=== PATIENT | female | born 2000 | race Caucasian/White ===

== ENCOUNTER → 2021-05-10 11:56 | Outpatient (CLI) | payer SELFPAY ==
--- NOTE | 2021-05-10 12:03 | US_ITS ---
STUDY: FIRST TRIMESTER OBSTETRICAL ULTRASOUND REASON FOR EXAM: Female, 20 years old viability LMP: 03/05/2021 TECHNIQUE: Transabdominal and Transvaginal TECHNICAL QUALITY: Adequate. PRIOR ULTRASOUND: None. FINDINGS: There is visualization of a single gestational sac in a normal intrauterine position. The mean sac diameter (MSD) measures 3.47 cm, indicating an estimated gestational age (EGA) of 8 weeks, 4 days. The gestational sac shape is within normal limits. There is a visualized yolk sac. The yolk sac measures 4 mm. The placenta is non-visualized. There is visualization of a live embryo. The crown-rump length (CRL) measures 2.17 cm, indicating an estimated gestational age (EGA) of 8 weeks, 4 days. There is demonstrated cardiac activity with a heart rate of 161 bpm. The estimated gestation age (EGA) by LMP is 9 weeks, 3 days. The estimated date of delivery (MARIAM) by LMP is 12/10/2021. The estimated gestation age (EGA) by US is 8 weeks, 4 days. The estimated date of delivery (MARIAM) by US is 12/16/2021. The uterus measures 9.7 cm x 6.9 cm x 6.3. There is no demonstrated uterine fibroid. The cervix is closed. The right ovary measures 4.2 cm x 2.5 cm x 1.5 cm. There is no right ovarian cyst. There is no visualized right adnexal mass or complex lesion. The left ovary measures 2.9 cm x 2.3 cm x 2.2 cm. There is a 1.2 cm x 1.1 cm x 1 cm left adnexal cyst. There is no visualized left adnexal mass or complex lesion. There is no fluid in the cul de sac. US/Transvaginal w/Preg US IMPRESSION: Single live intrauterine gestation with a mean gestational age of 8 weeks and 4 days. Small left adnexal cyst. Electronically Signed: David Jaime MD at 15:19 EDT , Service support ,
== END ==
PROVIDERS: PCP Physician Assistant; Referring Provider Family Medicine; Visit Provider Obstetrics & Gynecology
DX: Z34.90 Encounter for supervision of normal pregnancy, unspecified, unspecified trimester (principal)
CPT/HCPCS: 76817

== ENCOUNTER → 2021-05-17 11:44 | Outpatient (CLI) | payer SELFPAY ==
[2021-05-17 12:10] LABS: Absolute Lymphocyte Count 1.78 X10^3/uL (0.83-4.51); Absolute Neutrophil Count 5.8 X10^3/uL (2.0-7.7); Basophil# 0.05 X10^3/uL; Basophil% 0.6 % (0-1); Eosinophil# 0.31 X10^3/uL; Eosinophils% 3.7 % (0-5); Hematocrit 38.6 % (37-47); Hemoglobin 13.2 g/dL (12.0-15.0); Lymphocyte # 1.78 X10^3/ul (0.83-4.51); Mean Corp Hgb Conc 34.2 g/dL (32-36); Mean Corpuscular Hgb 30.1 pg (27.0-32.0); Mean Corpuscular Volume 87.9 fL (81-99); Mean Platelet Vol. 9.4 fl (6.2-12.0); Monocyte# 0.48 X10^3/uL; Monocyte% 5.7 % (0-10); NRBC Flagged by Analyzer 0 % (0-5); Neutrophil # 5.83 X10^3/uL (2.7-7.7); Neutrophil % 68.5 % (47-70); Platelet Count 250 K/mm3 (150-450); RBC Distribution Width CV 12.1 % (11.6-14.6); RBC Distribution Width SD 38.9 fl (35.1-43.9); Red Blood Count 4.39 M/mm3 (4.2-5.4); White Blood Count 8.5 K/mm3 (4.4-11.0)
[2021-05-17 12:54] LABS: Amphetamine Urine VISTA NEGATIVE (<1000 ng/mL); Barbiturate Urine VISTA NEGATIVE (< 200 ng/mL); Benzodiazepine Urine VISTA NEGATIVE (< 200 ng/mL); Cocaine Urine VISTA NEGATIVE (< 300 ng/mL); Ecstacy Urine VISTA NEGATIVE (< 500 ng/mL); Methadone Urine VISTA NEGATIVE (< 300 ng/mL); PCP Urine VISTA NEGATIVE (< 25 ng/mL); THC Urine VISTA NEGATIVE (< 50 ng/mL); Vista UDS pH Range 6
[2021-05-17 13:16] LABS: HIV - WCH Non-Reactive (Nonreactive); Hepatitis B Surface Antigen Non-Reactive (Nonreactive); Hepatitis C Antibody Non-Reactive (Nonreactive); Rubella IgG Reactive (Nonreactive); Syphilis Antibodies Non-reactive
[2021-05-19 03:07] LABS: Chlamydia By Nucleic Acid AMP Negative (Negative)
[2021-05-19 13:15] LABS: Gonococcus By Nucleic Acid AMP Negative (Negative)
== END ==
PROVIDERS: PCP Physician Assistant; Referring Provider Obstetrics & Gynecology; Visit Provider Obstetrics & Gynecology
DX: Z34.90 Encounter for supervision of normal pregnancy, unspecified, unspecified trimester (principal)
CPT/HCPCS: 36415; 80307; 85025; 86703; 86762; 86780; 86803; 86850; 86900; 86901; 87086; 87088; 87340; 87491; 87591

== ENCOUNTER → 2021-07-23 07:15 | Outpatient (CLI) | payer SELFPAY ==
--- NOTE | 2021-07-23 07:23 | US_ITS ---
STUDY: SECOND AND THIRD TRIMESTER OBSTETRICAL ULTRASOUND REASON FOR EXAM: Female, 20 years old, evaluate anatomy LMP: 03/05/2021 TECHNIQUE: Transabdominal and Transvaginal TECHNICAL QUALITY: Adequate. PRIOR ULTRASOUND: None. FINDINGS: There is a single intrauterine fetus. The fetus is in a cephalic presentation. There is demonstrated cardiac activity with a heart rate of 152 bpm. There is a normal amniotic fluid volume. The largest amniotic fluid pocket measures 5.7 cm. The amniotic fluid index is not measured. The placenta is posterior in location and is not low lying. There are Grade 1 placental changes. The cervix measures 3.9 cm in length. The adnexal regions are not visualized. BIOMETRY: BPD: 4.4 cm: 19 weeks, 1 days HC: 16.4 cm: 19 weeks, 1 days AC: 14.9 cm: 20 weeks, 1 days FL: 3 cm: 19 weeks, 1 days CI: 77.89% FL/BPD: 68.1% FL/HC: 18.2% FL/AC: 20.1% HC/AC: 1.1 age by current US: 19 weeks, 2 days. MARIAM by current US: 12/15/2021. Estimated weight: 308 grams, +/- 46 grams. age by prior US: 19 weeks, 1 days. MARIAM by prior US: 12/16/2021. Age by LMP: 19 weeks, 1 days. MARIAM by LMP: 12/16/2021. ANATOMY: Gender: Male Cranium: Normal lateral ventricles. Normal choroid plexus. Normal cerebellum. Normal cisterna magna. Normal face, nose and lips. Chest: Normal 4-chamber heart. Abdomen/Pelvis: Normal diaphragm. Normal stomach. Normal abdominal wall. Eccentric cord insertion approximately 3 cm from the placental margin. Normal 3 vessel cord. Normal kidneys. Normal bladder. Spine: Normal cervical spine. Normal thoracic spine. Normal lumbar spine. Normal sacrum. Extremities: Normal bilateral upper extremities. Normal bilateral lower extremities. US/Transvaginal w/Preg US IMPRESSION: 1. Single live intrauterine fetus in cephalic presentation with an estimated gestational age of 19 weeks and 2 days. MARIAM is 12/15/2021. 2. Eccentric cord insertion but not marginal. Follow-up exam might be performed. Electronically Signed: Srinivas Gomez, at 9:01 EDT Tel , Service support ,
--- NOTE | 2021-07-23 07:23 | US_ITS ---
STUDY: SECOND AND THIRD TRIMESTER OBSTETRICAL ULTRASOUND REASON FOR EXAM: Female, 20 years old, evaluate anatomy LMP: 03/05/2021 TECHNIQUE: Transabdominal and Transvaginal TECHNICAL QUALITY: Adequate. PRIOR ULTRASOUND: None. FINDINGS: There is a single intrauterine fetus. The fetus is in a cephalic presentation. There is demonstrated cardiac activity with a heart rate of 152 bpm. There is a normal amniotic fluid volume. The largest amniotic fluid pocket measures 5.7 cm. The amniotic fluid index is not measured. The placenta is posterior in location and is not low lying. There are Grade 1 placental changes. The cervix measures 3.9 cm in length. The adnexal regions are not visualized. BIOMETRY: BPD: 4.4 cm: 19 weeks, 1 days HC: 16.4 cm: 19 weeks, 1 days AC: 14.9 cm: 20 weeks, 1 days FL: 3 cm: 19 weeks, 1 days CI: 77.89% FL/BPD: 68.1% FL/HC: 18.2% FL/AC: 20.1% HC/AC: 1.1 age by current US: 19 weeks, 2 days. MARIAM by current US: 12/15/2021. Estimated weight: 308 grams, +/- 46 grams. age by prior US: 19 weeks, 1 days. MARIAM by prior US: 12/16/2021. Age by LMP: 19 weeks, 1 days. MARIAM by LMP: 12/16/2021. ANATOMY: Gender: Male Cranium: Normal lateral ventricles. Normal choroid plexus. Normal cerebellum. Normal cisterna magna. Normal face, nose and lips. Chest: Normal 4-chamber heart. Abdomen/Pelvis: Normal diaphragm. Normal stomach. Normal abdominal wall. Eccentric cord insertion approximately 3 cm from the placental margin. Normal 3 vessel cord. Normal kidneys. Normal bladder. Spine: Normal cervical spine. Normal thoracic spine. Normal lumbar spine. Normal sacrum. Extremities: Normal bilateral upper extremities. Normal bilateral lower extremities. US/OB Anatomy Scan IMPRESSION: 1. Single live intrauterine fetus in cephalic presentation with an estimated gestational age of 19 weeks and 2 days. MARIAM is 12/15/2021. 2. Eccentric cord insertion but not marginal. Follow-up exam might be performed. Electronically Signed: Srinivas Gomez MD at 9:01 EDT Tel , Service support ,
== END ==
PROVIDERS: PCP Physician Assistant; Referring Provider Obstetrics & Gynecology; Visit Provider Obstetrics & Gynecology
DX: Z34.82 Encounter for supervision of other normal pregnancy, second trimester (principal)
CPT/HCPCS: 76805; 76817

== ENCOUNTER → 2021-08-04 13:47 | Outpatient (CLI) | payer SELFPAY ==
[2021-08-04 14:14] LABS: Absolute Lymphocyte Count 1.85 X10^3/uL (0.83-4.51); Absolute Neutrophil Count 7.4 X10^3/uL (2.0-7.7); Basophil# 0.05 X10^3/uL; Basophil% 0.5 % (0-1); Eosinophil# 0.36 X10^3/uL; Eosinophils% 3.4 % (0-5); Hematocrit 34.8 % (37-47); Hemoglobin 11.7 g/dL (12.0-15.0); Lymphocyte # 1.85 X10^3/ul (0.83-4.51); Lymphocyte % 17.6 % (19-41); Mean Corp Hgb Conc 33.6 g/dL (32-36); Mean Corpuscular Hgb 30.5 pg (27.0-32.0); Mean Corpuscular Volume 90.6 fL (81-99); Mean Platelet Vol. 9.4 fl (6.2-12.0); Monocyte% 6.7 % (0-10); NRBC Flagged by Analyzer 0 % (0-5); Neutrophil # 7.43 X10^3/uL (2.7-7.7); Neutrophil % 70.8 % (47-70); Platelet Count 268 K/mm3 (150-450); RBC Distribution Width CV 13.2 % (11.6-14.6); Red Blood Count 3.84 M/mm3 (4.2-5.4); White Blood Count 10.5 K/mm3 (4.4-11.0)
[2021-08-04 14:28] LABS: ALB/GLOB Ratio 0.9 RATIO (0.9-2.4); AST(SGOT) 17 U/L (15-37); Alanine Aminotransfer ALT/SGPT 24 U/L (13-56); Albumin, Serum 3.3 g/dL (3.2-5.0); Alkaline Phosphatase 76 U/L (45-117); Anion Gap 4 (5-15); BUN 4 mg/dL (7-18); Calcium,Total 9.4 mg/dL (8.5-10.1); Chloride 107 mmol/L (98-107); Creatinine, Serum 0.57 mg/dL (0.55-1.02); EST Glomerular Filtration Rate 141 mL/min (>60); Est Glom Filt Rate - Afr Amer 170 mL/min (>60); Globulin 3.8 g/dL (2.2-4.2); Glucose 83 mg/dL (74-106); Potassium 4.1 mmol/L (3.5-5.1); Protein, Total 7.1 g/dL (6.4-8.2); Sodium Level 138 mmol/L (136-145)
== END ==
PROVIDERS: PCP Physician Assistant; Referring Provider Obstetrics & Gynecology; Visit Provider Obstetrics & Gynecology
DX: O26.899 Other specified pregnancy related conditions, unspecified trimester (principal); R10.11 Right upper quadrant pain; Z3A.00 Weeks of gestation of pregnancy not specified
CPT/HCPCS: 36415; 80053; 85025

== ENCOUNTER → 2021-08-09 10:25 | Outpatient (CLI) | payer SELFPAY ==
--- NOTE | 2021-08-09 10:27 | US_ITS ---
STUDY: ABDOMINAL ULTRASOUND - RIGHT UPPER QUADRANT REASON FOR VISIT: Female, 20 years old RUQ abdominal pain TECHNIQUE: Ultrasound evaluation of the right upper quadrant was performed with real-time and static seymour-scale imaging. TECHNICAL QUALITY: Adequate. COMPARISON: None. FINDINGS: Liver: The liver measures 17.5 cm. There is normal echogenicity of the liver. The bile ducts are within normal limits. There is hepatic color flow. The direction of portal flow is hepatopetal. There is no demonstrated mass lesion. Gallbladder: Normal distended gallbladder. The gallbladder wall measures 2.3 mm. There is a negative sonographic House''s sign. There is no pericholecystic fluid. There are no gallstones. Common Bile Duct (C.B.D.): The common bile duct measures 3.6 mm. Pancreas: Normal size of the head, body and tail of the pancreas. There is normal echogenicity of the pancreas. There is no demonstrated pancreatic mass or cyst. Right Kidney: Normal size of the right kidney. The right kidney measures 11.7 x 5.2 x 4.4 cm. Cortex right kidney within normal limits 1.4 cm There is no demonstrated renal mass or cyst. There is no right hydronephrosis. US/Gallbladder IMPRESSION: Normal right upper quadrant ultrasound examination. Electronically Signed: Oziel Baron MD at 14:19 EST Tel , Service support ,
== END ==
PROVIDERS: PCP Physician Assistant; Referring Provider Obstetrics & Gynecology; Visit Provider Obstetrics & Gynecology
DX: O26.899 Other specified pregnancy related conditions, unspecified trimester (principal); R10.11 Right upper quadrant pain
CPT/HCPCS: 76705

== ENCOUNTER → 2021-09-07 07:32 | Outpatient (CLI) | payer SELFPAY ==
[2021-09-07 07:52] LABS: Absolute Lymphocyte Count 1.63 X10^3/uL (0.83-4.51); Absolute Neutrophil Count 6.7 X10^3/uL (2.0-7.7); Basophil# 0.06 X10^3/uL; Basophil% 0.6 % (0-1); Eosinophil# 0.29 X10^3/uL; Eosinophils% 3.1 % (0-5); Hematocrit 34.3 % (37-47); Hemoglobin 11.5 g/dL (12.0-15.0); Lymphocyte # 1.63 X10^3/ul (0.83-4.51); Lymphocyte % 17.2 % (19-41); Mean Corp Hgb Conc 33.5 g/dL (32-36); Mean Corpuscular Hgb 30.8 pg (27.0-32.0); Mean Platelet Vol. 9.5 fl (6.2-12.0); Monocyte# 0.53 X10^3/uL; Monocyte% 5.6 % (0-10); NRBC Flagged by Analyzer 0 % (0-5); Neutrophil % 70.7 % (47-70); Platelet Count 265 K/mm3 (150-450); RBC Distribution Width CV 13.4 % (11.6-14.6); RBC Distribution Width SD 44.9 fl (35.1-43.9); Red Blood Count 3.73 M/mm3 (4.2-5.4); White Blood Count 9.5 K/mm3 (4.4-11.0)
[2021-09-07 07:59] LABS: Glucose Challenge Gest 1H 50g 142 mg/dL (70-140)
== END ==
PROVIDERS: PCP Physician Assistant; Referring Provider Obstetrics & Gynecology; Visit Provider Obstetrics & Gynecology
DX: Z34.81 Encounter for supervision of other normal pregnancy, first trimester (principal)
CPT/HCPCS: 36415; 82950; 85025

== ENCOUNTER 2021-09-22 10:06 | Outpatient (CLI) | payer SELFPAY ==
[2021-09-22 10:58] LABS: Glucose GTT-Gestation. Fasting 80 mg/dL (<105)
[2021-09-22 13:13] LABS: Glucose GTT-Gestational 2 Hr 117 mg/dL (<165)
[2021-09-22 13:15] LABS: Glucose GTT-Gestational 1 Hr 99 mg/dL (<190)
[2021-09-22 14:16] LABS: Glucose GTT-Gestational 3 Hr 106 L (<145)
== END 2021-09-22 23:59 | disposition short-term general hospital (02) ==
LOC: LAB 10:09
PROVIDERS: PCP Physician Assistant; Referring Provider Obstetrics & Gynecology; Visit Provider Obstetrics & Gynecology
DX: O99.810 Abnormal glucose complicating pregnancy (principal); Z3A.00 Weeks of gestation of pregnancy not specified
CPT/HCPCS: 36415; 82951; 82952

== ENCOUNTER 2021-09-30 14:42 | Outpatient (CLI) | payer SELFPAY ==
[2021-09-30 15:06] LABS: ROM Internal Control Test YES-OK TO RESULT pt. (Internal QC); ROM Patient Test Negative (Negative)
== END 2021-09-30 23:59 | disposition short-term general hospital (02) ==
PROVIDERS: PCP Physician Assistant; Visit Provider Obstetrics & Gynecology
DX: O26.899 Other specified pregnancy related conditions, unspecified trimester (principal); N89.8 Other specified noninflammatory disorders of vagina; Z3A.00 Weeks of gestation of pregnancy not specified
CPT/HCPCS: 84112

== ENCOUNTER 2021-11-17 08:05 | Outpatient (CLI) | payer SELFPAY ==
[2021-11-17 10:05] LABS: Amphetamine Urine VISTA NEGATIVE (<1000 ng/mL); Barbiturate Urine VISTA NEGATIVE (< 200 ng/mL); Benzodiazepine Urine VISTA NEGATIVE (< 200 ng/mL); Cocaine Urine VISTA NEGATIVE (< 300 ng/mL); Ecstacy Urine VISTA NEGATIVE (< 500 ng/mL); Methadone Urine VISTA NEGATIVE (< 300 ng/mL); PCP Urine VISTA NEGATIVE (< 25 ng/mL); THC Urine VISTA NEGATIVE (< 50 ng/mL); Vista UDS pH Range 7
== END 2021-11-17 23:59 | disposition home or self-care (01) ==
LOC: LABSPEC 11-18 08:02
PROVIDERS: PCP Physician Assistant; Referring Provider Obstetrics & Gynecology; Visit Provider Obstetrics & Gynecology
DX: Z34.83 Encounter for supervision of other normal pregnancy, third trimester (principal); Z3A.34 34 weeks gestation of pregnancy
CPT/HCPCS: 80307

== ENCOUNTER 2021-11-26 13:24 | Outpatient (CLI) | payer SELFPAY | END 2021-11-26 23:59 | disposition home or self-care (01) | LOC: LABSPEC 12-14 13:24 | PROVIDERS: PCP Physician Assistant; Visit Provider Obstetrics & Gynecology | DX: Z34.93 Encounter for supervision of normal pregnancy, unspecified, third trimester (principal); Z3A.37 37 weeks gestation of pregnancy | CPT/HCPCS: 87077; 87081 ==

== ENCOUNTER 2021-12-16 08:35 | Outpatient (CLI) | payer SELFPAY ==
[2021-12-16 08:52] VITALS: BMI 34.9
[2021-12-16 09:15] VITALS: TEMP 36.1
[2021-12-16 10:58] VITALS: BP 116/72; PULSE 82
--- NOTE | 2021-12-16 17:02 | OB.TRI.HP_ITS ---
HPI - General HPI Narrative MAURICIO FIELDS, is a 21 y/o @ 40 weeks gestation who presents to L&D with contractions. The nurse reports that her cervix is 1 cm dilated. The plan was given to the nurse to observe for 1-2 hours to rule out labor. PFSH PFSH Medical History Seizures Home Medications multivitamin no.47-iron fum 27 mg-folate no.1 1 mg-dha 300 mg capsule 1 cap PO DAILY 05/05/21 [History Last Taken 12/16/21] famotidine 20 mg tablet 20 mg PO BID 30 Days #60 tab 08/09/21 [Rx Last Taken 12/15/21 20:00] ibuprofen 600 mg PO Q6H PRN 7 Days #28 tab 12/17/21 [Rx Last Taken Unknown] Allergy/AdvReac Type Severity Reaction Status Date / Time No Known Allergies Allergy Verified 12/29/21 15:03 Surgical History Delivery by section H/O anterior cruciate ligament surgery H/O dilation and curettage History of gynecologic surgery History of surgery Status post delivery Social History adopted: Yes household members: spouse number of children: 0 current occupational status: employed 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 Date Name GA/Weeks Outcome Route Bth Weight Infant Gen Labor Lgth Anesthesia Del Locatn Provider FOB 01/29/21 missed AB 12/17/21 Patrick 40 live - full term Male [facility] Ashley Henson Delivery Date: 01/29/21 D&C Veronica Neri Delivery Date: 12/17/21 maternal exhaustion, could not push for 2 hours. Primary section Brian,Zena ROS Constitutional Constitutional: Reports systems reviewed and no addt'l complaints, except as documented Gastrointestinal Gastrointestinal: Denies bloating, constipation, cramping, diarrhea, nausea or vomiting Genitourinary Genitourinary: Reports other Details: Denies vaginal odor, vaginal bleeding, or vaginal discharge ; Denies difficulty urinating or flank pain Physical Exam HEENT normocephalic Resp normal respiratory effort and normal air movement no CVA tenderness Extremity normal to inspection General Extremity: edema bilateral (trace ) NST FHR Rate Baby A Baseline: 140 Variability:: Moderate Accelerations:: 15 x 15 Decelerations:: None NST Reactive:: Yes FHR Category:: Category I Assessment & Plan (1) False labor after 37 completed weeks of gestation: PLAN: after 2 hours there is no cervical dilation. The patient plans to stay close to town (with grandmother in town) and return when contractions are stronger and closer together. Charges/Coding Multi Select Codes Visit Charges Office Visit/Consults: 50981 OV L3 Est Urinary/Genital Urinary/Genital CPT Codes: 63710-83 non-stress test Interp
== END 2021-12-16 14:27 | disposition home or self-care (01) ==
LOC: WPOUT 08:51 → WP 08:51
PROVIDERS: PCP Physician Assistant; Visit Provider Obstetrics & Gynecology
DX: O47.9 False labor, unspecified (principal); Z87.891 Personal history of nicotine dependence; Z3A.40 40 weeks gestation of pregnancy
CPT/HCPCS: 59025; 59050; 99218; G0378

== ENCOUNTER 2021-12-17 07:55 | Inpatient (IN) | payer SELFPAY ==
[2021-12-17] VITALS (49 sets, daily range): BP systolic 104–141; BP diastolic 39–85; PULSE 64–123; RESP 16–18; TEMP 36.4–37.9; O2SAT 92–99; BMI 77.3
[2021-12-17] MEDS: hydrOXYzine PAM 25 MG Capsule 50 MG PO (04:15)
[2021-12-17] MEDS: fentaNYL 100 MCG/2 ML Ampul 50 MCG IV (06:49)
[2021-12-17 08:10] LABS: Absolute Lymphocyte Count 1.45 X10^3/uL (0.83-4.51); Absolute Neutrophil Count 9.4 X10^3/uL (2.0-7.7); Basophil# 0.05 X10^3/uL; Basophil% 0.4 % (0-1); Eosinophil# 0.16 X10^3/uL; Eosinophils% 1.3 % (0-5); Hematocrit 36.3 % (37-47); Hemoglobin 12.3 g/dL (12.0-15.0); Lymphocyte # 1.45 X10^3/ul (0.83-4.51); Lymphocyte % 12.1 % (19-41); Mean Corp Hgb Conc 33.9 g/dL (32-36); Mean Corpuscular Hgb 30.8 pg (27.0-32.0); Mean Corpuscular Volume 90.8 fL (81-99); Mean Platelet Vol. 10.4 fl (6.2-12.0); Monocyte# 0.78 X10^3/uL; Monocyte% 6.5 % (0-10); NRBC Flagged by Analyzer 0 % (0-5); Neutrophil # 9.39 X10^3/uL (2.7-7.7); Neutrophil % 78.4 % (47-70); Platelet Count 243 K/mm3 (150-450); RBC Distribution Width CV 13.6 % (11.6-14.6); RBC Distribution Width SD 44.9 fl (35.1-43.9)
[2021-12-17] MEDS: Lactated Ringers 1,000 ML 200 ML IV ×3 (08:10→17:59)
[2021-12-17] MEDS: Lactated Ringers 500 ML 999 ML IV ×3 (08:15→20:54)
--- NOTE | 2021-12-17 08:18 | OB.TRI.HP_ITS ---
HPI - General General Date of Admission: 12/17/21 HPI Narrative MAURICIO FIELDS, is a 20 y/o F who presents Maternal Data Information MARIMA Calculator Estimated Delivery Date Method Current WG Current Estimate 12/16/21 Ultrasound #1 40w 1d Other Estimates 12/10/21 LMP (Certain) 41w 0d PFSH PFSH Home Medications multivitamin no.47-iron fum 27 mg-folate no.1 1 mg-dha 300 mg capsule 1 cap PO DAILY 05/05/21 [History Last Taken 12/16/21] famotidine 20 mg tablet 20 mg PO BID 30 Days #60 tab 08/09/21 [Rx Last Taken 12/15/21 20:00] Allergy/AdvReac Type Severity Reaction Status Date / Time No Known Allergies Allergy Verified 12/15/21 09:19 Surgical History H/O anterior cruciate ligament surgery H/O dilation and curettage Social History adopted: Yes household members: spouse number of children: 0 current occupational status: employed 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 Date Name GA/Weeks Outcome Route Bth Weight Gen Labor Lgth Anesthesia Del Locatn Provider FOB 01/29/21 missed AB Delivery Date: 01/29/21 D&C Veronica Neri Visit Details Expected Delivery Route/Plan Labor Preferences- CB/BF classes: encouraged labor support person: [] labor intervention preferences: [] pain management options preferred: [] cut cord/dad catch: [] : [] PP control planned: [] discussed possible routes of delivery and associated risks: [] special requests: [] Plans Covid status: counseled regarding risk of covid in vs vaccination and declined vaccination Flu vaccine: declined Tdap vaccine: declined Rhogam: na LARC form signed: declined movement and labor precautions reviewed. Problem list reviewed and updated with the most current plan of care details and appropriate orders placed. Relevant counseling for the gestational age provided. Continue routine care and follow up unless otherwise noted in visit notes/problem list details OB Flowsheet Initial Weight: 183 lb Date -?-?-?-?-?-?-?-?-?--?-?-?- EGA Weight BP Urine Prot -?-?-?-?-?-?-?-?-?-?-?-?- Glucose FHR FuHt Pres Dilation -?-?-?-?-?-?-?-?-?-?-?-?- Effaced St Visit Note 06/14/21 -?-?-?-?-?-?-?-?-?-?-?-?- 13w 4d 184 lb (+16 oz) 120/70 Negative -?-?-?-?-?-?-?-?-?-?-?-?- Negative 145 -?-?-?-?-?-?-?-?-?-?-?-?- SM- no vb crampi ng 07/16/21 -?-?-?-?-?-?-?-?-?-?-?-?- 18w 1d 186 lb (+3 lb) 120/64 Negative -?-?-?-?-?-?-?-?-?-?-?-?- Negative 145 -?-?-?-?-?-?-?-?-?-?-?-?- Sm- `no vb cramp ing 08/04/21 -?-?-?-?-?-?-?-?-?-?-?-?- 20w 6d 185 lb 8 oz (+2 lb 8 oz) 110/72 Negative -?-?-?-?-?-?-?-?-?-?-?-?- Negative 160 -?-?-?-?-?-?-?-?-?-?-?-?- JV- pt being see n urgently for headache, vomiting and RUQ pain with mid back pain. She states that vomiting started after eating spaghetti dinner. She read on line about pre-e and got nervous. no visual changes. 08/09/21 -?-?-?-?-?-?-?-?-?-?-?-?- 21w 4d 187 lb 4 oz (+4 lb 4 oz) 106/68 Negative -?-?-?-?-?-?-?-?-?-?-?-?- Negative 130 -?-?-?-?-?-?-?-?-?-?-?-?- JV- pt now havin g more epigastric pain. ultrasound is today. will try pepcid bid. pt has long history of reflux and esophageal bleed prior to 09/07/21 -?-?-?-?-?-?-?-?-?-?-?-?- 25w 5d 191 lb 6 oz (+8 lb 6 oz) 116/70 Trace -?--?-?-?-?-?-?-?-?-?-?-?- Negative 141 -?-?-?-?-?-?-?-?-?-?-?-?- JV- failed 1 hr. 3 hr ordered. no complaints other than some bladder pressure. UA neg 09/22/21 -?-?-?-?-?-?-?-?-?-?-?-?- 27w 6d 190 lb (+7 lb) 110/82 Negative -?-?-?-?-?-?-?-?-?-?-?-?- Negative 140 28 -?-?-?-?-?-?-?-?--?-?-?-?- SM- no vb lof go od fm nro egular ctx 09/30/21 -?-?-?-?-?-?-?-?-?-?-?-?- 29w 0d 160/80 114/72 -?-?-?-?-?-?-?-?-?-?-?-?- 144 28 -?-?-?-?-?-?-?-?-?-?-?-?- JV- pt is being seen urgently for cramping and leaking fluid. On exam there is a moderate amount of yeast present. the cx is closed. will send amnisure and rx for yeast to pharmacy. 10/07/21 -?-?-?-?-?-?-?-?-?-?-?-?- 30w 0d 198 lb (+15 lb) 122/66 Negative -?-?-?-?-?-?-?-?-?-?-?-?- Negative 140 30 -?-?-?-?-?-?-?-?-?-?-?-?- SM- no vb lof go od fm no reuglar ctx. discussed restarting alex, encouraged counseling 10/26/21 -?-?-?-?-?--?-?-?-?-?-?-?- 32w 5d 197 lb 2 oz (+14 lb 2 oz) 120/74 Negative -?-?-?-?-?-?-?-?-?-?-?-?- Negative 140 33 -?-?-?-?-?-?-?-?-?-?-?-?- SM- no vb lof go od fm no regular ctx 11/05/21 -?-?-?-?-?-?-?-?-?-?-?-?- 34w 1d 200 lb 4 oz (+17 lb 4 oz) 120/70 Negative -?-?-?-?-?-?-?-?-?-?-?-?- Negative 150 35 -?-?-?-?-?-?-?-?-?-?-?-?- SM- no vb lof no regular ctx 11/17/21 -?-?-?-?-?-?-?-?-?-?-?-?- 35w 6d 200 lb 8 oz (+17 lb 8 oz) 112/72 Negative -?-?-?-?-?-?-?-?-?-?-?-?- Negative 160 35 Cephalic -?-?-?-?-?-?-?-?-?-?-?-?- JV- no lof, vagi nal bleeding, or dec fm. gbs next visit 11/26/21 -?-?-?-?-?-?-?-?-?-?-?-?- 37w 1d 204 lb (+21 lb) 110/70 Negative -?-?-?-?--?-?-?-?-?-?-?-?- Negative 150 37 Cephalic 0 -?-?-?-?-?-?-?-?-?-?-?-?- SM- no vb lof go od fm no reuglar ctx 12/03/21 -?-?-?-?-?-?-?-?-?-?-?-?- 38w 1d 204 lb 4 oz (+21 lb 4 oz) 118/74 Negative -?-?-?-?-?-?-?-?-?-?-?-?- Negative 140 39 Cephalic 0 -?-?-?-?-?-?-?-?-?-?-?-?- -3 JV- no r egular cxns yet but is feeling one currently. no lof, vaginal bleeding or dec fm. labor precautions discussed 12/10/21 -?-?-?-?-?-?-?-?-?-?-?-?- 39w 1d 202 lb (+19 lb) 114/66 -?-?-?-?-?-?-?-?-?-?-?-?- 140 39 Cephalic 0 -?-?-?-?-?-?-?-?-?-?-?-?- SM- no vb lof go od fm no regular ctx 12/15/21 -?-?-?-?-?-?-?-?-?-?-?-?- 39w 6d 207 lb (+24 lb) 110/82 Negative -?-?-?-?-?-?-?-?-?-?-?-?- Negative 129 39 Cephalic 1 -?-?-?-?-?-?-?-?-?-?-?-?- 70 -2 JV- no lof , vaginal bleeding, or dec fm. Plan for 41 week IOL dukes/pit monday night or am 12/17/21 -?-?-?-?-?-?-?--?-?-?-?-?- 40w 1d 450 lb 2.943 oz (+267 lb 2.943 oz) 118/71 -?-?-?-?-?-?-?-?-?-?-?-?- -?-?-?-?-?-?-?-?-?-?-?-?- ROS Gastrointestinal Gastrointestinal: Denies bloating, constipation, cramping, diarrhea, nausea or vomiting Genitourinary Genitourinary: Reports other Details: Denies vaginal odor, vaginal bleeding, or vaginal discharge ; Denies difficulty urinating or flank pain Physical Exam HEENT normocephalic Resp normal respiratory effort and normal air movement no CVA tenderness Extremity normal to inspection General Extremity: edema bilateral (trace ) NST FHR Rate Baby A Baseline: 140 Variability:: Moderate Accelerations:: 15 x 15 Decelerations:: None NST Reactive:: Yes FHR Category:: Category I Charges/Coding Multi Select Codes Visit Charges Office Visit/Consults: 18671 OV L3 Est Urinary/Genital Urinary/Genital CPT Codes: 57954-00 non-stress test Interp
--- NOTE | 2021-12-17 08:18 | OB.TRI.NOTE ---
HPI - General General Date of Admission: 12/17/21 HPI Narrative MAURICIO FIELDS, is a 20 y/o F who presents Maternal Data Information MARIAM Calculator Estimated Delivery Date Method Current WG Current Estimate 12/16/21 Ultrasound #1 40w 1d Other Estimates 12/10/21 LMP (Certain) 41w 0d PFSH PFSH Home Medications multivitamin no.47-iron fum 27 mg-folate no.1 1 mg-dha 300 mg capsule 1 cap PO DAILY 05/05/21 [History Last Taken 12/16/21] famotidine 20 mg tablet 20 mg PO BID 30 Days #60 tab 08/09/21 [Rx Last Taken 12/15/21 20:00] Allergy/AdvReac Type Severity Reaction Status Date / Time No Known Allergies Allergy Verified 12/15/21 09:19 Surgical History H/O anterior cruciate ligament surgery H/O dilation and curettage Social History adopted: Yes household members: spouse number of children: 0 current occupational status: employed 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 Date Name GA/Weeks Outcome Route Bth Weight Infant Gen Labor Lgth Anesthesia Del Locatn Provider FOB 01/29/21 missed AB Delivery Date: 01/29/21 D&C Veronica Neri Visit Details Expected Delivery Route/Plan Labor Preferences- CB/BF classes: encouraged labor support person: [] labor intervention preferences: [] pain management options preferred: [] cut cord/dad catch: [] : [] PP control planned: [] discussed possible routes of delivery and associated risks: [] special requests: [] Plans Covid status: counseled regarding risk of covid in vs vaccination and declined vaccination Flu vaccine: declined Tdap vaccine: declined Rhogam: na LARC form signed: declined movement and labor precautions reviewed. Problem list reviewed and updated with the most current plan of care details and appropriate orders placed. Relevant counseling for the gestational age provided. Continue routine care and follow up unless otherwise noted in visit notes/problem list details OB Flowsheet Initial Weight: 183 lb Date <del>?</del> EGA Weight BP Urine Prot <del>?</del> Glucose FHR FuHt Pres Dilation <del>?</del> Effaced St Visit Note 06/14/21 <del>?</del> 13w 4d 184 lb (+16 oz) 120/70 Negative <del>?</del> Negative 145 <del>?</del> SM- no vb cramping 07/16/21 <del>?</del> 18w 1d 186 lb (+3 lb) 120/64 Negative <del>?</del> Negative 145 <del>?</del> Sm- `no vb cramping 08/04/21 <del>?</del> 20w 6d 185 lb 8 oz (+2 lb 8 oz) 110/72 Negative <del>?</del> Negative 160 <del>?</del> JV- pt being seen urgently for headache, vomiting and RUQ pain with mid back pain. She states that vomiting started after eating spaghetti dinner. She read on line about pre-e and got nervous. no visual changes. 08/09/21 <del>?</del> 21w 4d 187 lb 4 oz (+4 lb 4 oz) 106/68 Negative <del>?</del> Negative 130 <del>?</del> JV- pt now having more epigastric pain. ultrasound is today. will try pepcid bid. pt has long history of reflux and esophageal bleed prior to 09/07/21 <del>?</del> 25w 5d 191 lb 6 oz (+8 lb 6 oz) 116/70 Trace <del>?</del> Negative 141 <del>?</del> JV- failed 1 hr. 3 hr ordered. no complaints other than some bladder pressure. UA neg 09/22/21 <del>?</del> 27w 6d 190 lb (+7 lb) 110/82 Negative <del>?</del> Negative 140 28 <del>?</del> SM- no vb lof good fm nro egular ctx 09/30/21 <del>?</del> 29w 0d 160/80 114/72 <del>?</del> 144 28 <del>?</del> JV- pt is being seen urgently for cramping and leaking fluid. On exam there is a moderate amount of yeast present. the cx is closed. will send amnisure and rx for yeast to pharmacy. 10/07/21 <del>?</del> 30w 0d 198 lb (+15 lb) 122/66 Negative <del>?</del> Negative 140 30 <del>?</del> SM- no vb lof good fm no reuglar ctx. discussed restarting zoloft, encouraged counseling 10/26/21 <del>?</del> 32w 5d 197 lb 2 oz (+14 lb 2 oz) 120/74 Negative <del>?</del> Negative 140 33 <del>?</del> SM- no vb lof good fm no regular ctx 11/05/21 <del>?</del> 34w 1d 200 lb 4 oz (+17 lb 4 oz) 120/70 Negative <del>?</del> Negative 150 35 <del>?</del> SM- no vb lof no regular ctx 11/17/21 <del>?</del> 35w 6d 200 lb 8 oz (+17 lb 8 oz) 112/72 Negative <del>?</del> Negative 160 35 Cephalic <del>?</del> JV- no lof, vaginal bleeding, or dec fm. gbs next visit 11/26/21 <del>?</del> 37w 1d 204 lb (+21 lb) 110/70 Negative <del>?</del> Negative 150 37 Cephalic 0 <del>?</del> SM- no vb lof good fm no reuglar ctx 12/03/21 <del>?</del> 38w 1d 204 lb 4 oz (+21 lb 4 oz) 118/74 Negative <del>?</del> Negative 140 39 Cephalic 0 <del>?</del> -3 JV- no regular cxns yet but is feeling one currently. no lof, vaginal bleeding or dec fm. labor precautions discussed 12/10/21 <del>?</del> 39w 1d 202 lb (+19 lb) 114/66 <del>?</del> 140 39 Cephalic 0 <del>?</del> SM- no vb lof good fm no regular ctx 12/15/21 <del>?</del> 39w 6d 207 lb (+24 lb) 110/82 Negative <del>?</del> Negative 129 39 Cephalic 1 <del>?</del> 70 -2 JV- no lof, vaginal bleeding, or dec fm. Plan for 41 week IOL dukes/pit monday night or am 12/17/21 <del>?</del> 40w 1d 450 lb 2.943 oz (+267 lb 2.943 oz) 118/71 <del>?</del> <del>?</del> ROS Gastrointestinal Gastrointestinal: Denies bloating, constipation, cramping, diarrhea, nausea or vomiting Genitourinary Genitourinary: Reports other Details: Denies vaginal odor, vaginal bleeding, or vaginal discharge ; Denies difficulty urinating or flank pain Physical Exam HEENT normocephalic Resp normal respiratory effort and normal air movement no CVA tenderness Extremity normal to inspection General Extremity: edema bilateral (trace ) NST FHR Rate Baby A Baseline: 140 Variability:: Moderate Accelerations:: 15 x 15 Decelerations:: None NST Reactive:: Yes FHR Category:: Category I Charges/Coding Multi Select Codes Visit Charges Office Visit/Consults: 79518 OV L3 Est Urinary/Genital Urinary/Genital CPT Codes: 42871-87 non-stress test Interp
--- NOTE | 2021-12-17 08:31 | HP.PCM.OB_ITS ---
HPI - General General Date of Admission: 12/17/21 HPI Narrative MAURICIO FIELDS, is a 20 F who presents with painful contractions without lof, vaginal bleeding. She has been having contractions now for 24 hours and is now asking to have an epidural where previously she wanted to go natural. Maternal Data Information MARIAM Calculator Estimated Delivery Date Method Current WG Current Estimate 12/16/21 Ultrasound #1 40w 1d Other Estimates 12/10/21 LMP (Certain) 41w 0d PFSH PFSH Home Medications multivitamin no.47-iron fum 27 mg-folate no.1 1 mg-dha 300 mg capsule 1 cap PO DAILY 05/05/21 [History Last Taken 12/16/21] famotidine 20 mg tablet 20 mg PO BID 30 Days #60 tab 08/09/21 [Rx Last Taken 12/15/21 20:00] Allergy/AdvReac Type Severity Reaction Status Date / Time No Known Allergies Allergy Verified 12/15/21 09:19 Surgical History H/O anterior cruciate ligament surgery H/O dilation and curettage Social History adopted: Yes household members: spouse number of children: 0 current occupational status: employed 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 Date Name GA/Weeks Outcome Route Bth Weight Gen Labor Lgth Anesthesia Del Locatn Provider FOB 01/29/21 missed AB Delivery Date: 01/29/21 D&Veronica Booker Visit Details Expected Delivery Route/Plan Labor Preferences- CB/BF classes: encouraged labor support person: [] labor intervention preferences: [] pain management options preferred: [] cut cord/dad catch: [] : [] PP control planned: [] discussed possible routes of delivery and associated risks: [] special requests: [] Plans Covid status: counseled regarding risk of covid in vs vaccination and declined vaccination Flu vaccine: declined Tdap vaccine: declined Rhogam: na LARC form signed: declined movement and labor precautions reviewed. Problem list reviewed and updated with the most current plan of care details and appropriate orders placed. Relevant counseling for the gestational age provided. Continue routine care and follow up unless otherwise noted in visit notes/problem list details OB Flowsheet Initial Weight: 183 lb Date -?-?-?-?-?-?-?-?-?-?-?-?- EGA Weight BP Urine Prot -?-?-?-?-?-?-?-?-?-?-?-?- Glucose FHR FuHt Pres Dilation -?-?-?-?-?-?-?-?-?-?-?-?- Effaced St Visit Note 06/14/21 -?-?-?-?-?-?-?-?-?-?-?-?- 13w 4d 184 lb (+16 oz) 120/70 Negative -?-?-?-?-?-?--?-?-?-?-?-?- Negative 145 -?-?-?-?-?-?-?-?-?-?-?-?- SM- no vb crampi ng 07/16/21 -?-?-?-?-?-?-?-?-?-?-?-?- 18w 1d 186 lb (+3 lb) 120/64 Negative -?-?-?-?-?-?-?-?-?-?-?-?- Negative 145 -?-?-?-?-?-?-?-?-?-?-?-?- Sm- `no vb cramp ing 08/04/21 -?-?--?-?-?-?-?-?-?-?-?-?- 20w 6d 185 lb 8 oz (+2 lb 8 oz) 110/72 Negative -?-?-?-?-?-?-?-?-?-?-?-?- Negative 160 -?-?-?-?-?-?-?-?-?-?-?-?- JV- pt being see n urgently for headache, vomiting and RUQ pain with mid back pain. She states that vomiting started after eating spaghetti dinner. She read on line about pre-e and got nervous. no visual changes. 08/09/21 -?-?-?-?-?-?-?-?-?-?-?-?- 21w 4d 187 lb 4 oz (+4 lb 4 oz) 106/68 Negative -?-?-?-?-?-?-?-?-?-?-?-?- Negative 130 -?-?-?-?-?-?-?-?-?-?-?-?- JV- pt now havin g more epigastric pain. ultrasound is today. will try pepcid bid. pt has long history of reflux and esophageal bleed prior to 09/07/21 -?-?-?-?-?-?-?-?-?-?-?-?- 25w 5d 191 lb 6 oz (+8 lb 6 oz) 116/70 Trace -?-?-?-?-?-?-?-?-?-?-?-?- Negative 141 -?-?-?-?-?-?-?-?-?-?-?-?- JV- failed 1 hr. 3 hr ordered. no complaints other than some bladder pressure. UA neg 09/22/21 -?-?-?-?-?-?-?-?--?-?-?-?- 27w 6d 190 lb (+7 lb) 110/82 Negative -?-?-?-?-?-?-?-?-?-?-?-?- Negative 140 28 -?-?-?-?-?-?-?-?-?-?-?-?- SM- no vb lof go od fm nro egular ctx 09/30/21 -?-?-?-?-?-?-?-?-?-?-?-?- 29w 0d 160/80 114/72 -?-?-?-?-?-?-?-?-?-?-?-?- 144 28 -?-?-?-?-?-?-?-?-?-?-?-?- JV- pt is being seen urgently for cramping and leaking fluid. On exam there is a moderate amount of yeast present. the cx is closed. will send amnisure and rx for yeast to pharmacy. 10/07/21 -?-?-?-?-?-?-?-?-?-?-?-?- 30w 0d 198 lb (+15 lb) 122/66 Negative -?-?-?-?-?-?-?-?-?-?-?-?- Negative 140 30 -?-?-?-?-?-?-?-?-?-?-?-?- SM- no vb lof go od fm no reuglar ctx. discussed restarting zoloft, encouraged counseling 10/26/21 -?-?-?-?-?-?-?-?-?-?-?-?- 32w 5d 197 lb 2 oz (+14 lb 2 oz) 120/74 Negative -?-?-?-?-?-?-?-?-?-?-?-?- Negative 140 33 -?-?-?-?-?-?-?-?-?-?-?-?- SM- no vb lof go od fm no regular ctx 11/05/21 -?-?-?-?-?-?-?-?-?-?-?-?- 34w 1d 200 lb 4 oz (+17 lb 4 oz) 120/70 Negative -?-?-?-?-?-?-?-?-?-?-?-?- Negative 150 35 -?-?-?-?-?-?-?-?-?-?-?-?- SM- no vb lof no regular ctx 11/17/21 -?-?-?-?-?-?-?-?-?-?-?-?- 35w 6d 200 lb 8 oz (+17 lb 8 oz) 112/72 Negative -?-?-?-?-?-?-?-?-?-?-?-?- Negative 160 35 Cephalic -?-?-?-?-?-?-?-?-?-?-?-?- JV- no lof, vagi nal bleeding, or dec fm. gbs next visit 11/26/21 -?-?-?-?-?-?-?-?-?-?-?-?- 37w 1d 204 lb (+21 lb) 110/70 Negative -?-?-?-?-?-?-?-?-?-?-?-?- Negative 150 37 Cephalic 0 -?-?-?-?-?-?-?-?-?-?-?-?- SM- no vb lof go od fm no reuglar ctx 12/03/21 -?-?-?-?-?-?-?-?-?-?-?-?- 38w 1d 204 lb 4 oz (+21 lb 4 oz) 118/74 Negative -?-?-?-?-?-?-?-?-?-?-?-?- Negative 140 39 Cephalic 0 -?-?-?-?-?-?-?-?-?-?-?-?- -3 JV- no r egular cxns yet but is feeling one currently. no lof, vaginal bleeding or dec fm. labor precautions discussed 12/10/21 -?-?-?-?-?-?-?-?-?-?-?-?- 39w 1d 202 lb (+19 lb) 114/66 -?-?-?-?-?-?-?-?-?-?-?-?- 140 39 Cephalic 0 -?-?-?-?-?-?-?-?-?-?-?-?- SM- no vb lof go od fm no regular ctx 12/15/21 -?-?-?-?-?-?-?-?-?-?-?-?- 39w 6d 207 lb (+24 lb) 110/82 Negative -?-?-?-?-?-?-?-?-?-?-?-?- Negative 129 39 Cephalic 1 -?-?-?-?-?-?-?-?-?-?-?-?- 70 -2 JV- no lof , vaginal bleeding, or dec fm. Plan for 41 week IOL dukes/pit monday night or am 12/17/21 -?-?-?-?-?-?-?-?-?-?-?-?- 40w 1d 450 lb 2.943 oz (+267 lb 2.943 oz) 118/71 -?-?-?-?-?-?-?-?-?-?-?-?- -?-?-?-?-?-?-?-?-?-?-?-?- ROS Constitutional Constitutional: Denies change in weight, fatigue, fever(s), headache(s), poor appetite or weakness Eyes Eyes: Denies blurry vision, change in vision, seeing flashes or spots in vision ENT HEENT: Denies dizziness, headache(s), loss taste/smell or sore throat Cardiovascular Cardiovascular: Denies chest pain, dizziness, dyspnea, irregular heart rhythm, leg edema, palpitations, rapid heart rate or vomiting Respiratory/Chest Respiratory/Chest: Denies chest tightness, cough, dyspnea or breast pain Gastrointestinal Gastrointestinal: Denies abdominal pain, anorexia, constipation, cramping, diarrhea, hemorrhoids, vomiting or weight changes Genitourinary Genitourinary: Denies dysuria, flank pain, genital lesions, genital pain, urinary frequency or urinary urgency Musculoskeletal Musculoskeletal: Denies back pain, difficulty walking, joint pain, limited range of motion, muscle cramps or numbness Integumentary Integumentary: Denies lesions or unusual bruising Neurologic Neurologic: Denies abnormal movements, abnormal speech, dizziness, numbness, seizure-like activity or syncope Psychiatric Psychiatric: Denies anxiety, behavioral changes, change in appetite, change in libido, cognitive impairment, confusion, depression, difficulty concentrating, hallucinations or suicidal thoughts Endocrine Endocrinology: Denies excessive sweating, polydipsia or polyuria Hematologic/Lymphatic Hematologic/Lymphatic: Denies easy bleeding, easy bruising or lymphadenopathy Allergic/Immunologic Allergic/Immunologic: Denies itchy eyes, lip swelling, seasonal rhinorrhea, rhinitis, throat swelling, tongue swelling, eczemia, wheezing or asthma Vital Signs Vital Signs Vital Signs: 12/17/21 02:18 12/17/21 02:19 12/17/21 04:03 Temperature 97.9 F Temperature Source Temporal Pulse Rate 81 78 86 Blood Pressure 118/71 BP Systolic 118 BP Diastolic 71 Pulse Ox 95 96 Weight Weight: 450 lb 2.943 oz Body Mass Index (BMI) 77.3 Physical Exam Const alert, oriented x3, no apparent distress and healthy appearing General Appearance: cooperative; Negative for anxious HEENT normocephalic Face and Sinus: normal facial exam Eyes EOMs intact bilaterally and no scleral icterus General Eye: normal appearance of both eyes Neck full ROM and supple Lymph Lymphatic: no lymphadenopathy noted Chest Chest: abnormal inspection of the chest Resp normal respiratory effort Effort and Inspection: able to speak in complete sentences Cardio regular rate GI soft to palpation and non-tender Inspection: gravid Palpation: soft; Negative for tender external exam normal Amniotic Fluid: other cx: /- Back/Spine no CVA tenderness Extremity normal to inspection, full ROM and no clubbing, cyanosis or edema General Extremity: Negative for calf tenderness or edema Skin Lesions: no lesions Rashes: no rashes Psych mental status grossly normal Labs Labs Labs: Blood Type O POSITIVE Antibody Screen NEGATIVE Hct 36.3 % (37-47) L Hgb 12.3 g/dL (12.0-15.0) Obstetrics US Syphilis Total Ab Non-reactive Rubella IgG Antibody Reactive (Nonreactive) Hep Bs Antigen Non-Reactive (Nonreactive) Chlamydia DNA (RAS) Negative (Negative) Neisseria gonorrhoeae DNA (RAS) Negative (Negative) HIV 1&2 Antibody Non-Reactive (Nonreactive) Glucose 1 Hr 50 gm 142 mg/dL (70-140) H Assessment & Plan (1) Anxiety during : COMMENT: zoloft. counseling encouraged (2) Abnormal glucose affecting : COMMENT: normal 3 hr gtt (3) History of pseudoseizure: COMMENT: with miscarriage. nl EEG. recommended neuro consult. (4) Supervision of normal : QUALIFIERS: Normal : other normal Trimester: first trimester Qualified Code(s): Z34.81 - Encounter for supervision of other normal , first trimester COMMENT: PRR MARIAM: 12/16/21 dominick Nguyen Spouse: Harinder GBS NEGATIVE (5) : QUALIFIERS: Weeks of gestation: 39 weeks Qualified Code(s): Z3A.39 - 39 weeks gestation of COMMENT: Declines NIPT, carrier, and AFP; NL anatomy-eccentric cord insertion but not marginal, no fu indicated PLAN: Patient presents IOL, plan management for with pitocin/AROM. Pain management: plans epidural. GBS negative. Management of any complications: none I have reviewed the [facility] and made any clinically relevant updates.
--- NOTE | 2021-12-17 08:35 | OB.TRI.NOTE ---
HPI - General General Date of Admission: 12/17/21 HPI Narrative MAURICIO FIELDS, is a 20 y/o F who presents to labor and delivery at 40 weeks 0 days with contractions and difficultly talking through them. She denies lof, vaginal bleeding, or dec fm. Maternal Data Information MARIAM Calculator Estimated Delivery Date Method Current WG Current Estimate 12/16/21 Ultrasound #1 40w 1d Other Estimates 12/10/21 LMP (Certain) 41w 0d PFSH PFSH Home Medications multivitamin no.47-iron fum 27 mg-folate no.1 1 mg-dha 300 mg capsule 1 cap PO DAILY 05/05/21 [History Last Taken 12/16/21] famotidine 20 mg tablet 20 mg PO BID 30 Days #60 tab 08/09/21 [Rx Last Taken 12/15/21 20:00] Allergy/AdvReac Type Severity Reaction Status Date / Time No Known Allergies Allergy Verified 12/15/21 09:19 Surgical History H/O anterior cruciate ligament surgery H/O dilation and curettage Social History adopted: Yes household members: spouse number of children: 0 current occupational status: employed 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 Date Name GA/Weeks Outcome Route Bth Weight Infant Gen Labor Lgth Anesthesia Del Locatn Provider FOB 01/29/21 missed AB Delivery Date: 01/29/21 D&C Veronica Neri Visit Details Expected Delivery Route/Plan Labor Preferences- CB/BF classes: encouraged labor support person: [] labor intervention preferences: [] pain management options preferred: [] cut cord/dad catch: [] : [] PP control planned: [] discussed possible routes of delivery and associated risks: [] special requests: [] Plans Covid status: counseled regarding risk of covid in vs vaccination and declined vaccination Flu vaccine: declined Tdap vaccine: declined Rhogam: na LARC form signed: declined movement and labor precautions reviewed. Problem list reviewed and updated with the most current plan of care details and appropriate orders placed. Relevant counseling for the gestational age provided. Continue routine care and follow up unless otherwise noted in visit notes/problem list details OB Flowsheet Initial Weight: 183 lb Date <del>?</del> EGA Weight BP Urine Prot <del>?</del> Glucose FHR FuHt Pres Dilation <del>?</del> Effaced St Visit Note 06/14/21 <del>?</del> 13w 4d 184 lb (+16 oz) 120/70 Negative <del>?</del> Negative 145 <del>?</del> SM- no vb cramping 07/16/21 <del>?</del> 18w 1d 186 lb (+3 lb) 120/64 Negative <del>?</del> Negative 145 <del>?</del> Sm- `no vb cramping 08/04/21 <del>?</del> 20w 6d 185 lb 8 oz (+2 lb 8 oz) 110/72 Negative <del>?</del> Negative 160 <del>?</del> JV- pt being seen urgently for headache, vomiting and RUQ pain with mid back pain. She states that vomiting started after eating spaghetti dinner. She read on line about pre-e and got nervous. no visual changes. 08/09/21 <del>?</del> 21w 4d 187 lb 4 oz (+4 lb 4 oz) 106/68 Negative <del>?</del> Negative 130 <del>?</del> JV- pt now having more epigastric pain. ultrasound is today. will try pepcid bid. pt has long history of reflux and esophageal bleed prior to 09/07/21 <del>?</del> 25w 5d 191 lb 6 oz (+8 lb 6 oz) 116/70 Trace <del>?</del> Negative 141 <del>?</del> JV- failed 1 hr. 3 hr ordered. no complaints other than some bladder pressure. UA neg 09/22/21 <del>?</del> 27w 6d 190 lb (+7 lb) 110/82 Negative <del>?</del> Negative 140 28 <del>?</del> SM- no vb lof good fm nro egular ctx 09/30/21 <del>?</del> 29w 0d 160/80 114/72 <del>?</del> 144 28 <del>?</del> JV- pt is being seen urgently for cramping and leaking fluid. On exam there is a moderate amount of yeast present. the cx is closed. will send amnisure and rx for yeast to pharmacy. 10/07/21 <del>?</del> 30w 0d 198 lb (+15 lb) 122/66 Negative <del>?</del> Negative 140 30 <del>?</del> SM- no vb lof good fm no reuglar ctx. discussed restarting zoloft, encouraged counseling 10/26/21 <del>?</del> 32w 5d 197 lb 2 oz (+14 lb 2 oz) 120/74 Negative <del>?</del> Negative 140 33 <del>?</del> SM- no vb lof good fm no regular ctx 11/05/21 <del>?</del> 34w 1d 200 lb 4 oz (+17 lb 4 oz) 120/70 Negative <del>?</del> Negative 150 35 <del>?</del> SM- no vb lof no regular ctx 11/17/21 <del>?</del> 35w 6d 200 lb 8 oz (+17 lb 8 oz) 112/72 Negative <del>?</del> Negative 160 35 Cephalic <del>?</del> JV- no lof, vaginal bleeding, or dec fm. gbs next visit 11/26/21 <del>?</del> 37w 1d 204 lb (+21 lb) 110/70 Negative <del>?</del> Negative 150 37 Cephalic 0 <del>?</del> SM- no vb lof good fm no reuglar ctx 12/03/21 <del>?</del> 38w 1d 204 lb 4 oz (+21 lb 4 oz) 118/74 Negative <del>?</del> Negative 140 39 Cephalic 0 <del>?</del> -3 JV- no regular cxns yet but is feeling one currently. no lof, vaginal bleeding or dec fm. labor precautions discussed 12/10/21 <del>?</del> 39w 1d 202 lb (+19 lb) 114/66 <del>?</del> 140 39 Cephalic 0 <del>?</del> SM- no vb lof good fm no regular ctx 12/15/21 <del>?</del> 39w 6d 207 lb (+24 lb) 110/82 Negative <del>?</del> Negative 129 39 Cephalic 1 <del>?</del> 70 -2 JV- no lof, vaginal bleeding, or dec fm. Plan for 41 week IOL dukes/pit monday night or am 12/17/21 <del>?</del> 40w 1d 450 lb 2.943 oz (+267 lb 2.943 oz) 118/71 <del>?</del> <del>?</del> ROS Constitutional Constitutional: Reports systems reviewed and no addt'l complaints, except as documented Gastrointestinal Gastrointestinal: Denies bloating, constipation, cramping, diarrhea, nausea or vomiting Genitourinary Genitourinary: Reports other Details: Denies vaginal odor, vaginal bleeding, or vaginal discharge ; Denies difficulty urinating or flank pain Physical Exam HEENT normocephalic Resp normal respiratory effort and normal air movement no CVA tenderness Amniotic Fluid: other cx 1/60/-2 Extremity normal to inspection General Extremity: edema bilateral (trace ) NST FHR Rate Baby A Baseline: 140 Variability:: Moderate Accelerations:: 15 x 15 Decelerations:: None NST Reactive:: Yes FHR Category:: Category I Assessment & Plan (1) False labor: PLAN: labor precautions were discussed with the patient. the plan is for her to stay with family that is 10 min from the hospital and return when contractions are stronger. Charges/Coding Multi Select Codes Visit Charges Office Visit/Consults: 89553 OV L3 Est Urinary/Genital Urinary/Genital CPT Codes: 25914-36 non-stress test Interp
--- NOTE | 2021-12-17 08:35 | OB.TRI.HP_ITS ---
HPI - General General Date of Admission: 12/17/21 HPI Narrative MAURICIO FIELDS, is a 20 y/o F who presents to labor and delivery at 40 weeks 0 days with contractions and difficultly talking through them. She denies lof, vaginal bleeding, or dec fm. Maternal Data Information MARIAM Calculator Estimated Delivery Date Method Current WG Current Estimate 12/16/21 Ultrasound #1 40w 1d Other Estimates 12/10/21 LMP (Certain) 41w 0d PFSH PFSH Home Medications multivitamin no.47-iron fum 27 mg-folate no.1 1 mg-dha 300 mg capsule 1 cap PO DAILY 05/05/21 [History Last Taken 12/16/21] famotidine 20 mg tablet 20 mg PO BID 30 Days #60 tab 08/09/21 [Rx Last Taken 12/15/21 20:00] Allergy/AdvReac Type Severity Reaction Status Date / Time No Known Allergies Allergy Verified 12/15/21 09:19 Surgical History H/O anterior cruciate ligament surgery H/O dilation and curettage Social History adopted: Yes household members: spouse number of children: 0 current occupational status: employed 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 Date Name GA/Weeks Outcome Route Bth Weight Infant Gen Labor Lgth Anesthesia Del Locatn Provider FOB 01/29/21 missed AB Delivery Date: 01/29/21 D&C Veronica Neri Visit Details Expected Delivery Route/Plan Labor Preferences- CB/BF classes: encouraged labor support person: [] labor intervention preferences: [] pain management options preferred: [] cut cord/dad catch: [] : [] PP control planned: [] discussed possible routes of delivery and associated risks: [] special requests: [] Plans Covid status: counseled regarding risk of covid in vs vaccination and declined vaccination Flu vaccine: declined Tdap vaccine: declined Rhogam: na LARC form signed: declined movement and labor precautions reviewed. Problem list reviewed and updated with the most current plan of care details and appropriate orders placed. Relevant counseling for the gestational age provided. Continue routine care and follow up unless otherwise noted in visit notes/problem list details OB Flowsheet Initial Weight: 183 lb Date -?-?-?-?-?-?-?-?-?-?-?-?- EGA Weight BP Urine Prot -?-?-?-?-?-?-?-?-?-?-?-?- Glucose FHR FuHt Pres Dilation -?-?-?-?-?-?-?-?-?-?-?-?- Effaced St Visit Note 06/14/21 -?-?-?-?-?-?-?-?-?-?-?-?- 13w 4d 184 lb (+16 oz) 120/70 Negative -?-?-?-?-?-?-?-?-?-?-?-?- Negative 145 -?-?-?-?-?-?-?-?-?-?-?-?- SM- no vb crampi ng 07/16/21 -?-?-?-?-?-?-?-?-?-?-?-?- 18w 1d 186 lb (+3 lb) 120/64 Negative -?-?-?-?-?-?-?-?-?-?-?-?- Negative 145 -?-?-?-?-?-?-?-?-?-?-?-?- Sm- `no vb cramp ing 08/04/21 -?-?-?-?-?-?-?-?-?-?-?-?- 20w 6d 185 lb 8 oz (+2 lb 8 oz) 110/72 Negative -?-?-?-?-?-?-?-?-?-?-?-?- Negative 160 -?-?-?-?-?-?-?-?-?-?-?-?- JV- pt being see n urgently for headache, vomiting and RUQ pain with mid back pain. She states that vomiting started after eating spaghetti dinner. She read on line about pre-e and got nervous. no visual changes. 08/09/21 -?-?-?-?-?-?-?-?-?-?-?-?- 21w 4d 187 lb 4 oz (+4 lb 4 oz) 106/68 Negative -?-?-?-?-?-?-?-?-?-?-?-?- Negative 130 -?-?-?-?-?-?-?-?-?-?-?-?- JV- pt now havin g more epigastric pain. ultrasound is today. will try pepcid bid. pt has long history of reflux and esophageal bleed prior to 09/07/21 -?-?-?-?-?-?-?-?-?-?-?-?- 25w 5d 191 lb 6 oz (+8 lb 6 oz) 116/70 Trace -?-?-?-?-?-?-?-?-?-?-?-?- Negative 141 -?-?-?-?-?-?-?-?-?-?-?-?- JV- failed 1 hr. 3 hr ordered. no complaints other than some bladder pressure. UA neg 09/22/21 -?-?-?-?-?-?-?-?-?-?-?-?- 27w 6d 190 lb (+7 lb) 110/82 Negative -?-?-?-?-?-?-?-?-?-?-?-?- Negative 140 28 -?-?-?-?-?-?-?-?-?-?-?-?- SM- no vb lof go od fm nro egular ctx 09/30/21 -?-?-?-?-?-?-?-?-?-?-?-?- 29w 0d 160/80 114/72 -?-?-?-?-?-?-?-?-?-?-?-?- 144 28 -?-?-?-?-?-?-?-?-?-?-?-?- JV- pt is being seen urgently for cramping and leaking fluid. On exam there is a moderate amount of yeast present. the cx is closed. will send amnisure and rx for yeast to pharmacy. 10/07/21 -?-?-?-?-?-?-?-?-?-?-?-?- 30w 0d 198 lb (+15 lb) 122/66 Negative -?-?-?-?-?-?-?-?-?-?-?-?- Negative 140 30 -?-?-?-?-?-?-?-?-?-?-?--?- SM- no vb lof go od fm no reuglar ctx. discussed restarting zoloft, encouraged counseling 10/26/21 -?-?-?-?-?-?-?-?-?-?-?-?- 32w 5d 197 lb 2 oz (+14 lb 2 oz) 120/74 Negative -?-?-?-?-?-?-?-?-?-?-?-?- Negative 140 33 -?-?-?-?-?-?-?-?-?-?-?-?- SM- no vb lof go od fm no regular ctx 11/05/21 -?-?-?-?-?-?-?-?-?-?-?-?- 34w 1d 200 lb 4 oz (+17 lb 4 oz) 120/70 Negative -?-?-?-?-?-?-?-?-?-?-?-?- Negative 150 35 -?-?-?-?-?-?-?-?-?-?-?-?- SM- no vb lof no regular ctx 11/17/21 -?-?-?-?-?-?-?-?-?-?-?-?- 35w 6d 200 lb 8 oz (+17 lb 8 oz) 112/72 Negative -?-?-?-?-?-?-?-?-?-?-?-?- Negative 160 35 Cephalic -?-?-?-?-?-?-?-?-?-?-?-?- JV- no lof, vagi nal bleeding, or dec fm. gbs next visit 11/26/21 -?-?-?-?-?-?-?-?-?-?-?-?- 37w 1d 204 lb (+21 lb) 110/70 Negative -?-?-?-?-?-?-?-?-?-?-?-?- Negative 150 37 Cephalic 0 -?-?-?-?-?-?-?-?-?-?-?-?- SM- no vb lof go od fm no reuglar ctx 12/03/21 -?-?-?-?-?-?-?-?-?-?-?-?- 38w 1d 204 lb 4 oz (+21 lb 4 oz) 118/74 Negative -?-?-?-?-?-?-?-?-?-?-?-?- Negative 140 39 Cephalic 0 -?-?-?-?-?-?-?-?-?-?-?-?- -3 JV- no r egular cxns yet but is feeling one currently. no lof, vaginal bleeding or dec fm. labor precautions discussed 12/10/21 -?-?-?-?-?-?-?-?-?-?-?-?- 39w 1d 202 lb (+19 lb) 114/66 -?-?-?-?-?-?-?-?-?-?-?-?- 140 39 Cephalic 0 -?-?-?-?-?-?-?-?-?-?-?-?- SM- no vb lof go od fm no regular ctx 12/15/21 -?-?-?-?-?-?-?-?-?-?-?-?- 39w 6d 207 lb (+24 lb) 110/82 Negative -?-?-?-?-?-?-?-?-?-?-?-?- Negative 129 39 Cephalic 1 -?-?-?-?-?-?-?-?-?-?-?-?- 70 -2 JV- no lof , vaginal bleeding, or dec fm. Plan for 41 week IOL dukes/pit monday night or am 12/17/21 -?-?-?-?-?-?-?-?-?-?-?-?- 40w 1d 450 lb 2.943 oz (+267 lb 2.943 oz) 118/71 -?-?-?-?-?-?-?-?-?-?-?-?- -?-?-?-?-?-?-?-?-?-?-?-?- ROS Constitutional Constitutional: Reports systems reviewed and no addt'l complaints, except as documented Gastrointestinal Gastrointestinal: Denies bloating, constipation, cramping, diarrhea, nausea or vomiting Genitourinary Genitourinary: Reports other Details: Denies vaginal odor, vaginal bleeding, or vaginal discharge ; Denies difficulty urinating or flank pain Physical Exam HEENT normocephalic Resp normal respiratory effort and normal air movement no CVA tenderness Amniotic Fluid: other cx 1/60/-2 Extremity normal to inspection General Extremity: edema bilateral (trace ) NST FHR Rate Baby A Baseline: 140 Variability:: Moderate Accelerations:: 15 x 15 Decelerations:: None NST Reactive:: Yes FHR Category:: Category I Assessment & Plan (1) False labor: PLAN: labor precautions were discussed with the patient. the plan is for her to stay with family that is 10 min from the hospital and return when contractions are stronger. Charges/Coding Multi Select Codes Visit Charges Office Visit/Consults: 31972 OV L3 Est Urinary/Genital Urinary/Genital CPT Codes: 37615-11 non-stress test Interp
[2021-12-17] MEDS: Oxytocin 30 units/NS 500 ml 30 UNITS/500 ML IV.SOLN IV (09:19)
[2021-12-17] MEDS: fentaNYL-bupivacaine (epidural) 100 ML BAG EPIDURAL ×3 (09:41→18:24)
[2021-12-17] MEDS: Ondansetron 4 MG/2 ML Vial IV (17:17)
[2021-12-17] MEDS: 0.9% Saline Lock 10 ML Syringe IV (17:17)
[2021-12-17] MEDS: Acetaminophen 500 MG Tablet PO (21:10)
--- NOTE | 2021-12-17 21:18 | PCM.PN.BLA ---
Progress Note pt has been pushing for 2 hours with minimal effort due to her complaint of severe upper back pain. current tracing: FHT: 180 Moderate variability with variable decelerations intermittently with contractions [place]: q 2 min Contractions cx: +1 station complete A/P: chorioamnionitis, remote from delivery due to poor maternal pushing effort. station not low enough for a vacuum extraction and likely would fail as patient is unable to push adequately pt has given permission to proceed with delivery The risks, benefits, alternatives discussed with the patient.
[2021-12-17] MEDS: Sodium Citrate/Citric Acid 30 ML UDC PO (21:25)
[2021-12-17] MEDS: Clindamycin 900 MG/50 ML BAG 75 MG IV (21:38)
--- NOTE | 2021-12-17 21:54 | PLAC_PTH ---
PATIENT: MAURICIO FIELDS LOC: WP U#:[id number] AGE/SX: ROOM: WP004 RE12/17/[address]: Dr. Elizabeth Dorsey DO : 2000 BED: 1 DIS: 12/19/2021 SPEC #: [id number] RECD: 12/18/21 00:18 STATUS: DAE CITLALLI #: [id number] ADELA: 12/17/21 21:[address]: Elizabeth Dorsey DEPT: SURGICAL PATHOLOGY RECD BY: Lona Thompson ENTERED: 12/20/21 12:22 SP TYPE: PLACENTA OTHR DR: Zachery Felton PA-C Tissues: Placenta, NOS Procedures: Surgery Specimen Level V HEADER OPERATION: section PRE-OP DIAGNOSIS: Onset of labor TISSUE SUBMITTED: Placenta MICROSCOPIC DIAGNOSIS Placenta: Placental disc - third trimester placenta (497 gm). - Focal acute vasculitis of subamniotic blood vessels. - Focal fibrinous plaque, surface (3.5 cm in greatest dimension). Membranes ? acute chorioamnionitis. Umbilical cord - three blood vessels and acute funisitis. SJ:courtney 12/21/2021 MICROSCOPIC DESCRIPTION Slides are reviewed. GROSS DESCRIPTION SPECIMEN: PLACENTA / CLINICAL INFORMATION: A. Weight: 3.36 kg B. Gestational Age: 40 weeks C. Sex: Male PLACENTAL WEIGHT (POST FIXATION): 497 gm PLACENTAL DIMENSIONS: 16.5 x 16 x 3.5 cm PLACENTAL SHAPE: Usual ovoid PLACENTAL WEIGHT FOR GESTATIONAL AGE: Within 10-99th percentile MEMBRANES - Present A. Insertion: Marginal B. Site of rupture from edge: At from edge of placental disc C. Color of membrane: Baig-seymour D. Abnormalities: None UMBILICAL CORD - Present A. Color: Baig-seymuor B. Insertion: Eccentric C. Length: 22 cm D. Diameter: 1.2 cm E. Number of vessels: Three F. Abnormalities: None PLACENTAL DISC - Present A. Color of surface: Baig-seymour B. surface abnormalities: None C. Maternal cotyledons: Intact with minimal tears D. Attached retro placental clot: No clot E. Cut surface: Dark red and spongy F. Lesions: A white plaque-like lesion is present at the surface measuring 3.5 x 3.5 x 0.2 cm. G. Separate clot: Absent SECTIONS SUBMITTED: 1. Umbilical cord ( end notched) 2. Umbilical cord, placental end 3. Membrane roll 4. Placental disc, and maternal surfaces, lesion 5. Placental disc, and maternal surfaces 6. Placental disc, and maternal surfaces AM:courtney 12/20/2021 TC:2 CPT: 14964
--- NOTE | 2021-12-17 22:17 | OP.PCM_ITS ---
Assessment & Plan (1) : QUALIFIERS: Weeks of gestation: 39 weeks Qualified Code(s): Z3A.39 - 39 weeks gestation of COMMENT: Declines NIPT, carrier, and AFP; NL anatomy-eccentric cord insertion but not marginal, no fu indicated (2) Supervision of normal : QUALIFIERS: Normal : other normal Trimester: first trimester Qualified Code(s): Z34.81 - Encounter for supervision of other normal , first trimester COMMENT: PRR MARIAM: 12/16/21 dominick Nguyen Spouse: Harinder GBS NEGATIVE (3) History of pseudoseizure: COMMENT: with miscarriage. nl EEG. recommended neuro consult. (4) Abnormal glucose affecting : COMMENT: normal 3 hr gtt (5) Anxiety during : COMMENT: zoloft. counseling encouraged Maternal Data Information MARIAM Calculator Estimated Delivery Date Method Current WG Current Estimate 12/16/21 Ultrasound #1 40w 1d Other Estimates 12/10/21 LMP (Certain) 41w 0d Details Operative Information Date of Procedure: 12/17/21 Pre-Operative Diagnosis: 40 weeks 1 day, , failure to descend, chorioamnionitis, maternal exhaustion Post-Operative Diagnosis: 40 weeks 1 day, , failure to descend, c horioamnionitis, maternal exhaustion Classification: SPENCER Procedure Type: low transverse freelance programmer/app developer #1: Julieth Mosley Type of Anesthesia: Epidural Anesthesiologist: Yazmin Norris Antibiotic Given: Clindamycin 600mg IV x1 and Gentamicin 1.5mg/kg IV x1 and - (ampicillin 2 grams ) Estimated Blood Loss: 800cc Findings Description of Procedure: The patient was brought to the operating room where Epidural anesthesia was found to be adequate. The Gutierrez catheter was in place and a vaginal prep was perfomed. The patient was placed in the dorsal supine position with leftward tilt. Patient was prepped and draped in the normal sterile fashion. Pfannenstiel skin incision was made with the scalpel and carried through to the underlying layer of fascia with the scalpel. Fascia was nicked in the midline and the incision extended laterally. The rectus bellies were dissected off superiorly and inferiorly with out complication both sharply and bluntly. The peritoneum was entered digitally. The incision was stretched and a low transverse uterine incision was made with the scalpel. The 's head was delivered atraumatically followed by the anterior and posterior shoulders without complication the rest of the delivered. The cord was clamped and cut and the infant was handed off to awaiting nurse. The placenta was delivered spontaneously immediately following and was noted to be intact and have a three- vessel cord. The uterus was exteriorized cleared of all clots and debris, and the incision was closed in a double layer closure using #1 vicryl and #1 Monocryl. The ovaries and fallopian tubes were noted to be within normal limits. The uterus was returned to the maternal abdomen and gutters were cleared of all clots and debris. The peritoneum was closed with 3-0 Monocryl in a running fashion. Gloves were changed prior to fascial closure. Fascia was closed with 0 PDS in a running fashion. Subcutaneous tissue was copiously irrigated and the skin was closed with 3-0 Monocryl in a subcuticular fashion. Mepilex dressing was applied without complication. Patient was taken to recovery in stable condition. It was discussed with the patient that based on the clinical information obtained during this encounter, combined with her history, at this time I would recommend either repeat section or trial of labor for future deliveries if further pregnancies are desired. Presentation: Positive for Vertex Amniotic Fluid Description: Clear Placental Delivery Description: Manual Removal Placenta Disposition: Routine to Lab Specimen(s) Sent to Pathology: placenta Cord Vessel Description: 3 Vessels Cord Entanglement: Around neck x 1, loose Nuchal Cord Compression: Without compression Cord Gases: VBG Infant A Gender: Male (1 minute): 8 (5 minute): 9 Delayed Cord Clamping: Yes Complications Risks of Surgery Discussed w/Patient: Bleeding, Anesthesia Risks, Infection and Need for Future C-Sections Complications: none Multi Select Codes Urinary/Genital Urinary/Genital CPT Codes: 23677 Delivery [facility]
--- NOTE | 2021-12-17 22:25 | PCM.DC ---
Discharge Instructions Diet Discharge Diet: No restrictions Activity Discharge Activity: May Not Drive (for 2 weeks or while taking narcotic pain medications.), May Shower and May Take a Tub Bath (in 7 days.) May resume sexual activity in: 4-6 weeks Weight Bearing Status: Full weight bearing Lifting Restrictions: 20 pounds Dressing / Incision Call your doctor if your incision/area has: Continuous Slow Oozing, Sudden Increased Bleeding, Increased Pain/ Swelling, Increased Redness and Foul Smelling Discharge Call your doctor if you observe: Fever of 101 or Higher and Using more than 1 pad per hour Suture Line Care: Avoid Pulling/Pushing and Avoid Pinching/Bending Cleanse incision/area with: Soap & Water and Keep Dressing Clean & Dry Follow Up Care Please Follow Up With: Elizabeth Dorsey DO When: Call [phone] to make an appointment for an incision check in 1-2 weeks. Test Results: Test results from this visit will be discussed in further detail at your follow-up appointment, if applicable. Discharge Plan Admission Admit Date/Time: 12/17/21 07:55 Primary Reason for Your Visit: section Attending Provider: Elizabeth Dorsey Primary Care Provider: Zachery Felton Discharge Orders/Prescriptions Prescriptions: New oxycodone-acetaminophen [Percocet] 5-325 mg tablet 1 tab PO Q4H PRN (Reason: pain) 7 Days Qty: 30 RF: 0 ibuprofen 600 mg tablet 600 mg PO Q6H PRN (Reason: moderate pain (scale score 5-6)) 7 Days Qty: 28 RF: 0 Continued PNV-DHA 27 mg iron-1 mg -300 mg capsule 1 cap PO DAILY RF: 0 famotidine [Pepcid] 20 mg tablet 20 mg PO BID 30 Days Qty: 60 RF: 8 Referrals / Follow Up: Zachery Felton PA-C [Primary Care Provider] - Disposition Disposition (needs filled in before D/C Order can be placed): Home, Self Care
[2021-12-17] MEDS: Oxytocin 30 units/NS 500 ml 30 UNITS/500 ML IV.SOLN 167 UNITS IV (22:36)
[2021-12-17] MEDS: Methylergonovine 0.2 MG/ML Ampul IM (23:11)
[2021-12-18] VITALS (16 sets, daily range): BP systolic 94–128; BP diastolic 49–63; PULSE 83–105; RESP 14–18; TEMP 35.9–37; O2SAT 96–99
[2021-12-18 01:10] LABS: Pathology Specimen OB SEE PATHOLOGY REPORT
[2021-12-18] MEDS: Lactated Ringers 1,000 ML 100 ML IV (01:59)
[2021-12-18] MEDS: Acetaminophen 500 MG Tablet 1000 MG PO ×3 (05:23→17:10)
[2021-12-18 06:32] LABS: Hematocrit 27.6 % (37-47); Hemoglobin 9.5 g/dL (12.0-15.0); Mean Corp Hgb Conc 34.4 g/dL (32-36); Mean Corpuscular Hgb 30.9 pg (27.0-32.0); Mean Corpuscular Volume 89.9 fL (81-99); Mean Platelet Vol. 9.5 fl (6.2-12.0); Platelet Count 183 K/mm3 (150-450); RBC Distribution Width CV 13.8 % (11.6-14.6); Red Blood Count 3.07 M/mm3 (4.2-5.4); White Blood Count 13.6 K/mm3 (4.4-11.0)
--- NOTE | 2021-12-18 10:13 | PN.OBGYN_ITS ---
Subjective Subjective Patient doing well without complaints. Tolerating PO. Ambulating and voiding without difficulty. feeding well. Denies chest pain, shortness of breath, calf pain/swelling, fevers, chills, lightheadedness. Objective Data Objective Data Vital Signs: Vital Signs Temp Pulse Resp BP Pulse Ox 97 F L 89 16 97/56 L 97 12/18/21 08:00 12/18/21 09:00 12/18/21 09:00 12/18/21 08:00 12/18/21 08:00 Oxygen Delivery Method Room Air Weight: 204 lb Body Mass Index (BMI) 77.3 Intake & Output: Intake and Output for Last 24 Hours 12/16/21 12/17/21 12/18/21 23:59 23:59 23:59 Intake Total 4336.51 / 4336.51 2541.67 / 2541.67 Output Total 1200 / 1200 900 / 900 Balance 3136.51 / 3136.51 1641.67 / 1641.67 Lab / Micro Data Result Diagrams: 12/18/21 06:16 Labs: Laboratory Results - last 24 hr 12/17/21 06:40: Blood Type O POSITIVE, Antibody Screen NEGATIVE 12/18/21 06:16: WBC 13.6 H, RBC 3.07 L, Hgb 9.5 L, Hct 27.6 L, MCV 89.9, MCH 3 0.9, MCHC 34.4, RDW Std Deviation 45.0 H, RDW Coeff of Kd 13.8, Plt Count 183, MPV 9.5 Micro: Microbiology 12/17/21 08:15 Nasal Secretion SARS-CoV-2 Antigen (Rapid) - Final ROS Constitutional Constitutional: Reports systems reviewed and no addt'l complaints, except as documented Cardiovascular Cardiovascular: Reports systems reviewed and no addt'l complaints, except as documented Respiratory/Chest Respiratory/Chest: Reports systems reviewed and no addt'l complaints, except as documented Gastrointestinal Gastrointestinal: Reports systems reviewed and no addt'l complaints, except as documented Physical Exam Const alert, oriented x3 and no apparent distress HEENT Head and Scalp: atraumatic Resp normal respiratory effort GI soft to palpation and non-tender Inspection: incision intact, healing well and drainage (none) Bimanual Exam - Vag & Uterus: uterus non-tender Uterus Palpation: uterus fundus firm (below Umbilicus) Assessment & Plan (1) Status post delivery: (2) Delivery by section: PLAN: s/p LTCS PPD # 1 1. routine post care 2. breast feeding- support given 3. rh positive 4. rubella immune
[2021-12-18] MEDS: Senna/Docusate Sodium 1 Tablet PO (10:29)
[2021-12-18] MEDS: Ketorolac 30 MG/ML Syringe IV ×3 (10:29→22:31)
[2021-12-18] MEDS: Enoxaparin 40 MG/0.4 ML Syringe SC (10:29)
--- NOTE | 2021-12-18 15:38 | CM.ED ---
PATSY Note SW met with patient and her in their room in . Patient's /FOB was in the room. NB was also in the room. Patient and FOB would repeatedly look at the nb during the interview and smile at the nb. SW spoke to LUCY Mckeon. She has no safety concerns regarding nb. Patient gave verbal consent to speak to her in the presence of the FOB. Mom: Alysa Roy P1 Due Date: 12/16/21 40 weeks PNC: [place] Control: No plans for control Baby: Patrick Hawkins : 12/17/21 Apgars: 8/9 Weight: 3465 kg Desktop Publishing Associate: [facility]. Patient reports it is going not to bad. Emotional support provided MOB's other children: None Housing: Patient, FOB/ and nb will reside at a home in [facility]. FOB said that they had unfortunate treatment at another hospital so that is why we came here. Patient and FOB report they like the OB and the [facility] staff. FOB said we drove 50 minutes'. Transportation: Mother reports she has access to transportation Supplies: Patient has carseat, bassinet, crib, diapers and all Supports: and Mom. Mother resides in [place] and she can call her. Patient said that her brother and sister in law live locally. Patients parents reside in [place] and left to help this morning. Patient and FOB said that they have alot of help. Education Level: Patient said that she completed the 9th grade. She reports she was raised Mennonite. Patient said that she could have stayed in school and graduate but she chose not to. Patient reports no learning issues. Employment: Patient reports that patient is not employed. 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 Agency Involvement: Patient reports no JFS, WIC, HMG, Counseling, Legal and CSB involvement. PATSY educated patient on financial resources including [place] Medicaid application. PATSY offered WIC referral but patient did not express interest in this screenplay writer making a referral. FOB: Harinder Time Together: 2 1/2 years Involved at : Yes Employment: [employer] in [place]. FOB said that he works in the [employer] yard so he is close to home. FOB plans to take time off work but undetermined amount of time Maternal Mental Health History: SW asked patient about history of anxiety and patient said not necessarily. FOB said that he thinks it was related to unresolved issues. Patient then said that she had a little bit of anxiety. Patient reports she was on sertraline in the past and it was helpful. Patient said that she has been off medication for 1 year. Patient was educated on Post Depression, Shaken Baby and Safe Sleeping Patient denied any AOD History. Patient denied smoking. SW provided handout on resources for depression and information on Financial resources including [place] Medicaid Application. Plan: Home at discharge Sydnie COONEY
[2021-12-18] MEDS: 0.9% Saline Lock 10 ML Syringe IV (22:31)
[2021-12-19] MEDS: Acetaminophen 500 MG Tablet 1000 MG PO ×2 (00:18→06:08)
[2021-12-19 02:05] VITALS: BP 116/64; PULSE 87; RESP 16; TEMP 36.1
[2021-12-19] MEDS: Ketorolac 30 MG/ML Syringe IV (04:36)
[2021-12-19] MEDS: 0.9% Saline Lock 10 ML Syringe IV (04:37)
--- NOTE | 2021-12-19 07:21 | PCM.PN.OB ---
Subjective Subjective Patient doing well without complaints. Tolerating PO. Ambulating and voiding without difficulty. feeding well. Denies chest pain, shortness of breath, calf pain/swelling, fevers, chills, lightheadedness. Objective Data Objective Data Vital Signs: Vital Signs Temp Pulse Resp BP Pulse Ox 96.9 F L 87 16 116/64 97 12/19/21 02:05 12/19/21 02:05 12/19/21 02:05 12/19/21 02:05 12/18/21 08:00 Oxygen Delivery Method Room Air Weight: 204 lb Body Mass Index (BMI) 77.3 Intake & Output: Intake and Output for Last 24 Hours 12/17/21 12/18/21 12/19/21 23:59 23:59 23:59 Intake Total 4336.51 / 4336.51 2801.67 / 2801.67 Output Total 1200 / 1200 1875 / 1875 Balance 3136.51 / 3136.51 926.67 / 926.67 Lab / Micro Data Result Diagrams: 12/18/21 06:16 Micro: Microbiology 12/17/21 08:15 Nasal Secretion SARS-CoV-2 Antigen (Rapid) - Final ROS Constitutional Constitutional: Reports systems reviewed and no addt'l complaints, except as documented Cardiovascular Cardiovascular: Reports systems reviewed and no addt'l complaints, except as documented Respiratory/Chest Respiratory/Chest: Reports systems reviewed and no addt'l complaints, except as documented Gastrointestinal Gastrointestinal: Reports systems reviewed and no addt'l complaints, except as documented Physical Exam Const alert, oriented x3 and no apparent distress HEENT Head and Scalp: atraumatic Resp normal respiratory effort GI soft to palpation and non-tender Inspection: incision intact, healing well and drainage (none) Bimanual Exam - Vag & Uterus: uterus non-tender Uterus Palpation: uterus fundus firm (below Umbilicus) Assessment & Plan (1) Status post delivery: (2) Delivery by section: PLAN: s/p LTCS PPD # 2 1. routine post care 2. breast feeding- support given 3. rh positive 4. rubella immune
--- NOTE | 2021-12-19 07:22 | PCM.DC.SUM ---
Providers Date of Admission: 12/17/21 Primary Care Physician: Dr. Zachery Felton, PADannyC Reason For Visit: C SECTION Diagnosis Discharge Diagnosis (1) Status post delivery: Status: Acute Code(s): Z98.891 - History of uterine scar from previous surgery (2) Delivery by section: Status: Acute Medications at Discharge Home Medications multivitamin no.47-iron fum 27 mg-folate no.1 1 mg-dha 300 mg capsule 1 cap PO DAILY 05/05/21 famotidine 20 mg tablet 20 mg PO BID 30 Days #60 tab 08/09/21 ibuprofen 600 mg PO Q6H PRN 7 Days #28 tab 12/17/21 oxycodone-acetaminophen [Percocet] 1 tab PO Q4H PRN 7 Days #30 tab 12/17/21 Hospital Course Operations section Summary of Care Provided Hospital Course: patient presented in early labor and then was augmented, proceeded to complete and developed chorioamnionitis, pushed several hours and had an arrest of descent therefore proceeded with primary section. Postoperatively patient had return of bowel and bladder function and was ambulating well, tolerating adequate p.o., and was stable for discharge to home on postop day #2. Discharge medications motrin and Percocet. Follow-up in office in 2 weeks for incision check in 6 weeks for visit. Routine post section diet and activity instructions. Weight / BMI Weight Weight: 204 lb Body Mass Index (BMI) 77.3 ABG / Lab / Microbiology Data Result Diagrams: 12/18/21 06:16 Microbiology: Microbiology 12/17/21 08:15 Nasal Secretion SARS-CoV-2 Antigen (Rapid) - Final D/C Instructions Discharge Diet: No restrictions Discharge Activity: May Not Drive (for 2 weeks or while taking narcotic pain medications.), May Shower and May Take a Tub Bath (in 7 days) May shower in (days): 0 May resume sexual activity in: 4-6 weeks Weight Bearing Status: Full weight bearing Call your doctor if your incision/area has: Continuous Slow Oozing, Sudden Increased Bleeding, Increased Pain/ Swelling, Increased Redness and Foul Smelling Discharge Call your doctor if you observe: Fever of 101 or Higher and Using more than 1 pad per hour Suture Line Care: Avoid Pulling/Pushing and Avoid Pinching/Bending Cleanse incision/area with: Soap & Water and Keep Dressing Clean & Dry Please Follow Up With: Elizabeth Dorsey DO When: Call [phone] to make an appointment for an incision check in 1-2 weeks. Meaningful Use Info Meaningful Use Diagnoses (Choose all that apply): None applicable Discharge Plan Admission Admit Date/Time: 12/17/21 07:55 Primary Reason for Your Visit: section Attending Provider: Elizabeth Dorsey Primary Care Provider: Zachery Felton Discharge Orders/Prescriptions Prescriptions: New oxycodone-acetaminophen [Percocet] 5-325 mg tablet 1 tab PO Q4H PRN (Reason: pain) 7 Days Qty: 30 RF: 0 ibuprofen 600 mg tablet 600 mg PO Q6H PRN (Reason: moderate pain (scale score 5-6)) 7 Days Qty: 28 RF: 0 Continued PNV-DHA 27 mg iron-1 mg -300 mg capsule 1 cap PO DAILY RF: 0 famotidine [Pepcid] 20 mg tablet 20 mg PO BID 30 Days Qty: 60 RF: 8 Referrals / Follow Up: Zachery Felton PA-C [Primary Care Provider] - Disposition Disposition (needs filled in before D/C Order can be placed): Home, Self Care
[2021-12-19 08:24] VITALS: BP 123/73; PULSE 98; RESP 17; TEMP 36.6
[2021-12-19] MEDS: Naproxen 500 MG Tablet PO (10:23)
[2021-12-19] MEDS: Enoxaparin 40 MG/0.4 ML Syringe SC (10:24)
[2021-12-19] MEDS: Senna/Docusate Sodium 1 Tablet PO (10:24)
== END 2021-12-19 10:52 | disposition home or self-care (01) | DRG 786 ==
LOC: WPOUT 08:04 → WP 08:04
PROVIDERS: Admitting Provider Obstetrics & Gynecology; PCP Physician Assistant; Referring Provider Obstetrics & Gynecology; Visit Provider Obstetrics & Gynecology
DX: O69.81X0 Labor and delivery complicated by cord around neck, without compression, not applicable or unspecified (principal); O41.1230 Chorioamnionitis, third trimester, not applicable or unspecified; F41.9 Anxiety disorder, unspecified; O99.344 Other mental disorders complicating childbirth; Z37.0 Single live birth; Z79.899 Other long term (current) drug therapy; Z87.891 Personal history of nicotine dependence; O76 Abnormality in fetal heart rate and rhythm complicating labor and delivery; O75.81 Maternal exhaustion complicating labor and delivery; Z3A.40 40 weeks gestation of pregnancy; Z20.822 Contact with and (suspected) exposure to COVID-19
CPT/HCPCS: 59025; 59050; 85025; 85027; 86850; 86900; 86901; 87426; 88307; 99218; J7120; A4216; G0378; J2405

== ENCOUNTER → 2024-06-10 | Outpatient (CLI) | payer MEDICAID, SELFPAY ==
[2024-06-14 15:49] LABS: HPV Reflexed? NOT INDICATED
== END | disposition home or self-care (01) ==
LOC: LABSPEC 16:15
PROVIDERS: PCP Physician Assistant; Referring Provider Nurse Practitioner Women's Health; Visit Provider Nurse Practitioner Women's Health
DX: Z12.4 Encounter for screening for malignant neoplasm of cervix (principal)
CPT/HCPCS: 88175; G0145

== ENCOUNTER 2025-08-21 12:26 | Emergency (ER) | payer BC, SELFPAY ==
[2025-08-21 12:28] VITALS: BP 128/67; PULSE 76; RESP 16; TEMP 37; O2SAT 99; BMI 34.2
[2025-08-21 13:14] LABS: Hematocrit 38.7 % (37-47); Hemoglobin 13.7 g/dL (12.0-15.0); Immature Granulocytes Count 0.020 X10^3/uL (0.0-0.0); Mean Corp Hgb Conc 35.4 g/dL (32-36); Mean Corpuscular Volume 88.0 fL (81-99); Mean Platelet Vol. 9.8 fl (6.2-12.0); NRBC Flagged by Analyzer 0 % (0-5); Platelet Count 267 K/mm3 (150-450); RBC Distribution Width CV 12.0 % (11.6-14.6); RBC Distribution Width SD 39.1 fl (35.1-43.9); Red Blood Count 4.40 M/mm3 (4.2-5.4); White Blood Count 8.4 K/mm3 (4.4-11.0)
[2025-08-21 13:15] LABS: Color, Urine Yellow (Yellow); Glucose, Dipstick Normal (Normal); Ketone-Dipstick Negative (Negative); Leukocyte Esterase-Dipstick Negative /ul (Negative); Nitrite-Dipstick Negative (Negative); Occult Blood-Urine 150 /ul (Negative); Protein-Dipstick 15 mg/dl (Negative); Specific Gravity, Urine 1.020 (1.002-1.030); Urine Bilirubin Dipstick Negative (Negative)
[2025-08-21 13:24] LABS: Mucous, Urine 2+ /hpf (<or=2+); Red Blood Cells-Urine 0-5 SEEN /hpf (0-5); Squamous Epithelial Cells - UA 0-5 SEEN /hpf (5-10)
[2025-08-21 14:02] LABS: AST(SGOT) 21 U/L (<=31); Alanine Aminotransfer ALT/SGPT 15 U/L (<=34); Albumin, Serum 4.8 g/dL (3.5-5.0); Alkaline Phosphatase 70 U/L (35-104); Anion Gap 13 (5-15); BUN 10 mg/dL (4-19); BUN/Creat Ratio 11.9 RATIO (10-20); Calcium,Total 9.2 mg/dL (7.6-11.0); Carbon Dioxide 22.3 mmol/L (21.0-32.0); Chloride 106 mmol/L (98-108); Estimated Creatinine Clearance 114.58 ml/min (50-250); Globulin 2.4 g/dL (2.2-4.2); Glucose 87 mg/dL (70-99); Potassium 3.6 mmol/L (3.3-5.1)
[2025-08-21 14:11] LABS: hCG Titer Quant., Serum < 1 mIU/mL (<9 non-preg)
[2025-08-21 14:27] VITALS: BP 111/63; PULSE 55; RESP 16
[2025-08-21 14:39] VITALS: BP 111/63; PULSE 55; RESP 16; TEMP 37; O2SAT 99
--- NOTE | 2025-08-21 16:05 | ED.VIS.FEGU ---
HPI HPI - Female History of Present Illness Chief Complaint: Vag Bld, Preg Narrative Narrative: Patient is a 24-year-old female presenting to the emergency department for vaginal bleeding. Patient is , 1 miscarriage. She reports that she started to have vaginal bleeding last night with large clots. States she has used 4 super plus tampon since this morning around 8 AM. She is endorsing lower abdominal cramping and low back cramping as well. She reports her last period was mid June. States that she took a test on August 17 and it was positive. 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 She endorses some mild nausea but no vomiting. No fevers or chills. No dysuria or hematuria. Not on OAC. PFSH [facility] Medical History Seizures Home Medications ?Medication ?Instructions ?Recorded ?Last Taken ?Type tranexamic acid 650 mg tablet 1,300 mg (2 x 650 mg) PO TID with 06/10/24 Unknown Rx onset of menses for 5 days #60 tabs Allergy/AdvReac Type Severity Reaction Status Date / Time No Known Allergies Allergy Verified 08/21/25 12:28 Family History no significant family his Surgical History Status post delivery Delivery by section History of surgery History of gynecologic surgery H/O dilation and curettage H/O anterior cruciate ligament surgery Social History adopted: Yes household members: spouse number of children: 1 current occupational status: employed 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 No acute distress. Well-appearing, nontoxic. HEENT: Head is normocephalic and atraumatic, sinuses nontender, pupils equal round and reactive. Nares are patent. Oropharynx and throat exams normal. Neck: Supple without lymphadenopathy nontender Cardiovascular: Regular rate and rhythm, no murmurs. No rubs or gallops. Normal S1 and S2 Respiratory: Clear to auscultation bilaterally. No wheezes, rales, rhonchi Abdominal: Soft and nontender. Normal bowel sounds. No guarding or rebound. Nonsurgical abdomen. No CVA tenderness to palpation. : Done with sales floor team leader, RN at bedside. Cervix is closed. There is scant amount of blood in the vaginal vault. There are no lacerations. No foreign bodies. Normal external genitalia. Extremities: No tenderness. No bruising. Normal range of motion. Normal sensation. Skin: No rash or redness. The rest of the physical exam is unremarkable Const Vital Signs: 08/21/25 12:28 08/21/25 14:27 08/21/25 14:39 Temperature 98.6 F 98.6 F Temperature Source Oral Pulse Rate 76 55 L 55 L Respiratory Rate 16 16 16 Blood Pressure 128/67 H 111/63 111/63 Blood Pressure Mean 87 79 79 Pulse Ox 99 99 Oxygen Delivery Method Room Air MDM MDM MDM Narrative Medical decision making narrative: Patient is a 24-year-old female presenting to the emergency department for vaginal bleeding. Patient was seen and examined. Vitals are stable. Patient resting in bed comfortably no acute distress. Concern at this time would be for a threatened miscarriage given the closed cervix. Will obtain lab work including type and screen and serum hCG quantitative. Will also obtain a transvaginal ultrasound. CBC with no leukocytosis and normal hemoglobin. CMP with no significant abnormalities. Urinalysis with 1+ bacteria however no other signs of urinary tract infection. HCG quant negative. Ultrasound was then cancelled when this resulted. She was updated on the negative workup. Has no abdominal pain on reevaluation, sleeping comfortably on me entering the room. I explained that I do not think this is a miscarriage given her level would be somewhat elevated given her bleeding just started last night. May have been a false positive test. Recommended follow-up with her VENEER TAPING MACHINE OPERATOR as soon as possible. Recommended menstrual cycle care including Motrin at home for any cramping. Patient discharged from the Emergency Department. I do not feel that the patient's evaluation reveals any acute reason for admission at this time. I instructed them to either follow-up with their primary care physician or promptly return to the Emergency Department for reevaluation should symptoms worsen or new symptoms develop. I explained what symptoms would indicate the need to return to the emergency department. Shared decision making was used. The patient voiced understanding of the treatment plan and is agreeable with it. Clinical impression: Vaginal bleeding History & Record Review Discussion w/independent historian: Patient Lab Data Attestation: I reviewed the patient's lab results. Labs: Laboratory Results - last 24 hr 08/21/25 08/21/25 12:20 12:25 WBC 8.4 RBC 4.40 Hgb 13.7 Hct 38.7 MCV 88.0 MCH 31.1 MCHC 35.4 RDW Std Deviation 39.1 RDW Coeff of Kd 12.0 Plt Count 267 MPV 9.8 Immature Gran % (Auto) 0.200 Neut % (Auto) 58.5 Lymph % (Auto) 30.8 [place] % (Auto) 6.3 Eos % (Auto) 3.5 Baso % (Auto) 0.7 Absolute Neuts (auto) 4.9 Absolute Lymphs (auto) 2.58 Nucleated RBC % 0 Sodium 141 Potassium 3.6 Chloride 106 Carbon Dioxide 22.3 Anion Gap 13 BUN 10 Creatinine 0.81 Estim Creat Clear Calc 114.58 Est GFR (MDRD) Non-Af 102 BUN/Creatinine Ratio 11.9 Glucose 87 Calcium 9.2 Total Bilirubin 0.33 AST 21 ALT 15 Alkaline Phosphatase 70 Total Protein 7.2 Albumin 4.8 Globulin 2.4 Albumin/Globulin Ratio 2.0 HCG, Quant < 1 Urine Color Yellow Urine Clarity Sl. Cloudy Urine pH 5.0 Ur Specific [place] 1.020 Urine Protein 15 H Urine Glucose (UA) Normal Urine Ketones Negative Urine Occult Blood 150 H Urine Nitrite Negative Urine Bilirubin Negative Urine Urobilinogen Normal Ur Leukocyte Esterase Negative Urine RBC 0-5 SEEN Urine WBC 0-5 SEEN Ur Squamous Epith Cells 0-5 SEEN Urine Bacteria 1+ Urine Mucus 2+ Blood Type O POSITIVE Antibody Screen NEGATIVE Discharge Plan Triage Chief Complaint: Vag Bld, Preg ED Provider: Sadaf Schmitz Dx/Rx/DC Orders Clinical Impression: Vaginal bleeding Prescriptions: No Action tranexamic acid 650 mg tablet 1,300 mg PO TID Qty: 60 2RF Primary Care Provider: Brennan Almaguer Referrals: Brennan Almaguer MD [Primary Care Provider, Family Practice] - As soon as possible Activity Restrictions/Additional Instructions: Your test is negative. Please take Motrin and Tylenol at home for pain control. You are likely still stable. Your evaluation in the Emergency Department did not reveal any acute reason for admission. However, I want to emphasize that you may be early in the course of a disease process or illness even if it is not present. For this reason you should follow-up within 24 hours for reevaluation with either your primary care physician or if necessary back here in the Emergency Department. You should return to the Emergency Department immediately if your symptoms worsen or new symptoms develop. Print Language: Peruvian Disposition Disposition: Home, Self Care Discharge Date/Time: 08/21/25 14:43
--- OUTSIDE RECORDS SUMMARY | 2025-08-21 17:15 | XMS RPT_ITS | CCD ---
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 Note ED PROVIDER NOTE [facility] EMERGENCY [facility]PART[facility] NAME: Mauricio Fields AGE: 24 y.o. 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 No pertinent family history. Social History [1] Previous Medications Medication Sig sertraline (ZOLOFT) 50 MG tablet Take 1 (one) tablet (50 mg total) by mouth daily . sertraline (ZOLOFT) 50 MG tablet Take 1 (one) tablet (50 mg total) by mouth daily . Allergies[2] Review of Systems Constitutional: Negative. Respiratory: Negative. Cardiovascular: Negative. Gastrointestinal: Negative. Genitourinary: Negative. Musculoskeletal: Negative. Skin: Negative. Neurological: Negative. Psychiatric/Behavioral: Positive for sleep disturbance and suicidal ideas. Negative for agitation, behavioral problems, confusion and hallucinations. The patient is not nervous/anxious. Patient Vitals for the past 24 hrs: BP Temp Temp src Pulse Resp SpO2 06/12/25 1830 134/81 98.5 degrees F (36.9 degrees C) Oral 84 15 98 % Physical Exam Constitutional: Appearance: Normal appearance. HENT: Mouth/Throat: Mouth: Mucous membranes are moist. Pharynx: Oropharynx is clear. Eyes: Conjunctiva/sclera: Conjunctivae normal. Pupils: Pupils are equal, round, and reactive to light. Cardiovascular: Rate and Rhythm: Normal rate and regular rhythm. Pulses: Normal pulses. Heart sounds: Normal heart sounds. Musculoskeletal: General: Normal range of motion. Pulmonary: Effort: Pulmonary effort is normal. Breath sounds: Normal breath sounds. Abdominal: General: Bowel sounds are normal. Palpations: Abdomen is soft. Tenderness: There is no abdominal tenderness. Skin: General: Skin is warm and dry. Capillary Refill: Capillary refill takes less than 2 seconds. Neurological: General: No focal deficit present. Mental Status: She is alert and oriented to person, place, and time. Psychiatric: Comments: Depressed appearing and tearful Laboratory & Radiographic Imaging (if done): Results for orders placed or performed during the hospital encounter of 06/12/25 Alcohol Level Result Value Ref Range Alcohol (Medical) <10.0 <10.0 mg/dL Lavender Top Result Value Ref Range Extra Tube Hold for add-ons. Mint Green Top Result Value Ref Range Extra Tube Hold for add-ons. Light Blue Top Result Value Ref Range Extra Tube Hold for add-ons. Medley Top Result Value Ref Range Extra Tube Hold for add-ons. No orders to display Procedures Medical Decision Making Upon examination, patient sitting up in bed, no distress noted. Alert and oriented answering questions appropriately. Patient presents to ED from her therapist office for suicidal ideations. Patient denies specific plan. She also denies homicidal ideations hallucinations and delusions. She does endorse some sleeping difficulties stating that she is a light sleeper as well as she has a hard time shutting her brain off. 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 She reports us dresser of being told recently that if she calls off again she would get written up. She is very tearful and states they like to say that they are about family but the only times that I have called off has been for my son. But she also does report childhood trauma as well as some trauma couple years ago that she has not yet fully dealt with. She lives with her and 3-year-old son. She reports her and that relationship is supportive. She has family but states they are in a different state and they are not supportive. Previously had seen a therapist but stopped doing so about a year ago because it was the holidays and things were busy. She had also previously been on Zoloft but stopped quite a while ago stating that she did not like how it made her feel. Eating and drinking per her norm. Vapes nicotine daily, denies EtOH and drug use. Differential diagnosis includes but limited to depression, situational stress, anxiety, bipolar. I reviewed her PMH, PSH and previous medical records. Patient was discussed with Dr. Guevara who placed no AMA EtOH negative. Patient was evaluated by Corinne Steven, nursing home social worker who at this time deems it safe for patient to be discharged. Patient and are in agreement with such. She will follow-up with CHANDRA love (more content not included)... Normal [facility] EEGon 03-29-2025 IMPRESSION Impression This vEEG shows three events of generalized whole body shaking with ictal eye closure consistent with psychogenic non-epileptic seizure (PNES). Otherwise, this record is normal. No epileptiform discharges or lateralizing signs are recorded. A full report will be scanned into the patient's chart at a later time. This report has been interpreted and electronically signed by NEUROLOGY Radha Edge MD - 03/29/2025 IMPRESSION: IMPRESSION Impression This vEEG shows three events of generalized whole body shaking with ictal eye closure consistent with psychogenic non-epileptic seizure (PNES). Otherwise, this record is normal. No epileptiform discharges or lateralizing signs are recorded. A full report will be scanned into the patient's chart at a later time. This report has been interpreted and electronically signed by [facility] Work Phone: EEGOrdered By: Radha alexis 03-29-2025 [facility] Work Phone: Acute Toxicology Panel, Merari grajeda 03-28-2025 Acetaminophen [Mass/Vol] ug/mL 10.0 - 30.0 ug/mL [facility] Ethanol [Mass/Vol] mg/dL NINF - 10 mg/dL [facility] Interpretation and review of laboratory results Normal [facility] Salicylates [Mass/Vol] mg/dL 4 - 20 mg/dL [facility] Basic metabolic 2000 panelon 03-28-2025 Anion gap [Moles/Vol] 12 mmol/L 10 - 2 0 mmol/L [facility] Calcium [Mass/Vol] 8.1 mg/dL Low 8.6 - 10. 3 mg/dL [facility] Chloride [Moles/Vol] 108 mmol/L High 98 - 10 7 mmol/L [facility] CO2 [Moles/Vol] 22 mmol/L 21 - 32 mmol/L [facility] Creatinine [Mass/Vol] 0.7 mg/dL 0.50 - 1.05 mg/dL [facility] eGFR - PINF [facility] Comment on above: Calculations of elver mated GFR are performed using the 2020 CKD-EPI Study Refit equation without the race variable for the IDMS-Traceable creatinine methods. https://jasn.asnjournals.org/content//ASN.2020 073484 Glucose [Mass/Vol] 76 mg/dL 74 - 99 mg/dL [facility] Interpretation and review of laboratory results Abnormal [facility] Potassium [Moles/Vol] 3.7 mmol/L 3.5 - 5.3 mmol/L [facility] Sodium [Moles/Vol] 138 mmol/L 136 - 145 mmol/L [facility] Urea nitrogen [Mass/Vol] 11 mg/dL 6 - 23 mg/dL [facility] Anion gap [Moles/Vol] 12 mmol/L Normal 10-20 [facility] Comment on above: Performed By: #### 2 4321-2 #### ADOLFO MEEK ([id number]) [facility] ([facility]) [address] [place] [address] Calcium [Mass/Vol] 8.1 mg/dL Low 8.6-10.3 [facility] Comment on above: Performed By: #### 2 4321-2 #### ADOLFO MEEK ([id number]) [facility] ([facility]) [address] [place] [address] Chloride [Moles/Vol] 108 mmol/L High 98-107 [facility] Comment on above: Performed By: #### 2 4321-2 #### ADOLFO MEEK ([id number]) [facility] ([facility]) [address] [place] [address] CO2 [Moles/Vol] 22 mmol/L Normal 21-32 [facility] Comment on above: Performed By: #### 2 4321-2 #### ADOLFO MEEK ([id number]) [facility] ([facility]) [address] [place] [address] Creatinine [Mass/Vol] 0.70 mg/dL Normal 0.50-1.05 [facility] Comment on above: Performed By: #### 2 4321-2 #### ADOLFO MEEK ([id number]) [facility] ([facility]) [address] [place] [address] GFR/1.73 sq M.predicted MDRD (S/P/Bld) [Vol rate/Area] mL/min/{1.73_m2} Normal >60 [facility] Comment on above: Result Comment: Calc ulations of estimated GFR are performed using the 2020 CKD-EPI Study Refit equation without the race variable for the IDMS-Traceable creatinine methods. https://jasn.asnjournals.org/content/early//ASN.2020 936627 Performed By: #### 2 4321-2 #### ADOLFO MEEK ([id number]) [facility] ([facility]) [address] [place] [address] Glucose [Mass/Vol] 76 mg/dL Normal 74-99 [facility] Comment on above: Performed By: #### 2 4321-2 #### ADOLFO MEEK ([id number]) [facility] ([facility]) [address] [place] [address] Potassium [Moles/Vol] 3.7 mmol/L Normal 3.5-5.3 [facility] Comment on above: Performed By: #### 2 4321-2 #### ADOLFO MEEK ([id number]) [facility] ([facility]) [address] [place] [address] Sodium [Moles/Vol] 138 mmol/L Normal 136-145 [facility] Comment on above: Performed By: #### 2 4321-2 #### ADOLFO MEEK ([id number]) [facility] ([facility]) [address] [place] [address] Urea nitrogen [Mass/Vol] 11 mg/dL Normal 6-23 [facility] Comment on above: Performed By: #### 2 4321-2 #### ADOLFO MEEK ([id number]) [facility] ([facility]) [address] [place] [address] CBC panel Auto (Bld)on 03-28 Erythrocyte distribution width (RBC) [Ratio] 12.5 % 11.5 - 14.5 % [facility] Hematocrit (Bld) [Volume fraction] 37.7 % 36.0 - 46.0 % [facility] Hemoglobin (Bld) [Mass/Vol] 12.4 g/dL 12.0 - 16.0 g/dL [facility] Interpretation and review of laboratory results Normal [facility] MCH (RBC) [Entitic mass] 30.3 pg 26.0 - 34.0 pg [facility] MCHC (RBC) [Mass/Vol] 32.9 g/dL 32.0 - 36.0 g/dL [facility] MCV (RBC) [Entitic vol] 92 fL 80 - 100 fL [facility] Nucleated RBC/100 WBC (Bld) [Ratio] 0 % [facility] Platelets (Bld) [#/Vol] 232 10*3/uL [facility] RBC (Bld) [#/Vol] 4.09 10*6/uL [facility] WBC (Bld) [#/Vol] 8 10*3/uL [facility] Erythrocyte distribution width (RBC) [Ratio] 12.5 % Normal 11.5-14.5 [facility] Comment on above: Performed By: #### 5 8410-2 #### ADOLFO MEEK ([id number]) [facility] ([facility]) [address] [place] [address] Hematocrit (Bld) [Volume fraction] 37.7 % Normal 36.0-46.0 [facility] Comment on above: Performed By: #### 5 8410-2 #### ADOLFO MEEK ([id number]) [facility] ([facility]) [id number] [place] [address] Hemoglobin (Bld) [Mass/Vol] 12.4 g/dL Normal 12.0-16.0 [facility] Comment on above: Performed By: #### 5 8410-2 #### ADOLFO MEEK ([id number]) [facility] ([facility]) [address] [place] [address] MCH (RBC) [Entitic mass] 30.3 pg Normal 26.0-34.0 [facility] Comment on above: Performed By: #### 5 8410-2 #### ADOLFO MEEK ([id number]) [facility] ([facility]) [address] [place] [address] MCHC (RBC) [Mass/Vol] 32.9 g/dL Normal 32.0-36.0 [facility] Comment on above: Performed By: #### 5 8410-2 #### ADOLFO MEEK ([id number]) [facility] ([facility]) [address] [place] [address] MCV (RBC) [Entitic vol] 92 fL Normal 80-100 [facility] Comment on above: Performed By: #### 5 8410-2 #### ADOLFO MEEK ([id number]) [facility] ([facility]) [address] [place] [address] Nucleated RBC/100 WBC (Bld) [Ratio] 0.0 /100 WBCs Normal 0.0-0.0 [facility] Comment on above: Performed By: #### 5 8410-2 #### ADOLFO MEEK ([id number]) [facility] ([facility]) [address] [place] [address] Platelets (Bld) [#/Vol] 232 x10*3/uL Normal 150-450 [facility] Comment on above: Performed By: #### 5 8410-2 #### ADOLFO MEEK ([id number]) [facility] ([facility]) [address] [place] [address] RBC (Bld) [#/Vol] 4.09 x10*6/uL Normal 4.00-5.20 [facility] Comment on above: Performed By: #### 5 8410-2 #### ADOLFO MEEK ([id number]) [facility] ([facility]) [address] [place] [address] WBC (Bld) [#/Vol] 8.0 x10*3/uL Normal 4.4-11.3 [facility] Comment on above: Performed By: #### 5 8410-2 #### ADOLFO MEEK ([id number]) [facility] ([facility]) [address] [place] [address] DRUG SCREEN,URINEon 03-28-20 25 Amphetamines Screen Ql (U) Negative Normal Presumptive Negative [facility] Comment on above: Order Comment: Drug screen results are presumptive and should not be used to assess compliance with prescribed medication. Contact the performing [facility] laboratory to add-on definitive confirmatory testing if clinically indicated. Toxicology screening results are reported qualitatively. The concentration must ???be greater than or equal to the cutoff to be reported as positive. The concentration at which the screening test can detect an individual drug or metabolite varies. The absence of expected drug(s) and/or drug metabolite(s) may indicate non-compliance, inappropriate timing of specimen collection relative to drug administration, poor drug absorption, diluted/adulterated urine, or limitations of testing. For medical purposes only; not valid for forensic use. Interpretive questions should be directed to the laboratory medical directors. Result Comment: CUTO FF LEVEL: 500 NG/ML Cross-reactivity has been reported with high concentrations of the following drugs: buproprion, chloroquine, chlorpromazine, ephedrine, mephentermine, fenfluramine, phentermine, phenylpropanolamine, pseudoephedrine, and propranolol. Performed By: #### D RUG3 #### ADOLFO MEEK ([id number]) [facility] ([facility]) [address] [place] [address] Barbiturates Screen Ql (U) Negative Normal Presumptive Negative [facility] Comment on above: Order Comment: Drug screen results are presumptive and should not be used to assess compliance with prescribed medication. Contact the performing [facility] laboratory to add-on definitive confirmatory testing if clinically indicated. Toxicology screening results are reported qualitatively. The concentration must ???be greater than or equal to the cutoff to be reported as positive. The concentration at which the screening test can detect an individual drug or metabolite varies. The absence of expected drug(s) and/or drug metabolite(s) may indicate non-compliance, inappropriate timing of specimen collection relative to drug administration, poor drug absorption, diluted/adulterated urine, or limitations of testing. For medical purposes only; not valid for forensic use. Interpretive questions should be directed to the laboratory medical directors. Result Comment: CUTO FF LEVEL: 200 NG/ML Performed By: #### D RUG3 #### ADOLFO MEEK ([id number]) [facility] ([facility]) [address] [place] [address] Benzodiazepines Ql (U) Positive Abnormal Presu mptive Negative [facility] Comment on above: Order Comment: Drug screen results are presumptive and should not be used to assess compliance with prescribed medication. Contact the performing [facility] laboratory to add-on definitive confirmatory testing if clinically indicated. Toxicology screening results are reported qualitatively. The concentration must ???be greater than or equal to the cutoff to be reported as positive. The concentration at which the screening test can detect an individual drug or metabolite varies. The absence of expected drug(s) and/or drug metabolite(s) may indicate non-compliance, inappropriate timing of specimen collection relative to drug administration, poor drug absorption, diluted/adulterated urine, or limitations of testing. For medical purposes only; not valid for forensic use. Interpretive questions should be directed to the laboratory medical directors. Result Comment: CUTO FF LEVEL: 200 NG/ML Performed By: #### D RUG3 #### ADOLFO MEEK ([id number]) [facility] ([facility]) [address] [place] [address] Benzoylecgonine Screen Ql (U) Negative Normal Presumptive Negative [facility] Comment on above: Order Comment: Drug screen results are presumptive and should not be used to assess compliance with prescribed medication. Contact the performing [facility] laboratory to add-on definitive confirmatory testing if clinically indicated. Toxicology screening results are reported qualitatively. The concentration must ???be greater than or equal to the cutoff to be reported as positive. The concentration at which the screening test can detect an individual drug or metabolite varies. The absence of expected drug(s) and/or drug metabolite(s) may indicate non-compliance, inappropriate timing of specimen collection relative to drug administration, poor drug absorption, diluted/adulterated urine, or limitations of testing. For medical purposes only; not valid for forensic use. Interpretive questions should be directed to the laboratory medical directors. Result Comment: CUTO FF LEVEL: 150 NG/ML Performed By: #### D RUG3 #### ADOLFO MEEK ([id number]) [facility] ([facility]) [address] [place] [address] Cannabinoids Screen Ql (U) Negative Normal Presumptive Negative [facility] Comment on above: Order Comment: Drug screen results are presumptive and should not be used to assess compliance with prescribed medication. Contact the performing [facility] laboratory to add-on definitive confirmatory testing if clinically indicated. Toxicology screening results are reported qualitatively. The concentration must ???be greater than or equal to the cutoff to be reported as positive. The concentration at which the screening test can detect an individual drug or metabolite varies. The absence of expected drug(s) and/or drug metabolite(s) may indicate non-compliance, inappropriate timing of specimen collection relative to drug administration, poor drug absorption, diluted/adulterated urine, or limitations of testing. For medical purposes only; not valid for forensic use. Interpretive questions should be directed to the laboratory medical directors. Result Comment: CUTO FF LEVEL: 50 NG/ML Performed By: #### D RUG3 #### ADOLFO MEEK ([id number]) [facility] ([facility]) [address] [place] [address] fentaNYL+Norfentanyl Screen Ql (U) Negative Normal Presumptive Negative [facility] Comment on above: Order Comment: Drug screen results are presumptive and should not be used to assess compliance with prescribed medication. Contact the performing [facility] laboratory to add-on definitive confirmatory testing if clinically indicated. Toxicology screening results are reported qualitatively. The concentration must ???be greater than or equal to the cutoff to be reported as positive. The concentration at which the screening test can detect an individual drug or metabolite varies. The absence of expected drug(s) and/or drug metabolite(s) may indicate non-compliance, inappropriate timing of specimen collection relative to drug administration, poor drug absorption, diluted/adulterated urine, or limitations of testing. For medical purposes only; not valid for forensic use. Interpretive questions should be directed to the laboratory medical directors. Result Comment: CUTO FF LEVEL: 5 NG/ML Performed By: #### D RUG3 #### ADOLFO MEEK ([id number]) [facility] ([facility]) [address] [place] [address] Methadone Screen Ql (U) Negative Normal Pres umptive Negative [facility] Comment on above: Order Comment: Drug screen results are presumptive and should not be used to assess compliance with prescribed medication. Contact the performing [facility] laboratory to add-on definitive confirmatory testing if clinically indicated. Toxicology screening results are reported qualitatively. The concentration must ???be greater than or equal to the cutoff to be reported as positive. The concentration at which the screening test can detect an individual drug or metabolite varies. The absence of expected drug(s) and/or drug metabolite(s) may indicate non-compliance, inappropriate timing of specimen collection relative to drug administration, poor drug absorption, diluted/adulterated urine, or limitations of testing. For medical purposes only; not valid for forensic use. Interpretive questions should be directed to the laboratory medical directors. Result Comment: CUTO FF LEVEL: 150 NG/ML The metabolite V-wxyhk-rgoyklphakdcfg (LAAM) is not detected by this method in concentrations that would be found in the urine of patients on LAAM therapy. Performed By: #### D RUG3 #### ADOLFO MEEK ([id number]) [facility] ([facility]) [address] [place] [address] Opiates Screen Ql (U) Negative Normal Presum ptive Negative [facility] Comment on above: Order Comment: Drug screen results are presumptive and should not be used to assess compliance with prescribed medication. Contact the performing [facility] laboratory to add-on definitive confirmatory testing if clinically indicated. Toxicology screening results are reported qualitatively. The concentration must ???be greater than or equal to the cutoff to be reported as positive. The concentration at which the screening test can detect an individual drug or metabolite varies. The absence of expected drug(s) and/or drug metabolite(s) may indicate non-compliance, inappropriate timing of specimen collection relative to drug administration, poor drug absorption, diluted/adulterated urine, or limitations of testing. For medical purposes only; not valid for forensic use. Interpretive questions should be directed to the laboratory medical directors. Result Comment: CUTO FF LEVEL: 300 NG/ML The opiate screen does not detect fentanyl, meperidine, or tramadol. Oxycodone is not consistently detected (refer to Oxycodone Screen, Urine result). Performed By: #### Ailyn RUG3 #### ADOLFO MEEK ([id number]) [facility] ([facility]) [address] [place] [address] oxyCODONE+oxyMORphone Screen Ql (U) Negative Normal Presumptive Negative [facility] Comment on above: Order Comment: Drug screen results are presumptive and should not be used to assess compliance with prescribed medication. Contact the performing [facility] laboratory to add-on definitive confirmatory testing if clinically indicated. Toxicology screening results are reported qualitatively. The concentration must ???be greater than or equal to the cutoff to be reported as positive. The concentration at which the screening test can detect an individual drug or metabolite varies. The absence of expected drug(s) and/or drug metabolite(s) may indicate non-compliance, inappropriate timing of specimen collection relative to drug administration, poor drug absorption, diluted/adulterated urine, or limitations of testing. For medical purposes only; not valid for forensic use. Interpretive questions should be directed to the laboratory medical directors. Result Comment: CUTO FF LEVEL: 100 NG/ML This test will accurately detect both oxycodone and oxymorphone. Performed By: #### Ailyn RUG3 #### ADOLFO MEEK ([id number]) [facility] ([facility]) [address] [place] [address] Phencyclidine Ql (U) Negative Normal Presump tive Negative [facility] Comment on above: Order Comment: Drug screen results are presumptive and should not be used to assess compliance with prescribed medication. Contact the performing [facility] laboratory to add-on definitive confirmatory testing if clinically indicated. Toxicology screening results are reported qualitatively. The concentration must ???be greater than or equal to the cutoff to be reported as positive. The concentration at which the screening test can detect an individual drug or metabolite varies. The absence of expected drug(s) and/or drug metabolite(s) may indicate non-compliance, inappropriate timing of specimen collection relative to drug administration, poor drug absorption, diluted/adulterated urine, or limitations of testing. For medical purposes only; not valid for forensic use. Interpretive questions should be directed to the laboratory medical directors. Result Comment: CUTO FF LEVEL: 25 NG/ML Cross-reactivity has been reported with dextromethorphan. Performed By: #### Ailyn RUG3 #### ADOLFO MEEK ([id number]) [facility] ([facility]) [address] [place] [address] Drug Screen, Urineon 025 Amphetamines Screen Ql (U) Negative Presumptive Negative [facility] Comment on above: CUTOFF LEVEL: 500 NG /ML Cross-reactivity has been reported with high concentrations of the following drugs: buproprion, chloroquine, chlorpromazine, ephedrine, mephentermine, fenfluramine, phentermine, phenylpropanolamine, pseudoephedrine, and propranolol. Barbiturates Screen Ql (U) Negative Presumptive Negative [facility] Comment on above: CUTOFF LEVEL: 200 NG /ML Benzodiazepines Ql (U) Positive Abnormal Presu mptive Negative [facility] Comment on above: CUTOFF LEVEL: 200 NG /ML Benzoylecgonine Screen Ql (U) Negative Presumptive Negative [facility] Comment on above: CUTOFF LEVEL: 150 NG /ML Cannabinoids Screen Ql (U) Negative Presumptive Negative [facility] Comment on above: CUTOFF LEVEL: 50 NG/ ML fentaNYL+Norfentanyl Screen Ql (U) Negative Presumptive Negative [facility] Comment on above: CUTOFF LEVEL: 5 NG/M L Interpretation and review of laboratory results Abnormal [facility] Methadone Screen Ql (U) Negative Pres umptive Negative [facility] Comment on above: CUTOFF LEVEL: 150 NG /ML The metabolite M-txklo-hiivhqfakjzhjs (LAAM) is not detected by this method in concentrations that would be found in the urine of patients on LAAM therapy. Opiates Screen Ql (U) Negative Presum ptive Negative [facility] Comment on above: CUTOFF LEVEL: 300 NG /ML The opiate screen does not detect fentanyl, meperidine, or tramadol. Oxycodone is not consistently detected (refer to Oxycodone Screen, Urine result). oxyCODONE+oxyMORphone Screen Ql (U) Negative Presumptive Negative [facility] Comment on above: CUTOFF LEVEL: 100 NG /ML This test will accurately detect both oxycodone and oxymorphone. Phencyclidine Ql (U) Negative Presump tive Negative [facility] Comment on above: CUTOFF LEVEL: 25 NG/ ML Cross-reactivity has been reported with dextromethorphan. Drug screen results are presumptive and should not be used to assess compliance with prescribed medication. Contact the performing [facility] laboratory to add-on definitive confirmatory testing if clinically indicated. Toxicology screening results are reported qualitatively. The concentration must be greater than or equal to the cutoff to be reported as positive. The concentration at which the screening test can detect an individual drug or metabolite varies. The absence of expected drug(s) and/or drug metabolite(s) may indicate non-compliance, inappropriate timing of specimen collection relative to drug administration, poor drug absorption, diluted/adulterated urine, or limitations of testing. For medical purposes only; not valid for forensic use. Interpretive questions should be directed to the laboratory medical directors. [facility] Extra Urine Rader TubeOrdered By: Brayan Iqbal on 03-28-2025 Extra Tube [facility] Work Phone: [facility] Work Phone: MR Brain WO contraston 03-28 1. Unremarkable MRI of the brain, without discrete structural or parenchymal abnormality identified to explain patient's symptoms. 2. Some mucus/secretions are present in the inferior maxillary sinuses bilaterally. Correlate with symptoms of sinusitis. MACRO: None Signed by: Hima So 03/28/2025 1:07 AM Dictation workstation: [id number] MMODAL Interpreted By: Hima So, STUDY: MR BRAIN WO IV CONTRAST; 03/27/2025 11:17 pm INDICATION: Signs/Symptoms:Seizure- like acivity. COMPARISON: Same day noncontrast CT head ACCESSION NUMBER(S): [id number] ORDERING CLINICIAN: KEE SHAH TECHNIQUE: Multiplanar and multisequence MRI of the brain was performed without intravenous contrast. FINDINGS: No diffusion restriction abnormality is present to suggest a recent infarct. No abnormal cortical diffusion restriction is present to suggest prolonged epileptiform/seizure activity. There is no evidence of recent intracranial hemorrhage. No mass effect or midline shift is identified. No hemosiderin staining is present. No abnormal ventricular dilatation is identified. Basal cisterns are patent. No extra-axial fluid collections are noted. No discrete parenchymal signal abnormality is identified in the brain. No cortical heterotopia or other structure abnormalities are identified to explain patient's symptomatology. No abnormal fluid signal is present in the mastoid air cells. Some mucus/secretions are present in the inferior maxillary sinuses bilaterally. MMODAL Marquis So v, MD - 03/28/2025 Interpreted By: Hima So, STUDY: MR BRAIN WO IV CONTRAST; 03/27/2025 11:17 pm INDICATION: Signs/Symptoms:Seizure- like acivity. COMPARISON: Same day noncontrast CT head ACCESSION NUMBER(S): [id number] ORDERING CLINICIAN: KEE SHAH TECHNIQUE: Multiplanar and multisequence MRI of the brain was performed without intravenous contrast. FINDINGS: No diffusion restriction abnormality is present to suggest a recent infarct. No abnormal cortical diffusion restriction is present to suggest prolonged epileptiform/seizure activity. There is no evidence of recent intracranial hemorrhage. No mass effect or midline shift is identified. No hemosiderin staining is present. No abnormal ventricular dilatation is identified. Basal cisterns are patent. No extra-axial fluid collections are noted. No discrete parenchymal signal abnormality is identified in the brain. No cortical heterotopia or other structure abnormalities are identified to explain patient's symptomatology. No abnormal fluid signal is present in the mastoid air cells. Some mucus/secretions are present in the inferior maxillary sinuses bilaterally. IMPRESSION: 1. Unremarkable MRI of the brain, without discrete structural or parenchymal abnormality identified to explain patient's symptoms. 2. Some mucus/secretions are present in the inferior maxillary sinuses bilaterally. Correlate with symptoms of sinusitis. MACRO: None Signed by: Hima So 03/28/2025 1:07 AM Dictation workstation: [id number] [facility] Work Phone: MR Brain WO contrastOrdered By: Hima So on 03-28-2025 [facility] Work Phone: Urinalysis complete W Reflex Culture panel (U)on 03-28-2025 Appearance (U) Clear Clear [facility] Bilirubin (U) [Mass/Vol] Negative NEGATIVE mg/dL [facility] Color (U) Light-Yellow Light-Yellow , Yellow, Dark-Yellow [facility] Glucose Auto test strip (U) [Mass/Vol] Normal Normal mg/dL [facility] Interpretation and review of laboratory results Normal [facility] Ketones (U) [Mass/Vol] Negative NEGAT NGA mg/dL [facility] Leukocyte esterase Auto test strip Ql (U) Negative NEGATIVE [facility] Nitrite Auto test strip Ql (U) Negative NEGATIVE [facility] pH (U) 6 [pH] 5.0, 5.5, 6.0, 6.5, 7.0, 7.5, 8.0 [facility] Protein (U) [Mass/Vol] Negative NEGAT NGA, 10 (TRACE), 20 (TRACE) mg/dL [facility] RBC (U) [#/Vol] Negative NEGATIVE mg/dL [facility] Specific gravity (U) [Rel density] 1.019 1.005 - 1.035 [facility] Urobilinogen (U) [Mass/Vol] Normal Normal mg/dL [facility] Appearance (U) Clear Normal Clear [facility] Comment on above: Performed By: #### 5 8077-9 #### ADOLFO MEEK ([id number]) [facility] ([facility]) [address] [place] [address] Bilirubin (U) [Mass/Vol] Negative Normal NEGATIVE [facility] Comment on above: Performed By: #### 5 8077-9 #### ADOLFO MEEK ([id number]) [facility] ([facility]) [address] [place] [address] Color (U) Light-Yellow Normal Light-Yellow , Yellow, Dark-Yellow [facility] Comment on above: Performed By: #### 5 8077-9 #### ADOLFO MEEK ([id number]) [facility] ([facility]) [address] [place] [address] Glucose Auto test strip (U) [Mass/Vol] Normal Normal Normal [facility] Comment on above: Performed By: #### 5 8077-9 #### ADOLFO MEEK ([id number]) [facility] ([facility]) [id number] [place] [address] Ketones (U) [Mass/Vol] Negative Normal [facility]GATIVE [facility] on above: Performed By: #### 5 8077-9 #### ADOLFO MEEK ([id number]) [facility] ([facility]) [address] [place] [address] Leukocyte esterase Auto test strip Ql (U) Negative Normal NEGATIVE [facility] Comment on above: Performed By: #### 5 8077-9 #### ADOLFO MEEK ([id number]) [facility] ([facility]) [address] [place] [address] Nitrite Auto test strip Ql (U) Negative Normal NEGATIVE [facility] Comment on above: Performed By: #### 5 8077-9 #### ADOLFO MEEK ([id number]) [facility] ([facility]) [address] [place] [address] pH (U) 6.0 [pH] Normal 5.0, 5.5, 6.0, 6.5, 7.0, 7.5, 8.0 [facility] Comment on above: Performed By: #### 5 8077-9 #### ADOLFO MEEK ([id number]) [facility] ([facility]) [address] [place] [address] Protein (U) [Mass/Vol] Negative Normal NEGAT NGA, 10 (TRACE), 20 (TRACE) [facility] Comment on above: Performed By: #### 5 8077-9 #### ADOLFO MEEK ([id number]) [facility] ([facility]) [id number] [place] [address] RBC (U) [#/Vol] Negative Normal NEGATIVE [facility] Comment on above: Performed By: #### 5 8077-9 #### ADOLFO MEEK ([id number]) [facility] ([facility]) [address] [place] [address] Specific gravity (U) [Rel density] 1.019 Normal 1.005-1.035 [facility] Comment on above: Performed By: #### 5 8077-9 #### ADOLFO MEEK ([id number]) [facility] ([facility]) [address] [place] [address] Urobilinogen (U) [Mass/Vol] Normal Normal Normal [facility] Comment on above: Performed By: #### 5 8077-9 #### ADOLFO MEEK ([id number]) [facility] ([facility]) [address] [place] [address] ACUTE TOXICOLOGY PANEL, BLOO Don 03-27-2025 Acetaminophen [Mass/Vol] ug/mL Normal 10.0-30.0 [facility] Comment on above: Performed By: #### Ailyn RUBL #### ADOLFO MEEK ([id number]) [facility] ([facility]) [address] [place] [address] Ethanol [Mass/Vol] mg/dL Normal <=10 [facility] Comment on above: Performed By: #### D RUBL #### ADOLFO MEEK ([id number]) [facility] ([facility]) [address] [place] [address] Salicylates [Mass/Vol] mg/dL Normal 4-20 [facility] Comment on above: Performed By: #### D RUBL #### ADOLFO MEEK ([id number]) [facility] ([facility]) [address] [place] [address] CBC W Auto Differential pane l (Bld)on 03-27-2025 Basophils (Bld) [#/Vol] 0.06 10*3/uL [facility] Basophils/100 WBC (Bld) 0.8 % 0.0 - 2.0 % [facility] Eosinophils (Bld) [#/Vol] 0.31 10*3/uL [facility] Eosinophils/100 WBC (Bld) 4.2 % 0.0 - 6.0 % [facility] Erythrocyte distribution width (RBC) [Ratio] 12.5 % 11.5 - 14.5 % [facility] Hematocrit (Bld) [Volume fraction] 38.6 % 36.0 - 46.0 % [facility] Hemoglobin (Bld) [Mass/Vol] 13.4 g/dL 12.0 - 16.0 g/dL [facility] Immature granulocytes (Bld) [#/Vol] 0.02 10*3/uL [facility] Immature granulocytes/100 WBC (Bld) 0.3 % 0.0 - 0.9 % [facility] Comment on above: Immature Granulocyte Count (IG) includes promyelocytes, myelocytes and metamyelocytes but does not include bands. Percent differential counts (%) should be interpreted in the context of the absolute cell counts (cells/UL). Lymphocytes (Bld) [#/Vol] 1.98 10*3/uL [facility] Lymphocytes/100 WBC (Bld) 26.5 % 13.0 - 44.0 % [facility] MCH (RBC) [Entitic mass] 30.4 pg 26.0 - 34.0 pg [facility] MCHC (RBC) [Mass/Vol] 34.7 g/dL 32.0 - 36.0 g/dL [facility] MCV (RBC) [Entitic vol] 88 fL 80 - 100 fL [facility] Monocytes (Bld) [#/Vol] 0.54 10*3/uL [facility] Monocytes/100 WBC (Bld) 7.2 % 2.0 - 10.0 % [facility] Neutrophils (Bld) [#/Vol] 4.55 10*3/uL [facility] Comment on above: Percent differential counts (%) should be interpreted in the context of the absolute cell counts (cells/uL). Neutrophils/100 WBC (Bld) 61 % 40.0 - 80.0 % [facility] Nucleated RBC/100 WBC (Bld) [Ratio] 0 % [facility] Platelets (Bld) [#/Vol] 271 10*3/uL [facility] RBC (Bld) [#/Vol] 4.41 10*6/uL [facility] WBC (Bld) [#/Vol] 7.5 10*3/uL [facility] Basophils (Bld) [#/Vol] 0.06 x10*3/uL Normal 0.00-0.10 [facility] Comment on above: Performed By: #### 5 902-2 #### ALMA REYEZ ([id number]) [facility] ([facility]) [address] [place] [address] Basophils/100 WBC (Bld) 0.8 % Normal 0.0-2.0 [facility] Comment on above: Performed By: #### 5 902-2 #### ALMA REYEZ ([id number]) [facility] ([facility]) [address] [place] [address] Eosinophils (Bld) [#/Vol] 0.31 x10*3/uL Normal 0.00-0.70 [facility] Comment on above: Performed By: #### 5 902-2 #### ALMA REYEZ ([id number]) [facility] ([facility]) [address] [place] [address]79 Eosinophils/100 WBC (Bld) 4.2 % Normal 0.0-6.0 [facility] Comment on above: Performed By: #### 5 902-2 #### ALMA REYEZ ([id number]) [facility] ([facility]) [address] [place] [address] 12055 Erythrocyte distribution width (RBC) [Ratio] 12.5 % Normal 11.5-14.5 [facility] Comment on above: Performed By: #### 5 902-2 #### ALMA REYEZ ([id number]) [facility] ([facility]) [address] [place] [address] Hematocrit (Bld) [Volume fraction] 38.6 % Normal 36.0-46.0 [facility] Comment on above: Performed By: #### 5 902-2 #### ALMA REYEZ ([id number]) [facility] ([facility]) [address] [place] [address] Hemoglobin (Bld) [Mass/Vol] 13.4 g/dL Normal 12.0-16.0 [facility] Comment on above: Performed By: #### 5 902-2 #### ALMA REYEZ ([id number]) [facility] ([facility]) [address] [place] [address] Immature granulocytes (Bld) [#/Vol] 0.02 x10*3/uL Normal 0.00-0.70 [facility] Comment on above: Performed By: #### 5 902-2 #### ALMA REYEZ ([id number]) [facility] ([facility]) [address] [place] [address] Immature granulocytes/100 WBC (Bld) 0.3 % Normal 0.0-0.9 [facility] Comment on above: Result Comment: Sindi ture Granulocyte Count (IG) includes promyelocytes, myelocytes and metamyelocytes but does not include bands. Percent differential counts (%) should be interpreted in the context of the absolute cell counts (cells/UL). Performed By: #### 5 902-2 #### ALMA REYEZ ([id number]) [facility] ([facility]) [address] [place] [address] Lymphocytes (Bld) [#/Vol] 1.98 x10*3/uL Normal 1.20-4.80 [facility] Comment on above: Performed By: #### 5 902-2 #### ALMA REYEZ ([id number]) [facility] ([facility]) [address] [place] [address]131 Lymphocytes/100 WBC (Bld) 26.5 % Normal 13.0-44.0 [facility] Comment on above: Performed By: #### 5 902-2 #### ALMA REYEZ ([id number]) [facility] ([facility]) [address] [place] [address]1351 MCH (RBC) [Entitic mass] 30.4 pg Normal 26.0-34.0 [facility] Comment on above: Performed By: #### 5 902-2 #### ALMA REYEZ ([id number]) [facility] ([facility]) [address] [place] [address] 46923 MCHC (RBC) [Mass/Vol] 34.7 g/dL Normal 32.0-36.0 [facility] Comment on above: Performed By: #### 5 902-2 #### ALMA REYEZ ([id number]) [facility] ([facility]) [address] [place] [address] 49538 MCV (RBC) [Entitic vol] 88 fL Normal 80-100 [facility] Comment on above: Performed By: #### 5 902-2 #### ALMA REYEZ ([id number]) [facility] ([facility]) [address] [place] [address] 73346 Monocytes (Bld) [#/Vol] 0.54 x10*3/uL Normal 0.10-1.00 [facility] Comment on above: Performed By: #### 5 902-2 #### ALMA REYEZ ([id number]) [facility] ([facility]) [address] [place] [address]19 Monocytes/100 WBC (Bld) 7.2 % Normal 2.0-10.0 [facility] Comment on above: Performed By: #### 5 902-2 #### ALMA REYEZ ([id number]) [facility] ([facility]) [address] [place] [address] 20457 Neutrophils (Bld) [#/Vol] 4.55 x10*3/uL Normal 1.20-7.70 [facility] Comment on above: Result Comment: Perc ent differential counts (%) should be interpreted in the context of the absolute cell counts (cells/uL). Performed By: #### 5 902-2 #### ALMA REYEZ ([id number]) [facility] ([facility]) [address] [place] [address] 24020 Neutrophils/100 WBC (Bld) 61.0 % Normal 40.0-80.0 [facility] Comment on above: Performed By: #### 5 902-2 #### ALMA REYEZ ([id number]) [facility] ([facility]) [address] [place] [address]240 Nucleated RBC/100 WBC (Bld) [Ratio] 0.0 /100 WBCs Normal 0.0-0.0 [facility] Comment on above: Performed By: #### 5 902-2 #### ALMA REYEZ ([id number]) [facility] ([facility]) [address] [place] [address] 03141 Platelets (Bld) [#/Vol] 271 x10*3/uL Normal 150-450 [facility] Comment on above: Performed By: #### 5 902-2 #### ALMA REYEZ ([id number]) [facility] ([facility]) [address] [place] [address] 26878 RBC (Bld) [#/Vol] 4.41 x10*6/uL Normal 4.00-5.20 [facility] Comment on above: Performed By: #### 5 902-2 #### ALMA REYEZ ([id number]) [facility] ([facility]) [address] [place] [address] WBC (Bld) [#/Vol] 7.5 x10*3/uL Normal 4.4-11.3 [facility] Comment on above: Performed By: #### 5 902-2 #### MARQUEZ DEREJE ([id number]) [facility] ([facility]) [address] [place] [address] CT CERVICAL SPINE WO IV CONT RASTon 03-27-2025 CT CERVICAL SPINE WO IV CONTRAST Interpreted By: Melissa Gao, STUDY: CT CERVICAL SPINE WO IV CONTRAST; ; 03/27/2025 2:45 pm INDICATION: Signs/Symptoms:head injury. COMPARISON: None. ACCESSION NUMBER(S): [id number] ORDERING CLINICIAN: BILL CANNON TECHNIQUE: Contiguous axial CT sections are performed from the skullbase to the upper thoracic spine and supplemented with coronal and sagittal reformatted images. FINDINGS: There is slight dextro convexity of the cervical spine and straightening of the cervical lordosis. The facet joints align normally. The cervical vertebral body heights are maintained. The C1 ring is in tact. There is no evidence of cervical vertebral fracture. There is no bone destruction or aggressive periosteal reaction. No lytic or blastic lesions are identified. The surrounding visualized osseous structures are also intact. The cervical disc space heights are preserved. Distracting there is no CT evidence of central canal or neural foraminal stenosis in the cervical spine. The surrounding soft tissues are unremarkable. There is no prevertebral soft tissue swelling or retropharyngeal air. IMPRESSION: Straightening of the cervical lordosis could reflect soft tissue injury or muscle spasm. No sign of fracture or subluxation. No significant central canal or neural foraminal stenosis. MACRO: None Signed by: Melissa Gao 03/27/2025 3:05 PM Dictation workstation: [id number] [facility] CT Cervical spine WO contras ton 03-27-2025 Straightening of the cervical lordosis could reflect soft tissue injury or muscle spasm. No sign of fracture or subluxation. No significant central canal or neural foraminal stenosis. MACRO: None Signed by: Melissa Gao 03/27/2025 3:05 PM Dictation workstation: [id number] [facility] Interpreted By: Melissa Gao, STUDY: CT CERVICAL SPINE WO IV CONTRAST; ; 03/27/2025 2:45 pm INDICATION: Signs/Symptoms:head injury. COMPARISON: None. ACCESSION NUMBER(S): [id number] ORDERING CLINICIAN: BILL CANNON TECHNIQUE: Contiguous axial CT sections are performed from the skullbase to the upper thoracic spine and supplemented with coronal and sagittal reformatted images. FINDINGS: There is slight dextro convexity of the cervical spine and straightening of the cervical lordosis. The facet joints align normally. The cervical vertebral body heights are maintained. The C1 ring is in tact. There is no evidence of cervical vertebral fracture. There is no bone destruction or aggressive periosteal reaction. No lytic or blastic lesions are identified. The surrounding visualized osseous structures are also intact. The cervical disc space heights are preserved. Distracting there is no CT evidence of central canal or neural foraminal stenosis in the cervical spine. The surrounding soft tissues are unremarkable. There is no prevertebral soft tissue swelling or retropharyngeal air. [facility] Eneida Gao MD - 03/27/2025 Interpreted By: Melissa Gao, STUDY: CT CERVICAL SPINE WO IV CONTRAST; ; 03/27/2025 2:45 pm INDICATION: Signs/Symptoms:head injury. COMPARISON: None. ACCESSION NUMBER(S): [id number] ORDERING CLINICIAN: BILL CANNON TECHNIQUE: Contiguous axial CT sections are performed from the skullbase to the upper thoracic spine and supplemented with coronal and sagittal reformatted images. FINDINGS: There is slight dextro convexity of the cervical spine and straightening of the cervical lordosis. The facet joints align normally. The cervical vertebral body heights are maintained. The C1 ring is in tact. There is no evidence of cervical vertebral fracture. There is no bone destruction or aggressive periosteal reaction. No lytic or blastic lesions are identified. The surrounding visualized osseous structures are also intact. The cervical disc space heights are preserved. Distracting there is no CT evidence of central canal or neural foraminal stenosis in the cervical spine. The surrounding soft tissues are unremarkable. There is no prevertebral soft tissue swelling or retropharyngeal air. IMPRESSION: Straightening of the cervical lordosis could reflect soft tissue injury or muscle spasm. No sign of fracture or subluxation. No significant central canal or neural foraminal stenosis. MACRO: None Signed by: Melissa Gao 03/27/2025 3:05 PM Dictation workstation: [id number] [facility] Work Phone: CT Cervical spine WO contras tOrdered By: Laurita Gao on 03-27-2025 [facility] Work Phone: CT HEAD WO IV CONTRASTon CT HEAD WO IV CONTRAST Interpreted By: Monica Pappas, STUDY: CT HEAD WO IV CONTRAST; 03/27/2025 2:45 pm INDICATION: Signs/Symptoms:head injury. COMPARISON: 03/26/2025 ACCESSION NUMBER(S): [id number] ORDERING CLINICIAN: BILL CANNON TECHNIQUE: A helical acquisition data was obtained. One or more of the following dose reduction techniques were used: Automated exposure control Adjustment of the mA and/or kV according to patient size, and/or use of iterative reconstruction technique. FINDINGS: Intracranial findings: There is no evidence for intracranial hemorrhage or mass effect. 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 Paranasal sinuses and temporal bone findings: There is marked mucosal thickening of the maxillary sinuses, ethmoid air cells, and sphenoid sinus. The remainder of the visualized portions of the paranasal sinuses, mastoid air cells, and middle ear cavities are clear. Orbital findings: The visualized portions of the orbits are unremarkable. IMPRESSION: No acute intracranial pathologic findings are identified. 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 There is no interval change when compared to the previous examination. Maxillary sinus, ethmoid, and sphenoid sinusitis. MACRO: none Signed by: Monica Pappas 03/27/2025 3:01 PM Dictation workstation: [id number] [facility] CT Head WO contraston 2024 No acute intracrania l pathologic findings are identified. 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 There is no interval change when compared to the previous examination. Maxillary sinus, ethmoid, and sphenoid sinusitis. MACRO: none Signed by: Monica Pappas 03/27/2025 3:01 PM Dictation workstation: [id number] Interpreted By: Monica Pappas, STUDY: CT HEAD WO IV CONTRAST; 03/27/2025 2:45 pm INDICATION: Signs/Symptoms:head injury. COMPARISON: 03/26/2025 ACCESSION NUMBER(S): [id number] ORDERING CLINICIAN: BILL CANNON TECHNIQUE: A helical acquisition data was obtained. One or more of the following dose reduction techniques were used: Automated exposure control Adjustment of the mA and/or kV according to patient size, and/or use of iterative reconstruction technique. FINDINGS: Intracranial findings: There is no evidence for intracranial hemorrhage or mass effect. 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 Paranasal sinuses and temporal bone findings: There is marked mucosal thickening of the maxillary sinuses, ethmoid air cells, and sphenoid sinus. The remainder of the visualized portions of the paranasal sinuses, mastoid air cells, and middle ear cavities are clear. Orbital findings: The visualized portions of the orbits are unremarkable. MMODAL Monica Pappas MD - 03/27/2025 Interpreted By: Monica Pappas, STUDY: CT HEAD WO IV CONTRAST; 03/27/2025 2:45 pm INDICATION: Signs/Symptoms:head injury. COMPARISON: 03/26/2025 ACCESSION NUMBER(S): [id number] ORDERING CLINICIAN: BILL CANNON TECHNIQUE: A helical acquisition data was obtained. One or more of the following dose reduction techniques were used: Automated exposure control Adjustment of the mA and/or kV according to patient size, and/or use of iterative reconstruction technique. FINDINGS: Intracranial findings: There is no evidence for intracranial hemorrhage or mass effect. 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 Paranasal sinuses and temporal bone findings: There is marked mucosal thickening of the maxillary sinuses, ethmoid air cells, and sphenoid sinus. The remainder of the visualized portions of the paranasal sinuses, mastoid air cells, and middle ear cavities are clear. Orbital findings: The visualized portions of the orbits are unremarkable. IMPRESSION: No acute intracranial pathologic findings are identified. 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 There is no interval change when compared to the previous examination. Maxillary sinus, ethmoid, and sphenoid sinusitis. MACRO: none Signed by: Monica Pappas 03/27/2025 3:01 PM Dictation workstation: [id number] [facility] Work Phone: CT Head WO contrastOrdered B y: Monica Gregoryiger on 03-27-2025 [facility] Work Phone: Comprehensive metabolic 2000 panelon 03-27-2025 Albumin BCP dye [Mass/Vol] 4.5 g/dL 3.4 - 5.0 g/dL [facility] ALP [Catalytic activity/Vol] 53 U/L 33 - 110 U/L [facility] ALT With P-5'-P [Catalytic activity/Vol] 23 U/L 7 - 45 U/L [facility] Comment on above: Patients treated wit h Sulfasalazine may generate falsely decreased results for ALT. Anion gap [Moles/Vol] 12 mmol/L 10 - 2 0 mmol/L [facility] AST With P-5'-P [Catalytic activity/Vol] 20 U/L 9 - 39 U/L [facility] Bilirubin [Mass/Vol] 0.5 mg/dL 0.0 - 1 .2 mg/dL [facility] Calcium [Mass/Vol] 9.4 mg/dL 8.6 - 10. 3 mg/dL [facility] Chloride [Moles/Vol] 108 mmol/L High 98 - 10 7 mmol/L [facility] CO2 [Moles/Vol] 22 mmol/L 21 - 32 mmol/L [facility] Creatinine [Mass/Vol] 0.8 mg/dL 0.50 - 1.05 mg/dL [facility] eGFR - PINF [facility] Comment on above: Calculations of elver mated GFR are performed using the 2020 CKD-EPI Study Refit equation without the race variable for the IDMS-Traceable creatinine methods. https://jasn.asnjournals.org/content/early//ASN.2020 005823 Glucose [Mass/Vol] 86 mg/dL 74 - 99 mg/dL [facility] Interpretation and review of laboratory results Abnormal [facility] Potassium [Moles/Vol] 3.7 mmol/L 3.5 - 5.3 mmol/L [facility] Protein [Mass/Vol] 6.7 g/dL 6.4 - 8.2 g/dL [facility] Sodium [Moles/Vol] 138 mmol/L 136 - 145 mmol/L [facility] Urea nitrogen [Mass/Vol] 12 mg/dL 6 - 23 mg/dL [facility] Albumin BCP dye [Mass/Vol] 4.5 g/dL Normal 3.4-5.0 [facility] Comment on above: Performed By: #### 5 902-2 #### ALMA REYEZ ([id number]) [facility] ([facility]) [address] [place] [address] 51205 ALP [Catalytic activity/Vol] 53 U/L Normal 33-110 [facility] Comment on above: Performed By: #### 5 902-2 #### ALMA REYEZ ([id number]) [facility] ([facility]) [address] [place] [address] 26110 ALT With P-5'-P [Catalytic activity/Vol] 23 U/L Normal 7-45 [facility] Comment on above: Result Comment: Venecia ents treated with Sulfasalazine may generate falsely decreased results for ALT. Performed By: #### 5 902-2 #### ALMA REYEZ ([id number]) [facility] ([facility]) [address] [place] [address] 91519 Anion gap [Moles/Vol] 12 mmol/L Normal 10-20 [facility] Comment on above: Performed By: #### 5 902-2 #### ALMA REYEZ ([id number]) [facility] ([facility]) [address] [place] [address] 81147 AST With P-5'-P [Catalytic activity/Vol] 20 U/L Normal 9-39 [facility] Comment on above: Performed By: #### 5 902-2 #### ALMA REYEZ ([id number]) [facility] ([facility]) [address] [place] [address] 70361 Bilirubin [Mass/Vol] 0.5 mg/dL Normal 0.0-1.2 [facility] Comment on above: Performed By: #### 5 902-2 #### ALMA REYEZ ([id number]) [facility] ([facility]) [facility] [place] [address] Calcium [Mass/Vol] 9.4 mg/dL Normal 8.6-10.3 [facility] Comment on above: Performed By: #### 5 902-2 #### ALMA REYEZ ([id number]) [facility] ([facility]) [address] [place] [address] Chloride [Moles/Vol] 108 mmol/L High 98-107 [facility] Comment on above: Performed By: #### 5 902-2 #### ALMA REYEZ ([id number]) [facility] ([facility]) [address] [place] [address] 27193 CO2 [Moles/Vol] 22 mmol/L Normal 21-32 [facility] Comment on above: Performed By: #### 5 902-2 #### ALMA REYEZ ([id number]) [facility] ([facility]) [facility] [place] [address] Creatinine [Mass/Vol] 0.80 mg/dL Normal 0.50-1.05 [facility] Comment on above: Performed By: #### 5 902-2 #### ALMA REYEZ ([id number]) [facility] ([facility]) [address] [place] [address] 71946 GFR/1.73 sq M.predicted MDRD (S/P/Bld) [Vol rate/Area] mL/min/{1.73_m2} Normal >60 [facility] Comment on above: Result Comment: Calc ulations of estimated GFR are performed using the 2020 CKD-EPI Study Refit equation without the race variable for the IDMS-Traceable creatinine methods. https://jasn.asnjournals.org/content//ASN.2020 221707 Performed By: #### 5 902-2 #### ALMA REYEZ ([id number]) [facility] ([facility]) [address] [place] [address] Glucose [Mass/Vol] 86 mg/dL Normal 74-99 [facility] Comment on above: Performed By: #### 5 902-2 #### ALMA REYEZ ([id number]) [facility] ([facility]) [address] [place] [address] Potassium [Moles/Vol] 3.7 mmol/L Normal 3.5-5.3 [facility] Comment on above: Performed By: #### 5 902-2 #### ALMA REYEZ ([id number]) [facility] ([facility]) [address] [place] [address] 35670 Protein [Mass/Vol] 6.7 g/dL Normal 6.4-8.2 [facility] Comment on above: Performed By: #### 5 902-2 #### ALMA REYEZ ([id number]) [facility] ([facility]) [address] [place] [address] Sodium [Moles/Vol] 138 mmol/L Normal 136-145 [facility] Comment on above: Performed By: #### 5 902-2 #### ALMA REYEZ ([id number]) [facility] ([facility]) [facility] [place] [address] Urea nitrogen [Mass/Vol] 12 mg/dL Normal 6-23 [facility] Comment on above: Performed By: #### 5 902-2 #### ALMA REYEZ ([id number]) [facility] ([facility]) [address] [place] [address] 08184 Lactateon 03-27-2025 Lactate [Moles/Vol] 1.5 mmol/L 0.4 - 2. 0 mmol/L [facility] Lactate [Moles/Vol] 1.5 mmol/L Normal 0.4-2.0 [facility] Comment on above: Order Comment: The A PTT is no longer used for monitoring Unfractionated Heparin Therapy. For monitoring Heparin Therapy, use the Heparin Assay. Performed By: #### 1 4979-9 #### ALMA REYEZ ([id number]) [facility] ([facility]) [address] [place] [address] Lactate [Moles/Vol] 2.2 mmol/L High 0.4 - 2. 0 mmol/L [facility] Lactate [Moles/Vol] 2.2 mmol/L High 0.4-2.0 [facility] Comment on above: Order Comment: Venip uncture immediately after or during the administration of Metamizole may lead to falsely low results. Testing should be performed immediately prior to Metamizole dosing. Performed By: #### 5 902-2 #### MARQUEZ DEREJE ([id number]) [facility] ([facility]) [address] [place] [address] Lactate [Moles/Vol]on 2024 Interpretation and review of laboratory results Normal [facility] Venipuncture immediately after or during the administration of Metamizole may lead to falsely low results. Testing should be performed immediately prior to Metamizole dosing. [facility] Interpretation and review of laboratory results Abnormal [facility] Venipuncture immediately after or during the administration of Metamizole may lead to falsely low results. Testing should be performed immediately prior to Metamizole dosing. [facility] MR BRAIN WO IV CONTRASTon MR BRAIN WO IV CONTRAST Interpreted By: Hima So, STUDY: MR BRAIN WO IV CONTRAST; 03/27/2025 11:17 pm INDICATION: Signs/Symptoms:Seizure- like acivity. COMPARISON: Same day noncontrast CT head ACCESSION NUMBER(S): [id number] ORDERING CLINICIAN: KEE SHAH TECHNIQUE: Multiplanar and multisequence MRI of the brain was performed without intravenous contrast. FINDINGS: No diffusion restriction abnormality is present to suggest a recent infarct. No abnormal cortical diffusion restriction is present to suggest prolonged epileptiform/seizure activity. There is no evidence of recent intracranial hemorrhage. No mass effect or midline shift is identified. No hemosiderin staining is present. No abnormal ventricular dilatation is identified. Basal cisterns are patent. No extra-axial fluid collections are noted. No discrete parenchymal signal abnormality is identified in the brain. No cortical heterotopia or other structure abnormalities are identified to explain patient's symptomatology. No abnormal fluid signal is present in the mastoid air cells. Some mucus/secretions are present in the inferior maxillary sinuses bilaterally. IMPRESSION: 1. Unremarkable MRI of the brain, without discrete structural or parenchymal abnormality identified to explain patient's symptoms. 2. Some mucus/secretions are present in the inferior maxillary sinuses bilaterally. Correlate with symptoms of sinusitis. MACRO: None Signed by: Hima So 03/28/2025 1:07 AM Dictation workstation: [id number] Normal [facility] MR Brain WO contraston 03-27 Radiology Study observation (narrative) [facility] Work Phone: Magnesiumon 03-27-2025 Magnesium [Mass/Vol] 1.84 mg/dL 1.60 - 2.40 mg/dL [facility] Magnesium [Mass/Vol] 1.84 mg/dL Normal 1.60-2.40 [facility] Comment on above: Performed By: #### 5 902-2 #### MARQUEZ DEREJE ([id number]) [facility] ([facility]) [address] [place] [address] Magnesium [Mass/Vol]on 03-27 Interpretation and review of laboratory results Normal [facility] No Panel Informationon 03-27 Radiology Study observation (narrative) [facility] Work Phone: [facility] Basic metabolic 2000 panelon 03-26-2025 Anion gap [Moles/Vol] 11 mmol/L 10 - 2 0 mmol/L [facility] Calcium [Mass/Vol] 9.3 mg/dL 8.6 - 10. 3 mg/dL [facility] Chloride [Moles/Vol] 106 mmol/L 98 - 10 7 mmol/L [facility] CO2 [Moles/Vol] 24 mmol/L 21 - 32 mmol/L [facility] Creatinine [Mass/Vol] 0.77 mg/dL 0.50 - 1.05 mg/dL [facility] eGFR - PINF [facility] Comment on above: Calculations of elver mated GFR are performed using the 2020 CKD-EPI Study Refit equation without the race variable for the IDMS-Traceable creatinine methods. https://jasn.asnjournals.org/content/early/ASN.2020 218531 Glucose [Mass/Vol] 84 mg/dL 74 - 99 mg/dL [facility] Interpretation and review of laboratory results Normal [facility] Potassium [Moles/Vol] 4.1 mmol/L 3.5 - 5.3 mmol/L [facility] Comment on above: MILD HEMOLYSIS DETEC ELEAZAR. The result may be falsely elevated due to hemolysis or other interferents. Clinical correlation is recommended. Repeat testing may be considered. Sodium [Moles/Vol] 137 mmol/L 136 - 145 mmol/L [facility] Urea nitrogen [Mass/Vol] 13 mg/dL 6 - 23 mg/dL [facility] Anion gap [Moles/Vol] 11 mmol/L Normal 10-20 [facility] Comment on above: Performed By: #### 5 902-2 #### ALMA REYEZ ([id number]) [facility] ([facility]) [address] [place] [address] 13584 Calcium [Mass/Vol] 9.3 mg/dL Normal 8.6-10.3 [facility] Comment on above: Performed By: #### 5 902-2 #### ALMA REYEZ ([id number]) [facility] ([facility]) [address] [place] [address] 93512 Chloride [Moles/Vol] 106 mmol/L Normal 98-107 [facility] Comment on above: Performed By: #### 5 902-2 #### ALMA REYEZ ([id number]) [facility] ([facility]) [address] [place] [address] 97074 CO2 [Moles/Vol] 24 mmol/L Normal 21-32 [facility] Comment on above: Performed By: #### 5 902-2 #### ALMA REYEZ ([id number]) [facility] ([facility]) [address] [place] [address] 05015 Creatinine [Mass/Vol] 0.77 mg/dL Normal 0.50-1.05 [facility] Comment on above: Performed By: #### 5 902-2 #### ALMA REYEZ ([id number]) [facility] ([facility]) [address] [place] [address] 97741 GFR/1.73 sq M.predicted MDRD (S/P/Bld) [Vol rate/Area] mL/min/{1.73_m2} Normal >60 [facility] Comment on above: Result Comment: Calc ulations of estimated GFR are performed using the 2020 CKD-EPI Study Refit equation without the race variable for the IDMS-Traceable creatinine methods. https://jasn.asnjournals.org/content/early//ASN.2020 552074 Performed By: #### 5 902-2 #### ALMA REYEZ ([id number]) [facility] ([facility]) [address] [place] [address] 11134 Glucose [Mass/Vol] 84 mg/dL Normal 74-99 [facility] Comment on above: Performed By: #### 5 902-2 #### ALMA REYEZ ([id number]) [facility] ([facility]) [address] [place] [address] 49583 Potassium [Moles/Vol] 4.1 mmol/L Normal 3.5-5.3 [facility] Comment on above: Result Comment: MILD HEMOLYSIS DETECTED. The result may be falsely elevated due to hemolysis or other interferents. Clinical correlation is recommended. Repeat testing may be considered. Performed By: #### 5 902-2 #### ALMA REYEZ ([id number]) [facility] ([facility]) [address] [place] [address] 98015 Sodium [Moles/Vol] 137 mmol/L Normal 136-145 [facility] Comment on above: Performed By: #### 5 902-2 #### ALMA REYEZ ([id number]) [facility] ([facility]) [address] [place] [id number] Urea nitrogen [Mass/Vol] 13 mg/dL Normal 6-23 [facility] Comment on above: Performed By: #### 5 902-2 #### MARQUEZ DEREJE ([id number]) [facility] ([facility]) [address] [place] [id number] CBC W Auto Differential pane l (Bld)on 03-26-2025 Basophils (Bld) [#/Vol] 0.06 10*3/uL [facility] Basophils/100 WBC (Bld) 0.7 % 0.0 - 2.0 % [facility] Eosinophils (Bld) [#/Vol] 0.49 10*3/uL [facility] Eosinophils/100 WBC (Bld) 5.6 % 0.0 - 6.0 % [facility] Erythrocyte distribution width (RBC) [Ratio] 12.4 % 11.5 - 14.5 % [facility] Hematocrit (Bld) [Volume fraction] 40.9 % 36.0 - 46.0 % [facility] Hemoglobin (Bld) [Mass/Vol] 14.1 g/dL 12.0 - 16.0 g/dL [facility] Immature granulocytes (Bld) [#/Vol] 0.03 10*3/uL [facility] Immature granulocytes/100 WBC (Bld) 0.3 % 0.0 - 0.9 % [facility] Comment on above: Immature Granulocyte Count (IG) includes promyelocytes, myelocytes and metamyelocytes but does not include bands. Percent differential counts (%) should be interpreted in the context of the absolute cell counts (cells/UL). Lymphocytes (Bld) [#/Vol] 2.55 10*3/uL [facility] Lymphocytes/100 WBC (Bld) 29.1 % 13.0 - 44.0 % [facility] MCH (RBC) [Entitic mass] 30.3 pg 26.0 - 34.0 pg [facility] MCHC (RBC) [Mass/Vol] 34.5 g/dL 32.0 - 36.0 g/dL [facility] MCV (RBC) [Entitic vol] 88 fL 80 - 100 fL [facility] Monocytes (Bld) [#/Vol] 0.74 10*3/uL [facility] Monocytes/100 WBC (Bld) 8.4 % 2.0 - 10.0 % [facility] Neutrophils (Bld) [#/Vol] 4.89 10*3/uL [facility] Comment on above: Percent differential counts (%) should be interpreted in the context of the absolute cell counts (cells/uL). Neutrophils/100 WBC (Bld) 55.9 % 40.0 - 80.0 % [facility] Nucleated RBC/100 WBC (Bld) [Ratio] 0 % [facility] Platelets (Bld) [#/Vol] 276 10*3/uL [facility] RBC (Bld) [#/Vol] 4.66 10*6/uL [facility] WBC (Bld) [#/Vol] 8.8 10*3/uL [facility] Basophils (Bld) [#/Vol] 0.06 x10*3/uL Normal 0.00-0.10 [facility] Comment on above: Performed By: #### 5 902-2 #### ALMA REYEZ ([id number]) [facility] ([facility]) [address] [place] [address] 90320 Basophils/100 WBC (Bld) 0.7 % Normal 0.0-2.0 [facility] Comment on above: Performed By: #### 5 902-2 #### ALMA REYEZ ([id number]) [facility] ([facility]) [facility] [place] [address] Eosinophils (Bld) [#/Vol] 0.49 x10*3/uL Normal 0.00-0.70 [facility] Comment on above: Performed By: #### 5 902-2 #### ALMA REYEZ ([id number]) [facility] ([facility]) [address] [place] [address] 02361 Eosinophils/100 WBC (Bld) 5.6 % Normal 0.0-6.0 [facility] Comment on above: Performed By: #### 5 902-2 #### ALMA REYEZ ([id number]) [facility] ([facility]) [address] [place] [address] 52283 Erythrocyte distribution width (RBC) [Ratio] 12.4 % Normal 11.5-14.5 [facility] Comment on above: Performed By: #### 5 902-2 #### ALMA REYEZ ([id number]) [facility] ([facility]) [address] [place] [address] Hematocrit (Bld) [Volume fraction] 40.9 % Normal 36.0-46.0 [facility] Comment on above: Performed By: #### 5 902-2 #### ALMA REYEZ ([id number]) [facility] ([facility]) [address] [place] [address] Hemoglobin (Bld) [Mass/Vol] 14.1 g/dL Normal 12.0-16.0 [facility] Comment on above: Performed By: #### 5 902-2 #### ALMA REYEZ ([id number]) [facility] ([facility]) [address] [place] [address] Immature granulocytes (Bld) [#/Vol] 0.03 x10*3/uL Normal 0.00-0.70 [facility] Comment on above: Performed By: #### 5 902-2 #### ALMA REYEZ ([id number]) [facility] ([facility]) [address] [place], [place] [id number] Immature granulocytes/100 WBC (Bld) 0.3 % Normal 0.0-0.9 [facility] Comment on above: Result Comment: Sindi ture Granulocyte Count (IG) includes promyelocytes, myelocytes and metamyelocytes but does not include bands. Percent differential counts (%) should be interpreted in the context of the absolute cell counts (cells/UL). Performed By: #### 5 902-2 #### ALMA REYEZ ([id number]) [facility] ([facility]) [address] [place] [address] 16162 Lymphocytes (Bld) [#/Vol] 2.55 x10*3/uL Normal 1.20-4.80 [facility] Comment on above: Performed By: #### 5 902-2 #### ALMA REYEZ ([id number]) [facility] ([facility]) [address] [place] [address] 99754 Lymphocytes/100 WBC (Bld) 29.1 % Normal 13.0-44.0 [facility] Comment on above: Performed By: #### 5 902-2 #### ALMA REYEZ ([id number]) [facility] ([facility]) [address] [place] [address] 62754 MCH (RBC) [Entitic mass] 30.3 pg Normal 26.0-34.0 [facility] Comment on above: Performed By: #### 5 902-2 #### ALMA REYEZ ([id number]) [facility] ([facility]) [address] [place] [address] 23763 MCHC (RBC) [Mass/Vol] 34.5 g/dL Normal 32.0-36.0 [facility] Comment on above: Performed By: #### 5 902-2 #### ALMA REYEZ ([id number]) [facility] ([facility]) [address] [place] [address] 89272 MCV (RBC) [Entitic vol] 88 fL Normal 80-100 [facility] Comment on above: Performed By: #### 5 902-2 #### ALMA REYEZ ([id number]) [facility] ([facility]) [address] [place] [address] 18839 Monocytes (Bld) [#/Vol] 0.74 x10*3/uL Normal 0.10-1.00 [facility] Comment on above: Performed By: #### 5 902-2 #### ALMA REYEZ ([id number]) [facility] ([facility]) [address] [place] [address] 35377 Monocytes/100 WBC (Bld) 8.4 % Normal 2.0-10.0 [facility] Comment on above: Performed By: #### 5 902-2 #### ALMA REYEZ ([id number]) [facility] ([facility]) [address] [place] [address] 06209 Neutrophils (Bld) [#/Vol] 4.89 x10*3/uL Normal 1.20-7.70 [facility] Comment on above: Result Comment: Perc ent differential counts (%) should be interpreted in the context of the absolute cell counts (cells/uL). Performed By: #### 5 902-2 #### ALMA REYEZ ([id number]) [facility] ([facility]) [address] [place] [address] 97858 Neutrophils/100 WBC (Bld) 55.9 % Normal 40.0-80.0 [facility] Comment on above: Performed By: #### 5 902-2 #### ALMA REYEZ ([id number]) [facility] ([facility]) [address] [place] [address] 44839 Nucleated RBC/100 WBC (Bld) [Ratio] 0.0 /100 WBCs Normal 0.0-0.0 [facility] Comment on above: Performed By: #### 5 902-2 #### ALMA REYEZ ([id number]) [facility] ([facility]) [address] [place] [address] 80288 Platelets (Bld) [#/Vol] 276 x10*3/uL Normal 150-450 [facility] Comment on above: Performed By: #### 5 902-2 #### ALMA REYEZ ([id number]) [facility] ([facility]) [address] [place] [address] 09652 RBC (Bld) [#/Vol] 4.66 x10*6/uL Normal 4.00-5.20 [facility] Comment on above: Performed By: #### 5 902-2 #### ALMA REYEZ ([id number]) [facility] ([facility]) [address] [place] [address] 68925 WBC (Bld) [#/Vol] 8.8 x10*3/uL Normal 4.4-11.3 [facility] Comment on above: Performed By: #### 5 902-2 #### MARQUEZ WEHRLI ([id number]) [facility] ([facility]) [address] [place] [address] CT HEAD WO IV CONTRASTon CT HEAD WO IV CONTRAST Interpreted By: Carlos Beckett, STUDY: CT HEAD WO IV CONTRAST; 03/26/2025 11:41 am INDICATION: Signs/Symptoms:head injury. COMPARISON: None. ACCESSION NUMBER(S): [id number] ORDERING CLINICIAN: BILL CANNON TECHNIQUE: Contiguous axial CT images were obtained through the head at 2 mm slice thickness without contrast administration. FINDINGS: INTRACRANIAL: The ventricles, sulci and basal cisterns are within normal limits for size and configuration. The medley-white differentiation is intact. There is no mass effect or midline shift. There is no extraaxial fluid collection. There is no intracranial hemorrhage. The calvarium is unremarkable. EXTRACRANIAL: Rcuh-ud-pknsrvcc mucosal thickening is seen in the ethmoid air cells and maxillary sinuses bilaterally. IMPRESSION: No evidence of acute cortical infarct or intracranial hemorrhage. MACRO: None Signed by: Carlos Beckett 03/26/2025 12:07 PM Dictation workstation: [id number] [facility] CT Head WO contraston 2024 No evidence of acute cortical infarct or intracranial hemorrhage. MACRO: None Signed by: Carlos Beckett 03/26/2025 12:07 PM Dictation workstation: [id number] [facility] Interpreted By: Carlos Beckett, STUDY: CT HEAD WO IV CONTRAST; 03/26/2025 11:41 am INDICATION: Signs/Symptoms:head injury. COMPARISON: None. ACCESSION NUMBER(S): [id number] ORDERING CLINICIAN: BILL CANNON TECHNIQUE: Contiguous axial CT images were obtained through the head at 2 mm slice thickness without contrast administration. FINDINGS: INTRACRANIAL: The ventricles, sulci and basal cisterns are within normal limits for size and configuration. The medley-white differentiation is intact. There is no mass effect or midline shift. There is no extraaxial fluid collection. There is no intracranial hemorrhage. The calvarium is unremarkable. EXTRACRANIAL: Xllz-dh-cnbrbywn mucosal thickening is seen in the ethmoid air cells and maxillary sinuses bilaterally. [facility] Carlos Beckett MD - 03/26/2025 Interpreted By: Carlos Beckett, STUDY: CT HEAD WO IV CONTRAST; 03/26/2025 11:41 am INDICATION: Signs/Symptoms:head injury. COMPARISON: None. ACCESSION NUMBER(S): [id number] ORDERING CLINICIAN: BILL CANNON TECHNIQUE: Contiguous axial CT images were obtained through the head at 2 mm slice thickness without contrast administration. FINDINGS: INTRACRANIAL: The ventricles, sulci and basal cisterns are within normal limits for size and configuration. The medley-white differentiation is intact. There is no mass effect or midline shift. There is no extraaxial fluid collection. There is no intracranial hemorrhage. The calvarium is unremarkable. EXTRACRANIAL: Nyis-kj-cmmzuiwq mucosal thickening is seen in the ethmoid air cells and maxillary sinuses bilaterally. IMPRESSION: No evidence of acute cortical infarct or intracranial hemorrhage. MACRO: None Signed by: Carlos Beckett 03/26/2025 12:07 PM Dictation workstation: [id number] [facility] Work Phone: Radiology Study observation (narrative) [facility] Work Phone: CT Head WO contrastOrdered B y: Carlos Beckett on 03-26-2025 [facility] Work Phone: ECG 12-LEADon 03-26-2025 ECG 12-LEAD Ventricular Rate 68 Atrial Rate 68 P-R Interval 102 QRS Duration 90 Q-T Interval 368 QTC Calculation(Bazett) 391 P [place] 16 R [place] 88 T [place] 17 QRS Count 11 Q Onset 218 P Onset 167 P Offset 199 T Offset 402 QTC [place] 383 Diagnosis Sinus rhythm with sinus arrhythmia with short OK Low voltage QRS Nonspecific T wave abnormality Abnormal ECG When compared with ECG of 04-APR-2020 00:31, Previous ECG has undetermined rhythm, needs review See ED provider note for full interpretation and clinical correlation Confirmed by Kailee Sands ([id number]) on 03/29/2025 11:49:23 AM Normal [facility] HCG ( test) IA.rapi d Ql (U)Ordered By: Paris Watson on 03-26-2025 HCG ( test) Ql (U) Negative NEGATIVE [facility] Interpretation and review of laboratory results Normal [facility] HCG ( test) Juan Carlos d Ql (U)on 03-26-2025 HCG ( test) Ql (U) Negative Normal NEGATIVE [facility] Comment on above: Performed By: #### 5 902-2 #### ALMA REYEZ ([id number]) [facility] ([facility]) [address] [place] [address] Basic metabolic 2000 panelon 12-20-2024 Anion gap [Moles/Vol] 15 mmol/L 10 - 2 0 mmol/L [facility] Calcium [Mass/Vol] 9.8 mg/dL 8.6 - 10. 3 mg/dL [facility] Chloride [Moles/Vol] 103 mmol/L 98 - 10 7 mmol/L [facility] CO2 [Moles/Vol] 24 mmol/L 21 - 32 mmol/L [facility] Creatinine [Mass/Vol] 0.76 mg/dL 0.50 - 1.05 mg/dL [facility] eGFR - PINF [facility] Comment on above: Calculations of elver mated GFR are performed using the 2020 CKD-EPI Study Refit equation without the race variable for the IDMS-Traceable creatinine methods. https://jasn.asnjournals.org/content/early//ASN.2020 292668 Glucose [Mass/Vol] 104 mg/dL High 74 - 99 mg/dL [facility] Interpretation and review of laboratory results Abnormal [facility] Potassium [Moles/Vol] 3.7 mmol/L 3.5 - 5.3 mmol/L [facility] Sodium [Moles/Vol] 138 mmol/L 136 - 145 mmol/L [facility] Urea nitrogen [Mass/Vol] 11 mg/dL 6 - 23 mg/dL [facility] Anion gap [Moles/Vol] 15 mmol/L Normal 10-20 [facility] Comment on above: Performed By: #### 2 4321-2 #### ALMA REYEZ ([id number]) [facility] ([facility]) [address] [place] [address] Calcium [Mass/Vol] 9.8 mg/dL Normal 8.6-10.3 [facility] Comment on above: Performed By: #### 2 4321-2 #### ALMA REYEZ ([id number]) [facility] ([facility]) [address] [place] [address] Chloride [Moles/Vol] 103 mmol/L Normal 98-107 [facility] Comment on above: Performed By: #### 2 4321-2 #### ALMA REYEZ ([id number]) [facility] ([facility]) [address] [place] [address] 54513 CO2 [Moles/Vol] 24 mmol/L Normal 21-32 [facility] Comment on above: Performed By: #### 2 4321-2 #### ALMA REYEZ ([id number]) [facility] ([facility]) [address] [place] [address] 42284 Creatinine [Mass/Vol] 0.76 mg/dL Normal 0.50-1.05 [facility] Comment on above: Performed By: #### 2 4321-2 #### ALMA REYEZ ([id number]) [facility] ([facility]) [address] [place] [address] 20869 GFR/1.73 sq M.predicted MDRD (S/P/Bld) [Vol rate/Area] mL/min/{1.73_m2} Normal >60 [facility] Comment on above: Result Comment: Calc ulations of estimated GFR are performed using the 2020 CKD-EPI Study Refit equation without the race variable for the IDMS-Traceable creatinine methods. https://jasn.asnjournals.org/content/early//ASN.2020 933376 Performed By: #### 2 4321-2 #### ALMA REYEZ ([id number]) [facility] ([facility]) [facility] [place] [address] Glucose [Mass/Vol] 104 mg/dL High 74-99 [facility] Comment on above: Performed By: #### 2 4321-2 #### ALMA REYEZ ([id number]) [facility] ([facility]) [address] [place] [address] 45452 Potassium [Moles/Vol] 3.7 mmol/L Normal 3.5-5.3 [facility] Comment on above: Performed By: #### 2 4321-2 #### ALMA REYEZ ([id number]) [facility] ([facility]) [address] [place], [place] [address] Sodium [Moles/Vol] 138 mmol/L Normal 136-145 [facility] Comment on above: Performed By: #### 2 4321-2 #### ALMA REYEZ ([id number]) [facility] ([facility]) [address] [place], [place] [address] Urea nitrogen [Mass/Vol] 11 mg/dL Normal 6-23 [facility] Comment on above: Performed By: #### 2 4321-2 #### ALMA REYEZ ([id number]) [facility] ([facility]) [address] [place], [place] [address] CBC W Auto Differential pane l (Bld)on 12-20-2024 Basophils (Bld) [#/Vol] 0.08 10*3/uL [facility] Basophils/100 WBC (Bld) 0.8 % 0.0 - 2.0 % [facility] Eosinophils (Bld) [#/Vol] 0.32 10*3/uL [facility] Eosinophils/100 WBC (Bld) 3 % 0.0 - 6.0 % [facility] Erythrocyte distribution width (RBC) [Ratio] 12.2 % 11.5 - 14.5 % [facility] Hematocrit (Bld) [Volume fraction] 40.6 % 36.0 - 46.0 % [facility] Hemoglobin (Bld) [Mass/Vol] 13.9 g/dL 12.0 - 16.0 g/dL [facility] Immature granulocytes (Bld) [#/Vol] 0.05 10*3/uL [facility] Immature granulocytes/100 WBC (Bld) 0.5 % 0.0 - 0.9 % [facility] Comment on above: Immature Granulocyte Count (IG) includes promyelocytes, myelocytes and metamyelocytes but does not include bands. Percent differential counts (%) should be interpreted in the context of the absolute cell counts (cells/UL). Lymphocytes (Bld) [#/Vol] 2.81 10*3/uL [facility] Lymphocytes/100 WBC (Bld) 26.7 % 13.0 - 44.0 % [facility] MCH (RBC) [Entitic mass] 29.8 pg 26.0 - 34.0 pg [facility] MCHC (RBC) [Mass/Vol] 34.2 g/dL 32.0 - 36.0 g/dL [facility] MCV (RBC) [Entitic vol] 87 fL 80 - 100 fL [facility] Monocytes (Bld) [#/Vol] 0.59 10*3/uL [facility] Monocytes/100 WBC (Bld) 5.6 % 2.0 - 10.0 % [facility] Neutrophils (Bld) [#/Vol] 6.69 10*3/uL [facility] Comment on above: Percent differential counts (%) should be interpreted in the context of the absolute cell counts (cells/uL). Neutrophils/100 WBC (Bld) 63.4 % 40.0 - 80.0 % [facility] Nucleated RBC/100 WBC (Bld) [Ratio] 0 % [facility] Platelets (Bld) [#/Vol] 308 10*3/uL [facility] RBC (Bld) [#/Vol] 4.66 10*6/uL [facility] WBC (Bld) [#/Vol] 10.5 10*3/uL [facility] Basophils (Bld) [#/Vol] 0.08 x10*3/uL Normal 0.00-0.10 [facility] Comment on above: Performed By: #### 5 7021-8 #### MARQUEZ DEREJE ([id number]) [facility] ([facility]) [address] [place] [address] Basophils/100 WBC (Bld) 0.8 % Normal 0.0-2.0 [facility] Comment on above: Performed By: #### 5 7021-8 #### ALMA REYEZ ([id number]) [facility] ([facility]) [address] [place] [address] 19810 Eosinophils (Bld) [#/Vol] 0.32 x10*3/uL Normal 0.00-0.70 [facility] Comment on above: Performed By: #### 5 7021-8 #### ALMA REYEZ ([id number]) [facility] ([facility]) [address] [place] [address] 85658 Eosinophils/100 WBC (Bld) 3.0 % Normal 0.0-6.0 [facility] Comment on above: Performed By: #### 5 7021-8 #### ALMA REYEZ ([id number]) [facility] ([facility]) [address] [place] [address] 30610 Erythrocyte distribution width (RBC) [Ratio] 12.2 % Normal 11.5-14.5 [facility] Comment on above: Performed By: #### 7021-8 #### ALMA REYEZ ([id number]) [facility] ([facility]) [address] [place] [address] 20068 Hematocrit (Bld) [Volume fraction] 40.6 % Normal 36.0-46.0 [facility] Comment on above: Performed By: #### 5 7021-8 #### ALMA REYEZ ([id number]) [facility] ([facility]) [address] [place] [address] 10848 Hemoglobin (Bld) [Mass/Vol] 13.9 g/dL Normal 12.0-16.0 [facility] Comment on above: Performed By: #### 5 7021-8 #### ALMA REYEZ ([id number]) [facility] ([facility]) [address] [place] [address] 68773 Immature granulocytes (Bld) [#/Vol] 0.05 x10*3/uL Normal 0.00-0.70 [facility] Comment on above: Performed By: #### 5 7021-8 #### ALMA REYEZ ([id number]) [facility] ([facility]) [address] [place] [address] 32413 Immature granulocytes/100 WBC (Bld) 0.5 % Normal 0.0-0.9 [facility] Comment on above: Result Comment: Sindi ture Granulocyte Count (IG) includes promyelocytes, myelocytes and metamyelocytes but does not include bands. Percent differential counts (%) should be interpreted in the context of the absolute cell counts (cells/UL). Performed By: #### 5 7021-8 #### ALMA REYEZ ([id number]) [facility] ([facility]) [address] [place] [address] 10876 Lymphocytes (Bld) [#/Vol] 2.81 x10*3/uL Normal 1.20-4.80 [facility] Comment on above: Performed By: #### 5 7021-8 #### ALMA REYEZ ([id number]) [facility] ([facility]) [address] [place] [address] 50649 Lymphocytes/100 WBC (Bld) 26.7 % Normal 13.0-44.0 [facility] Comment on above: Performed By: #### 5 7021-8 #### ALMA REYEZ ([id number]) [facility] ([facility]) [address] [place] [address] 46452 MCH (RBC) [Entitic mass] 29.8 pg Normal 26.0-34.0 [facility] Comment on above: Performed By: #### 5 7021-8 #### ALMA REYEZ ([id number]) [facility] ([facility]) [address] [place] [address] 47966 MCHC (RBC) [Mass/Vol] 34.2 g/dL Normal 32.0-36.0 [facility] Comment on above: Performed By: #### 5 7021-8 #### ALMA REYEZ ([id number]) [facility] ([facility]) [address] [place] [address] 10359 MCV (RBC) [Entitic vol] 87 fL Normal 80-100 [facility] Comment on above: Performed By: #### 5 7021-8 #### ALMA REYEZ ([id number]) [facility] ([facility]) [address] [place] [address] 16654 Monocytes (Bld) [#/Vol] 0.59 x10*3/uL Normal 0.10-1.00 [facility] Comment on above: Performed By: #### 5 7021-8 #### ALMA REYEZ ([id number]) [facility] ([facility]) [address] [place] [address] 53715 Monocytes/100 WBC (Bld) 5.6 % Normal 2.0-10.0 [facility] Comment on above: Performed By: #### 5 7021-8 #### ALMA REYEZ ([id number]) [facility] ([facility]) [address] [place] [address] 25227 Neutrophils (Bld) [#/Vol] 6.69 x10*3/uL Normal 1.20-7.70 [facility] Comment on above: Result Comment: Perc ent differential counts (%) should be interpreted in the context of the absolute cell counts (cells/uL). Performed By: #### 5 7021-8 #### ALMA REYEZ ([id number]) [facility] ([facility]) [address] [place] [address] 35273 Neutrophils/100 WBC (Bld) 63.4 % Normal 40.0-80.0 [facility] Comment on above: Performed By: #### 5 7021-8 #### ALMA REYEZ ([id number]) [facility] ([facility]) [address] [place] [address] 70115 Nucleated RBC/100 WBC (Bld) [Ratio] 0.0 /100 WBCs Normal 0.0-0.0 [facility] Comment on above: Performed By: #### 5 7021-8 #### ALMA REYEZ ([id number]) [facility] ([facility]) [address] [place] [address] 15317 Platelets (Bld) [#/Vol] 308 x10*3/uL Normal 150-450 [facility] Comment on above: Performed By: #### 5 7021-8 #### ALMA REYEZ ([id number]) [facility] ([facility]) [address] [place] [address] 09067 RBC (Bld) [#/Vol] 4.66 x10*6/uL Normal 4.00-5.20 [facility] Comment on above: Performed By: #### 5 7021-8 #### ALMA REYEZ ([id number]) [facility] ([facility]) [address] [place] [address] 35892 WBC (Bld) [#/Vol] 10.5 x10*3/uL Normal 4.4-11.3 [facility] Comment on above: Performed By: #### 5 7021-8 #### ALMA REYEZ ([id number]) [facility] ([facility]) [address] [place] [address] CT ABDOMEN PELVIS W IV CONTR Brisa 12-20-2024 CT ABDOMEN PELVIS W IV CONTRAST Interpreted By: Jace Ferreira, STUDY: CT ABDOMEN PELVIS W IV CONTRAST; 12/20/2024 2:17 pm INDICATION: Signs/Symptoms:RLQ PAIN, R/O APPENDICITIS/OVARIAN CYST/ RENAL CALCULI COMPARISON: None. ACCESSION NUMBER(S): [id number] ORDERING CLINICIAN: GRACIA CORDOVA TECHNIQUE: Following intravenous administration of nonionic contrast, spiral axial images were obtained from the dome of the diaphragm through the symphysis pubis. Oral contrast was not administered. Soft tissue and lung windows were evaluated. Sagittal and Coronal reformatted images were also assessed. All CT examinations are performed with one or more of the following dose reduction techniques: Automated Exposure Control, adjustment of mA and/or kV according to patient size, or use of iterative reconstruction techniques. FINDINGS: Lung bases: The lung bases are clear. Liver: Normal in size without focal lesions. Gallbladder: Grossly unremarkable. Spleen: Normal in size without focal lesions. Pancreas: Unremarkable. Adrenal glands: No focal lesions. Kidneys and bladder: Both kidneys excrete contrast symmetrically, without hydronephrosis or solid enhancing masses. Within the limitations of contrasted exam there are no renal or ureteral calculi. The bladder is only partially distended and therefore suboptimally evaluated. Gastrointestinal tract and peritoneal cavity: A few small colonic diverticular seen, without acute diverticulitis. There is no bowel obstruction. The appendix is normal. There is no free air or abnormal fluid collections in the abdomen and pelvis. The aorta is normal in caliber. The SMA, SMV and portal vein are patent. Pelvic reproductive organs: Unremarkable. Osseous structures: Unremarkable. IMPRESSION: A few colonic diverticula without acute diverticulitis; otherwise unremarkable CT of the abdomen and pelvis. Signed by: Jace Ferreira 12/20/2024 2:48 PM Dictation workstation: [id number] [facility] CT Abdomen and Pelvis W cont rast Gage 12-20-2024 A few colonic diverticula without acute diverticulitis; otherwise unremarkable CT of the abdomen and pelvis. Signed by: Jace Ferreira 12/20/2024 2:48 PM Dictation workstation: [id number] [facility] Interpreted By: Jace Ferreira, STUDY: CT ABDOMEN PELVIS W IV CONTRAST; 12/20/2024 2:17 pm INDICATION: Signs/Symptoms:RLQ PAIN, R/O APPENDICITIS/OVARIAN CYST/ RENAL CALCULI COMPARISON: None. ACCESSION NUMBER(S): [id number] ORDERING CLINICIAN: GRACIA CORDOVA TECHNIQUE: Following intravenous administration of nonionic contrast, spiral axial images were obtained from the dome of the diaphragm through the symphysis pubis. Oral contrast was not administered. Soft tissue and lung windows were evaluated. Sagittal and Coronal reformatted images were also assessed. All CT examinations are performed with one or more of the following dose reduction techniques: Automated Exposure Control, adjustment of mA and/or kV according to patient size, or use of iterative reconstruction techniques. FINDINGS: Lung bases: The lung bases are clear. Liver: Normal in size without focal lesions. Gallbladder: Grossly unremarkable. Spleen: Normal in size without focal lesions. Pancreas: Unremarkable. Adrenal glands: No focal lesions. Kidneys and bladder: Both kidneys excrete contrast symmetrically, without hydronephrosis or solid enhancing masses. Within the limitations of contrasted exam there are no renal or ureteral calculi. The bladder is only partially distended and therefore suboptimally evaluated. Gastrointestinal tract and peritoneal cavity: A few small colonic diverticular seen, without acute diverticulitis. There is no bowel obstruction. The appendix is normal. There is no free air or abnormal fluid collections in the abdomen and pelvis. The aorta is normal in caliber. The SMA, SMV and portal vein are patent. Pelvic reproductive organs: Unremarkable. Osseous structures: Unremarkable. [facility] Jace Ferreira MD - 12/20/2024 Interpreted By: Jace Ferreira, STUDY: CT ABDOMEN PELVIS W IV CONTRAST; 12/20/2024 2:17 pm INDICATION: Signs/Symptoms:RLQ PAIN, R/O APPENDICITIS/OVARIAN CYST/ RENAL CALCULI COMPARISON: None. ACCESSION NUMBER(S): [id number] ORDERING CLINICIAN: GRACIA CORDOVA TECHNIQUE: Following intravenous administration of nonionic contrast, spiral axial images were obtained from the dome of the diaphragm through the symphysis pubis. Oral contrast was not administered. Soft tissue and lung windows were evaluated. Sagittal and Coronal reformatted images were also assessed. All CT examinations are performed with one or more of the following dose reduction techniques: Automated Exposure Control, adjustment of mA and/or kV according to patient size, or use of iterative reconstruction techniques. FINDINGS: Lung bases: The lung bases are clear. Liver: Normal in size without focal lesions. Gallbladder: Grossly unremarkable. Spleen: Normal in size without focal lesions. Pancreas: Unremarkable. Adrenal glands: No focal lesions. Kidneys and bladder: Both kidneys excrete contrast symmetrically, without hydronephrosis or solid enhancing masses. Within the limitations of contrasted exam there are no renal or ureteral calculi. The bladder is only partially distended and therefore suboptimally evaluated. Gastrointestinal tract and peritoneal cavity: A few small colonic diverticular seen, without acute diverticulitis. There is no bowel obstruction. The appendix is normal. There is no free air or abnormal fluid collections in the abdomen and pelvis. The aorta is normal in caliber. The SMA, SMV and portal vein are patent. Pelvic reproductive organs: Unremarkable. Osseous structures: Unremarkable. IMPRESSION: A few colonic diverticula without acute diverticulitis; otherwise unremarkable CT of the abdomen and pelvis. Signed by: Jace Ferreira 12/20/2024 2:48 PM Dictation workstation: [id number] [facility] Work Phone: Radiology Study observation (narrative) [facility] Work Phone: CT Abdomen and Pelvis W cont rast IVOrdered By: Jace Ferreira on 12-20-2024 [facility] Work Phone: Choriogonadotropin.beta subu niton 12-20-2024 HCG.beta subunit Qn m[IU]/mL Normal <5 [facility] Comment on above: Order Comment: Total HCG measurement is performed using the Nancy Radhika Access Immunoassay which detects intact HCG and free beta HCG subunit. This test is not indicated for use as a tumor marker. HCG testing is performed using a different test methodology at [facility] than other [facility]. Direct result comparison should only be made within the same method. Performed By: #### 2 1198-7 #### ALMA REYEZ ([id number]) [facility] ([facility]) [address] [place] [address] Coagulation surface inducedo n 12-20-2024 aPTT Coag (PPP) [Time] 32 s Normal 26-36 Un [facility] Comment on above: Order Comment: The A PTT is no longer used for monitoring Unfractionated Heparin Therapy. For monitoring Heparin Therapy, use the Heparin Assay. Performed By: #### 1 4979-9 #### ALMA REYEZ ([id number]) [facility] ([facility]) [address] [place] [address] Coagulation tissue factor in ducedon 12-20-2024 PT Coag (PPP) [Time] 10.4 s Normal 9.8-12.4 [facility] Comment on above: Performed By: #### 5 902-2 #### ALMA REYEZ ([id number]) [facility] ([facility]) [address] [place] [address] HCG ( test) IA.rapi d Ql (U)Ordered By: Paris Watson on 12-20-2024 HCG ( test) Ql (U) Negative NEGATIVE [facility] Interpretation and review of laboratory results Normal [facility] HCG ( test) IA.rapi d Ql (U)on 12-20-2024 HCG ( test) Ql (U) Negative Normal NEGATIVE [facility] Comment on above: Performed By: #### 8 0384-1 #### ALMA REYEZ ([id number]) [facility] ([facility]) [address] [place] [address] HCG.beta subunit Qnon 2024 Interpretation and review of laboratory results Normal [facility] Total HCG measuremen t is performed using the Nancy Radhika Access Immunoassay which detects intact HCG and free beta HCG subunit. This test is not indicated for use as a tumor marker. HCG testing is performed using a different test methodology at [facility] than other [facility]. Direct result comparison should only be made within the same method. [facility] Hepatic function 2000 panelo n 12-20-2024 Albumin BCP dye [Mass/Vol] 4.9 g/dL 3.4 - 5.0 g/dL [facility] ALP [Catalytic activity/Vol] 86 U/L 33 - 110 U/L [facility] ALT With P-5'-P [Catalytic activity/Vol] 27 U/L 7 - 45 U/L [facility] Comment on above: Patients treated wit h Sulfasalazine may generate falsely decreased results for ALT. AST With P-5'-P [Catalytic activity/Vol] 25 U/L 9 - 39 U/L [facility] Bilirubin [Mass/Vol] 0.3 mg/dL 0.0 - 1 .2 mg/dL [facility] Bilirubin.direct [Mass/Vol] 0.1 mg/dL 0.0 - 0.3 mg/dL [facility] Protein [Mass/Vol] 7.2 g/dL 6.4 - 8.2 g/dL [facility] Albumin BCP dye [Mass/Vol] 4.9 g/dL Normal 3.4-5.0 [facility] Comment on above: Performed By: #### 2 4325-3 #### ALMA REYEZ ([id number]) [facility] ([facility]) [address] [place] [address] ALP [Catalytic activity/Vol] 86 U/L Normal 33-110 [facility] Comment on above: Performed By: #### 2 4325-3 #### ALMA REYEZ ([id number]) [facility] ([facility]) [address] [place] [address] ALT With P-5'-P [Catalytic activity/Vol] 27 U/L Normal 7-45 [facility] Comment on above: Result Comment: Venecia ents treated with Sulfasalazine may generate falsely decreased results for ALT. Performed By: #### 2 4325-3 #### ALMA REYEZ ([id number]) [facility] ([facility]) [address] [place] [address] AST With P-5'-P [Catalytic activity/Vol] 25 U/L Normal 9-39 [facility] Comment on above: Performed By: #### 2 4324-3 #### ALMA REYEZ ([id number]) [facility] ([facility]) [address] [place] [address] Bilirubin [Mass/Vol] 0.3 mg/dL Normal 0.0-1.2 [facility] Comment on above: Performed By: #### 2 4324-3 #### ALMA REYEZ ([id number]) [facility] ([facility]) [address] [place] [address] Bilirubin.direct [Mass/Vol] 0.1 mg/dL Normal 0.0-0.3 [facility] Comment on above: Performed By: #### 2 4325-3 #### ALMA REYEZ ([id number]) [facility] ([facility]) [address] [place] [address] Protein [Mass/Vol] 7.2 g/dL Normal 6.4-8.2 [facility] Comment on above: Performed By: #### 2 5-3 #### ALMA REYEZ ([id number]) [facility] ([facility]) [address] [place], [place] [id number] Human Chorionic Gonadotropin , Serum Quantitativeon 12-20-2024 HCG.beta subunit Qn NINF [facility] Lipaseon 12-20-2024 Lipase [Catalytic activity/Vol] 22 U/L 9 - 82 U/L [facility] Lipase [Catalytic activity/V ol]on 12-20-2024 Venipuncture immediately after or during the administration of Metamizole may lead to falsely low results. Testing should be performed immediately prior to Metamizole dosing. [facility] No Panel Informationon 12-20 Extra Tube Hold for add-ons. [facility] Comment on above: Auto resulted. [facility] Interpretation and review of laboratory results Normal [facility] Interpretation and review of laboratory results Normal [facility] PT Coag (PPP) [Time]on 12-20 INR Coag (PPP) [Relative time] 0.9 {INR} 0.9 - 1.1 [facility] INR Coag (PPP) [Relative time] 0.9 Normal 0.9-1.1 [facility] Comment on above: Performed By: #### 5 902-2 #### ALMA REYEZ ([id number]) [facility] ([facility]) [address] [place] [address] Protime-INRon 12-20-2024 PT Coag (PPP) [Time] 10.4 s [facility] Triacylglycerol lipaseon Lipase [Catalytic activity/Vol] 22 U/L Normal 9-82 [facility] Comment on above: Order Comment: Venip uncture immediately after or during the administration of Metamizole may lead to falsely low results. Testing should be performed immediately prior to Metamizole dosing. Performed By: #### 3 040-3 #### ALMA REYEZ ([id number]) [facility] ([facility]) [address] [place] [address] US PELVIS TRANSABDOMINAL WIT H TRANSVAGINALon 12-20-2024 US PELVIS TRANSABDOMINAL WITH TRANSVAGINAL Interpreted By: Ira Hughes, STUDY: US PELVIS TRANSABDOMINAL WITH TRANSVAGINAL; 12/20/2024 4:08 pm INDICATION: Signs/Symptoms:R PELVIC PAIN R/O OVARIAN CYST (RUPTURED CYST?). COMPARISON: None. ACCESSION NUMBER(S): [id number] ORDERING CLINICIAN: GRACIA CORDOVA TECHNIQUE: Multiple multiplanar static rader scale, color and spectral waveform sonographic images of the pelvis were obtained. Transabdominal and endovaginal ultrasound was performed. FINDINGS: UTERUS: The uterus measures 5.3 cm x 3.4 cm x 8.6 cm. No definite fibroids. ENDOMETRIUM: The endometrium measures a thickness of 1.1 cm, which is normal. RIGHT ADNEXA: The right ovary measures 2.7 cm x 2.0 cm x 3.3 cm and demonstrates normal flow. No gross right adnexal masses are seen, no hydrosalpinx. LEFT ADNEXA: The left ovary measures 3.4 cm x 2.7 cm x 3.7 cm and demonstrates normal flow. No gross left adnexal masses are seen, no hydrosalpinx. CUL DE SAC: Trace free fluid. IMPRESSION: 1. Essentially unremarkable exam. MACRO: None Signed by: Ira Hughes 12/20/2024 4:24 PM Dictation workstation: [id number] [facility] US Pelvis transvaginalon 1. Essentially unremarkable exam. MACRO: None Signed by: Ira Hughes 12/20/2024 4:24 PM Dictation workstation: [id number] Interpreted By: Ira Person, STUDY: US PELVIS TRANSABDOMINAL WITH TRANSVAGINAL; 12/20/2024 4:08 pm INDICATION: Signs/Symptoms:R PELVIC PAIN R/O OVARIAN CYST (RUPTURED CYST?). COMPARISON: None. ACCESSION NUMBER(S): [id number] ORDERING CLINICIAN: GRACIA CORDOVA TECHNIQUE: Multiple multiplanar static rader scale, color and spectral waveform sonographic images of the pelvis were obtained. Transabdominal and endovaginal ultrasound was performed. FINDINGS: UTERUS: The uterus measures 5.3 cm x 3.4 cm x 8.6 cm. No definite fibroids. ENDOMETRIUM: The endometrium measures a thickness of 1.1 cm, which is normal. RIGHT ADNEXA: The right ovary measures 2.7 cm x 2.0 cm x 3.3 cm and demonstrates normal flow. No gross right adnexal masses are seen, no hydrosalpinx. LEFT ADNEXA: The left ovary measures 3.4 cm x 2.7 cm x 3.7 cm and demonstrates normal flow. No gross left adnexal masses are seen, no hydrosalpinx. CUL DE SAC: Trace free fluid. [facility] Ira Hughes MD - 12/20/2024 Interpreted By: Ira Hughes, STUDY: US PELVIS TRANSABDOMINAL WITH TRANSVAGINAL; 12/20/2024 4:08 pm INDICATION: Signs/Symptoms:R PELVIC PAIN R/O OVARIAN CYST (RUPTURED CYST?). COMPARISON: None. ACCESSION NUMBER(S): [id number] ORDERING CLINICIAN: GRACIA CORDOVA TECHNIQUE: Multiple multiplanar static rader scale, color and spectral waveform sonographic images of the pelvis were obtained. Transabdominal and endovaginal ultrasound was performed. FINDINGS: UTERUS: The uterus measures 5.3 cm x 3.4 cm x 8.6 cm. No definite fibroids. ENDOMETRIUM: The endometrium measures a thickness of 1.1 cm, which is normal. RIGHT ADNEXA: The right ovary measures 2.7 cm x 2.0 cm x 3.3 cm and demonstrates normal flow. No gross right adnexal masses are seen, no hydrosalpinx. LEFT ADNEXA: The left ovary measures 3.4 cm x 2.7 cm x 3.7 cm and demonstrates normal flow. No gross left adnexal masses are seen, no hydrosalpinx. CUL DE SAC: Trace free fluid. IMPRESSION: 1. Essentially unremarkable exam. MACRO: None Signed by: Ira Hughes 12/20/2024 4:24 PM Dictation workstation: [id number] [facility] Work Phone: Radiology Study observation (narrative) [facility] Work Phone: US Pelvis transvaginalOrdere d By: Ira Hughes on 12-20-2024 [facility] Work Phone: Urinalysis complete W Reflex Culture panel (U)on 12-20-2024 Appearance (U) Clear Clear [facility] Bilirubin (U) [Mass/Vol] Negative NEGATIVE mg/dL [facility] Color (U) Colorless Abnormal Light-Yellow , Yellow, Dark-Yellow [facility] Glucose Auto test strip (U) [Mass/Vol] Normal Normal mg/dL [facility] Interpretation and review of laboratory results Abnormal [facility] Ketones (U) [Mass/Vol] Negative NEGAT NGA mg/dL [facility] Leukocyte esterase Auto test strip Ql (U) Negative NEGATIVE [facility] Nitrite Auto test strip Ql (U) Negative NEGATIVE [facility] pH (U) 6.5 [pH] 5.0, 5.5, 6.0, 6.5, 7.0, 7.5, 8.0 [facility] Protein (U) [Mass/Vol] Negative NEGAT NGA, 10 (TRACE), 20 (TRACE) mg/dL [facility] RBC (U) [#/Vol] Negative NEGATIVE mg/dL [facility] Specific gravity (U) [Rel density] 1.005 1.005 - 1.035 [facility] Urobilinogen (U) [Mass/Vol] Normal Normal mg/dL [facility] Appearance (U) Clear Normal Clear [facility] Comment on above: Performed By: #### 5 8077-9 #### ALMA REYEZ ([id number]) [facility] ([facility]) [address] [place] [address] Bilirubin (U) [Mass/Vol] Negative Normal NEGATIVE [facility] Comment on above: Performed By: #### 5 8077-9 #### ALMA REYEZ ([id number]) [facility] ([facility]) [address] [place] [address] Color (U) Colorless Normal Light-Yellow , Yellow, Dark-Yellow [facility] Comment on above: Performed By: #### 5 8077-9 #### ALMA REYEZ ([id number]) [facility] ([facility]) [address] [place] [address]207 Glucose Auto test strip (U) [Mass/Vol] Normal Normal Normal [facility] Comment on above: Performed By: #### 5 8077-9 #### ALMA REYEZ ([id number]) [facility] ([facility]) [address] [place] [address] Ketones (U) [Mass/Vol] Negative [facility] Comment on above: Performed By: #### 5 8077-9 #### ALMA REYEZ ([id number]) [facility] ([facility]) [address] [place] [address]6511 Leukocyte esterase Auto test strip Ql (U) Negative Normal NEGATIVE [facility] Comment on above: Performed By: #### 5 8077-9 #### ALMA REYEZ ([id number]) [facility] ([facility]) [address] [place] [address]35[address] Nitrite Auto test strip Ql (U) Negative Normal NEGATIVE [facility] Comment on above: Performed By: #### 5 8077-9 #### ALMA REYEZ ([id number]) [facility] ([facility]) [address] [place] [address] pH (U) 6.5 [pH] Normal 5.0, 5.5, 6.0, 6.5, 7.0, 7.5, 8.0 [facility] Comment on above: Performed By: #### 5 8077-9 #### ALMA REYEZ ([id number]) [facility] ([facility]) [address] [place] [address]97 Protein (U) [Mass/Vol] Negative Normal NEGAT NGA, 10 (TRACE), 20 (TRACE) [facility] Comment on above: Performed By: #### 5 8077-9 #### ALMA REYEZ ([id number]) [facility] ([facility]) [address] [place] [address]10 RBC (U) [#/Vol] Negative Normal NEGATIVE [facility] Comment on above: Performed By: #### 5 8077-9 #### ALMA REYEZ ([id number]) [facility] ([facility]) [address] [place] [address]682 Specific gravity (U) [Rel density] 1.005 Normal 1.005-1.035 [facility] Comment on above: Performed By: #### 5 8077-9 #### ALMA REYEZ ([id number]) [facility] ([facility]) [address] [place] [address]3542 Urobilinogen (U) [Mass/Vol] Normal Normal Normal [facility] Comment on above: Performed By: #### 5 8077-9 #### MARQUEZ DEREJE ([id number]) [facility] ([facility]) [address] [place] [address] aPTTon 12-20-2024 aPTT Coag (PPP) [Time] 32 s Un [facility] aPTT Coag (PPP) [Time]on The APTT is no longe r used for monitoring Unfractionated Heparin Therapy. For monitoring Heparin Therapy, use the Heparin Assay. [facility] PAP I-G w/rfx hrHPV-Aptimaon 06-14-2024 ADEQ Comment Normal . [facility] Comment on above: Order Comment: Speci men Comment: [id number] Specimen Comment: Source.............Cervix Specimen Comment: No. of containers..01 ThinPrep Vial Result Comment: Sati sfactory for evaluation. No endocervical component is identified. Performed By: #### L 7400.0353 #### [facility] [address] [place], [place], [id number] COMM . Normal . [facility] Comment on above: Order Comment: Speci men Comment: [id number] Specimen Comment: Source.............Cervix Specimen Comment: No. of containers..01 ThinPrep Vial Performed By: #### L 7400.0353 #### [facility] [address] [place], [place], [address] COMMENT Comment Normal . [facility] Comment on above: Order Comment: Speci men Comment: [id number] Specimen Comment: Source.............Cervix Specimen Comment: No. of containers..01 ThinPrep Vial Result Comment: This liquid based ThinPrep(R) pap test was screened with the use of an image guided system. Performed By: #### L 7400.0353 #### [facility] [address] [place], [place], [id number] DIAG Comment Normal . [facility] Comment on above: Order Comment: Speci men Comment: [id number] Specimen Comment: Source.............Cervix Specimen Comment: No. of containers..01 ThinPrep Vial Result Comment: NEGA TIVE FOR INTRAEPITHELIAL LESION OR MALIGNANCY. Performed By: #### L 7400.0353 #### [facility] [address] [place], [place], [address] HPV RFLX Comment Normal . [facility] Comment on above: Order Comment: Speci men Comment: [id number] Specimen Comment: Source.............Cervix Specimen Comment: No. of containers..01 ThinPrep Vial Result Comment: The HPV DNA reflex criteria were not met with this specimen result therefore, no HPV testing was performed. Performed at: [address] [id number] Rattling Machine Tender: Zulma Ferguson MD, Phone: [phone] Performed By: #### L 7400.0353 #### [facility] [address] [place], [place], [address] PAPSMR Comment Normal . [facility] Comment on above: Order Comment: Speci men Comment: [id number] Specimen Comment: Source.............Cervix Specimen Comment: No. of containers..01 ThinPrep Vial Result Comment: The Pap smear is a screening test designed to aid in the detection of premalignant and malignant conditions of the uterine cervix. It is not a diagnostic procedure and should not be used as the sole means of detecting cervical cancer. Both false-positive and false-negative reports do occur. Performed By: #### L 7400.0353 #### [facility] [address] [place], [place], [address] PERFORM Comment Normal . [facility] Comment on above: Order Comment: Speci men Comment: [id number] Specimen Comment: Source.............Cervix Specimen Comment: No. of containers..01 ThinPrep Vial Result Comment: Yaquelin Macias, Logistics Engineering Manager (ASCP) Performed By: #### L 7400.0353 #### [facility] [address] [place], [address] Collection Card Clerk Office Visit Reporton 06-10-2024 Collection Card Clerk Office Visit Report [facility] [address], [address] [place] [address] OFFICE VISIT Date of Service: 06/10/24 MR#: [id number] Acct: [id number] Name: MAURICIO FIELDS Rep #: [id number] : 2000 Provider: OSMAR dominguez Age/Sex: 23/F [place] [facility] [place]: Signed Intake Vital Signs 01/26/22 13:43 06/10/24 13:59 06/10/24 14:09 Height 5 ft 4 in 5 ft 4 in 5 ft 4 in Weight: 193 lb 6 oz BMI 33.2 BP 110/72 Intake Visit Reasons: painful periods Chief Complaint: Painful periods Banana Handler Required: No Is patient in pain?: No Allergies No Known Allergies Allergy (Verified 06/10/24 13:57) Medications ???Medication ???Instructions ???Recorded ???Confirmed ???Type tranexamic acid 650 mg tablet 1,300 mg (2 x 650 mg) PO TID with 06/10/24 06/10/24 Rx onset of menses for 5 days #60 tabs Is last menstrual period known: Yes Last Menstrual Period: 05/26/24 Post menopausal: No Patient : No : No PFSH Medical History Seizures Surgical History Status post delivery Delivery by section History of surgery History of gynecologic surgery H/O dilation and curettage H/O anterior cruciate ligament surgery Social History adopted: Yes household members: spouse number of children: 1 current occupational status: 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 Changes protection every 2-3 hours. States her menses have always been painful. She has nausea and vomiting due to pain, she has pain with intercourse and also notes pain with bowel movements. Sexually active, . Denies STD concerns. No contraception, ok. She and have 2 yr old son. Last pap 2020 Female Reproductive History Last Menstrual Period: 05/26/24 History 2 Elective abortions Hx Para 1 Spontaneous abortions Hx # Term Pregnancies Ectopic pregnancies Hx # Pregnancies Multiple births # of living children 1 Past Pregnancies Del. Date Name GA/Weeks Outcome Route Bth Weight Infant Gen Labor Lgth Anesthesia Del Locatn Provider FOB 01/29/21 missed AB 12/17/21 Patrick 40 live - full term 7lbs 10oz Male [facility] Ashley Pizano Delivery Date: 01/29/21 Last Updated by: Veronica Soto Delivery Date: 12/17/21 Last Updated by: Zena Torres maternal exhaustion, could not push for 2 hours. Primary section ROS Const Constitutional: Reports system reviewed and no additional complaints, except as documented Eyes Eyes: Reports system reviewed and no additional complaints, except as documented GI GI: Denies abdominal pain or change in bowel habits : Reports as per HPI Exam Const General: cooperative and no acute distress Orientation: oriented x3 General: bladder normal to palpation External Female Exam: normal external appearance and normal appearance of the urethra Urethra: normal appearance of the urethra Speculum Exam - Vagina: normal appearance of the vagina, normal vaginal discharge, no lesions and nontender Speculum Exam - Cervix: normal appearance of the cervix Bimanual Exam- Vagina Uterus: uterine size normal, bladder normal to palpation, uterine shape normal, uterine mobility normal and other (general tenderness over uterus and bladder. ) Bimanual Exam- Adnexa, other: no masses and non-tender Coding Level of Care Code Off vis,est,level 3 Diagnoses Dysmenorrhea N94.6 Pelvic pain R10.2 Dyspareunia Assessment and Plan Assessment and Plan (1) Dysmenorrhea: Status: Acute Comment: US, lysteda; if no improvement consider exp lap. (2) Pelvic pain: Status: Acute Comment: US. (3) Dyspareunia: Status: Acute Orders: Orders Pelvic w/ Transvaginal Today N94.6 - Dysmenorrhea, unspecified Medications: New tranexamic acid 1,300 mg (2 x 650 mg) PO TID 60 tabs 2RF with onset of menses for 5 days Plan Patient prefers to avoid contraception Pelvic ultrasound Rx lysteda If symptoms persist, consider exploratory lap as I do have suspicion of endometriosis Thin prep pap was collect (more content not included)... Normal [facility] CT Head or Brain w/o Contras ton 06-09-2024 CT Head or Brain w/o Contrast Exam Date/Time: 06/08/2024 15:51 EDT Reason for Exam: Headache Report IMPRESSION: No acute intracranial process or significant interval change from prior. Diffuse paranasal sinus disease as discussed, similar to prior. EXAMINATION: CT Head or Brain w/o Contrast HISTORY: Headache. History of seizures. Possible syncopal event. TECHNIQUE: Serial axial images without IV contrast were obtained from the vertex to the foramen magnum, with sagittal and coronal reconstructions. All CT scans at this facility use dose modulation, iterative reconstruction, and/or weight based dosing when appropriate to reduce radiation dose to as low as reasonably achievable. COMPARISON: 04/02/2023. RESULT: Acute change: No evidence of an acute infarct or other acute parenchymal process. Hemorrhage: No evidence of acute intracranial hemorrhage. Mass Lesion / Mass Effect: There is no evidence of suspicious intracranial mass or extraaxial fluid collection. No significant mass effect. Subcentimeter cystic lesion lateral to the right quadrigeminal plate (series 2 image 9), unchanged, and likely benign incidental process such as choroid fissure cyst. Chronic change: None significant via CT. Parenchyma: There is no significant volume loss. Ventricles: The ventricles are within normal limits of size and configuration for age. Paranasal sinuses and skull base: Diffuse thickening within the imaged ethmoid air cells. Thickening in the partially imaged maxillary sinuses and thickening within the sphenoid sinuses, especially the left sphenoid sinus. Minimal thickening frontal sinuses. Overall appearance is similar to prior, likely chronic. Mastoid air cells clear. The skull base is unremarkable. Soft tissues unremarkable. Report Ordering Provider: Gracia Meza FINAL REPORT Dictated: 06/09/2024 8:45 am Alex Luke MD Signed (Electronic Signature): 06/09/2024 8:45 am Signed by: Alex Luke MD Transcribed by: KEYUR Technologist: AMISHA Normal [facility] CBC w/ Auto Diffon 4 Basophils/100 WBC (Bld) 0.7 % Normal 0.0-2.0 [facility] Comment on above: Performed By: #### 2 [id number] #### [facility] [address] [place] [address] Basophils/Leukocytes Auto (Bld) [Pure # fraction] 0.1 E9/L Normal 0.0-0.2 [facility] Comment on above: Performed By: #### 2 [id number] #### [facility] [address] [place] [address] Eosinophils (Bld) [#/Vol] 0.3 E9/L Normal 0.0-0.5 [facility] Comment on above: Performed By: #### 2 [id number] #### [facility] [address] [place] [address] Eosinophils/100 WBC (Bld) 4.5 % Normal 0.0-8.0 [facility] Comment on above: Performed By: #### 2 [id number] #### [facility] [address] [place] [address] Erythrocyte distribution width (RBC) [Ratio] 13.1 % Normal 10.9-14.2 [facility] Comment on above: Performed By: #### 2 [id number] #### [facility] [address] [place] [address] Hematocrit (Bld) [Volume fraction] 36.6 % Normal 34.0-46.0 [facility] Comment on above: Performed By: #### 2 [id number] #### [facility] [address] [place] [address] Hemoglobin (Bld) [Mass/Vol] 13.0 g/dL Normal 12.0-16.0 [facility] Comment on above: Performed By: #### 2 [id number] #### [facility] [address] [place] [address] Lymphocytes (Bld) [#/Vol] 2.2 E9/L Normal 1.0-4.0 [facility] Comment on above: Performed By: #### 2 [id number] #### [facility] [address] [place] [address] Lymphocytes/100 WBC (Bld) 29.8 % Normal 14.0-50.0 [facility] Comment on above: Performed By: #### 2 [id number] #### [facility] [address] [place] [address] MCH (RBC) [Entitic mass] 31.2 pg Normal 27.0-34.0 [facility] Comment on above: Performed By: #### 2 [id number] #### [facility] [address] [place] [address] MCHC (RBC) [Mass/Vol] 35.7 g/dL Normal 31.4-36.0 [facility] Comment on above: Performed By: #### 2 [id number] #### [facility] [address] [place] [address] MCV (RBC) [Entitic vol] 87.6 fL Normal 80.0-100.0 [facility] Comment on above: Performed By: #### 2 [id number] #### [facility] [address] [place] [address] Monocytes (Bld) [#/Vol] 0.6 E9/L Normal 0.2-1.0 [facility] Comment on above: Performed By: #### 2 [id number] #### [facility] [address] [place] [address] Neutrophils (Bld) [#/Vol] 4.2 E9/L Normal 2.0-7.5 [facility] Comment on above: Performed By: #### 2 [id number] #### [facility] [address] [place] [address] Neutrophils/100 WBC (Bld) 57.1 % Normal 36.0-75.0 [facility] Comment on above: Performed By: #### 2 [id number] #### [facility] [address] [place] [address] Platelet 277.0 E9/L Normal 150.0-500.0 [facility] Comment on above: Performed By: #### 2 [id number] #### [facility] [address] [place] [address] Platelet mean volume (Bld) [Entitic vol] 7.6 fL Normal 6.4-10.8 [facility] Comment on above: Performed By: #### 2 [id number] #### [facility] [address] [place] [address] RBC (Bld) [#/Vol] 4.2 E12/L Low 4.3-5.9 [facility] Comment on above: Performed By: #### 2 [id number] #### [facility] [address] [place] [address] WBC corrected for nucl RBC Auto (Bld) [#/Vol] 7.3 E9/L Normal 4.0-11.0 [facility] Comment on above: Performed By: #### 2 [id number] #### [facility] [address] [place] [address] CHEMISTRYOrdered By: SYSTEM SYSTEM on 06-08-2024 Albumin [Mass/Vol] 4.4 g/dL Normal 3.3 - 5.0 gm/dL [facility] Albumin/Globulin [Mass ratio] 2.0 {ratio} Normal 1.1 - 2.2 [facility] ALP [Catalytic activity/Vol] 75 [iU]/d Normal 21 - 98 Int._Unit/L [facility] ALT No additional P-5'-P [Catalytic activity/Vol] 18 [iU]/d Normal 6 - 46 Int._Unit/L [facility] Anion gap [Moles/Vol] 11 mmol/L Normal 6 - 16 mEq/L R emisol Chem AST [Catalytic activity/Vol] 15 [iU]/d Normal 5 - 43 Int._Unit/L [facility] Bilirubin [Mass/Vol] 0.3 mg/dL Normal 0.0 - 1 .1 mg/dL [facility] Calcium [Mass/Vol] 9.2 mg/dL Normal 8.9 - 11. 1 mg/dL [facility] Chloride [Moles/Vol] 106 mmol/L Normal 101 - 1 11 mmol/L [facility] CO2 [Moles/Vol] 27 mmol/L Normal 21 - 31 mmol/L [facility] Creatinine [Mass/Vol] 0.8 mg/dL Normal 0.5 - 1.3 mg/dL [facility] eGFR 105 mL/min/1.73 m2 Normal >=59mL/mi n/1 .73 m2 [facility] Globulin (S) [Mass/Vol] 2.2 g/dL Normal 1.4 - 4.0 gm/dL [facility] Glucose [Mass/Vol] 103 mg/dL Normal 55 - 199 mg/dL [facility] Potassium [Moles/Vol] 3.7 mmol/L Normal 3.5 - 5.3 mmol/L [facility] Protein [Mass/Vol] 6.6 g/dL Normal 6.0 - 7.8 gm/dL [facility] Sodium [Moles/Vol] 140 mmol/L Normal 135 - 145 mmol/L [facility] Troponin HS pg/mL Low 10.10 - 27.10 pg/mL [facility] Comment on above: Interpretive Data: T he 95% CI (Confidence Interval) PPV (Positive Predictive Value) for myocardial infarction in females is 38 pg/mL, in males 51 pg/mL. The results should be used in conjunction with clinical conditions of myocardial infarction. (Access High Sensitivity Troponin I Instructions For Use, Nancy Radhika, April 2018) Urea nitrogen [Mass/Vol] 10 mg/dL Normal 5 - 21 mg/dL [facility] Urea nitrogen/Creatinine [Mass ratio] 12 mg/mg Normal 10 - 20 [facility] CMPon 06-08-2024 Albumin [Mass/Vol] 4.4 g/dL Normal 3.3-5.0 [facility] Comment on above: Performed By: #### 2 [id number] #### [facility] [address] [place] [address] Albumin/Globulin (S) [Mass conc ratio] 2.0 Normal 1.1-2.2 [facility] Comment on above: Performed By: #### 2 [id number] #### [facility] [address] [place] [address] ALP [Catalytic activity/Vol] 75 Int._Unit/L Normal 21-98 [facility] Comment on above: Performed By: #### 2 [id number] #### [facility] [address] [place] [address] ALT No additional P-5'-P [Catalytic activity/Vol] 18 Int._Unit/L Normal 6-46 [facility] Comment on above: Performed By: #### 2 [id number] #### [facility] [address] [place] [address] Anion gap [Moles/Vol] 11 mmol/L Normal 6-16 [facility] Comment on above: Performed By: #### 2 [id number] #### [facility] [address] [place] [address] AST [Catalytic activity/Vol] 15 Int._Unit/L Normal 5-43 [facility] Comment on above: Performed By: #### 2 [id number] #### [facility] [address] [place] [address] Bilirubin [Mass/Vol] 0.3 mg/dL Normal 0.0-1.1 [facility] Comment on above: Performed By: #### 2 [id number] #### [facility] [address] [place] [address] Calcium [Mass/Vol] 9.2 mg/dL Normal 8.9-11.1 [facility] Comment on above: Performed By: #### 2 [id number] #### [facility] [address] [place] [address] Chloride [Moles/Vol] 106 mmol/L Normal 101-111 [facility] Comment on above: Performed By: #### 2 [id number] #### [facility] [address] [place] [address] CO2 [Moles/Vol] 27 mmol/L Normal 21-31 [facility] Comment on above: Performed By: #### 2 [id number] #### [facility] [address] [place] [address] Creatinine [Mass/Vol] 0.8 mg/dL Normal 0.5-1.3 [facility] Comment on above: Performed By: #### 2 [id number] #### [facility] [address] [place] [address] Globulin (S) [Mass/Vol] 2.2 g/dL Normal 1.4-4.0 [facility] Comment on above: Performed By: #### 2 [id number] #### [facility] [address] [place] [address] Glucose [Mass/Vol] 103 mg/dL Normal 55-199 [facility] Comment on above: Performed By: #### 2 [id number] #### [facility] [address] [place] [address] Potassium [Moles/Vol] 3.7 mmol/L Normal 3.5-5.3 [facility] Comment on above: Performed By: #### 2 [id number] #### [facility] [address] [place] [address] Protein [Mass/Vol] 6.6 g/dL Normal 6.0-7.8 [facility] Comment on above: Performed By: #### 2 [id number] #### [facility] [address] [place] [address] Sodium [Moles/Vol] 140 mmol/L Normal 135-145 [facility] Comment on above: Performed By: #### 2 [id number] #### [facility] [address] [place] [address] Urea nitrogen [Mass/Vol] 10 mg/dL Normal 5-21 [facility] Comment on above: Performed By: #### 2 [id number] #### [facility] [address] [place] [address] Urea nitrogen/Creatinine [Mass ratio] 12 No Units Normal 10-20 [facility] Comment on above: Performed By: #### 2 [id number] #### [facility] [address] [place] [address] ED Clinical Summaryon 2023 ED Clinical Summary ED Clinical Summary [address] [address] ED Clinical Summary Person Information Name: MAURICIO FIELDS [place] Age: 23 Years : 2000 Sex: Female Language: Bahraini PCP: ALICIA SILVEIRA Marital Status: Visit Id: Visit Reason: Heat exposure; Syncope/Near syncope; SEIZURE Speciality: Acuity: 3 Enc Type: Emergency Med Service: Emergency Arrival: 06/08/2024 15:09:15 Discharge: 06/08/2024 18:02:59 LOS: 000 02:53 Checkin: 06/08/2024 15:09:15 Checkout: 06/08/2024 18:02:59 Dispo Type: Left Against Medical Advice EVENTS: Event Name Event Status Request Date/Time Start Date/Time Complete Date/Time Arrive Complete 06/08/2024 15:09:15 06/08/2024 15:09:15 06/08/2024 15:09:15 Document Home Meds Request 06/08/2024 15:09:15 Triage Complete 06/08/2024 15:09:15 06/08/2024 15:13:16 06/08/2024 15:13:16 Bed Assign Complete 06/08/2024 15:09:15 06/08/2024 15:09:15 06/08/2024 15:09:15 Dr Exam Complete 06/08/2024 15:09:15 06/08/2024 15:11:31 06/08/2024 15:11:31 RN Exam Complete 06/08/2024 15:09:15 06/08/2024 18:02:06 06/08/2024 18:02:06 Registration Complete 06/08/2024 15:11:31 06/08/2024 16:03:29 06/08/2024 16:03:29 EKG Complete 06/08/2024 15:12:40 06/08/2024 15:19:56 Pending Labs Complete 06/08/2024 15:25:30 06/08/2024 16:09:02 Lab Complete 06/08/2024 15:25:30 06/08/2024 16:02:04 CT Complete 06/08/2024 15:25:30 06/08/2024 15:51:04 Meds Admin Request 06/08/2024 15:25:30 Pending Labs Complete 06/08/2024 15:36:34 06/08/2024 15:36:34 06/08/2024 16:02:04 Lab Complete 06/08/2024 15:36:34 06/08/2024 15:36:34 06/08/2024 16:02:04 Pending Labs Complete 06/08/2024 15:37:04 06/08/2024 15:37:04 06/08/2024 15:37:04 Reg Complete Request 06/08/2024 16:03:29 Reg Bed Request Complete 06/08/2024 16:03:29 06/08/2024 16:03:29 06/08/2024 16:03:29 Discharge Complete 06/08/2024 17:52:56 06/08/2024 18:03:30 06/08/2024 18:03:30 Transfer Complete 06/08/2024 18:03:30 06/08/2024 18:03:30 06/08/2024 18:03:30 ADDRESS: [facility] [phone] PHYS DOC NOTES: MEDICAL INFORMATION: Prescriptions Given: PATIENT EDUCATION INFORMATION: Instructions: Follow up: With: Address: When: [facility]IA MICHA[facility], [address] [place] [address] [place] [address] [phone] Business (1) In 3 days DIAGNOSIS: Syncope Normal [facility] ED Note-Physicianon 06-08-20 ED Note-Physician ED Note-Physician Basic Information Time Seen: Gracia Meza DO 06/08/2024 15:11 Chief Complaint possible syncope after feeling overheated. was lowered to ground during an episode for 10-15 seconds. happened before. no fall History of Present Illness 23 female presents emergency department by EMS with syncope versus seizure. 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 Patient was lowered to the ground for about 10 to 15 seconds. Patient states that she had something like this last week she was seen here on Monday and had a very similar presentation with negative initial workup. 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 She went to see the neurologist but did not see the neurologist because she had a seizure in his office and was sent to the emergency department. Patient does state that she has associated headache with this. She denies any chest pain shortness of breath cough fevers nausea or vomiting. No other aggravating or relieving factors no other associated symptoms no other prior treatments or complaints. Family: Reviewed and noncontributory Social: lives at home Review of systems negative unless otherwise specified in the HPI. Physical Exam Vitals & Measurements T: 37.1 ?C(Oral) HR: 91(Peripheral) RR: 18 BP: 113/62 SpO2: 96% HT: 162.56 cm WT: 90.3 kg BMI: 34.17 General: The patient appears well and in no apparent distress. Patient is resting comfortably on cart. Skin: Warm, dry, no pallor noted. Head: Normocephalic, atraumatic Neck: No JVD Eye: PERRLA, EOMI ENT: Moist mucus membranes Cardiovascular: Regular rate normal peripheral perfusion Respiratory: No respiratory distress no accessory muscle use no obvious audible wheezing Chest Wall: no deformity Musculoskeletal: normal ROM, no deformity, no swelling GI: Soft no obvious distention. No rebound or rigidity. No guarding. No tenderness. Neurological: A&O moves all extremities equal strength and symmetry Psychiatric: Cooperative and appropriate Medical Decision Making Workup in the ER has been reviewed and noted. Initial cardiac workup here is negative patient is treated with Toradol for her headache. CT scan was performed and the patient did wait several hours for the results but she did not wish to wait any longer and given that we are using stat read program which is hours behind especially on a weekend she does not wish to stay there for she will leave AGAINST MEDICAL ADVICE as I do not have the results of her CT scan back at this time. Ultimately patient will follow-up with neurology in the outpatient setting and return to ER symptoms change worsen or recur. Assessment/Plan Syncope (R55: Syncope and collapse) Orders: ketorolac, 15 mg = 1 mL, Injection, IV Push, Once, Stop date 06/08/24 15:25:00 EDT, STAT, Start date 06/08/24 15:25:00 EDT, 06/08/24 15:25:00 EDT Sodium Chloride 0.9% intravenous solution 1,000 mL, 1,000 mL, IV, 1,000 mL/hr, STAT, Start date 06/08/24 15:25:00 EDT, 1 hour(s), Total volume (mL): 1,000, 90.3 kg, 2.02, m2 CBC w/ Auto Diff Comprehensive Metabolic Panel CT Head or Brain w/o Contrast eGFR Extra Blue Tube Extra SST Tube Troponin 0 Hr. Medications Administered Given Sodium Chloride 0.9% IV Inga 1000 mL 1,000 mL, 1000 mL, IV ketorolac 15 mg/mL Inj, 15 mg, IV Push Disposition Plan Discharge Prescription List Prescriptions No active prescription medications Follow-up With When Contact Information ALICIA MICHAELS In 3 days [facility] [address] [address]- [phone] Business (1) Additional Instructions: Problem List/Past Medical History Ongoing Smoker Historical No qualifying data Procedure/Surgical History Dilatation and curettage. Medications Inpatient Sodium Chloride 0.9% IV Inga 1000 mL 1,000 mL, 1000 mL, IV Home No active home medications Allergies No Known Allergies Social History Alcohol Current, 1-2 times per month, 02/23/2021 Current, 1-2 times per month, 02/11/2021 Substance Abuse Current, Marijuana, 1-2 times per month, 02/23/2021 Current, Marijuana, 1-2 times per month, 02/11/2021 Tobacco - Low Risk, 02/22/2021 Current vaping or e-cigarette use Smokeless Tobacco Use:. Vaping, 06/02/2024 4 or less cigarettes(less than 1/4 pack)/day in last 30 days Tobacco Use:. Cigarettes, 02/23/2021 4 or less cigarettes(less than 1/4 pack)/day in last 30 days Tobacco Use:. Cigarettes, 02/22/2021 Lab Results WBC: 7.3 E9/L (06/08/24 15:33:00) RBC: 4.2 E12/L Low (06/08/24 15:33:00) HGB: 13 gm/dL (06/08/24 15:33:00) Hct: 36.6 % (06/08/24 15:33:00) MCV: 87.6 fL (06/08/24 15:33:00) MCH: 31.2 pg (06/08/24 15:33:00) MCHC: 35.7 gm/dL (06/08/24 15:33:00) RDW: 13.1 % (06/08/24 15:33:00) Platelet: 277 E9/L (06/08/24 15:33:00) MPV: 7.6 f (more content not included)... Normal [facility] Comment on above: Result Comment: Elec tronically Signed By: Gracia Meza DO\.br\Date and Time Signed: 06/08/24 17:56 EDT ED Patient Education Noteon 06-08-2024 ED Patient Education Note ED Patient Education Note Normal [facility] ED Patient Summaryon 024 ED Patient Summary ED Patient Summary [place] [id number] Patient Discharge Instructions Person Information Name: MAURICIO FIELDS Age: 23 Years Arrival Date: 06/08/2024 15:09:15 Discharge Diagnosis: Syncope Primary Care Physician: ALICIA SILVEIRA Provider Information Primary Provider: Gracia Meza DO Advanced Rink Rat:None The exam and treatment you received in the Emergency Department were for an urgent problem and are not intended as complete care. It is important that you follow up with a doctor, nurse practitioner, or physician?s orthotic assistant for ongoing care. If your symptoms become worse or you do not improve as expected and you are unable to reach your usual health care provider, you should return to the Emergency Department. We are available 24 hours a day. MAURICIO FIELDS has been given the following list of patient education materials, prescriptions and follow-up instructions: Follow-up Instructions: With: Address: When: ALICIA MICHAELS [facility], [address] [place], [place] [id number] [phone] Business (1) In 3 days In the event that this physician does not participate in your insurance network, please consult with your insurance company to find a nearby participating provider. Patient Education Materials: A MESSAGE TO ALL PATIENTS REGARDING OPIOIDS PRESCRIPTION OPIOIDS: WHAT YOU NEED TO KNOW Prescription opioids can be used to help relieve [id number] pain and are often prescribed following a surgery or injury, or for certain health conditions. These medications can be an important part of the treatment but also come with serious risks. It is important to work with your healthcare provider to make sure you are getting the safest, most effective care. WHAT ARE THE RISKS AND SIDE EFFECTS OF OPIOID USE? Prescription opioids carry serious risks of addiction and overdose, especially with prolonged use. An opioid overdose, often marked by slowed breathing, can cause sudden . The use of prescription opioids can have a number of side effects as well, even when taken as directed: ? Tolerance?meaning you might need to take more of the medication for the same pain relief ? Physical dependence?meaning you have symptoms of withdrawal when a medication is stopped ? Increased sensitivity to pain ? Constipation ? Nausea, vomiting, and dry mouth ? Sleepiness and dizziness ? Confusion ? Depression ? Low levels of testosterone that can result in lower sex drive, energy, and strength ? Itching and sweating RISKS ARE GREATER WITH: ? History of drug misuse, substance use disorder, or overdose ? Mental health conditions (such as depression or anxiety) ? Sleep apnea ? Older age (65 years and older) ? Avoid alcohol while taking prescription opioids. Also, unless specifically advised by your health care provider, medications to avoid include: ? Benzodiazepines (such as Xanax or Valium) ? Muscle relaxants (such as Soma or Flexeril) ? Hypnotics (such as Ambien or Lunesta) ? Other prescription opioids KNOW YOUR OPTIONS Talk to your health care provider about ways to manage your pain that don?t involve prescription opioids. Some of these options may actually work better and have fewer risks and side effects. Options may include: ? Pain relievers such as acetaminophen, ibuprofen, and naproxen ? Some medication that are also used for depression or seizures ? Physical therapy and exercise ? Cognitive behavioral therapy, a psychological, goal-directed approach, in which patients learn how to modify physical, behavioral, and emotional triggers of pain and stress. IF YOU ARE PRESCRIBED OPIOIDS FOR PAIN: ? Never take opioids in greater amounts or more often than prescribed. ? Follow up with your primary health care provider. o Work together to create a plan on how to manage your pain. o Talk about ways to help manage your pain that don?t involve prescription opioids. o Talk about any and all concerns and side effects. ? Help prevent misuse and abuse o Never sell or share prescription opioids. o Never use another person?s prescription opioids. ? Store prescription opioids in a secure place and out of reach of others (this may include visitors, children, friends, and family). ? Safely dispose of unused prescription opioids: Find your community drug take-back program or your pharmacy mail-back program, or flush them down the toilet, following guidance from the Food and Drug Administration (www.fda.gov/Drugs/Reso urcesForYou). ? Visit www.cdc.gov/drugoverdos e to learn about the risks of opioids abuse and overdose. ? If you believe you may be struggling with addiction, tell your health transitional care nurse and ask for guidance or call [facility] National Helpline at 3-572-479-ZZKW. v Source: US Department of Health and Human Services/Fernando (more content not included)... Normal [facility] Extra Blueon 06-08-2024 Tube Collected Plasma Yes Invalid Interpretation Code [facility] Comment on above: Performed By: #### 1 [id number] #### [facility] [address] [place] [address] HEMATOLOGYOrdered By: SYSTEM SYSTEM on 06-08-2024 Basophils/100 WBC (Bld) 0.7 % Normal 0.0 - 2.0 % Remisol Heme Basophils/Leukocytes Auto (Bld) [Pure # fraction] 0.1 E9/L Normal 0.0 - 0.2 E9/L Remisol Heme Eosinophils (Bld) [#/Vol] 0.3 E9/L Normal 0.0 - 0.5 E9/L Remisol Heme Eosinophils/100 WBC (Bld) 4.5 % Normal 0.0 - 8.0 % Remisol Heme Erythrocyte distribution width (RBC) [Ratio] 13.1 % Normal 10.9 - 14.2 % Remisol Heme Hematocrit (Bld) [Volume fraction] 36.6 % Normal 34.0 - 46.0 % Remisol Heme Hemoglobin (Bld) [Mass/Vol] 13.0 g/dL Normal 12.0 - 16.0 gm/dL Remisol Heme Lymphocytes (Bld) [#/Vol] 2.2 E9/L Normal 1.0 - 4.0 E9/L Remisol Heme Lymphocytes/100 WBC (Bld) 29.8 % Normal 14.0 - 50.0 % Remisol Heme MCH (RBC) [Entitic mass] 31.2 pg Normal 27.0 - 34.0 pg Remisol Heme MCHC (RBC) [Mass/Vol] 35.7 g/dL Normal 31.4 - 36.0 gm/dL Remisol Heme MCV (RBC) [Entitic vol] 87.6 fL Normal 80.0 - 100.0 fL Remisol Heme Monocytes (Bld) [#/Vol] 0.6 E9/L Normal 0.2 - 1.0 E9/L Remisol Heme Monocytes/100 WBC (Bld) 7.9 % Normal 4.0 - 14.0 % Remisol Heme Neutrophils (Bld) [#/Vol] 4.2 E9/L Normal 2.0 - 7.5 E9/L Remisol Heme Neutrophils/100 WBC (Bld) 57.1 % Normal 36.0 - 75.0 % Remisol Heme Platelet 277.0 E9/L Normal 150.0 - 500.0 E9/L Remisol Heme Platelet mean volume (Bld) [Entitic vol] 7.6 fL Normal 6.4 - 10.8 fL Remisol Heme RBC (Bld) [#/Vol] 4.2 E12/L Low 4.3 - 5.9 E12/L Remisol Heme WBC corrected for nucl RBC Auto (Bld) [#/Vol] 7.3 E9/L Normal 4.0 - 11.0 E9/L Remisol Heme Pre-Arrival Noteon Pre-Arrival Note Pre-Arrival Note Pre-Arrival Summary Name: wendi Current Date: 06/08/2024 15:09:47 EDT Gender: Date of : Age: 23 Pre-Arrival Type: EMS ETA: 06/08/2024 15:28:00 EDT Primary Care Physician: Presenting Problem: seizure Pre-Arrival User: Rach Laird RN Referring Source: Location: Completion Date/Time: 06/08/2024 00:00:00 [facility] Emergency Department Pre-Hospital Report Form Vital Signs: Pre-Hospital Report: Treatment in Route: Response to Treatment: Misc. Issues: Normal [facility] Troponin 0 Hr.on 06-08-2024 Troponin HS <2.30 Low 10.10-27.10 [facility] Comment on above: Result Comment: The 95% CI (Confidence Interval) PPV (Positive Predictive Value) for myocardial infarction in females is 38 pg/mL, in males 51 pg/mL. The results should be used in conjunction with clinical conditions of myocardial infarction. (Access High Sensitivity Troponin I Instructions For Use, Nancy [place], April 2018) Performed By: #### 1 [id number] #### [facility] [address] [place] [address] eGFRon 06-08-2024 eGFR 105 mL/min/1.73 m2 Normal >=59 [facility] Comment on above: Performed By: #### 1 [id number] #### [facility] [address] [place] [address] XR Chest Single Viewon 06-03 XR Chest Single View Exam Date/Time: 06/02/2024 17:45 EDT Reason for Exam: Chest pain Report IMPRESSION: NO EVIDENCE OF ACTIVE CHEST DISEASE. CLINICAL HISTORY: Chest pain. Syncopal episode. COMMENT: AP portable. The heart is normal in size. The mediastinum is unremarkable. The lungs appear clear. No infiltration nor pleural effusion is evident. Ordering Provider: Harinder Chan FINAL REPORT Dictated: 06/03/2024 8:20 am Victor Manuel Dias M.D. Signed (Electronic Signature): 06/03/2024 8:20 am Signed by: Victor Manuel Dias M.D. Transcribed by: KEYUR Technologist: DIMPLE Technical Comments Radiation Dose: Ka,r in mGy = na DAP = na Normal [facility] B hCG Qualon 06-02-2024 Beta HCG ( test) Ql Negative Normal [facility] Comment on above: Performed By: #### 2 [id number] #### [facility] [address] [place] [address] BMPon 06-02-2024 Anion gap [Moles/Vol] 9 mmol/L Normal 6-16 [facility] Comment on above: Performed By: #### 2 [id number] #### [facility] [address] [facility] [address] Calcium [Mass/Vol] 9.2 mg/dL Normal 8.9-11.1 [facility] Comment on above: Performed By: #### 2 [id number] #### [facility] [address] [place] [address] Chloride [Moles/Vol] 106 mmol/L Normal 101-111 [facility] Comment on above: Performed By: #### 2 [id number] #### [facility] [address] [place] [address] CO2 [Moles/Vol] 26 mmol/L Normal 21-31 [facility] Comment on above: Performed By: #### 2 [id number] #### [facility] [address] [facility] [address] Creatinine [Mass/Vol] 0.8 mg/dL Normal 0.5-1.3 [facility] Comment on above: Performed By: #### 2 [id number] #### [facility] [address] [place] [address] Glucose [Mass/Vol] 83 mg/dL Normal 55-199 [facility] Comment on above: Performed By: #### 2 [id number] #### [facility] [address] [place] [address] Potassium [Moles/Vol] 3.7 mmol/L Normal 3.5-5.3 [facility] Comment on above: Performed By: #### 2 [id number] #### [facility] [address] [place] [address] Sodium [Moles/Vol] 137 mmol/L Normal 135-145 [facility] Comment on above: Performed By: #### 2 [id number] #### [facility] [address] [place] [address] Urea nitrogen [Mass/Vol] 14 mg/dL Normal 5-21 [facility] Comment on above: Performed By: #### 2 [id number] #### [facility] [address] [place] [address] Urea nitrogen/Creatinine [Mass ratio] 18 No Units Normal 10-20 [facility] Comment on above: Performed By: #### 2 [id number] #### [facility] [address] [place] [address] CBC w/ Auto Diffon 4 Basophils/100 WBC (Bld) 0.8 % Normal 0.0-2.0 [facility] Comment on above: Performed By: #### 2 [id number] #### [facility] [address] [place] [address] Basophils/Leukocytes Auto (Bld) [Pure # fraction] 0.1 E9/L Normal 0.0-0.2 [facility] Comment on above: Performed By: #### 2 [id number] #### [facility] [address] [place] [address] Eosinophils (Bld) [#/Vol] 0.3 E9/L Normal 0.0-0.5 [facility] Comment on above: Performed By: #### 2 [id number] #### [facility] [address] [place] [address] Eosinophils/100 WBC (Bld) 3.8 % Normal 0.0-8.0 [facility] Comment on above: Performed By: #### 2 [id number] #### [facility] [address] [place] [address] Erythrocyte distribution width (RBC) [Ratio] 12.8 % Normal 10.9-14.2 [facility] Comment on above: Performed By: #### 2 [id number] #### [facility] [address] [place] [address] Hematocrit (Bld) [Volume fraction] 37.7 % Normal 34.0-46.0 [facility] Comment on above: Performed By: #### 2 [id number] #### [facility] [address] [place] [address] Hemoglobin (Bld) [Mass/Vol] 13.2 g/dL Normal 12.0-16.0 [facility] Comment on above: Performed By: #### 2 [id number] #### [facility] [address] [place] [address] Lymphocytes (Bld) [#/Vol] 2.7 E9/L Normal 1.0-4.0 [facility] Comment on above: Performed By: #### 2 [id number] #### [facility] [address] [place] [address] Lymphocytes/100 WBC (Bld) 30.6 % Normal 14.0-50.0 [facility] Comment on above: Performed By: #### 2 [id number] #### [facility] [address] [place] [address] MCH (RBC) [Entitic mass] 31.0 pg Normal 27.0-34.0 [facility] Comment on above: Performed By: #### 2 [id number] #### [facility] [address] [place] [address] MCHC (RBC) [Mass/Vol] 34.9 g/dL Normal 31.4-36.0 [facility] Comment on above: Performed By: #### 2 [id number] #### [facility] [address] [place] [address] MCV (RBC) [Entitic vol] 88.9 fL Normal 80.0-100.0 [facility] Comment on above: Performed By: #### 2 [id number] #### [facility] [address] [place] [address] Monocytes (Bld) [#/Vol] 0.5 E9/L Normal 0.2-1.0 [facility] Comment on above: Performed By: #### 2 [id number] #### [facility] [address] [place] [address] Neutrophils (Bld) [#/Vol] 5.2 E9/L Normal 2.0-7.5 [facility] Comment on above: Performed By: #### 2 [id number] #### [facility] [address] [place] [address] Neutrophils/100 WBC (Bld) 58.8 % Normal 36.0-75.0 [facility] Comment on above: Performed By: #### 2 [id number] #### [facility] [address] [place] [address] Platelet mean volume (Bld) [Entitic vol] 8.1 fL Normal 6.4-10.8 [facility] Comment on above: Performed By: #### 2 [id number] #### [facility] [address] [place] [address] Platelets (Bld) [#/Vol] 263.0 E9/L Normal 150.0-500.0 [facility] Comment on above: Performed By: #### 2 [id number] #### [facility] [address] [place] [address] RBC (Bld) [#/Vol] 4.2 E12/L Low 4.3-5.9 [facility] Comment on above: Performed By: #### 2 [id number] #### [facility] [address] [place] [address] WBC corrected for nucl RBC Auto (Bld) [#/Vol] 8.8 E9/L Normal 4.0-11.0 [facility] Comment on above: Performed By: #### 2 [id number] #### [facility] [address] [place] [address] CHEMISTRYOrdered By: SYSTEM SYSTEM on 06-02-2024 Troponin HS pg/mL Low 10.10 - 27.10 pg/mL [facility] Chem Comment on above: Interpretive Data: T he 95% CI (Confidence Interval) PPV (Positive Predictive Value) for myocardial infarction in females is 38 pg/mL, in males 51 pg/mL. The results should be used in conjunction with clinical conditions of myocardial infarction. (Access High Sensitivity Troponin I Instructions For Use, [employer], April 2018) Anion gap [Moles/Vol] 9 mmol/L Normal 6 - 16 mEq/L R emisol Chem Calcium [Mass/Vol] 9.2 mg/dL Normal 8.9 - 11. 1 mg/dL [facility] Chem Chloride [Moles/Vol] 106 mmol/L Normal 101 - 1 11 mmol/L [facility] Chem CO2 [Moles/Vol] 26 mmol/L Normal 21 - 31 mmol/L Remisol Chem Creatinine [Mass/Vol] 0.8 mg/dL Normal 0.5 - 1.3 mg/dL Rem[facility] Chem eGFR 105 mL/min/1.73 m2 Normal >=59mL/mi n/1 .73 m2 Rem[facility] Chem Glucose [Mass/Vol] 83 mg/dL Normal 55 - 199 mg/dL Remisol Chem Potassium [Moles/Vol] 3.7 mmol/L Normal 3.5 - 5.3 mmol/L Remisol Chem Sodium [Moles/Vol] 137 mmol/L Normal 135 - 145 mmol/L Remisol Chem Troponin HS pg/mL Low 10.10 - 27.10 pg/mL [facility] Comment on above: Interpretive Data: T he 95% CI (Confidence Interval) PPV (Positive Predictive Value) for myocardial infarction in females is 38 pg/mL, in males 51 pg/mL. The results should be used in conjunction with clinical conditions of myocardial infarction. (Access High Sensitivity Troponin I Instructions For Use, [employer], April 2018) Urea nitrogen [Mass/Vol] 14 mg/dL Normal 5 - 21 mg/dL [facility] Chem Urea nitrogen/Creatinine [Mass ratio] 18 mg/mg Normal 10 - 20 [facility] COAGULATIONOrdered By: Mariam Underwood on 06-02-2024 aPTT Coag (PPP) [Time] 35.8 s Normal 25.1 - 36.5 second(s) [facility] Comment on above: Interpretive Data: Lee Ann iqbal 15 days - 4 weeks 1 - 5 months 6 - 11 months 1 - 5 years 6 - 10 years 11 - 17 years PTT Mean: 35.4 (27.6-45.6) Mean: 33.5 (24.8-40.7) Mean: 32.4 (25.1-40.7) Mean: 31.6 (24.0-39.2) Mean: 31.6 (26.9-38.7) Mean: 31.0 (24.6-38.4) Pediatric Reference ranges were obtained from a study by ivanna Mcdaniels al. prepared from 1437 samples obtained at 7 different centers using the same coagulation reagent and instrumentation as [facility]. Currently there are no coagulation studies available worldwide for children to 14 days, and no normal ranges. Heparin therapeutic range (represented by Anti-Factor Xa activity of 0.2 - 0.4 U/mL) corresponds to PTT of 56.6 - 109.0 sec. INR Coag (PPP) [Relative time] 1.00 {INR} Invalid Interpretation Code [facility] Comment on above: Interpretive Data: I NR results are specifically intended to assess patients stabilized on long-term Anticoagulation therapy suggested INR s Less Intensive Anticoagulation 2.0 3.0 Conventional Range 3.0 4.5 PT Coag (PPP) [Time] 11.2 s Normal 9.4 - 1 2.5 second(s) [facility] Comment on above: Interpretive Data: 1 5 days - 4 weeks 1 - 5 months 6 -11 months 1 5 years 6 10 years 11 -17 years Mean: 11.2 (9.5 12.6) Mean: 11.0 (9.7 12.8) Mean: 11.0 (9.8 13.0) Mean: 11.3 (9.9 13.4) Mean: 11.7 (10.0 14.6) Mean: 11.8 (10.0 - 14.1) Pediatric Reference ranges were obtained from a study by Higinio Canales et al. prepared from 1437 samples obtained at 7 different centers using the same coagulation reagent and instrumentation as [facility]. Currently there are no coagulation studies available worldwide for children to 14 days, and no normal ranges. ED Clinical Summaryon 2023 ED Clinical Summary ED Clinical Summary [place] [id number] ED Clinical Summary Person Information Name: MAURICIO FIELDS [place] Age: 23 Years : 2000 Sex: Female Language: Bahraini PCP: ALICIA SILVEIRA Marital Status: Visit Id: Visit Reason: Headache; Nausea; Dizziness; Syncope/Near syncope; SYNCOPE Speciality: Acuity: 2 Enc Type: Emergency Med Service: Emergency Arrival: 06/02/2024 16:57:07 Discharge: 06/02/2024 20:03:59 LOS: 000 03:06 Checkin: 06/02/2024 16:57:07 Checkout: 06/02/2024 20:03:59 Dispo Type: Home (Routine DC) EVENTS: Event Name Event Status Request Date/Time Start Date/Time Complete Date/Time Arrive Complete 06/02/2024 16:57:07 06/02/2024 16:57:07 06/02/2024 16:57:07 Document Home Meds Request 06/02/2024 16:57:07 Triage Complete 06/02/2024 16:57:07 06/02/2024 17:00:37 06/02/2024 17:00:37 Bed Assign Complete 06/02/2024 16:57:07 06/02/2024 16:57:07 06/02/2024 16:57:07 Dr Exam Complete 06/02/2024 16:57:07 06/02/2024 16:58:23 06/02/2024 16:58:23 RN Exam Complete 06/02/2024 16:57:07 06/02/2024 17:06:52 06/02/2024 17:06:52 Registration Complete 06/02/2024 16:58:23 06/02/2024 17:31:46 06/02/2024 17:31:46 EKG Complete 06/02/2024 16:59:03 06/02/2024 17:12:04 Meds Admin Complete 06/02/2024 17:16:59 06/02/2024 18:01:08 Pending Labs Request 06/02/2024 17:16:59 Lab Complete 06/02/2024 17:16:59 06/02/2024 17:56:21 Patient Care Request 06/02/2024 17:16:59 RT Request 06/02/2024 17:16:59 X-Ray Complete 06/02/2024 17:16:59 06/02/2024 17:33:44 06/02/2024 17:45:51 Pending Labs Complete 06/02/2024 17:28:49 06/02/2024 17:28:49 06/02/2024 17:56:21 Lab Complete 06/02/2024 17:28:49 06/02/2024 17:28:49 06/02/2024 17:56:21 Reg Complete Request 06/02/2024 17:31:46 Reg Bed Request Complete 06/02/2024 17:31:46 06/02/2024 17:31:46 06/02/2024 17:31:46 Wet Read Request 06/02/2024 17:45:51 Dr Exam Complete 06/02/2024 18:56:03 06/02/2024 18:56:03 06/02/2024 18:56:03 Registration Request 06/02/2024 18:56:03 Discharge Complete 06/02/2024 19:53:49 06/02/2024 20:04:03 06/02/2024 20:04:03 Transfer Complete 06/02/2024 20:04:03 06/02/2024 20:04:03 06/02/2024 20:04:03 ADDRESS: [address] [place] [phone] PHYS DOC NOTES: MEDICAL INFORMATION: Prescriptions Given: PATIENT EDUCATION INFORMATION: Instructions: Syncope, Adult Follow up: With: Address: When: ALICIA MICHAELS [facility], [address] [place] [phone] Business (1) In 3 days DIAGNOSIS: Syncopal episodes Normal [facility] ED Note-Nursingon 06-02-2024 ED Note-Nursing ED Note-Nursing this rn ambulated pt around unit. pt's gait was steady and even. pt's hr ranged from 83-108 and pulse ox ranged from 97-100%. Normal [facility] ED Note-Nursing ED Note-Nursing this rn attempted to obtain orthostatic vital sign on patient. was andrez to obtain lying bp and hr. approx. 30 seconds after standing up pt had syncopal episode. pt did not fall, was able to be sat and laid back on the bed. pt not responsive to sternal rub. vitals reassessed, pt came to approx 2 minutes after syncopal event. Normal [facility] ED Note-Physicianon 06-02-20 ED Note-Physician ED Note-Physician Patient was signed out to me by the outgoing physician. At this time she is receiving a workup and IV fluids. Workup is overall reassuring. After the fluid the patient was ambulated in the department and reports that she feels significantly improved. At this time I feel she is stable for discharge close follow-up on outpatient basis. Discussed return precautions for patient was discharged stable condition. Normal [facility] Comment on above: Result Comment: Elec tronically Signed By: Colin Henderson DO\.br\Date and Time Signed: 06/02/24 19:54 EDT ED Note-Physician ED Note-Physician Basic Information Time Seen: Harinder Chan DO 06/02/2024 16:58 Chief Complaint Pt was at [employer] and had a syncopal episode History of Present Illness 23-year-old female to the emergency department with chief complaint of episode of loss of consciousness. 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 She reports that sometimes when this happens she will have a seizure. She reports that when she is exerting herself strongly or stressed this happens. 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 Review of Systems A 10 point review of systems is negative except as noted above. Medical and Surgical History: Reviewed and noted Social history: Lives at home Tobacco: Denies Physical Exam Vitals & Measurements T: 36.9 ?C(Oral) HR: 74(Peripheral) RR: 18 BP: 110/55 SpO2: 99% HT: 162.56 cm WT: 90.7 kg BMI: 34.32 VITALS: I have reviewed the triage vital signs. GENERAL: Well developed, well appearing adult in no acute distress. NEURO: Alert and oriented. Moves all extremities. Face is symmetric and expressive. EYES: PERRL. No scleral icterus or conjunctival injection. No discharge. HENT: Normocephalic, atraumatic. Hearing is grossly intact. Nares grossly patent and without discharge. Mucous membranes moist. NECK: No JVD. Patient moves neck without restriction. No midline cervical tenderness. CARDIO: Rhythm regular. Normal rate. No murmur, rub, or gallop. Pulses equal bilaterally in the upper and lower extremity. No lower extremity edema. PULM: Lungs clear to auscultation in all bridges. No wheezes, rales, or rhonchi. No conversational dyspnea. No splinting, stridor, or accessory muscle use. GI/: Abdomen is soft and non-tender. Normoactive bowel sounds. EXTREMITIES: Symmetric muscle bulk. No joint swelling. No clubbing, cyanosis, or deformity. SKIN: Warm and dry. Normal turgor. No rash or lesions appreciated. PSYCH: Mood, affect, and interaction is appropriate to the setting. 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 Vital stable, the patient is afebrile. Cardiac workup is initiated. No evidence of traumatic injury. She has no neck pain. No evidence of head injury. No indication for imaging of the head or neck. CBC and chemistry are unremarkable. hCG is negative. Troponin negative. EKG without evidence of ischemia or arrhythmia. Her chest x-ray is unremarkable. Care was signed out to Dr. Henderson with repeat troponin and ambulatory challenge pending. If all these are normal she may be discharged home. Assessment/Plan Syncopal episodes (R55: Syncope and collapse) Orders: Sodium Chloride 0.9% intravenous solution, 1,000 mL, Soln-IV, IV, Once, Stop date 06/02/24 17:16:00 EDT, STAT, Start date 06/02/24 17:16:00 EDT, Infuse over 61, minute(s) Basic Metabolic Panel Beta hCG Qual CBC w/ Auto Diff ED Cardiac Monitoring eGFR Oxygen Saturation Oxygen Therapy PT & PTT Saline Lock Insert Troponin 0 Hr. Troponin 1 Hr. UA with Cult Rflx XR Chest Single View Medications Administered Given NS 1000 ml Bolus, 1000 mL, IV Disposition Plan Patient Discharge Condition Stable Discharge Disposition Home Discharge Prescription List Prescriptions No active prescription medications Follow-up No qualifying data available Problem List/Past Medical History Ongoing Smoker Historical No qualifying data Procedure/Surgical History Dilatation and curettage. Medications Inpatient No active inpatient medications Home No active home medications Allergies No Known Allergies Social History Alcohol Current, 1-2 times per month, 02/23/2021 Current, 1-2 times per month, 02/11/2021 Substance Abuse Current, Marijuana, 1-2 times per month, 02/23/2021 Current, Marijuana, 1-2 times per month, 02/11/2021 Tobacco - Low Risk, 02/22/2021 Current vaping or e-cigarette use Smokeless Tobacco Use:. Vaping, 06/02/2024 4 or less cigarettes(less than 1/4 pack)/day in last 30 days Tobacco Use:. Cigarettes, 02/23/2021 4 or less cigarettes(less than 1/4 pack)/day in last 30 days Tobacco Use:. Cigarettes, 02/22/2021 Lab Results WBC: 8.8 E9/L (06/02/24 17:24:00) RBC: 4.2 E12/L Low (06/02/24:24:00) HGB: 13.2 gm/dL (06/02/24 17:24:00) Hct: 37.7 % (06/02/24 17:24:00) MCV: 88.9 fL (06/02/24 17:24:00) MCH: 31 pg (06/02/24 17:24:00) MCHC: 34.9 gm/dL (06/02/24 17:24:00) RDW: 12.8 % (06/02/24 17:24:00) Platelet: 263 E9/L (06/02/24 17:24:00) MPV: 8.1 fL (06/02/24 17:24:00) Neutro Auto: 58.8 % (06/02/24 17:24:00) Lymph Auto: 30.6 % (06/02/24 17:24:00) Mcdonough Auto: 6 % (06/02/24 17:24:00) Eos Auto: 3.8 % (06/02/24 17:24:00) Basophil Auto: 0.8 % (06/02/24 17:24:00) Neutro Absolute: 5.2 E9/L (06/02/24 17:24:00) Lymph Absolute: 2.7 E9/L (06/02/24 17:24:00) Mcdonough Absolute: 0.5 E9/L (06/02/24 17:24:00) (more content not included)... Normal [facility] Comment on above: Result Comment: Elec tronically Signed By: Harinder Chan DO\.br\Date and Time Signed: 06/02/24 18:43 EDT ED Patient Summaryon ED Patient Summary ED Patient Summary [place] [id number] Patient Discharge Instructions Person Information Name: MAURICIO FIELDS Age: 23 Years Arrival Date: 06/02/2024 16:57:07 Discharge Diagnosis: Syncopal episodes Primary Care Physician: ALICIA ISLVEIRA Provider Information Primary Provider: Harinder Chan DO Advanced Rink Rat:None The exam and treatment you received in the Emergency Department were for an urgent problem and are not intended as complete care. It is important that you follow up with a doctor, nurse practitioner, or physician?s orthotic assistant for ongoing care. If your symptoms become worse or you do not improve as expected and you are unable to reach your usual health care provider, you should return to the Emergency Department. We are available 24 hours a day. MAURICIO FIELDS has been given the following list of patient education materials, prescriptions and follow-up instructions: Follow-up Instructions: With: Address: When: ALICIA MICHAEL[facility], [address] [place] [address] [phone] Business (1) In 3 days In the event that this physician does not participate in your insurance network, please consult with your insurance company to find a nearby participating provider. Patient Education Materials: Syncope, Adult A MESSAGE TO ALL PATIENTS REGARDING OPIOIDS PRESCRIPTION OPIOIDS: WHAT YOU NEED TO KNOW Prescription opioids can be used to help relieve [id number]-[id number] pain and are often prescribed following a surgery or injury, or for certain health conditions. These medications can be an important part of the treatment but also come with serious risks. It is important to work with your healthcare provider to make sure you are getting the safest, most effective care. WHAT ARE THE RISKS AND SIDE EFFECTS OF OPIOID USE? Prescription opioids carry serious risks of addiction and overdose, especially with prolonged use. An opioid overdose, often marked by slowed breathing, can cause sudden . The use of prescription opioids can have a number of side effects as well, even when taken as directed: ? Tolerance?meaning you might need to take more of the medication for the same pain relief ? Physical dependence?meaning you have symptoms of withdrawal when a medication is stopped ? Increased sensitivity to pain ? Constipation ? Nausea, vomiting, and dry mouth ? Sleepiness and dizziness ? Confusion ? Depression ? Low levels of testosterone that can result in lower sex drive, energy, and strength ? Itching and sweating RISKS ARE GREATER WITH: ? History of drug misuse, substance use disorder, or overdose ? Mental health conditions (such as depression or anxiety) ? Sleep apnea ? Older age (65 years and older) ? Avoid alcohol while taking prescription opioids. Also, unless specifically advised by your health care provider, medications to avoid include: ? Benzodiazepines (such as Xanax or Valium) ? Muscle relaxants (such as Soma or Flexeril) ? Hypnotics (such as Ambien or Lunesta) ? Other prescription opioids KNOW YOUR OPTIONS Talk to your health care provider about ways to manage your pain that don?t involve prescription opioids. Some of these options may actually work better and have fewer risks and side effects. Options may include: ? Pain relievers such as acetaminophen, ibuprofen, and naproxen ? Some medication that are also used for depression or seizures ? Physical therapy and exercise ? Cognitive behavioral therapy, a psychological, goal-directed approach, in which patients learn how to modify physical, behavioral, and emotional triggers of pain and stress. IF YOU ARE PRESCRIBED OPIOIDS FOR PAIN: ? Never take opioids in greater amounts or more often than prescribed. ? Follow up with your primary health care provider. o Work together to create a plan on how to manage your pain. o Talk about ways to help manage your pain that don?t involve prescription opioids. o Talk about any and all concerns and side effects. ? Help prevent misuse and abuse o Never sell or share prescription opioids. o Never use another person?s prescription opioids. ? Store prescription opioids in a secure place and out of reach of others (this may include visitors, children, friends, and family). ? Safely dispose of unused prescription opioids: Find your community drug take-back program or your pharmacy mail-back program, or flush them down the toilet, following guidance from the Food and Drug Administration (www.fda.gov/Drugs/Reso urcesForYou). ? Visit www.cdc.gov/drugoverdos e to learn about the risks of opioids abuse and overdose. ? If you believe you may be struggling with addiction, tell your health transitional care nurse and ask for guidance or call [facility]?S National Helpline at 6-102-688-YFMD. c Source: [employer] Department of (more content not included)... Normal [facility] HEMATOLOGYOrdered By: SYSTEM SYSTEM on 06-02-2024 Basophils/100 WBC (Bld) 0.8 % Normal 0.0 - 2.0 % Remisol Heme Basophils/Leukocytes Auto (Bld) [Pure # fraction] 0.1 E9/L Normal 0.0 - 0.2 E9/L Rem[facility] Heme Eosinophils (Bld) [#/Vol] 0.3 E9/L Normal 0.0 - 0.5 E9/L Rem[facility] Heme Eosinophils/100 WBC (Bld) 3.8 % Normal 0.0 - 8.0 % Rem[facility] Heme Erythrocyte distribution width (RBC) [Ratio] 12.8 % Normal 10.9 - 14.2 % Rem[facility] Heme Hematocrit (Bld) [Volume fraction] 37.7 % Normal 34.0 - 46.0 % Rem[facility] Heme Hemoglobin (Bld) [Mass/Vol] 13.2 g/dL Normal 12.0 - 16.0 gm/dL [facility] Heme Lymphocytes (Bld) [#/Vol] 2.7 E9/L Normal 1.0 - 4.0 E9/L [facility] Heme Lymphocytes/100 WBC (Bld) 30.6 % Normal 14.0 - 50.0 % Rem[facility] Heme MCH (RBC) [Entitic mass] 31.0 pg Normal 27.0 - 34.0 pg Remisol Heme MCHC (RBC) [Mass/Vol] 34.9 g/dL Normal 31.4 - 36.0 gm/dL Rem[facility] Heme MCV (RBC) [Entitic vol] 88.9 fL Normal 80.0 - 100.0 fL Rem[facility] Heme Monocytes (Bld) [#/Vol] 0.5 E9/L Normal 0.2 - 1.0 E9/L Remisol Heme Monocytes/100 WBC (Bld) 6.0 % Normal 4.0 - 14.0 % Remisol Heme Neutrophils (Bld) [#/Vol] 5.2 E9/L Normal 2.0 - 7.5 E9/L Rem[facility] Heme Neutrophils/100 WBC (Bld) 58.8 % Normal 36.0 - 75.0 % [facility] Heme Platelet mean volume (Bld) [Entitic vol] 8.1 fL Normal 6.4 - 10.8 fL Rem[facility] Heme Platelets (Bld) [#/Vol] 263.0 E9/L Normal 150. 0 - 500.0 E9/L [facility] Heme RBC (Bld) [#/Vol] 4.2 E12/L Low 4.3 - 5.9 E12/L [facility] Heme WBC corrected for nucl RBC Auto (Bld) [#/Vol] 8.8 E9/L Normal 4.0 - 11.0 E9/L [facility] Heme PT & PTTon 06-02-2024 aPTT Coag (PPP) [Time] 35.8 second(s) Normal 25.1-36.5 [facility] Comment on above: Result Comment: Para meter 15 days - 4 weeks 1 - 5 months 6 - 11 months 1 - 5 years 6 - 10 years 11 - 17 years PTT Mean: 35.4 (27.6-45.6) Mean: 33.5 (24.8-40.7) Mean: 32.4 (25.1-40.7) Mean: 31.6 (24.0-39.2) Mean: 31.6 (26.9-38.7) Mean: 31.0 (24.6-38.4) Pediatric Reference ranges were obtained from a study by ivanna Mcdaniels al. prepared from 1437 samples obtained at 7 different centers using the same coagulation reagent and instrumentation as [facility]. Currently there are no coagulation studies available worldwide for children to 14 days, and no normal ranges. Heparin therapeutic range (represented by Anti-Factor Xa activity of 0.2 - 0.4 U/mL) corresponds to PTT of 56.6 - 109.0 sec. Performed By: #### 1 [id number] #### [facility] [address] [place] [address] INR Coag (PPP) [Relative time] 1.00 {INR} Invalid Interpretation Code [facility] Comment on above: Result Comment: INR results are specifically intended to assess patients stabilized on long-term Anticoagulation therapy suggested INR?s ?Less Intensive Anticoagulation? 2.0 ? 3.0 Conventional Range 3.0 ? 4.5 Performed By: #### 1 [id number] #### [facility] [address] [place] [address] PT Coag (PPP) [Time] 11.2 second(s) Normal 9.4-12.5 [facility] Comment on above: Result Comment: 15 d ays - 4 weeks 1 - 5 months 6 -11 months 1 ? 5 years 6 ? 10 years 11 -17 years Mean: 11.2 (9.5 ? 12.6) Mean: 11.0 (9.7 ? 12.8) Mean: 11.0 (9.8 ? 13.0) Mean: 11.3 (9.9 ? 13.4) Mean: 11.7 (10.0 ? 14.6) Mean: 11.8 (10.0 - 14.1) Pediatric Reference ranges were obtained from a study by Higinio Canales et al. prepared from 1437 samples obtained at 7 different centers using the same coagulation reagent and instrumentation as [facility]. Currently there are no coagulation studies available worldwide for children to 14 days, and no normal ranges. Performed By: #### 1 [id number] #### [facility] [address] [place] [address] Pre-Arrival Noteon Pre-Arrival Note Pre-Arrival Note Pre-Arrival Summary Name: , Current Date: 06/02/2024 16:57:31 EDT Gender: Female Date of : Age: 23 Pre-Arrival Type: EMS ETA: 06/02/2024 17:16:00 EDT Primary Care Physician: Presenting Problem: seizure Pre-Arrival User: Elizabeth Merino RN Referring Source: Location: PA Completion Date/Time: 06/02/2024 16:46:00 [facility] Emergency Department Pre-Hospital Report Form Vital Signs: Pre-Hospital Report: Treatment in Route: Response to Treatment: Misc. Issues: Normal [facility] SEROLOGYOrdered By: Elizabeth Underwood on 06-02-2024 Beta HCG ( test) Ql Negative (06/02/24 5:24 PM) Normal [facility] Man Sero Troponin 0 Hr.on 06-02-2024 Troponin HS <2.30 Low 10.10-27.10 [facility] Comment on above: Result Comment: The 95% CI (Confidence Interval) PPV (Positive Predictive Value) for myocardial infarction in females is 38 pg/mL, in males 51 pg/mL. The results should be used in conjunction with clinical conditions of myocardial infarction. (Access High Sensitivity Troponin I Instructions For Use, [employer], April 2018) Performed By: #### 1 [id number] #### [facility] [address] [place] [address] Troponin 1 Hr.on 06-02-2024 Troponin HS <2.30 Low 10.10-27.10 [facility] Comment on above: Order Comment: 1824 Result Comment: The 95% CI (Confidence Interval) PPV (Positive Predictive Value) for myocardial infarction in females is 38 pg/mL, in males 51 pg/mL. The results should be used in conjunction with clinical conditions of myocardial infarction. (Access High Sensitivity Troponin I Instructions For Use, [employer], April 2018) Performed By: #### 1 [id number] #### [facility] [address] [place] [address] eGFRon 06-02-2024 eGFR 105 mL/min/1.73 m2 Normal >=59 [facility] Comment on above: Order Comment: Order added by Discern Expert. Performed By: #### 1 [id number] #### [facility] [address] [place] [address] XR SPINE CERVICAL WITH OBL A ND FLEX/EXTon 06-10-2023 XR SPINE CERVICAL WITH OBL AND FLEX/EXT EXAMINATION: XR SPINE CERVICAL WITH OBL AND FLEX/EXT, [id number] HISTORY: Pain COMPARISON: None. FINDINGS: No acute fracture or suspicious osseous lesion. Spinal alignment is within normal limits. No evidence of dynamic instability on flexion or extension views. No significant intervertebral disc height loss or osseous degenerative changes. There are 2 small well-corticated foci of ossification along the posterolateral aspects of the C3 lamina which likely represent congenital variant/unfused ossicle. IMPRESSION: Negative exam. No osseous etiology for neck pain demonstrated. Normal [facility] XR SPINE LUMBOSACRAL 5 VIEWS on 06-10-2023 XR SPINE LUMBOSACRAL 5 VIEWS EXAMINATION: XR SPINE LUMBOSACRAL 5 VIEWS, [id number] HISTORY: Pain COMPARISON: None. FINDINGS: There are 5 nonrib-bearing lumbar-type vertebral bodies (hypoplastic ribs at T12). No acute fracture or suspicious osseous lesion. Spinal alignment is within normal limits. No evidence of dynamic instability on flexion or extension views. No significant intervertebral disc height loss or osseous degenerative changes. Soft tissues are within normal limits. IMPRESSION: Negative exam. No osseous etiology for low back pain demonstrated. Normal [facility] ORDERS (SCANNED)Ordered By: Ashley Baker on 06-09-2023 [facility] Radiology Study observation (narrative) [facility] CHEMISTRYOrdered By: SYSTEM SYSTEM on 04-02-2023 Albumin [Mass/Vol] 4.6 g/dL Normal 3.3 - 5.0 gm/dL FT Remisol Albumin/Globulin [Mass ratio] 1.5 {ratio} Normal 1.1 - 2.2 FT Remisol ALP [Catalytic activity/Vol] 68 [iU]/d Normal 21 - 98 Int._Unit/L FT Remisol ALT No additional P-5'-P [Catalytic activity/Vol] 30 [iU]/d Normal 6 - 46 Int._Unit/L [facility] Anion gap [Moles/Vol] 12 mmol/L Normal 6 - 16 mEq/L F [facility] Remisol AST [Catalytic activity/Vol] 27 [iU]/d Normal 5 - 43 Int._Unit/L [facility] Bilirubin [Mass/Vol] 0.5 mg/dL Normal 0.0 - 1 .1 mg/dL [facility] Calcium [Mass/Vol] 9.8 mg/dL Normal 8.9 - 11. 1 mg/dL [facility] Chloride [Moles/Vol] 107 mmol/L Normal 101 - 1 11 mmol/L [facility] CO2 [Moles/Vol] 25 mmol/L Normal 21 - 31 mmol/L [facility] Creatinine [Mass/Vol] 0.8 mg/dL Normal 0.5 - 1.3 mg/dL FT [facility] GFR/1.73 sq M.predicted among non-blacks MDRD (S/P/Bld) [Vol rate/Area] 105 mL/min/1.73 m2 Normal >=59mL/min/1 .73 m2 [facility] Chem S Globulin (S) [Mass/Vol] 3.1 g/dL Normal 1.4 - 4.0 gm/dL FT [facility] Glucose [Mass/Vol] 82 mg/dL Normal 55 - 199 mg/dL [facility] Potassium [Moles/Vol] 3.9 mmol/L Normal 3.5 - 5.3 mmol/L FT [facility] Protein [Mass/Vol] 7.7 g/dL Normal 6.0 - 7.8 gm/dL [facility] Sodium [Moles/Vol] 140 mmol/L Normal 135 - 145 mmol/L [facility] Urea nitrogen [Mass/Vol] 15 mg/dL Normal 5 - 21 mg/dL [facility] Urea nitrogen/Creatinine [Mass ratio] 19 mg/mg Normal 10 - 20 [facility] Ethanol [Mass/Vol] mg/dL Normal <=7mg/dL FT R emisol HEMATOLOGYOrdered By: SYSTEM SYSTEM on 04-02-2023 Basophils/100 WBC (Bld) 0.6 % Normal 0.0 - 2.0 % [facility] HemeAutoSS Basophils/Leukocytes Auto (Bld) [Pure # fraction] 0.1 E9/L Normal 0.0 - 0.2 E9/L [facility] HemeAutoSS Eosinophils/100 WBC (Bld) 3.9 % Normal 0.0 - 8.0 % [facility] HemeAutoSS Eosinophils/Leukocytes Auto (Bld) [Pure # fraction] 0.4 E9/L Normal 0.0 - 0.5 E9/L [facility] HemeAutoSS Lymphocytes/100 WBC (Bld) 23.8 % Normal 14.0 - 50.0 % [facility] HemeAutoSS Lymphocytes/Leukocytes Auto (Bld) [Pure # fraction] 2.3 E9/L Normal 1.0 - 4.0 E9/L [facility] HemeAutoSS Monocytes/100 WBC (Bld) 6.2 % Normal 4.0 - 14.0 % [facility] HemeAutoSS Monocytes/Leukocytes Auto (Bld) [Pure # fraction] 0.6 E9/L Normal 0.2 - 1.0 E9/L [facility] HemeAutoSS Neutrophils/100 WBC (Bld) 65.5 % Normal 36.0 - 75.0 % [facility] HemeAutoSS Neutrophils/Leukocytes Auto (Bld) [Pure # fraction] 6.5 E9/L Normal 2.0 - 7.5 E9/L [facility] HemeAutoSS HEMATOLOGYOrdered By: Tim Leon on 04-02-2023 Erythrocyte distribution width (RBC) [Ratio] 13.4 % Normal 10.9 - 14.2 % [facility] HemeAutoSS Hematocrit (Bld) [Volume fraction] 43.4 % Normal 34.0 - 46.0 % [facility] HemeAutoSS Hemoglobin (Bld) [Mass/Vol] 15.0 g/dL Normal 12.0 - 16.0 gm/dL [facility] HemeAutoSS MCH (RBC) [Entitic mass] 31.0 pg Normal 27.0 - 34.0 pg [facility] HemeAutoSS MCHC (RBC) [Mass/Vol] 34.6 g/dL Normal 31.4 - 36.0 gm/dL [facility] HemeAutoSS MCV (RBC) [Entitic vol] 89.7 fL Normal 80.0 - 100.0 fL [facility] HemeAutoSS Platelet mean volume (Bld) [Entitic vol] 8.7 fL Normal 6.4 - 10.8 fL [facility] HemeAutoSS Platelets (Bld) [#/Vol] 287.0 E9/L Normal 150. 0 - 500.0 E9/L [facility] HemeAutoSS RBC (Bld) [#/Vol] 4.8 E12/L Normal 4.3 - 5.9 E12/L [facility] HemeAutoSS WBC corrected for nucl RBC Auto (Bld) [#/Vol] 9.9 E9/L Normal 4.0 - 11.0 E9/L [facility] HemeAutoSS SEROLOGYOrdered By: Ingrid merrill on 04-02-2023 Beta hCG Ql Negative (04/02/23 6:50 PM) Normal [facility] Man Sero Basophil percentageon 2021 WBC (Bld) [#/Vol] 13.6 10*3/uL 4.4-11.0 [facility] Work Phone: Blood erythrocytes count (nu mber/volume)on 12-18-2021 RBC (Bld) [#/Vol] 3.07 10*6/uL 4.2-5.4 [facility] Work Phone: Blood hemoglobin measurement (mass/volume)on 12-18-2021 Hemoglobin (Bld) [Mass/Vol] 9.5 g/dL 12.0-15.0 [facility] Work Phone: [phone] Blood platelet mean volumeon 12-18-2021 Platelet mean volume (Bld) [Entitic vol] 9.5 fL 6.2-12.0 [facility] Work Phone: Determination of erythrocyte mean corpuscular volume (MCV)on 12-18-2021 MCV (RBC) [Entitic vol] 89.9 fL 81-99 [facility] Work Phone: [phone] Hematocrit Auto (Bld) [Volum e fraction]on 12-18-2021 Hematocrit (Bld) [Volume fraction] 27.6 % 37-47 [facility] Work Phone: [phone] Laboratory - Hematology and Cell countson 12-18-2021 Erythrocyte distribution width (RBC) [Entitic vol] 45.0 fL 35.1-43.9 [facility] Work Phone: Erythrocyte distribution width (RBC) [Ratio] 13.8 % 11.6-14.6 [facility] Work Phone: MCH (RBC) [Entitic mass] 30.9 pg 27.0-32.0 [facility] Work Phone: MCHC Auto (RBC) [Mass/Vol]on 12-18-2021 MCHC (RBC) [Mass/Vol] 34.4 g/dL 32-36 [facility]: Platelets bldon 12-18-2021 Platelets (Bld) [#/Vol] 183 10*3/uL 150-450 [facility] Work Phone: [phone] Absolute lymphocyte counton 12-17-2021 Lymphocytes Auto (Unsp spec) [#/Vol] 1.45 10*3/uL 0.83-4.51 [facility] Work Phone: Basophil percentageon 2021 Basophils/100 WBC (Bld) 0.4 % 0-1 [facility] Work Phone: Eosinophils/100 WBC (Bld) 1.3 % 0-5 [facility] Work Phone: [phone] Neutrophils (Bld) [#/Vol] 9.4 10*3/uL 2.0-7.7 [facility] Work Phone: Neutrophils/100 WBC (Bld) 78.4 % 47-70 [facility] Work Phone: Blood lymphocytes/100 leukoc yteson 12-17-2021 Lymphocytes/100 WBC (Bld) 12.1 % 19-41 [facility] Work Phone: Blood monocytes/100 leukocyt eson 12-17-2021 Monocytes/100 WBC (Bld) 6.5 % 0-10 [facility] Work Phone: Laboratory - Hematology and Cell countson 12-17-2021 Immature granulocytes/100 WBC (Bld) 1.300 % 0.0-0.9 [facility] Work Phone: Comment on above: IG% - Immature Granu locytes (promyelocytes, myelocytes and metamyelocytes) > 1% indicates that a LEFT SHIFT is Present. Nucleated RBC/100 WBC (Bld) [Ratio] 0 % 0-5 [facility] Work Phone: Laboratory - Chemistry and C hemistry - challengeon 12-15-2021 Glucose Ql (U) Negative [facility] Work Phone: Laboratory - Urinalysison Protein Ql (U) Negative [facility] Work Phone: Laboratory - Chemistry and C hemistry - challengeon 12-03-2021 Glucose Ql (U) Negative [facility] Work Phone: Laboratory - Urinalysison Protein Ql (U) Negative [facility] Work Phone: Laboratory - Chemistry and C hemistry - challengeon 11-26-2021 Glucose Ql (U) Negative [facility] Work Phone: Laboratory - Urinalysison Protein Ql (U) Negative [facility] Work Phone: No Panel Informationon 11-26 Group B Streptococcus Culture Streptococcus group F [facility] Work Phone: Laboratory - Chemistry and C hemistry - challengeon 11-17-2021 Glucose Ql (U) Negative [facility] Work Phone: Laboratory - Drug toxicology on 11-17-2021 Amphetamines Ql (U) Negative [facility] Work Phone: Benzodiazepines Ql (U) Negative [facility] Work Phone: Cannabinoids Screen Ql (U) Negative [facility] Work Phone: Cocaine Ql (U) Negative [facility] Work Phone: Opiates Ql (U) Negative [facility] Work Phone: Laboratory - Urinalysison Protein Ql (U) Negative [facility] Work Phone: No Panel Informationon 11-17 Urine Barbiturates Screen Negative [facility] Work Phone: Urine Drug Screen Comment [facility] Work Phone: Comment on above: CONFIRMATORY TESTING FOR ALL POSITIVE URINE DRUG SCREENRESULTS WILL ONLY BE SENT OUT UPON PHYSICIAN ORDER. VISTA Urine Drug Screen methods provide only preliminaryanalytical test results. A more specific alternate chemicalmethod must be used in order to obtain a confirmedanalytical result. Gas chromatography/mass spectrometery(GC/MS) is the preferred confirmatory method. Clinicalconsideration and professional judgement should be appliedto any drug of abuse test result, particularly whenpreliminary positive results are used. URINE TCA TESTING MUST BE ORDERED SEPARATELY. USE TESTMNEMONIC: [facility] Urine Methadone Screen Negative [facility] Work Phone: Urine Methamphetamine-MDMA Screen Negative [facility] Work Phone: Urine phencyclidine (PCP) de tectionon 11-17-2021 Phencyclidine Ql (U) Negative [facility] Work Phone: Laboratory - Chemistry and C hemistry - challengeon 11-05-2021 Glucose Ql (U) Negative [facility] Work Phone: Laboratory - Urinalysison Protein Ql (U) Negative [facility] Work Phone: Laboratory - Chemistry and C hemistry - challengeon 10-26-2021 Glucose Ql (U) Negative [facility] Work Phone: Laboratory - Urinalysison Protein Ql (U) Negative [facility] Work Phone: Laboratory - Chemistry and C hemistry - challengeon 10-07-2021 Glucose Ql (U) Negative [facility] Work Phone: Laboratory - Urinalysison Protein Ql (U) Negative [facility] Work Phone: No Panel Informationon 09-30 Vaginal Amniotic Fluid Detection Negative Negative [facility] Work Phone: Comment on above: Amniotic fluid not p resent indicates No Rupture of FetalMembranes at time of specimen collection. Laboratory - Chemistry and C hemistry - challengeon 09-22-2021 Glucose Ql (U) Negative [facility] Work Phone: Laboratory - Urinalysison Protein Ql (U) Negative [facility] Work Phone: Quantitative serum or plasma 3 hour gestational glucose tolerance panelon 09-22-2021 Glucose tolerance 3 hours gestational panel See comment [facility] Work Phone: Comment on above: FASTING 80 Col: 02/06 1020GLUCOSE TOLERANCE TEST FOR Reference Interval GESTATIONAL DIABETES Fasting <105 mg/dL 1 hour <190 mg/dl 2 hour <165 mg/dl 3 hour <145 mg/dl 1 HR GLU 99 Col: 09/22/21 1126 2 HR GLU 117 Col: 09/22/21 1225 3 HR GLU 106 Col: 09/22/21 1330 Absolute lymphocyte counton 09-07-2021 Lymphocytes Auto (Unsp spec) [#/Vol] 1.63 10*3/uL 0.83-4.51 [facility] Work Phone: Basophil percentageon 2020 Eosinophils/100 WBC (Bld) 3.1 % 0-5 [facility] Work Phone: Neutrophils (Bld) [#/Vol] 6.7 10*3/uL 2.0-7.7 [facility] Work Phone: WBC (Bld) [#/Vol] 9.5 10*3/uL 4.4-11.0 [facility] Work Phone: Blood erythrocytes count (nu mber/volume)on 09-07-2021 RBC (Bld) [#/Vol] 3.73 10*6/uL 4.2-5.4 [facility] Work Phone: Blood hemoglobin measurement (mass/volume)on 09-07-2021 Hemoglobin (Bld) [Mass/Vol] 11.5 g/dL 12.0-15.0 [facility] Work Phone: Blood lymphocytes/100 leukoc yteson 09-07-2021 Lymphocytes/100 WBC (Bld) 17.2 % 19-41 [facility] Work Phone: Blood monocytes/100 leukocyt eson 09-07-2021 Monocytes/100 WBC (Bld) 5.6 % 0-10 [facility] Work Phone: Blood platelet mean volumeon 09-07-2021 Platelet mean volume (Bld) [Entitic vol] 9.5 fL 6.2-12.0 [facility] Work Phone: Determination of erythrocyte mean corpuscular volume (MCV)on 09-07-2021 MCV (RBC) [Entitic vol] 92.0 fL 81-99 [facility] Work Phone: Gestational diabetes screen 1-hour screen with 50g oral glucose loadon 09-07-2021 Glucose 1 Hr post 50 g glucose PO [Mass/Vol] 142 mg/dL 70-140 [facility] Work Phone: Hematocrit Auto (Bld) [Volum e fraction]on 09-07-2021 Hematocrit (Bld) [Volume fraction] 34.3 % 37-47 [facility] Work Phone: Laboratory - Chemistry and C hemistry - challengeon 09-07-2021 Bilirubin Ql (U) Negative [facility] Work Phone: Glucose Ql (U) Negative [facility] Work Phone: Ketones Ql (U) Negative [facility] Work Phone: pH (U) 5.0 [pH] [facility] Work Phone: Specific gravity (U) [Rel density] 1.020 [facility] Work Phone: Urobilinogen (U) [Mass/Vol] 0.3977878 mg/dL [facility] Work Phone: Laboratory - Hematology and Cell countson 09-07-2021 Hemoglobin Ql (U) Negative [facility] Work Phone: Basophils/100 WBC (Unsp spec) 0.6 % 0-1 [facility] Work Phone: Erythrocyte distribution width (RBC) [Entitic vol] 44.9 fL 35.1-43.9 [facility] Work Phone: Erythrocyte distribution width (RBC) [Ratio] 13.4 % 11.6-14.6 [facility] Work Phone: Immature granulocytes/100 WBC (Bld) 2.800 % 0.0-0.9 [facility] Work Phone: [phone] Comment on above: IG% - Immature Granu locytes (promyelocytes, myelocytes and metamyelocytes) > 1% indicates that a LEFT SHIFT is Present. MCH (RBC) [Entitic mass] 30.8 pg 27.0-32.0 [facility] Work Phone: Neutrophils/100 WBC (Bld) 70.7 % 47-70 [facility] Work Phone: Nucleated RBC/100 WBC (Bld) [Ratio] 0 % 0-5 [facility] Work Phone: Laboratory - Specimen inform ationon 09-07-2021 Clarity (U) Clear [facility] Work Phone: Color (U) Yellow [facility] Work Phone: Laboratory - Urinalysison Nitrite Ql (U) Negative [facility] Work Phone: Protein Ql (U) Trace [facility] Work Phone: MCHC Auto (RBC) [Mass/Vol]on 09-07-2021 MCHC (RBC) [Mass/Vol] 33.5 g/dL 32-36 [facility] Work Phone: No Panel Informationon 09-07 Urine Leukocytes Positive [facility] Work Phone: Platelets bldon 09-07-2021 Platelets (Bld) [#/Vol] 265 10*3/uL 150-450 [facility] Work Phone: NOVEL CORONAVIRUS LAB 1 - NA SOPHARYNGEALOrdered By: Lili Madrigal on 01-29-2021 NARRATIVE -1 This test was perfor med using isothermal RAS and has been approved as Emergency Use Authorization (EUA) for the qualitative detection [id number] nucleic acid. [facility] SARS-CoV-2 (COVID-19) RNA RAS+probe Ql (Unsp spec) Not detected NOT DETECTED [facility] Comment on above: Negative results do not preclude SARS-CoV-2 infection and should not be used as the sole basis for treatment or other patient management decisions. Optimum specimen types and timing for peak viral levels during infections caused by SARS-CoV-2 has not been determined. The possibility of a false negative result should especially be considered if the patient's recent exposures or clinical presentation suggest that SARS-CoV-2 infection is probable, and diagnostic tests for other causes of illness (e.g., other respiratory illness) are negative. Collection of a new specimen and re-testing may be necessary if the patient is critically ill or clinically deteriorating. [facility] ABO/RhOrdered By: Bhavana rosales on 01-22-2021 ABO and Rh group Nom (Bld) Blood group O Rh(D) positive [facility] Comprehensive metabolic 2000 panelOrdered By: Bay Mullins on 01-22-2021 Albumin [Mass/Vol] 3.7 g/dL 3.2 - 5.2 g/dL [facility] ALP [Catalytic activity/Vol] 62 U/L 40 - 140 U/L [facility] ALT [Catalytic activity/Vol] 22 U/L 14 - 65 U/L [facility] Anion gap [Moles/Vol] 9 mmol/L Low 10 - 2 0 mmol/L [facility] AST [Catalytic activity/Vol] 12 U/L 0 - 45 U/L [facility] Bilirubin [Mass/Vol] 0.3 mg/dL 0.0 - 1 .3 mg/dL [facility] Calcium [Mass/Vol] 8.5 mg/dL 8.4 - 10. 2 mg/dL [facility] Chloride [Moles/Vol] 108 mmol/L 98 - 10 8 mmol/L [facility] Creatinine [Mass/Vol] 0.70 mg/dL 0.40 - 1.10 [facility] GFR/1.73 sq M.predicted CKD-EPI (S/P/Bld) [Vol rate/Area] 123 >=60 mL/min/1.73 m2 [facility] Glucose [Mass/Vol] 74 mg/dL 65 - 99 mg/dL [facility] HCO3 [Moles/Vol] 24 mmol/L 21 - 32 mmol/L [facility] Interpretation and review of laboratory results Abnormal [facility] Potassium [Moles/Vol] 3.4 mmol/L Low 3.5 - 5.1 mmol/L [facility] Protein [Mass/Vol] 6.6 g/dL 6.0 - 8.0 g/dL [facility] Sodium [Moles/Vol] 138 mmol/L 135 - 145 mmol/L [facility] Urea nitrogen [Mass/Vol] 5 mg/dL Low 8 - 25 mg/dL [facility] Urea nitrogen/Creatinine [Mass ratio] 7.1 mg/mg Low [facility] The eGFR should be u sed for monitoring renal function only and not for medication dosing. [facility] EEG (STANDARD)Ordered By: Yousuf Mullins on 01-22-2021 Malcolm Baig MD 01/22/2021 12:48 PM [facility] EEG Report Reason for EEG: Seizure Summary: This is a 16 channel digital EEG recording. There is a moderately well-developed, moderately well organized background activity with a posterior dominant rhythm of 8-9 Hz. There is a 8 seconds clinical shaking producing muscle artifacts and preserved background. Toward the end of the recording, the patient extended the R arm and has fidgety arm movements with preserved background activity. Photic stimulation showed no driving and did not trigger any clinical events. Patient became intermittently drowsy. No sleep patterns are noted. No clear epileptiform discharges or ictal activity were seen. Impression: This is a normal EEG in the awake and drowsy states. There is no clear electrodiagnostic evidence of a diffuse or focal neurophysiological disturbance. No clear epileptiform discharges or ictal activity was seen. There are 2 clinical events noted. The first event seen as generalized shaking lasting 8 seconds in duration and the second event with extension of the right arm and fidgety movements, both with preserved background and no ictal discharges suggesting that these are nonepileptic. [facility] HCG QnOrdered By: Bhavana rosales on 01-22-2021 Beta HCG ( test) Ql (U) Males and non females: <5 mIU/mL Females during : 3-4 weeks 9-130 mIU/mL 4-5 weeks 75-2600 mIU/mL 5-6 weeks 850-20,800 mIU/mL 6-7 weeks 4000-100,200 mIU/mL 7-12 weeks 11,500-289,000 mIU/mL 12-16 weeks 18,300-137,000 mIU/mL 16-29 weeks 1,400-53,000 mIU/mL 29-41 weeks 940-60,000 mIU/mL [facility] Interpretation and review of laboratory results Abnormal [facility] HbA1c (Bld) [Mass fraction]O rdered By: Bay Mullins on 01-22-2021 Average glucose Estimated from glycated hemoglobin (Bld) [Mass/Vol] 91 mg/dL 68 - 114 mg/dL [facility] Interpretation and review of laboratory results Normal [facility] Normal: 4.0% - 5.6% Increased risk for diabetes: 5.7% - 6.4% Diabetes: >= 6.5% Pediatrics: No established reference range Estimated average glucose: 68-114 mg/dL [facility] Hemoglobin [id number] By: Yousuf Mullins on 01-22-2021 HbA1c (Bld) [Mass fraction] 4.8 % 4.0 - 5.6 % [facility] TSH DL <= 0.005 mIU/L QnOrde red By: Bay Mullins on 01-22-2021 Interpretation and review of laboratory results Normal [facility] TSH Qn 1.93 m[IU]/L [facility] URINALYSISOrdered By: Desire Stacy on 01-22-2021 Bacteria Auto Ql (U) None Seen None Se en /hpf [facility] Clarity Refractometry automated (U) Clear Clear [facility] Color (U) Yellow Colorless, Yellow [facility] Glucose Auto test strip (U) [Mass/Vol] Negative Negative mg/dL [facility] Ketones (U) [Mass/Vol] Negative Negat nga mg/dL [facility] Leukocyte esterase Auto test strip Ql (U) Negative Negative [facility] pH (U) 6.5 [pH] [facility] Specific gravity (U) [Rel density] 1.014 [facility] OB TRANSVAGINALon 021 OB TRANSVAGINAL EXAMINATION: OB TRANSVAGINAL HISTORY: ORDERING SYSTEM PROVIDED HISTORY: 7 week per pt. Admitted for seizures, TECHNOLOGIST PROVIDED HISTORY: Illness/Other Reason for exam: seizures, questionable viability, pt states 7 wks Cancer History: u Surgery, RadiationHistory: u Encounter Type: Initial Additional signs and symptoms: n ORDERING SYSTEM PROVIDED DIAGNOSIS CODES: R25.1 Episode of shaking COMPARISON: None. FINDINGS: Endovaginal ultrasound of the pelvis was performed with grayscale and Doppler interrogation. The uterus is anteverted, measuring 8.24 cm in length x 4.78 cm AP x 5.38 cm transverse. There is a single intrauterine gestational sac with a mean sac diameter of 2.60 cm, corresponding to 8 weeks 0 days. The crown-rump length measured 1.58 cm, corresponding to 8 weeks 0 days. heart motion was not seen. Subcentimeter peripheral follicular cysts are seen within each ovary for which the right measures 4.04 x 2.56 x 1.77 cm. The right ovary has normal intrinsic arterial and venous waveforms for which the arterial resistive index is 0.38. The left ovary measures 3.00 x 2.73 x 2.65 cm and also has normal intrinsic arterial and venous waveforms for which the arterial resistive index is 0.60. A hypoechoic nodule within the left ovary would correspond with the corpus luteum, measuring 1.70 cm in greatest dimension. No significant free fluid within the pelvis. IMPRESSION: 1. Single intrauterine with an estimated gestational age by ultrasound of 8 weeks 0 days. 2. No heart motion observed, consistent with demise. Recommend correlation with serial quantitative beta hCG levels. 3. Uniform peripheral subcentimeter follicles within each ovary for which the appearance is suggestive of polycystic ovarian syndrome, even though the ovaries are not enlarged. Recommend clinical correlation. [facility] Workstation ID: [id number] Dictated by: MONICA SHIELDS on MonJanuary 22, 2021 6:40:25 PM EDT Transcribed by: DORI KHANNA on MonJanuary 22, 2021 6:57:52 PM EDT Finalized by: MONICA SHIELDS on MonJanuary 22, 2021 7:08:18 PM EDT [facility] Comment on above: Order Comment: Injur y/Trauma or Illness?:Illness/Other How long have you had these symptoms (acute/chronic)?:Acute Reason for exam?:seizures, questionable viability, pt states 7 wks History of cancer?:u Surgeries, chemotherapy, or radiation?:u Type of Exam?:Initial Additional signs and symptoms?:n US OB TRANSVAGINALOrdered By : Bhavana Mobley on 01-22-2021 1. Single intrauteri ne with an estimated gestational age by ultrasound of 8 weeks 0 days. 2. No heart motion observed, consistent with demise. Recommend correlation with serial quantitative beta hCG levels. 3. Uniform peripheral subcentimeter follicles within each ovary for which the appearance is suggestive of polycystic ovarian syndrome, even though the ovaries are not enlarged. Recommend clinical correlation. [employer] Workstation ID: [id number] [facility] EXAMINATION: US OB TRANSVAGINAL HISTORY: ORDERING SYSTEM PROVIDED HISTORY: 7 week per pt. Admitted for seizures, TECHNOLOGIST PROVIDED HISTORY: Illness/Other Reason for exam: seizures, questionable viability, pt states 7 wks Cancer History: u Surgery, RadiationHistory: u Encounter Type: Initial Additional signs and symptoms: n ORDERING SYSTEM PROVIDED DIAGNOSIS CODES: R25.1 Episode of shaking COMPARISON: None. FINDINGS: Endovaginal ultrasound of the pelvis was performed with grayscale and Doppler interrogation. The uterus is anteverted, measuring 8.24 cm in length x 4.78 cm AP x 5.38 cm transverse. There is a single intrauterine gestational sac with a mean sac diameter of 2.60 cm, corresponding to 8 weeks 0 days. The crown-rump length measured 1.58 cm, corresponding to 8 weeks 0 days. heart motion was not seen. Subcentimeter peripheral follicular cysts are seen within each ovary for which the right measures 4.04 x 2.56 x 1.77 cm. The right ovary has normal intrinsic arterial and venous waveforms for which the arterial resistive index is 0.38. The left ovary measures 3.00 x 2.73 x 2.65 cm and also has normal intrinsic arterial and venous waveforms for which the arterial resistive index is 0.60. A hypoechoic nodule within the left ovary would correspond with the corpus luteum, measuring 1.70 cm in greatest dimension. No significant free fluid within the pelvis. [facility] Interface, Rad In Fu ji Speechq - 01/22/2021 7:10 PM EDT EXAMINATION: US OB TRANSVAGINAL HISTORY: ORDERING SYSTEM PROVIDED HISTORY: 7 week per pt. Admitted for seizures, TECHNOLOGIST PROVIDED HISTORY: Illness/Other Reason for exam: seizures, questionable viability, pt states 7 wks Cancer History: u Surgery, RadiationHistory: u Encounter Type: Initial Additional signs and symptoms: n ORDERING SYSTEM PROVIDED DIAGNOSIS CODES: R25.1 Episode of shaking COMPARISON: None. FINDINGS: Endovaginal ultrasound of the pelvis was performed with grayscale and Doppler interrogation. The uterus is anteverted, measuring 8.24 cm in length x 4.78 cm AP x 5.38 cm transverse. There is a single intrauterine gestational sac with a mean sac diameter of 2.60 cm, corresponding to 8 weeks 0 days. The crown-rump length measured 1.58 cm, corresponding to 8 weeks 0 days. heart motion was not seen. Subcentimeter peripheral follicular cysts are seen within each ovary for which the right measures 4.04 x 2.56 x 1.77 cm. The right ovary has normal intrinsic arterial and venous waveforms for which the arterial resistive index is 0.38. The left ovary measures 3.00 x 2.73 x 2.65 cm and also has normal intrinsic arterial and venous waveforms for which the arterial resistive index is 0.60. A hypoechoic nodule within the left ovary would correspond with the corpus luteum, measuring 1.70 cm in greatest dimension. No significant free fluid within the pelvis. IMPRESSION: 1. Single intrauterine with an estimated gestational age by ultrasound of 8 weeks 0 days. 2. No heart motion observed, consistent with demise. Recommend correlation with serial quantitative beta hCG levels. 3. Uniform peripheral subcentimeter follicles within each ovary for which the appearance is suggestive of polycystic ovarian syndrome, even though the ovaries are not enlarged. Recommend clinical correlation. [employer] Workstation ID: [id number] [facility] UrinalysisOrdered By: Desire Stacy on 01-22-2021 Bilirubin Ql (U) Negative Negative [facility] th Epithelial cells.squamous Auto (Urine sed) [#/Area] <1 [facility] Hemoglobin Auto test strip Ql (U) Negative Negative [facility] Interpretation and review of laboratory results Normal [facility] Mucus Auto (Urine sed) [#/Area] Rare None Seen, Rare /lpf [facility] Nitrite Auto test strip Ql (U) Negative Negative [facility] Protein (U) [Mass/Vol] Negative Negat nga mg/dL [facility] RBC Auto (Urine sed) [#/Area] 2 [facility] Urobilinogen (U) [Mass/Vol] mg/dL <2.0 mg/dL [facility] WBC Auto (Urine sed) [#/Area] <1 [facility] Microscopic examinat ion is performed on all urinalysis samples and only positive findings are reported. The test for blood on the chemical analytic portion of urinalysis may also be positive due to hemoglobinuria and myoglobinuria and if red blood cells are present they are quantified by microscopic examination. [facility] hCG, Blood, QuantitativeOrde red By: Bhavana Mobley on 01-22-2021 [place] [address] m[IU]/mL High [facility] Basic metabolic 2000 panelOr dered By: Desire Stacy on 01-21-2021 Anion gap [Moles/Vol] 12 mmol/L 10 - 2 0 mmol/L [facility] Calcium [Mass/Vol] 8.0 mg/dL Low 8.4 - 10. 2 mg/dL [facility] Chloride [Moles/Vol] 111 mmol/L High 98 - 10 8 mmol/L [facility] Creatinine [Mass/Vol] 0.68 mg/dL 0.40 - 1.10 [facility] GFR/1.73 sq M.predicted CKD-EPI (S/P/Bld) [Vol rate/Area] 125 >=60 mL/min/1.73 m2 [facility] Glucose [Mass/Vol] 74 mg/dL 65 - 99 mg/dL [facility] HCO3 [Moles/Vol] 23 mmol/L 21 - 32 mmol/L [facility] Potassium [Moles/Vol] 3.7 mmol/L 3.5 - 5.1 mmol/L [facility] Sodium [Moles/Vol] 142 mmol/L 135 - 145 mmol/L [facility] Urea nitrogen [Mass/Vol] 6 mg/dL Low 8 - 25 mg/dL [facility] Urea nitrogen/Creatinine [Mass ratio] 8.8 mg/mg Low [facility] The eGFR should be u sed for monitoring renal function only and not for medication dosing. [facility] CBC AND DIFFERENTIALon 01-21 Basophils (Bld) [#/Vol] 0.00 10*3/uL Normal 0.00 - 0.1 0 [facility] Comment on above: Performed By: #### C BCDF #### [address] [address] Basophils/100 WBC (Bld) 0.5 % Normal 0.0 - 2.0 [facility] Comment on above: Performed By: #### C BCDF #### [address] [address] Eosinophils (Bld) [#/Vol] 0.50 10*3/uL Normal 0.00 - 0.70 [facility] Comment on above: Performed By: #### C BCDF #### [address] [address] Eosinophils/100 WBC (Bld) 6.2 % Normal 0.0 - 6.0 [facility] Comment on above: Performed By: #### C BCDF #### [address] [address] Erythrocyte distribution width (RBC) [Ratio] 12.9 % Normal 11.5 - 14.5 [facility] Comment on above: Performed By: #### C BCDF #### [address] [address] Hematocrit (Bld) [Volume fraction] 40.0 % Normal 36.0 - 46.0 [facility] Comment on above: Performed By: #### C BCDF #### [address] [address] Hemoglobin (Bld) [Mass/Vol] 13.4 g/dL Normal 12.0 - 16.0 [facility] Comment on above: Performed By: #### C BCDF #### [address] [address] Lymphocytes (Bld) [#/Vol] 1.70 10*3/uL Normal 1.20 - 4.80 [facility] Comment on above: Performed By: #### C BCDF #### [address] [address] Lymphocytes/100 WBC (Bld) 22.3 % Normal 13.0 - 44.0 [facility] Comment on above: Performed By: #### C BCDF #### [address] [address] MCHC (RBC) [Mass/Vol] 33.5 g/dL Normal 32.0 - 36.0 [facility] Comment on above: Performed By: #### C BCDF #### [address] [address] MCV (RBC) [Entitic vol] 92 fL Normal 80 - 100 [facility] Comment on above: Performed By: #### C BCDF #### [address] [address] Monocytes (Bld) [#/Vol] 0.60 10*3/uL Normal 0.10 - 1.0 0 [facility] Comment on above: Performed By: #### C BCDF #### [address] [address] Monocytes/100 WBC (Bld) 7.9 % Normal 2.0 - 10.0 [facility] Comment on above: Performed By: #### C BCDF #### [address] [address] Neutrophils (Bld) [#/Vol] 5.00 10*3/uL Normal 1.20 - 7.70 [facility] Comment on above: Result Comment: Perc ent differential counts (%) should be interpreted in the context of the absolute cell counts (cells/L). Performed By: #### C BCDF #### [address] [address] Neutrophils/100 WBC (Bld) 63.1 % Normal 40.0 - 80.0 [facility] Comment on above: Performed By: #### C BCDF #### [address] [address] Platelets (Bld) [#/Vol] 273 10*3/uL Normal 150 - 450 [facility] Comment on above: Performed By: #### C BCDF #### [address] [address] RBC 4.38 x10E12/L Normal 4.00 - 5.20 [facility] Comment on above: Performed By: #### C BCDF #### [facility] [address] [place] [address] WBC (Bld) [#/Vol] 7.9 10*3/uL Normal 4.4 - 11.3 [facility] Comment on above: Performed By: #### C BCDF #### [address] [place] [address] CBC WITH AUTO DIFFERENTIALOr dered By: Desire Stacy on 01-21-2021 Basophils (Bld) [#/Vol] 0.06 10*3/uL [facility] Basophils/100 WBC (Bld) 0.6 % [facility] Eosinophils (Bld) [#/Vol] 0.53 10*3/uL [facility] Eosinophils/100 WBC (Bld) 5.5 % [facility] Erythrocyte distribution width (RBC) [Entitic vol] 12.6 % 11.6 - 14.8 % [facility] Hematocrit (Bld) [Volume fraction] 37.1 % 36.0 - 46.0 % [facility] Hemoglobin (Bld) [Mass/Vol] 12.6 g/dL 12.0 - 16.0 g/dL [facility] Immature granulocytes (Bld) [#/Vol] 0.06 10*3/uL [facility] Immature granulocytes/100 WBC (Bld) 0.60 % [facility] Comment on above: The IG parameter is the percentage of metamyelocytes, myelocytes and promyelocytes. An immature granulocyte count (IG) of 1% or more suggests the possibility of infection, an IG count of 3% is very likely related to an infection. Interpretation and review of laboratory results Abnormal [facility] Lymphocytes (Bld) [#/Vol] 2.61 10*3/uL [facility] Lymphocytes/100 WBC (Bld) 27.0 % [facility] MCH (RBC) [Entitic mass] 31.0 pg 26.0 - 34.0 pg [facility] MCHC (RBC) [Mass/Vol] 34.0 g/dL 31.0 - 37.0 g/dL [facility] MCV (RBC) [Entitic vol] 91.2 fL 80.0 - 100.0 fL [facility] Monocytes (Bld) [#/Vol] 0.69 10*3/uL [facility] Monocytes/100 WBC (Bld) 7.1 % [facility] Neutrophils (Bld) [#/Vol] 5.71 10*3/uL [facility] Neutrophils/100 WBC (Bld) 59.2 % [facility] Nucleated RBC (Bld) [#/Vol] 0.00 10*3/uL [facility] Nucleated RBC/100 WBC (Bld) [Ratio] 0.0 % [facility] Platelet mean volume (Bld) [Entitic vol] 9.4 fL 9.4 - 12.4 fL [facility] Platelets (Bld) [#/Vol] 260 10*3/uL [facility] RBC (Bld) [#/Vol] 4.07 10*6/uL [facility] WBC (Bld) [#/Vol] 9.66 10*3/uL [facility] COMPREHENSIVE PANELon 2020 Albumin [Mass/Vol] 4.3 g/dL Normal 3.4 - 5.0 [facility] Comment on above: Performed By: #### T ROP2 #### [address] [address] ALP [Catalytic activity/Vol] 53 U/L Normal 33 - 110 [facility] Comment on above: Performed By: #### T ROP2 #### [address] [address] ALT [Catalytic activity/Vol] 13 U/L Normal 7 - 45 [facility] Comment on above: Result Comment: Venecia ents treated with Sulfasalazine may generate falsely decreased results for ALT. Performed By: #### T ROP2 #### [address] [address] Anion gap [Moles/Vol] 13 mmol/L Normal 10 - 20 [facility] Comment on above: Performed By: #### T ROP2 #### [address] [address] AST [Catalytic activity/Vol] 15 U/L Normal 9 - 39 [facility] Comment on above: Performed By: #### T ROP2 #### [address] [address] Bilirubin [Mass/Vol] 0.3 mg/dL Normal 0.0 - 1.2 [facility] Comment on above: Performed By: #### T ROP2 #### [address] [address] Calcium [Mass/Vol] 9.1 mg/dL Normal 8.6 - 10.3 [facility] Comment on above: Performed By: #### T ROP2 #### [address] [address] Chloride [Moles/Vol] 108 mmol/L High 98 - 107 [facility] Comment on above: Performed By: #### T ROP2 #### [address] [address] Creatinine [Mass/Vol] 0.61 mg/dL Normal 0.50 - 1.05 [facility] Comment on above: Performed By: #### T ROP2 #### [address] [address] GFR- AM. >60 Normal >60 [facility] Comment on above: Result Comment: CALC ULATIONS OF ESTIMATED GFR ARE PERFORMED USING THE MDRD STUDY EQUATION FOR THE IDMS-TRACEABLE CREATININE METHODS. CLIN CHEM 2007;53:766-72 Performed By: #### T ROP2 #### [address] [address] GFR-NON AM. >60 Normal >60 [facility] Comment on above: Performed By: #### T ROP2 #### [address] [address] Glucose [Mass/Vol] 93 mg/dL Normal 74 - 99 [facility] [facility] Comment on above: Performed By: #### T ROP2 #### [address] [address] HCO3 (Bld) [Moles/Vol] 21 mmol/L Normal 21 - 32 [facility] Comment on above: Performed By: #### T ROP2 #### [address] [address] Potassium [Moles/Vol] 3.6 mmol/L Normal 3.5 - 5.3 formerly [facility] Comment on above: Performed By: #### T ROP2 #### [address] [address] Protein [Mass/Vol] 6.8 g/dL Normal 6.4 - 8.2 [facility] Comment on above: Performed By: #### T ROP2 #### [place] [address] Sodium [Moles/Vol] 138 mmol/L Normal 136 - 145 [facility] Comment on above: Performed By: #### T ROP2 #### [place] [address] Urea nitrogen [Mass/Vol] 8 mg/dL Normal 6 - 23 [facility] Comment on above: Performed By: #### T ROP2 #### [place] [address] CORONAVIRUS 2019 BY PCRon SARS-CoV-2 (COVID-19) RNA RAS+probe Ql (Unsp spec) Not detected Normal Not Detected [facility] Comment on above: Result Comment: . This test has received FDA Emergency Use Authorization (EUA) and has been verified by [facility]. This test is only authorized for the duration of time that circumstances exist to justify the authorization of the emergency use of in vitro diagnostic tests for the detection of SARS-CoV-2 virus and/or diagnosis of COVID-19 infection under section 564(b)(1) of the Act, 21 U.S.C. 360bbb-3(b)(1), unless the authorization is terminated or revoked sooner. [facility] is certified under CLIA-88 as qualified to perform high complexity testing. Testing is performed in the [facility] laboratory located at [address] [place] [address]. SARS-CoV-2/Flu/RSV Multiplex Test: Fact sheet for providers: https://www.fda.gov/media/471114/download Fact sheet for patients: https://www.fda.gov/media/310039/download Performed By: #### C OV19 #### [place] [address] Lab Specimen Source Nasal, Nasopharyngeal Normal [facility] Comment on above: Performed By: #### C OV19 #### [facility] [address] [place] [address] CPK NO MBOrdered By: Desire Stacy on 01-21-2021 CK [Catalytic activity/Vol] 56 U/L 40 - 170 U/L [facility] CT HEAD WO CONTRASTon 2020 CT HEAD WO CONTRAST STUDY: CT Head without IV Contrast; 01/21/2021 12:09 PM INDICATION: Seizure like activity. Patient 7 weeks . COMPARISON: None Available. ACCESSION NUMBER(S): [id number] ORDERING CLINICIAN: THEODORE GUTIERREZ DO TECHNIQUE: Noncontrast axial CT scan of head was performed. Angled reformats in brain and bone windows were generated. The images were reviewed in bone, brain, blood and soft tissue windows. Automated mA/kV exposure control was utilized and patient examination was performed in strict accordance with principles of ALARA. FINDINGS: CSF Spaces: The ventricles, sulci and basal cisterns are within normal limits. There is no extraaxial fluid collection. Parenchyma: The medley-white differentiation is intact. There is no mass effect or midline shift. There is no intracranial hemorrhage. Calvarium: The calvarium is unremarkable. There is symmetric appearing mucoperiosteal thickening of both maxillary sinuses. Scattered opacification of both anterior ethmoid air cells. There is mucoperiosteal thickening of the sphenoid sinuses. Mastoids are clear. IMPRESSION: Normal noncontrast CT imaging of the brain. Chronic ethmoid, maxillary and sphenoid sinusitis. Signed by Immanuel Johnson MD Electronically signed by: IMMANUEL JOHNSON MD [facility] Covid 19 Resultson 1 SARS-CoV-2 (COVID-19) RNA RAS+probe Ql (Unsp spec) NEGATIVE COVID-19 Test Coronaviruses are common world-wide and are the cause of many common colds. SARS-COV2 is a new coronavirus that began circulating worldwide in 2019 so we are calling it COVID-19. It has been estimated that four out of five patients with COVID-19 will recover at home without the need for medical attention. Symptoms of COVID-19 may include cough, fever, shortness of breath, loss of taste or smell and other flu-like symptoms including chills, sore muscles, sore throat, and headache. Severe illness is more common in older people and people with other health problems such as high blood pressure, obesity, and immune system problems. If the test is positive, you have COVID-19. You will be contacted by the ordering physicians office and instructed to remain on home isolation, in accordance with CDC guidelines. You may also be contacted by the [facility] to see if any of your close contacts may have been exposed to the virus and need to quarantine. If the test is negative, you likely do not have COVID-19 at this time, but you still may have a different illness that can spread to other people (like Influenza, or the Flu) and could still be at risk for getting COVID-19. We recommend that you stay away from other people to limit the spread of illness until your symptoms are improving and you are fever-free for 24 hours without the use of fever lowering medications such as acetaminophen or ibuprofen. No test is 100% accurate so if you are still concerned you may have COVID-19, talk to your doctor about the need to continue to stay away from others. Medicines Unless your provider told you not to use the following: Acetaminophen (Tylenol and others) is generally safe. Anti-inflammatory medications, such as Ibuprofen (Advil or Motrin) or Naproxen (Aleve) can also be used. Akhe-jfz-ysnchrd cough and cold medicines can be used according to the instructions on the package. Some mmpl-mfb-[id number] medicines also contain acetaminophen. Make sure you are not taking more than your recommended dose. For those not hospitalized, there is no specific treatment available for this illness. Antibiotics do not treat Coronaviruses. Follow-Up Follow up with your doctor by scheduling a virtual visit or consider follow-up at one of our urgent care fever clinics. If you are having difficulty breathing, or are very weak and having difficulty standing, this is a medical emergency. Call 911 or have someone take you to the nearest emergency room immediately. If possible, wear a facemask. Additional guidance from the CDC for patients who tested POSITIVE for COVID-19 How to isolate: Isolate yourself in a specific room at home and limit your contact with others. Use a separate bathroom from other members of the household, when possible. Leave home only to get essential medical care. Do not go to work, school or public areas. Avoid using public transportation, ride-sharing, or taxis. Restrict contact with pets and other animals. If you must care for your pet or be around animals while you are sick, wash your hands before and after your interaction and wear a facemask. Make sure that shared spaces in the home have good airflow, such as by an air conditioner or an opened window, weather permitting. Personal Hygiene Procedures: Wear a face mask when in the same room as other people or pets. If a face mask interferes with your breathing, others should wear a mask when sharing space with you. Frequent hand-washing: wash your hands with soap and water for at least 20 seconds. If soap and water are not available, use alcohol-based hand sewer separation designer. Avoid touching your eyes, nose, and mouth with unwashed hands. Household Hygiene Procedures: Avoid sharing personal household items such as dishes, glassware, cups, eating utensils, towels or bedding with other people or pets in your home. After use, these items should be washed with soap and hot water. Disinfect all high-touch surfaces every day with antibacterial cleaning solutions such as Lysol wipes, bleach, cleansers, etc. High-touch surfaces include tabletops, doorknobs, bathroom fixtures, toilets, phones, keyboards, tablets and bedside tables. Immediately clean any surfaces that may have blood, poop or body fluids on them, using antibacterial cleaning solutions such as Lysol wipes, bleach, cleansers, etc. If clothing or bedding come into contact with blood, poop or body fluids, they should be washed immediately. Follow the directions on the laundry detergent and clothing labels but hot water is recommended when possible. Stopping home isolation precautions: If possible, consult your doctor before stopping home isolation precautions. According to the CDC, you can discontinue home isolation precautions when you have met both of these criteria: Your fever and respiratory symptoms have been gone for 24 mitchell (more content not included)... Normal [facility] Glucose (Bld) [Mass/Vol]Orde red By: Miranda Mcknight on 01-21-2021 Glucose [Mass/Vol] 87 mg/dL 65 - 99 mg/dL [facility] Interpretation and review of laboratory results Normal [facility] HCG (QUANTITATIVE)Ordered By : Desire Stacy on 01-21-2021 [place] [address] m[IU]/mL High [facility] HCG QnOrdered By: Desire ruiz on 01-21-2021 Beta HCG ( test) Ql (U) Males and non females: <5 mIU/mL Females during : 3-4 weeks 9-130 mIU/mL 4-5 weeks 75-2600 mIU/mL 5-6 weeks 850-20,800 mIU/mL 6-7 weeks 4000-100,200 mIU/mL 7-12 weeks 11,500-289,000 mIU/mL 12-16 weeks 18,300-137,000 mIU/mL 16-29 weeks 1,400-53,000 mIU/mL 29-41 weeks 940-60,000 mIU/mL [facility] LACTATEon 01-21-2021 Lactate [Moles/Vol] 1.2 mmol/L Normal 0.4 - 2.0 [facility] Comment on above: Result Comment: Ashleigh puncture immediately after or during the administration of Metamizole may lead to falsely low results. Testing should be performed immediately prior to Metamizole dosing. Performed By: #### L ACT #### [place] [id number] Lactate [Moles/Vol] 2.4 mmol/L High 0.4 - 2.0 [facility] Comment on above: Result Comment: Ashleigh puncture immediately after or during the administration of Metamizole may lead to falsely low results. Testing should be performed immediately prior to Metamizole dosing. Performed By: #### L ACT #### [address] [address] MAGNESIUMon 01-21-2021 Magnesium [Mass/Vol] 2.03 mg/dL Normal 1.60 - 2.40 formerly [facility] Comment on above: Performed By: #### M G #### [address] [address] Magnesium LevelOrdered By: Bowen Stacy on 01-21-2021 Magnesium [Mass/Vol] 2.1 mg/dL 1.6 - 2 .4 mg/dL [facility] No Panel InformationOrdered By: Desire Satcy on 01-21-2021 Extra Tube Hold for add-ons. [facility] Comment on above: Auto resulted. Interpretation and review of laboratory results Abnormal [facility] Interpretation and review of laboratory results Normal [facility] POC ARTERIAL BLOOD GAS PANEL -PULM - RALSOrdered By: Desire Stacy on 01-21-2021 Alveolar-arterial oxygen Partial pressure difference 23.1 mm Hg [facility] Base excess Calc (Bld) [Moles/Vol] -3.7000 mmol/L Low [facility] Breath rate setting Ventilator synchronized intermittent mandatory 0 [facility] h CO2 (Bld) [Partial pressure] 36.3 mm[Hg] [facility] HCO3 (Bld) [Moles/Vol] 21.0 mmol/L Low 22.0 - 26.0 mmol/L [facility] Hematocrit (BldA) [Volume fraction] 39.8 % 36.0 - 46.0 % [facility] Hemoglobin (Bld) [Mass/Vol] 13.0 g/dL 12.0 - 16.0 g/dL [facility] Inhaled oxygen concentration 21 % [facility] Inhaled oxygen flow rate 0 L/min [facility] Comment on above: Flush Interpretation and review of laboratory results Abnormal [facility] Oxygen (Bld) [Partial pressure] 78 mm[Hg] Low [facility] pH (Bld) 7.37 [pH] [facility] Specimen source Nom (Unsp spec) Not specified [facility] Tidal volume setting Ventilator 0 [facility] Provider Note - ED v2on Provider Note - ED v2 Provider Note - ED v2: Chart Review: ED NOTES ED NOTES: 20-year-old female who is approximately 7 weeks presents by ambulance after having seizure type activity at home. Patient received a total of 2 mg of Ativan per EMS. Patient had some atypical type of tremors and upper extremity movements when I visualized this alleged seizure. Patient right now is alert and oriented very anxious and upset this concerned about her baby. I did speak to the mother at length who indicated the patient had no seizure type activity in the past. Mother states the patient has not been sick lately. Patient now is receiving IV fluids. Bedside blood sugar was normal. I did speak to the insurance account specialist plant taxonomist and he is comfortable with the patient receiving Ativan as needed and we will load her with 1 g of Keppra. We will get the radiology about the CT of the head. He said that is fine and he has no concerns. I also spoke with the attending excepting the patient in [facility] and he states it would be my decision to do the CT of the head which will be done. They were intending to have an MRI done. I have spoken to the and the family at length. Patient did have several more mild seizure type activities. Patient is receiving IV fluids at present. Patient is resting comfortably and appears mildly postictal. I will give a updated report to the accepting attending at [facility]. I did speak to the attending physician indicating to him that the CT was read as negative. I also indicated that I initiated another 500 mg of Keppra. He was also told that the patient had several slight seizures while in CAT scan but has had none since. I reassessed this patient multiple times while here in the emergency department. Patient was reassessed prior to transfer and she is resting comfortably with no seizure type activity. I have given paramedics instructions to treat her in route if she has a significant seizure. Patient has been accepted and will be transferred. HISTORY OF PRESENTING ILLNESS MAURICIO is a 20 year old Female and was seen by me at 21-Jan-2021 10:08. The historian is the patientmother. Triage Information: Most recent Vital Sign Value Date Temp (F): 98 01-21-2021 10:21 Temp (C): 36.6 01-21-2021 10:21 Heart Rate (beats/min): 86 01-21-2021 10:21 Respirations (breaths/min): 17 01-21-2021 10:21 SpO2 (%): 96 01-21-2021 10:21 BP Systolic (mm Hg): 139 01-21-2021 10:21 BP Diastolic (mm Hg): 56 01-21-2021 10:21 PAST MEDICAL HISTORY ATTESTATION: I have reviewed and confirmed nurse's/medic's notes for patient's medications, allergies, and medical, surgical, family and social history ALLERGIES/INTOLERANCES: No Known Allergies HEALTH HISTORY: No documented data. OUTPATIENT MEDICATIONS: Home Medications Review Status for Reconciliation: Complete Med Status: Patient Currently Takes Medications Drug Name: SERTRALINE HCL 50 MG TABLET Instructions: take 1 tablet by mouth once daily Drug Name: Multivitamins Instructions: 1 tab(s) orally once a day SIGNIFICANT EVENTS: Past Surgical History Description:bilat knee surgery CARDIAC REHABILITATION SPECIALIST: Is : no Is : no REVIEW OF SYSTEMS All other systems reviewed and are negative RESULTS/VITAL SIGNS RESULTS: Recent Lab Results: I have reviewed these laboratory results: Lactate, Level Trending View [id number] 12:39:00 21-Jan-2021 10:33:00 Lactate, Level1.2 2.4 H Urinalysis 21-Jan-2021 12:04:00 ResultValue Color, Urine Straw Reference Range: STRAW,YELLOW Appearance, Urine CLEAR Specific [place], Urine 1.006 pH, Urine 7.0 Protein, Urine NEGATIVE Glucose, Urine NEGATIVE Blood, Urine NEGATIVE Ketones, Urine NEGATIVE Bilirubin, Urine NEGATIVE Urobilinogen, Urine <2.0 Nitrite, Urine Negative Leukocyte Esterase, Urine NEGATIVE Coronavirus 2019 by PCR 21-Jan-2021 11:14:00 ResultValue Fluid Source Nasal, Nasopharyngeal Coronavirus 2019,PCR NOT DETECTED Reference Range: Not Detected . This test has received FDA Emergency Use Authorization (EUA) and has been verified by [facility]. This test is only authorized for the duration of time that circum Complete Blood Count + Differential 21-Jan-2021 10:33:00 ResultValue White Blood Cell Count 7.9 Red Blood Cell Count 4.38 HGB 13.4 HCT 40.0 MCV 92 MCHC 33.5 PLT 273 RDW-CV 12.9 Neutrophil % 63.1 Lymphocyte % 22.3 Monocyte % 7.9 Eosinophil % 6.2 Basophil % 0.5 Neutrophil Count 5.00 Lymphocyte Count 1.70 Monocyte Count 0.60 Eosinophil Count 0.50 Basophil Count 0.00 Comprehensive Metabolic Panel 21-Jan-2021 10:33:00 ResultValue Glucose, Serum 93 NA 138 K 3.6 CL 108 H Bicarbonate, Serum 21 Anion Gap, Serum 13 BUN 8 CREAT 0.61 GFR-Non >60 GFR- >60 Calcium, Serum 9.1 ALB 4.3 ALKP 53 (more content not included)... Normal [facility] Risk Screen - Adult Emergenc yon 01-21-2021 Risk Screen - Adult Emergency Preferred Language: Preferred Language: Preferred Language for Discussing Health Care (patient/designee)Иван gooden Advanced Directives: Advance Directive/DNRno Advance Directive Information Givenpatient/family declined Family Violence Adult: Abuse Screen: Are you or have you been threatened or abused physically, emotionally, or sexually by anyoneno Learning Assessment (Patient): Learning Assessment (Patient): Patient is Able to be Assessed for Learningyes Factors Influencing Readiness to Learnacuteness of illness Factors that Impact Ability to Learnnone Devices/Methods Used to Communicatenone Learning Preferencesverbal instruction Cultural Considerationsnone Developmental Considerationsnone Mosque Considerationsnone Learning Assessment (Other Learner): Learning Assessment (Other Learner): Other learner availableno Pressure Injury/TB/Substance: Pressure Injury: Pressure Injury Present on Admissionno Do you have a coughno Substance Use Current or Former Historynever: Cigarette/Tobacco, e-Cigarette/Vaping, Alcohol, Street Drugs Admission Risk Screen: Significant IndicatorsComplete CAGE: CAGE: Is this an injured patient at a Trauma Center ([facility]): no Electronic Signatures: Carlie Boyd (RN) (Signed 21-Jan-2021 10:34) Authored: Preferred Language, Advanced Directives, Family Violence Adult, Learning Assessment (Patient), Learning Assessment (Other Learner), Pressure Injury/TB/Substance, Pressure Injury, CAGE Last Updated: 21-Jan-2021 10:34 by Carlie Boyd (RN) [facility] Triage - EDon 01-21-2021 Triage - ED Quick Triage: Are You yes Have You Given In The Last 6 Weeksno Are You Currently Breastfeedingno Chart Review: PRIMARY ASSESSMENT ABCD Normal Findings: airway open and patent, breathing normal and circulation normal Disability Disability/AVPU: MAURICIO is confused TREATMENT PRIOR TO ARRIVAL Treatment Prior to Arrival: Prior to arrival in the Emergency Department MAURICIO FIELDS had treatment conducted by EMS which included the following; medications, oxygen and saline lock. EMS REPORTED VITAL SIGNS Blood Pressure: 130/74 Mean: Heart Rate: 82 Pulse Oximetry: 100% Capnography: 35 mm/Hgmm/Hg Blood Glucose: 135mg/dl Oxygen Administration: at the rate of 4.0 L/min. Medications Administrated: 2mg Ativan. ARRIVAL INFORMATION Means of Arrival: stretcher Mode of Arrival: ambulance Agency: [facility] Agency Name: [facility] Arrival From: home Accompanied By: application architect and parent Language: Spoken Language Preferred: [place] CHIEF COMPLAINT MAURICIO FIELDS is a Female patient with a chief complaint of seizures (Patient brought from home by [facility] for seizures that started this morning, patient has no history of seizures. She is currently 7 weeks . Had multiple full body seizures en route and was given 2mg Ativan by EMS. Patient continues to seize on arrival). Triage Date/Time: 21-Jan-2021 10:21 STEFAN: 3 Pain Rating (0-10): 3 = Mild Pain location: lower abdomen Vital Signs: Temperature: 98.0F ( 36.6C) taken axillary Blood Pressure: 139/56 Mean: Heart Rate: 86 Respiratory Rate: 17 Pulse Oximetry: 96% on room air, no respiratory support. Height: 5 feet 4 inches. 162.5 CM Weight: 179.2 pounds. Calculated 81.3 kg. (stated) Calculated BMI (kg/m2): 30.788 Calculated BSA (m2) 1.92 Benito Coma Scale: Best Eye Response: (E4) spontaneous Best Motor Response: (M6) obeys commands Best Verbal Response: (V4) confused [place] Score: 14 Mask applied: yes CARDIAC REHABILITATION SPECIALIST History: Patient has homicidal thoughts: no Last Known Well: unknown Risk Screens Suicide Risk Screen In the Past Month: Have you wished you were or wished you could go to sleep and not wake up no In the Past Month: Have you had any actual thoughts of killing yourself no In Your Lifetime: Have you ever done anything, started to do anything, or prepared to do anything to end your life no Burk Fall Scale Screening Has the patient fallen before (or is the patient in the ED as a result of a fall) has not had a fall Does the patient have an impaired gait does not have impaired gait Is the patient cognitively impaired cognitively impaired Burk Fall Scale History of falling (immediate or previous) no (0) Secondary Diagnosis yes (15) Intravenous Therapy/ Heparin/Saline Lock yes (20) Gait/Transferring normal/bedrest/wheelcha ir (0) Ambulatory Aids none/bedrest/nurse assist (0) Mental Status oriented to own ability (0) Burk Fall Risk Score: 35 Interventions: Wm Fall Interventions: MODERATE INTERVENTIONS: *Low Interventions Plus: * falls risk band/sticker applied to patient, *yellow non-skid footwear, *instruct to call for assistance before getting out of bed, *bed/chair/bedside commode/toilet alarms, *sensory devices/ambulatory aides available and in reach, *medications reviewed for potential side effects and care planning. TRAVEL HISTORY Travel History Coronavirus Screening: no exposure or symptoms Travel Exposure History: NO travel to International locations in the past 30 days PAIN Pain Scale Used: QUINTON Pain Rating (0-10): 3 = Mild Past Medical History: Past Medical History Reviewedyes Electronic Signatures: Carlie Boyd (LUCY) (Signed 21-Jan-2021 10:28) Entered: Risk Screens, Pain, Arrival, Pre-arrival, ABCD, Travel History, Chart Review, Scores, Past Medical History Authored: Quick Triage, Risk Screens, Pain, Arrival, Pre-arrival, ABCD, Travel History, Chart Review, Scores, Past Medical History Last Updated: 21-Jan-2021 10:28 by Carlie Boyd (LUCY) Normal [facility] URINALYSISon 01-21-2021 Appearance (U) CLEAR Normal CLEAR [facility] Comment on above: Performed By: #### U A #### [place] [address] Bilirubin Ql (U) Negative Normal NEGATIVE [facility] Comment on above: Performed By: #### U A #### [place] [address] Color (U) Straw Normal STRAW,YELLOW [facility] Comment on above: Performed By: #### U A #### [address] [address] Glucose Ql (U) Negative Normal NEGATIVE [facility] Comment on above: Performed By: #### U A #### [address] [address] Hemoglobin Ql (U) Negative Normal NEGATIVE [facility] Comment on above: Performed By: #### U A #### [address] [address] Ketones Ql (U) Negative Normal NEGATIVE [facility] Comment on above: Performed By: #### U A #### [place] [id number] Leukocyte esterase Test strip Ql (U) Negative Normal NEGATIVE [facility] Comment on above: Performed By: #### U A #### [address] [address] Nitrite Ql (U) Negative Normal NEGATIVE [facility] Comment on above: Performed By: #### U A #### [address] [address] pH (U) 7.0 [pH] Normal 5.0 - 8.0 [facility] Comment on above: Performed By: #### U A #### [address] [address] Protein Ql (U) Negative Normal NEGATIVE [facility] Comment on above: Performed By: #### U A #### [address] [address] Specific gravity (U) [Rel density] 1.006 Normal 1.005 - 1.035 [facility] Comment on above: Performed By: #### U A #### [address] [address] Urobilinogen (U) [Mass/Vol] mg/dL Normal 0.0 - 1.9 [facility] Comment on above: Performed By: #### U A #### [address] [address] BASIC METABOLIC PANELon 03-18 Anion gap [Moles/Vol] 11 mmol/L Normal 10 - 20 [facility] Comment on above: Performed By: #### T ROP2 #### [address] [address] Calcium [Mass/Vol] 9.8 mg/dL Normal 8.6 - 10.3 [facility] Comment on above: Performed By: #### T ROP2 #### [address] [address] Chloride [Moles/Vol] 104 mmol/L Normal 98 - 107 [facility] Comment on above: Performed By: #### T ROP2 #### [address] [address] Creatinine [Mass/Vol] 0.81 mg/dL Normal 0.50 - 1.05 [facility] Comment on above: Performed By: #### T ROP2 #### [address] [address] GFR- AM. >60 Normal >60 [facility] Comment on above: Result Comment: CALC ULATIONS OF ESTIMATED GFR ARE PERFORMED USING THE MDRD STUDY EQUATION FOR THE IDMS-TRACEABLE CREATININE METHODS. CLIN CHEM 2007;53:766-72 Performed By: #### T ROP2 #### [place] [id number] GFR-NON AM. >60 Normal >60 [facility] Comment on above: Performed By: #### T ROP2 #### [place] [id number] Glucose [Mass/Vol] 89 mg/dL Normal 74 - 99 [facility] Comment on above: Performed By: #### T ROP2 #### [place] [id number] HCO3 (Bld) [Moles/Vol] 26 mmol/L Normal 21 - 32 [facility] Comment on above: Performed By: #### T ROP2 #### [address] [address] Potassium [Moles/Vol] 3.6 mmol/L Normal 3.5 - 5.3 [facility] Comment on above: Performed By: #### T ROP2 #### [address] [address] Sodium [Moles/Vol] 137 mmol/L Normal 136 - 145 [facility] Comment on above: Performed By: #### T ROP2 #### [place] [id number] Urea nitrogen [Mass/Vol] 16 mg/dL Normal 6 - 23 [facility] Comment on above: Performed By: #### T ROP2 #### [place] [id number] CBC AND DIFFERENTIALon 04-04 Basophils (Bld) [#/Vol] 0.10 10*3/uL Normal 0.00 - 0.1 0 [facility] Comment on above: Performed By: #### C BCDF #### [address] [address] Basophils/100 WBC (Bld) 0.6 % Normal 0.0 - 2.0 [facility] Comment on above: Performed By: #### C BCDF #### [address] [address] Eosinophils (Bld) [#/Vol] 0.50 10*3/uL Normal 0.00 - 0.70 [facility] Comment on above: Performed By: #### C BCDF #### [address] [address] Eosinophils/100 WBC (Bld) 4.5 % Normal 0.0 - 6.0 [facility] Comment on above: Performed By: #### C BCDF #### [address] [address] Erythrocyte distribution width (RBC) [Ratio] 13.3 % Normal 11.5 - 14.5 [facility] Comment on above: Performed By: #### C BCDF #### [address] [address] Hematocrit (Bld) [Volume fraction] 40.5 % Normal 36.0 - 46.0 [facility] Comment on above: Performed By: #### C BCDF #### [address] [address] Hemoglobin (Bld) [Mass/Vol] 13.7 g/dL Normal 12.0 - 16.0 [facility] Comment on above: Performed By: #### C BCDF #### [address] [address] Lymphocytes (Bld) [#/Vol] 3.70 10*3/uL Normal 1.20 - 4.80 [facility] Comment on above: Performed By: #### C BCDF #### [address] [address] Lymphocytes/100 WBC (Bld) 35.9 % Normal 13.0 - 44.0 [facility] Comment on above: Performed By: #### C BCDF #### [address] [place] [address] MCHC (RBC) [Mass/Vol] 33.9 g/dL Normal 32.0 - 36.0 [facility] Comment on above: Performed By: #### C BCDF #### [address] [address] MCV (RBC) [Entitic vol] 91 fL Normal 80 - 100 [facility] Comment on above: Performed By: #### C BCDF #### [address] [address] Monocytes (Bld) [#/Vol] 0.70 10*3/uL Normal 0.10 - 1.0 0 [facility] Comment on above: Performed By: #### C BCDF #### [address] [address] Monocytes/100 WBC (Bld) 6.5 % Normal 2.0 - 10.0 [facility] Comment on above: Performed By: #### C BCDF #### [address] [address] Neutrophils (Bld) [#/Vol] 5.40 10*3/uL Normal 1.20 - 7.70 [facility] Comment on above: Result Comment: Perc ent differential counts (%) should be interpreted in the context of the absolute cell counts (cells/L). Performed By: #### C BCDF #### [address] [address] Neutrophils/100 WBC (Bld) 52.5 % Normal 40.0 - 80.0 [facility] Comment on above: Performed By: #### C BCDF #### [address] [address] NUCLEATED RBC 0.1 /100 WBC Normal [facility] Comment on above: Performed By: #### C BCDF #### [address] [address] Platelets (Bld) [#/Vol] 265 10*3/uL Normal 150 - 450 [facility] Comment on above: Performed By: #### C BCDF #### [address] [address] RBC 4.46 x10E12/L Normal 4.00 - 5.20 [facility] Comment on above: Performed By: #### C BCDF #### [address] [address] WBC (Bld) [#/Vol] 10.4 10*3/uL Normal 4.4 - 11.3 [facility] Comment on above: Performed By: #### C BCDF #### [address] [address] CHEST 1 VIEWon 04-04-2020 CHEST 1 VIEW Patient Name: MAURICIO FIELDS STUDY: CHEST 1 VIEW; 04/04/2020 12:50 am INDICATION: Chest Pain. COMPARISON: None. ACCESSION NUMBER(S): [id number] ORDERING CLINICIAN: ALICIA ORTIZ FINDINGS: AP radiograph of the chest was provided. CARDIOMEDIASTINAL SILHOUETTE: Cardiomediastinal silhouette is normal in size and configuration. LUNGS: Lungs and pleural spaces are clear. ABDOMEN: No remarkable upper abdominal findings. BONES: No acute osseous changes. IMPRESSION: 1. No evidence of acute cardiopulmonary process. Electronically signed by: LATIA GARCIA MD [facility] Provider Note - ED v2on 03-18 Provider Note - ED v2 Provider Note - ED v2: Chart Review: ED NOTES ED NOTES: HPI: 19-year-old female chief complaint of chest pain. Occurred approximately 45 minutes ago. Describes it as an anterior chest pain stabbing in nature. Feels like has a lump in her throat. No shortness of breath. No radiating symptoms. States she occasionally smokes and does drink coffee and occasionally drinks soda. No fevers or chills. ROS: All systems are negative other than as noted in HPI. Physical Exam I have reviewed the triage vital signs. Const: Well nourished, well developed, appears stated age, no acute distress Eyes: PERRL, EOM intact, no conjunctival injection, vision grossly normal HENT: Neck supple without meningismus , Moist mucous membranes, no pharyengeal swelling or exudate CV: Regular rate and rhythm, Warm, well-perfused extremities. Chest non tender RESP: Lungs clear bilaterally, Unlabored respiratory effort GI: soft, non-tender, non-distended, no masses : MSK: No gross deformities appreciated Skin: Warm, dry. No rashes Neuro: Alert and oriented x4, GCS 15 , assistant fitness manager II-XII grossly intact. Sensation and motor function of extremities grossly intact. Psych: Appropriate mood and affect. HISTORY OF PRESENTING ILLNESS MAURICIO is a 19 year old Female and was seen by me at 04-Apr-2020 00:31 for a chief complaint of chest pain (Patient states, I've not been feeling quite right all day and I had this pain wake me up out of a sleep. It's a sharp pain. Not radiating. I've vomited today.)(1). Triage Information: Most recent Vital Sign Value Date Temp (F): 98.7 04-04-2020 00:32 Temp (C): 37 04-04-2020 00:32 Heart Rate (beats/min): 78 04-04-2020 00:32 Respirations (breaths/min): 15 04-04-2020 00:32 SpO2 (%): 99 04-04-2020 00:32 BP Systolic (mm Hg): 137 04-04-2020 00:32 BP Diastolic (mm Hg): 93 04-04-2020 00:32 PAST MEDICAL HISTORY ATTESTATION: I have reviewed and confirmed nurse's/medic's notes for patient's medications, allergies, medical history, and surgical history ALLERGIES/INTOLERANCES: No Known Allergies HEALTH HISTORY: No documented data. OUTPATIENT MEDICATIONS: Home Medications Review Status for Reconciliation: N/A Med Status: N/A No documented data. SIGNIFICANT EVENTS: Past Surgical History Description:bilat knee surgery CARDIAC REHABILITATION SPECIALIST: Is : no(1) Is : no(1) RESULTS/VITAL SIGNS RESULTS: Recent Lab Results: I have reviewed these laboratory results: Troponin I, Serum Trending View [id number] 03:34:00 04-Apr-2020 00:43:00 Troponin I, Serum<0.02 <0.02 Complete Blood Count + Differential 04-Apr-2020 00:43:00 ResultValue White Blood Cell Count 10.4 Nucleated Erythrocyte Count 0.1 Red Blood Cell Count 4.46 HGB 13.7 HCT 40.5 MCV 91 MCHC 33.9 PLT 265 RDW-CV 13.3 Neutrophil % 52.5 Lymphocyte % 35.9 Monocyte % 6.5 Eosinophil % 4.5 Basophil % 0.6 Neutrophil Count 5.40 Lymphocyte Count 3.70 Monocyte Count 0.70 Eosinophil Count 0.50 Basophil Count 0.10 Basic Metabolic Panel 04-Apr-2020 00:43:00 ResultValue Glucose, Serum 89 NA 137 K 3.6 CL 104 Bicarbonate, Serum 26 Anion Gap, Serum 11 BUN 16 CREAT 0.81 GFR-Non >60 GFR- >60 Calcium, Serum 9.8 Radiology Results: Impression: 1. No evidence of acute cardiopulmonary process. Xray Chest 1 View [Apr 04 2020 12:59AM] VITAL SIGNS: T PRBP SpO2O2(LPM) %FiO2 Method 04-Apr-2020 02:03:[id number] 97 04-Apr-2020 00:32:[id number]/93 99 room air, no respiratory support EKG INTERPRETATION: Impression: Sinus rhythm rate of 75, no ST elevation or depression, no ectopy. Right axis deviation. MEDICAL DECISION MAKING/ED COURSE MDM/ED COURSE: Patient's heart score equals 0. Initial and repeat troponin are negative. CLINICAL IMPRESSION Diagnosis/Annotation: ED Dx Name:Chest pain Code:R07.9 Dispostion: discharged Type: home ATTESTATION CRITICAL CARE TIME Is this a critically ill patient: no Electronic Signatures: Alicia Ortiz) (Signed 04-Apr-2020 04:15) Authored: Provider Note - ED v2 Last Updated: 04-Apr-2020 04:15 by Alicia Ortiz) References: 1. Data Referenced From Triage - ED 04-Apr-2020 00:32 Normal [facility] Risk Screen - Adult Emergenc yon 04-04-2020 Risk Screen - Adult Emergency Preferred Language: Preferred Language: Preferred Language for Discussing Health Care (patient/designee)Иван gooden Advanced Directives: Advance Directive/DNRno Family Violence Adult: Abuse Screen: Are you or have you been threatened or abused physically, emotionally, or sexually by anyoneno Learning Assessment (Patient): Learning Assessment (Patient): Patient is Able to be Assessed for Learningyes Factors Influencing Readiness to Learnacuteness of illness Factors that Impact Ability to Learnnone Devices/Methods Used to Communicatenone Learning Preferencesverbal instruction; written material Cultural Considerationsnone Developmental Considerationsnone Mosque Considerationsnone Learning Assessment (Other Learner): Learning Assessment (Other Learner): Other learner availableno Pressure Injury/TB/Substance: Pressure Injury: Pressure Injury Present on Admissionno Do you have a coughno Substance Use Current or Former Historynever: e-Cigarette/Vaping, Alcohol, Street Drugs YES: Cigarette/Tobacco Smoking Statuscurrent some day smoker Admission Risk Screen: Significant IndicatorsComplete CAGE: CAGE: Is this an injured patient at a Trauma Center ([facility]): no Electronic Signatures: Gris Clayton (RN) (Signed 04-Apr-2020 00:36) Authored: Preferred Language, Advanced Directives, Family Violence Adult, Learning Assessment (Patient), Learning Assessment (Other Learner), Pressure Injury/TB/Substance, CAGE Last Updated: 04-Apr-2020 00:36 by Gris Clayton (LUCY) Normal [facility] TROPONIN Ion 04-04-2020 Troponin I.cardiac [Mass/Vol] ng/mL Normal 0.00 - 0.03 [facility] Comment on above: Result Comment: LESS THAN 0.04 NG/ML: NEGATIVE REPEAT TESTING IN THREE TO SIX HOURS IF CLINICALLY INDICATED. 0.04 - 0.5 NG/ML: CONSISTENT WITH POSSIBLE CARDIAC DAMAGE AND POSSIBLE INCREASED CLINICAL RISK. SERIAL MEASUREMENTS MAY HELP ASSESS EXTENT OF MYOCARDIAL DAMAGE. >0.5 NG/ML: CONSISTENT WITH CARDIAC DAMAGE, INCREASED CLINICAL RISK AND MYOCARDIAL INFARCTION. SERIAL MEASUREMENTS MAY HELP ASSESS EXTENT OF MYOCARDIAL DAMAGE. . Note: Troponin I testing is performed using different testing methodology at [facility] than at other [facility]. Direct result comparisons should only be made within the same method. Performed By: #### T ROP2 #### [place] [address] Troponin I.cardiac [Mass/Vol] ng/mL Normal 0.00 - 0.03 [facility] Comment on above: Result Comment: LESS THAN 0.04 NG/ML: NEGATIVE REPEAT TESTING IN THREE TO SIX HOURS IF CLINICALLY INDICATED. 0.04 - 0.5 NG/ML: CONSISTENT WITH POSSIBLE CARDIAC DAMAGE AND POSSIBLE INCREASED CLINICAL RISK. SERIAL MEASUREMENTS MAY HELP ASSESS EXTENT OF MYOCARDIAL DAMAGE. >0.5 NG/ML: CONSISTENT WITH CARDIAC DAMAGE, INCREASED CLINICAL RISK AND MYOCARDIAL INFARCTION. SERIAL MEASUREMENTS MAY HELP ASSESS EXTENT OF MYOCARDIAL DAMAGE. . Note: Troponin I testing is performed using different testing methodology at [facility] than at other [facility]. Direct result comparisons should only be made within the same method. Performed By: #### T ROP2 #### [place] [address] [place] [address] Triage - EDon 04-04-2020 Triage - ED Quick Triage: Are You no Are You Currently Breastfeedingno Chart Review: CHIEF COMPLAINT MAURICIO FIELDS is a Female patient with a chief complaint of chest pain (Patient states, I've not been feeling quite right all day and I had this pain wake me up out of a sleep. It's a sharp pain. Not radiating. I've vomited today.). Onset of the Complaint: 04-Apr-2020 Triage Date/Time: 04-Apr-2020 00:32 Pain location: chest pain Vital Signs: Temperature: 98.7F ( 37.0C) taken oral Blood Pressure: 137/93 Mean: Heart Rate: 78 Respiratory Rate: 15 Pulse Oximetry: 99% on room air, no respiratory support. Benito Coma Scale: Best Eye Response: (E4) spontaneous Best Motor Response: (M6) obeys commands Best Verbal Response: (V5) oriented [place] Score: 15 Cough lasting greater than 3 weeks: no Patient immunocompromised related to: N/A Allergies: no Patient has homicidal thoughts: no STEFAN: 2 Symptoms Are POSITIVE For: anxiety, nausea and pain Symptoms Are Negative For: chills, diaphoresis, dyspnea, headache, loss of consciousness, numbness, tingling and weakness Risk Screens Suicide Risk Screen In the Past Month: Have you wished you were or wished you could go to sleep and not wake up no In the Past Month: Have you had any actual thoughts of killing yourself no In Your Lifetime: Have you ever done anything, started to do anything, or prepared to do anything to end your life no Burk Fall Scale Screening Has the patient fallen before (or is the patient in the ED as a result of a fall) has not had a fall Does the patient have an impaired gait does not have impaired gait Is the patient cognitively impaired not cognitively impaired Interventions: Burk Fall Interventions: *patient oriented to surroundings and call system, * patient/family falls education completed and documented, *patients fall status communicated during bedside handoff, *whiteboard updated, *mode of toileting discussed with patient, *bed in low position with brakes locked, *call light in reach, * non-skid footwear PAIN Pain Scale Used: QUINTON TRAVEL HISTORY Travel History Coronavirus Screening: no exposure or symptoms Past Medical History: Past Medical History Reviewedyes bilat knee surgery: Past Surgical History, Active Electronic Signatures: Gris Clayton (RN) (Signed 04-Apr-2020 00:36) Authored: Triage, Past Medical History Last Updated: 04-Apr-2020 00:36 by Gris Clayton (RN) [facility] XR KNEE RIGHT 3 VIEWS (SPECI FY VIEWS IN COMMENTS)on 03-27-2020 XR KNEE RIGHT 3 VIEWS (SPECIFY VIEWS IN COMMENTS) EXAMINATION: XR KNEE RIGHT 3 VIEWS (SPECIFY VIEWS IN COMMENTS) 03/27/2020 8:38 am HISTORY: ORDERING SYSTEM PROVIDED HISTORY: Follow up, TECHNOLOGIST PROVIDED HISTORY: Illness/Other Reason for exam: 6 WEEK F/U RIGHT ACL RECONSTRUTION Cancer History: U Surgery, RadiationHistory: U Encounter Type: Initial Additional signs and symptoms: NONE ORDERING SYSTEM PROVIDED DIAGNOSIS CODES: Z09 Follow up COMPARISON: Knee MRI from of 01/28/2020 PROCEDURE: AP, lateral, sunrise radiographs of the right knee. FINDINGS: No acute fracture, dislocation, or joint pathology. Linear regions of increased density within the distal femoral metaphysis in the proximal tibial metaphysis related to prior ACL reconstruction. Normal mineralization and alignment. Small suprapatellar joint effusion is present.. IMPRESSION: Postsurgical changes of ACL reconstruction. Small joint effusion. Workstation ID: [id number] Dictated by: KEE HUNT on MonMar 27, 2020 12:36:44 PM EDT Transcribed by: KEE HUNT on MonMar 27, 2020 12:36:44 PM EDT Finalized by: KEE HUNT on MonMar 27, 2020 12:36:44 PM EDT Normal [facility] Comment on above: Order Comment: Injur y/Trauma or Illness?:Illness/Other How long have you had these symptoms (acute/chronic)?:Unknown Reason for exam?:6 WEEK F/U RIGHT ACL RECONSTRUTION History of cancer?:U Surgeries, chemotherapy, or radiation?:U Type of Exam?:Initial Additional signs and symptoms?:NONE POC , Urineon 02-03 HCG ( test) Ql (U) Negative Negative [facility] [place] COMPARISON IMPORTon 01-30 This order has been auto-finalized and does not contain a result. [facility] Surgical Pathologyon 019 Surgical Pathology [id number] [facility] PATHOLOGY AND LABORATORY MEDICINE [address] [place] [id number] FINAL SURGICAL PATHOLOGY REPORT ___ NAME: MAURICIO TORRES : 2000 18 Y F BILLING NO.: [id number] LOCATION: PO PROCEDURE 05/09/2019 DATE: SURGEON: Estrella CANCHOLA M.D. RECEIVED 05/09/2019 DATE: ATTENDING: Estrella CANCHOLA M.D. REPORT DATE: 05/21/2019 COPIES TO: ___ DIAGNOSIS: LEFT CHEEK SKIN, EXCISION - SKIN WITH DERMAL SCAR AND FOCAL INVASIVE MELANOMA. MARGINS NEGATIVE. SEE BELOW. SITE: Left cheek PROCEDURE: Excision SPECIMEN LATERALITY: Left TUMOR SIZE (GREATEST): 0.5mm MACROSCOPIC TUMOR SATELLITES: Not identified HISTOLOGIC TYPE: Melanoma, NOS MAXIMUM TUMOR THICKNESS: 0.34mm ULCERATION: Not identified MARGINS: Negative PERIPHERAL MARGINS: Negative, 0.4cm away DEEP MARGIN: Negative, 0.7 cm away MITOTIC INDEX: < 1 /MM2 MICROSATELLITES: Not identified LYMPHATIC/VASCULAR INVASION: Not identified NEUROTROPISM: Not identified REGRESSION: Not identified AJCC 2017 STAGING: pT1a DEVELOPMENT ANALYST TUMOR BLOCK: A3 SMT/SMT Intradepartmental Consultation: ROBERT GOODSON M.D.; Signature> S MELISSA CARRILLO M.D. ___ CLINICAL INFORMATION: Melanoma left cheek, C43.39 SPECIMEN: SKIN, LARGE EXCISION ___ GROSS DESCRIPTION: Excision melanoma left cheek Received in formalin is an ellipse of baig skin measuring 3.6 x 1 cm with a resection depth of 0.8 cm. The baig skin shows a scar in the center measuring 1.2 cm in length. The specimen is oriented with a short stitch superior and a long stitch lateral. The specimen will be inked as follows: lateral orange, superior medial blue, and inferior medial black. The specimen is serially sectioned and entirely submitted from superior to inferior. Cassette summary: 1 tips of ellipse; 2 - 5 contain remainder of the ellipse superior to inferior. (bits ns, 5) 3/F Disclaimer: The following statement applies to all immunohistochemistry, in situ hybridization, molecular studies, and immunofluorescence testing. The use of one or more reagents in the above tests is regulated as an analyte specific reagent (ASR). These tests were developed and their performance characteristics determined by the clinical laboratories of [facility]. They have not been cleared by the US Food and Drug Administration (FDA). The FDA has determined that such clearance or approval is not necessary. All the above immunostains were performed on paraffin embedded tissue. Appropriate positive and negative controls (where applicable) were run in parallel with the patient's specimen; these controls showed expected staining pattern, with acceptable intensity of staining. Immunohistochemical assays have not been validated on decalcified tissues. Results should be interpreted with caution given the raised possibility of false negativity on decalcified specimens. Professional Performing Location: [place] [address]. DEPARTMENT OF PATHOLOGY AND LABORATORY MEDICINE [place], [place] [address] [facility] Clinical Summary: HMSPatient IDon 04-18-2019 [facility] Work Phone: Clinical Lists Update: Prelo ad Extendedon 04-11-2019 Tobacco smoking status NHIS Tobacco smoking status UTIS [facility] Work Phone: Progress Noteon 05-07-2018 Bending Roll Hand Authentication Interface Message Text Patient ID: Mauricio Torres is a 17 y.o. female. Her chief complaint(s) include:RashAssessment1 . ImpetigoPlanAudrie was seen today for rash.Diagnoses and all orders for this visit:Impetigo- cephALEXin (KEFLEX) 500 MG capsule; Take 1 Cap (500 mg) by mouth 2 timesdaily for 10 daysDue to proximity to danger zone on face will treat with oral antibiotics.Recommended topical OTC neosporin as well. Reviewed etiology and hand hygiene.Should return in 2 weeks if not improving for culture - would rule out HSV ifnot improving.Return for Well Visit and as needed.SubjectiveHPI Comments: Patient is Buddhism - unvaccinated.RashThe onset has been acute. The duration has been 2 days. The pattern iscontinuous. The course is worsening (spreading to areas closer to nose and onchin).The rash is located on the face. The rash is described as red, weeping andcrusty. The symptoms are described as mild. Onset followed no skin contactwith allergen, no food ingestion, no insect bite, no new medication, no recenttravel and no exposure to pets. Relieved by: nothing. The patient has nofever, no difficulty sleeping, no rhinorrhea, no chest congestion, no cough, nonausea, no vomiting and no diarrhea.The patient has been exposed to no sick contacts at home . The patient's pastmedical history is negative for no eczema and no psoriasis.She is unaccompanied. No community affairs director was used.Review of SystemsSkin: Positive for rash.ObjectiveVital Signs 05/07/18 1111BP: 113/68Pulse: 60Temp: 36.6 C (97.9 F)TempSrc: TemporalWeight: 69.8 kgThere is no height or weight on file to calculate BMI.Physical ExamConstitutional: She appears well. She is active. No distress.HENT:Head: Normocephalic and atraumatic.Right Ear: Tympanic membrane and external ear normal.Left Ear: Tympanic membrane and external ear normal.Nose: Nose normal.Mouth/Throat: Mucous membranes are moist. Dentition is normal. Oropharynx isclear.Eyes: Conjunctivae are normal.Cardiovascular: Normal rate and regular rhythm.No murmur heard.Pulmonary/Chest: Breath sounds normal. There is normal air entry.Neurological: She is alert.Skin: Capillary refill takes less than 3 seconds. Lesion (erythematous, honeycrusted lesions on face - above left upper lip, lesions are flat with crustedborders, additional crusted papules on left mandible and right upper neckregion; no vesicles or pustules noted) noted. Skin is warm.Vitals reviewed: Blood pressure 113/68, pulse 60, temperature 36.6 C (97.9 F),temperature source Temporal, weight 69.8 kg. Normal [facility] Progress Noteon 06-27-2017 Bending Roll Hand Authentication Interface Message Text Patient ID: Mauricio Torres is a 16 y.o. female. Her chief complaint(s) include:Otalgia (Headache).Assessment:1 . Otalgia of both ears2. Acute upper respiratory infectionPlan:Mauricio was seen today for otalgia.Diagnoses and all orders for this visit:Otalgia of both earsAcute upper respiratory infectionNo AOM - possible early URI. Possibly due to pressure change while hiking andtaking time for it to resolve. Recommended ibuprofen as needed for pain, shouldreturn in 2 days if developing fever or if pain worsening. Recommended OTCpamprin or midol - should come back for more in depth visit if not improving.Return if symptoms worsen or fail to improve, for Well Visit and as needed.Subjective:HPI Comments: Hiking over the weekend - [place], started when she [place]iking in the hills, no improvement, no nausea or vomiting. 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 Bernadette Santos allergiesNo family historyHas normal periods but has nausea and intense cramping on the first day of herperiods and she cannot work because of the painThe patient's reason for visit is ear pain. She is accompanied by her mother.Ear ProblemsThe onset has been acute. The duration has been 2 days. The pattern iscontinuous. The course is worsening.The patient's symptoms have included ear pain. The patient's symptoms haveincluded no decreased hearing, no ear drainage, no hearing loss and no pullingon ears. These symptoms occur in both ears. The symptoms are described asmild. The patient's associated symptoms have included congestion, rhinorrheaand headaches (bitemporal, throbbing, for about 1 day). The patient'sassociated symptoms have included no fever, no decreased appetite, no decreasedfluid intake, no sore throat, no trouble swallowing, no cough, no shortness ofbreath, no abdominal pain, no nausea, no vomiting, no diarrhea, no decreasedurination and no rash. The patient has not been swimming recently.The patient has been exposed to no sick contacts at home . The patient's homemanagement has included ibuprofen.Review of SystemsHENT: Positive for ear pain.Objective:Physical ExamConstitutional: She appears well. She is active. No distress.HENT:Head: Normocephalic and atraumatic.Right Ear: Tympanic membrane and external ear normal.Left Ear: Tympanic membrane and external ear normal.Nose: Nose normal.Mouth/Throat: Mucous membranes are moist. Pharynx erythema present. Tonsils are1+ on the right. Tonsils are 1+ on the left. No tonsillar exudate.Areas of tenderness are below bilateral ears - patient states that is where hehead hurts mainlyEyes: Conjunctivae are normal.Cardiovascular: Normal rate and regular rhythm.No murmur heard.Pulmonary/Chest: Effort normal and breath sounds normal. There is normal airentry. No respiratory distress.Neurological: She is alert.Vitals reviewed: Blood pressure 111/56, pulse 66, temperature 36.2 C (97.2 F),temperature source Temporal, weight 67.2 kg, last menstrual period 06/20/2017. Normal [facility] Vital Signs Date Time Vital Sign Value Performing Clinician Facility 04-15-2025 08:51-0400 Body mass index (BMI) [Ratio] 33.61 kg/m2 Arun Almaguer MD Work Phone: [facility] 04-15-2025 08:51-0400 Body weight 88.81 kg Arun Almaguer MD Work Phone: [facility] 04-15-2025 08:51-0400 Diastolic blood pressure 80 mm[Hg] Arun Almaguer MD Work Phone: [facility] 04-15-2025 08:51-0400 Heart rate 78 /min Arun Almaguer MD Work Phone: [facility] 04-15-2025 08:51-0400 SaO2% (BldA) [Mass fraction] 98 % Arun Almaguer MD Work Phone: [facility] 04-15-2025 08:51-0400 Systolic blood pressure 120 mm[Hg] Arun Almaguer MD Work Phone: [facility] 04-06-2025 13:17-0400 Body height 162.6 cm Arun Almaguer MD Work Phone: [facility] 04-06-2025 13:17-0400 Body mass index (BMI) [Ratio] 32.44 kg/m2 Arun Almaguer MD Work Phone: [facility] 04-06-2025 13:17-0400 Body temperature 98.49 [degF] Arun Almaguer MD Work Phone: [facility] 04-06-2025 13:17-0400 Body weight 85.73 kg Arun Almaguer MD Work Phone: [facility] 04-06-2025 13:17-0400 Diastolic blood pressure 72 mm[Hg] Arun Almaguer MD Work Phone: [facility] 04-06-2025 13:17-0400 Heart rate 69 /min Arun Almaguer MD Work Phone: [facility] 04-06-2025 13:17-0400 Respiratory rate 18 /min Arun Almaguer MD Work Phone: [facility] 04-06-2025 13:17-0400 SaO2% (BldA) [Mass fraction] 98 % Arun Almaguer MD Work Phone: [facility] 04-06-2025 13:17-0400 Systolic blood pressure 117 mm[Hg] Arun Almaguer MD Work Phone: [facility] 03-29-2025 15:15-0400 Body temperature 97.3 [degF] Aaron Macdonald MD Work Phone: [facility] 03-29-2025 15:15-0400 Diastolic blood pressure 67 mm[Hg] Aaron Macdonald MD Work Phone: [facility] 03-29-2025 15:15-0400 SaO2% (BldA) [Mass fraction] 98 % Aaron Macdonald MD Work Phone: [facility] 03-29-2025 15:15-0400 Systolic blood pressure 116 mm[Hg] Aaron Macdonald MD Work Phone: [facility] 03-29-2025 12:00-0400 Heart rate 68 /min Aaron Macdonald MD Work Phone: [facility] 03-29-2025 12:00-0400 Respiratory rate 19 /min Aaron Macdonald MD Work Phone: [facility] 03-29-2025 05:00-0400 Body mass index (BMI) [Ratio] 35.73 kg/m2 Aaron Macdonald MD Work Phone: [facility] 03-29-2025 05:00-0400 Body weight 97.4 kg Aaron Macdonald MD Work Phone: [facility] 03-27-2025 21:54-0400 Body height 165.1 cm Aaron Macdonald MD Work Phone: [facility] 03-27-2025 19:38-0400 Body temperature 98.91 [degF] Bill Cannon DO Work Phone: [facility] 03-27-2025 19:38-0400 Diastolic blood pressure 67 mm[Hg] Bill Cannon DO Work Phone: [facility] 03-27-2025 19:38-0400 Heart rate 77 /min Bill Cannon DO Work Phone: [facility] 03-27-2025 19:38-0400 Respiratory rate 18 /min Bill Cannon DO Work Phone: [facility] 03-27-2025 19:38-0400 SaO2% (BldA) [Mass fraction] 98 % Bill Cannon DO Work Phone: [facility] 03-27-2025 19:38-0400 Systolic blood pressure 105 mm[Hg] Bill Cannon DO Work Phone: [facility] 03-27-2025 13:18-0400 Body height 162.6 cm Bill Cannon DO Work Phone: [facility] 03-27-2025 13:18-0400 Body mass index (BMI) [Ratio] 32.96 kg/m2 Bill Cannon DO Work Phone: [facility] 03-27-2025 13:18-0400 Body weight 87.09 kg Bill Cannon DO Work Phone: [facility] 03-26-2025 21:00-0400 Diastolic blood pressure 83 mm[Hg] Kp Finnegan DO Work Phone: [facility] 03-26-2025 21:00-0400 Heart rate 75 /min Kp Finnegan DO Work Phone: [facility] 03-26-2025 21:00-0400 Systolic blood pressure 120 mm[Hg] Kp Finnegan DO Work Phone: [facility] 03-26-2025 19:03-0400 Body height 162.6 cm Kp Finnegan DO Work Phone: [facility] 03-26-2025 19:03-0400 Body mass index (BMI) [Ratio] 32.96 kg/m2 Kp Finnegan DO Work Phone: [facility] 03-26-2025 19:03-0400 Body temperature 98.29 [degF] Kp Finnegan DO Work Phone: [facility] 03-26-2025 19:03-0400 Body weight 87.09 kg Kp Finnegan DO Work Phone: [facility] 03-26-2025 12:30-0400 Diastolic blood pressure 70 mm[Hg] Bill Cannon DO Work Phone: [facility] 03-26-2025 12:30-0400 Heart rate 67 /min Bill Amy DO Work Phone: [facility] 03-26-2025 12:30-0400 Respiratory rate 16 /min Bill Amy DO Work Phone: [facility] 03-26-2025 12:30-0400 SaO2% (BldA) [Mass fraction] 99 % Bill Cannon DO Work Phone: [facility] 03-26-2025 12:30-0400 Systolic blood pressure 109 mm[Hg] Bill Amy DO Work Phone: [facility] 03-26-2025 11:10-0400 Body height 162.6 cm Bill Cannon DO Work Phone: [facility] 03-26-2025 11:10-0400 Body mass index (BMI) [Ratio] 32.96 kg/m2 Bill Cannon DO Work Phone: [facility] 03-26-2025 11:10-0400 Body temperature 97.5 [degF] Bill Amy DO Work Phone: [facility] 03-26-2025 11:10-0400 Body weight 87.09 kg Bill Cannon DO Work Phone: [facility] 12-20-2024 16:51-0400 Diastolic blood pressure 66 mm[Hg] Gracia Cordova MD Work Phone: [facility] 12-20-2024 16:51-0400 Heart rate 77 /min Gracia Cordova MD Work Phone: [facility] 12-20-2024 16:51-0400 Respiratory rate 16 /min Gracia Cordova MD Work Phone: [facility] 12-20-2024 16:51-0400 SaO2% (BldA) [Mass fraction] 99 % Gracia Cordova MD Work Phone: [facility] 12-20-2024 16:51-0400 Systolic blood pressure 111 mm[Hg] Gracia Cordova MD Work Phone: [facility] 12-20-2024 12:57-0400 Body height 162.6 cm Gracia Cordova MD Work Phone: [facility] 12-20-2024 12:57-0400 Body mass index (BMI) [Ratio] 32.61 kg/m2 Gracia Cordova MD Work Phone: [facility] 12-20-2024 12:57-0400 Body temperature 97.3 [degF] Gracia Cordova MD Work Phone: [facility] 12-20-2024 12:57-0400 Body weight 86.18 kg Gracia Cordova MD Work Phone: [facility] 06-08-2024 18:01-0400 Diastolic blood pressure 64 mm[Hg] Gracia Meza [facility] 06-08-2024 18:01-0400 Heart rate 87 /min Gracia Meza [facility] 06-08-2024 18:01-0400 Respiratory rate 16 /min Gracia Meza [facility] 06-08-2024 18:01-0400 SaO2% (BldA) [Mass fraction] 98 % Graica Meza [facility] 06-08-2024 18:01-0400 Systolic blood pressure 108 mm[Hg] Gracia Meza [facility] 06-08-2024 15:10-0400 Body temperature 98.78 [degF] Gracia Meza [facility] 06-08-2024 15:10-0400 Diastolic blood pressure 62 mm[Hg] Gracia Meza [facility] 06-08-2024 15:10-0400 Heart rate 91 /min Gracia Meza [facility] 06-08-2024 15:10-0400 Respiratory rate 18 /min Gracia Meza [facility] 06-08-2024 15:10-0400 SaO2% (BldA) [Mass fraction] 96 % Gracia Meza [facility] 06-08-2024 15:10-0400 Systolic blood pressure 113 mm[Hg] Gracia Meza [facility] 06-02-2024 19:00-0400 Diastolic blood pressure 58 mm[Hg] Harinder Chan [facility] 06-02-2024 19:00-0400 Heart rate 76 /min Harinder Chan [facility] 06-02-2024 19:00-0400 Mean blood pressure 70 mm[Hg] Harinder Chan [facility] 06-02-2024 19:00-0400 Systolic blood pressure 93 mm[Hg] Harinder Chan [facility] 06-02-2024 18:44-0400 Diastolic blood pressure 72 mm[Hg] Harinder Dustin [facility] 06-02-2024 18:44-0400 Heart rate 79 /min Harinder Dustin [facility] 06-02-2024 18:44-0400 Mean blood pressure 80 mm[Hg] Harinder Dustin [facility] 06-02-2024 18:44-0400 Respiratory rate 21 /min Harinder Dustin [facility] 06-02-2024 18:44-0400 SaO2% (BldA) [Mass fraction] 97 % Harinder Dustin [facility] 06-02-2024 18:44-0400 Systolic blood pressure 97 mm[Hg] Harinder Dustin [facility] 06-02-2024 18:00-0400 Diastolic blood pressure 47 mm[Hg] Harinder Dustin [facility] 06-02-2024 18:00-0400 Heart rate 75 /min Harinder Dustin [facility] 06-02-2024 18:00-0400 Mean blood pressure 63 mm[Hg] Harinder Dustin [facility] 06-02-2024 18:00-0400 Respiratory rate 13 /min Harinder Dustin [facility] 06-02-2024 18:00-0400 SaO2% (BldA) [Mass fraction] 99 % Harinder Dustin [facility] 06-02-2024 18:00-0400 Systolic blood pressure 94 mm[Hg] Harinder Dustin [facility] 06-02-2024 16:58-0400 Body temperature 98.42 [degF] Harinder Dustin [facility] 06-02-2024 16:58-0400 Heart rate 74 /min Harinder Dustin [facility] 06-02-2024 16:58-0400 Respiratory rate 18 /min Harinder Dustin [facility] 04-02-2023 20:50-0400 Diastolic blood pressure 71 mm[Hg] Harinder Dustin [facility] 04-02-2023 20:50-0400 Heart rate 78 /min Harinder Dustin [facility] 04-02-2023 20:50-0400 Respiratory rate 18 /min Harinder Dustin [facility] 04-02-2023 20:50-0400 SaO2% (BldA) [Mass fraction] 99 % Harinder Dustin [facility] 04-02-2023 20:50-0400 Systolic blood pressure 131 mm[Hg] Harinder Dustin [facility] 04-02-2023 20:39-0400 Body temperature 98.6 [degF] Harinder Dustin [facility] 04-02-2023 19:50-0400 Diastolic blood pressure 72 mm[Hg] Harinder Dustin [facility] 04-02-2023 19:50-0400 Heart rate 80 /min Harinder Dustin [facility] 04-02-2023 19:50-0400 Respiratory rate 18 /min Harinder Dustin [facility] 04-02-2023 19:50-0400 SaO2% (BldA) [Mass fraction] 99 % Harinder Dustin [facility] 04-02-2023 19:50-0400 Systolic blood pressure 128 mm[Hg] Harinder Chan [facility] 04-02-2023 18:50-0400 Diastolic blood pressure 76 mm[Hg] Harinder Chan [facility] 04-02-2023 18:50-0400 Heart rate 80 /min Harinder Chan [facility] 04-02-2023 18:50-0400 Respiratory rate 18 /min Harinder Chan [facility] 04-02-2023 18:50-0400 SaO2% (BldA) [Mass fraction] 99 % Harinder Chan [facility] 04-02-2023 18:50-0400 Systolic blood pressure 132 mm[Hg] Harinder Chan [facility] 04-02-2023 18:37-0400 Body temperature 98.6 [degF] Harinder Chan [facility] 04-02-2023 16:52-0400 Body temperature 98.6 [degF] Harinder Chan [facility] 04-02-2023 16:27-0400 Body temperature 98.78 [degF] Harinder Chan [facility] 01-11-2023 09:26-0400 Body height 162.6 cm Arun Almaguer MD Work Phone: [facility] 01-11-2023 09:26-0400 Body mass index (BMI) [Ratio] 31.07 kg/m2 Arun Almaguer MD Work Phone: [facility] 01-11-2023 09:26-0400 Body weight 82.1 kg Arun Almaguer MD Work Phone: [facility] 01-11-2023 09:26-0400 Diastolic blood pressure 74 mm[Hg] Arun Almgauer MD Work Phone: [facility] 01-11-2023 09:26-0400 Heart rate 88 /min Arun Almaguer MD Work Phone: [facility] 01-11-2023 09:26-0400 Systolic blood pressure 112 mm[Hg] Arun Almaguer MD Work Phone: [facility] 09-16-2022 22:19-0500 Diastolic blood pressure 90 mm[Hg] Colin Beatriz [facility] 09-16-2022 22:19-0500 Heart rate 63 /min Colin Beatriz [facility] 09-16-2022 22:19-0500 Mean blood pressure 97 mm[Hg] Colin Beatriz [facility] 09-16-2022 22:19-0500 Respiratory rate 29 /min Colin Beatriz [facility] 09-16-2022 22:19-0500 SaO2% (BldA) [Mass fraction] 96 % Colin Beatriz [facility] 09-16-2022 22:19-0500 Systolic blood pressure 112 mm[Hg] Colin Beatriz [facility] 09-16-2022 21:14-0500 Diastolic blood pressure 84 mm[Hg] Colin Beatriz [facility] 09-16-2022 21:14-0500 Heart rate 71 /min Colin Beatriz [facility] 09-16-2022 21:14-0500 Mean blood pressure 97 mm[Hg] Colin Beatriz [facility] 09-16-2022 21:14-0500 Respiratory rate 24 /min Colin Beatriz [facility] 09-16-2022 21:14-0500 SaO2% (BldA) [Mass fraction] 98 % Colin Beatriz [facility] 09-16-2022 21:14-0500 Systolic blood pressure 122 mm[Hg] Colin Beatriz [facility] 09-16-2022 20:35-0500 Body temperature 98.6 [degF] Colin Beatriz [facility] 09-16-2022 20:35-0500 Diastolic blood pressure 96 mm[Hg] Colin Beatriz [facility] 09-16-2022 20:35-0500 Heart rate 61 /min Colin Beatriz [facility] 09-16-2022 20:35-0500 Respiratory rate 18 /min Colin Beatriz [facility] 09-16-2022 20:35-0500 SaO2% (BldA) [Mass fraction] 96 % Colin Beatriz [facility] 09-16-2022 20:35-0500 Systolic blood pressure 117 mm[Hg] Colin Beatriz [facility] 12-19-2021 08:24-0400 Body temperature 97.8 [degF] Dr. Alicia Michaels Work Phone: [facility] Work Phone: 12-19-2021 08:24-0400 Diastolic blood pressure 73 mm[Hg] Dr. Alicia Michaels Work Phone: [facility] Work Phone: 12-19-2021 08:24-0400 Heart rate 98 /min Dr. Alicia Michaels Work Phone: [facility] Work Phone: 12-19-2021 08:24-0400 Respiratory rate 17 /min Dr. Alicia Michaels Work Phone: [facility] Work Phone: 12-19-2021 08:24-0400 Systolic blood pressure 123 mm[Hg] Dr. Alicia Michaels Work Phone: [facility] Work Phone: 12-18-2021 08:00-0400 SaO2% (BldA) [Mass fraction] 97 % Dr. Alicia Michaels Work Phone: [facility] Work Phone: 12-17-2021 09:00-0400 Body weight 92.[address] Alicia Michaels Work Phone: [facility] Work Phone: 12-17-2021 02:30-0400 Body height 162.[address] Alicia Michaels Work Phone: [facility] Work Phone: 12-17-2021 02:30-0400 Body mass index (BMI) [Ratio] 77.3 kg/m2 Dr. Alicia Michaels Work Phone: [facility] Work Phone: 12-16-2021 10:58-0400 Diastolic blood pressure 72 mm[Hg] Dr. Alicia Michaels Work Phone: [facility] Work Phone: 12-16-2021 10:58-0400 Heart rate 82 /min Dr. Alicia Michaels Work Phone: [facility] Work Phone: 12-16-2021 10:58-0400 Systolic blood pressure 116 mm[Hg] Dr. Alicia Michaels Work Phone: [facility] Work Phone: 12-16-2021 09:15-0400 Body temperature 96.9 [degF] Dr. Alicia Michaels Work Phone: [facility] Work Phone: 12-16-2021 08:52-0400 Body height 162.[address] Alicia Michaels Work Phone: [facility] Work Phone: 12-16-2021 08:52-0400 Body mass index (BMI) [Ratio] 34.9 kg/m2 Dr. Alicia Michaels Work Phone: [facility] Work Phone: 12-16-2021 08:52-0400 Body weight 92.[address] Alicia Michaels Work Phone: [facility] Work Phone: 12-15-2021 09:19-0400 Body mass index (BMI) [Ratio] 35.5 kg/m2 Dr. Alicia Michaels Work Phone: [facility] Work Phone: 12-15-2021 09:19-0400 Body weight 93.[address] Alicia Michaels Work Phone: [facility] Work Phone: 12-15-2021 09:19-0400 Diastolic blood pressure 82 mm[Hg] Dr. Alicia Michaels Work Phone: [facility] Work Phone: 12-15-2021 09:19-0400 Systolic blood pressure 110 mm[Hg] Dr. Alicia Michaels Work Phone: [facility] Work Phone: 12-10-2021 09:13-0400 Body mass index (BMI) [Ratio] 34.7 kg/m2 Dr. Alicia Michaels Work Phone: [facility] Work Phone: 12-10-2021 09:13-0400 Body weight 91.[address] Alicia Michaels Work Phone: [facility] Work Phone: 12-10-2021 09:13-0400 Diastolic blood pressure 66 mm[Hg] Dr. Alicia Michaels Work Phone: [facility] Work Phone: 12-10-2021 09:13-0400 Systolic blood pressure 114 mm[Hg] Dr. Alicia Michaels Work Phone: [facility] Work Phone: 12-03-2021 09:15-0400 Body mass index (BMI) [Ratio] 35 kg/m2 Dr. Alicia Michaels Work Phone: [facility] Work Phone: 12-03-2021 09:15-0400 Body weight 92.[address] Alicia Michaels Work Phone: [facility] Work Phone: 12-03-2021 09:15-0400 Diastolic blood pressure 74 mm[Hg] Dr. Alicia Michaels Work Phone: [facility] Work Phone: 12-03-2021 09:15-0400 Systolic blood pressure 118 mm[Hg] Dr. Alicia Michaels Work Phone: [facility] Work Phone: 11-26-2021 08:03-0500 Body mass index (BMI) [Ratio] 35 kg/m2 Dr. Alicia Michaels Work Phone: [facility] Work Phone: 11-26-2021 08:03-0500 Body weight 92.[address] Alicia Michaels Work Phone: [facility] Work Phone: 11-26-2021 08:03-0500 Diastolic blood pressure 70 mm[Hg] Dr. Alicia Michaels Work Phone: [facility] Work Phone: 11-26-2021 08:03-0500 Systolic blood pressure 110 mm[Hg] Dr. Alicia Michaels Work Phone: [facility] Work Phone: 11-17-2021 08:09-0500 Body mass index (BMI) [Ratio] 34.4 kg/m2 Dr. Alicia Michaels Work Phone: [facility] Work Phone: 11-17-2021 08:09-0500 Body weight 90.[address] Alicia Michaels Work Phone: [facility] Work Phone: 11-17-2021 08:09-0500 Diastolic blood pressure 72 mm[Hg] Dr. Alicia Michaels Work Phone: [facility] Work Phone: 11-17-2021 08:09-0500 Systolic blood pressure 112 mm[Hg] Dr. Alicia Michaels Work Phone: [facility] Work Phone: 11-05-2021 08:13-0500 Body mass index (BMI) [Ratio] 34.3 kg/m2 Dr. Alicia Michaels Work Phone: [facility] Work Phone: 11-05-2021 08:13-0500 Body weight 90.[address] Alicia Michaels Work Phone: [facility] Work Phone: 11-05-2021 08:13-0500 Diastolic blood pressure 70 mm[Hg] Dr. Alicia Michaels Work Phone: [facility] Work Phone: 11-05-2021 08:13-0500 Systolic blood pressure 120 mm[Hg] Dr. Alicia Michaels Work Phone: [facility] Work Phone: 10-26-2021 10:06-0500 Body mass index (BMI) [Ratio] 33.8 kg/m2 Dr. Alicia Michaels Work Phone: [facility] Work Phone: 10-26-2021 10:06-0500 Body weight 89.[address] Alicia Michaels Work Phone: [facility] Work Phone: 10-26-2021 10:06-0500 Diastolic blood pressure 74 mm[Hg] Dr. Alicia Michaels Work Phone: [facility] Work Phone: 10-26-2021 10:06-0500 Systolic blood pressure 120 mm[Hg] Dr. Alicia Michaels Work Phone: [facility] Work Phone: 10-07-2021 08:07-0500 Body mass index (BMI) [Ratio] 34 kg/m2 Dr. Alicia Michaels Work Phone: [facility] Work Phone: 10-07-2021 08:07-0500 Body weight 89.[address] Alicia Michaels Work Phone: [facility] Work Phone: 10-07-2021 08:07-0500 Diastolic blood pressure 66 mm[Hg] Dr. Alicia Michaels Work Phone: [facility] Work Phone: 10-07-2021 08:07-0500 Systolic blood pressure 122 mm[Hg] Dr. Alicia Michaels Work Phone: [facility] Work Phone: 09-30-2021 13:37-0500 Diastolic blood pressure 72 mm[Hg] Dr. Alicia Michaels Work Phone: [facility] Work Phone: 09-30-2021 13:37-0500 Systolic blood pressure 114 mm[Hg] Dr. Alicia Michaels Work Phone: [facility] Work Phone: 09-22-2021 08:26-0500 Body mass index (BMI) [Ratio] 32.5 kg/m2 Dr. Alicia Michaels Work Phone: [facility] Work Phone: 09-22-2021 08:26-0500 Body weight 86.[address] Alicia Michaels Work Phone: [facility] Work Phone: 09-22-2021 08:26-0500 Diastolic blood pressure 82 mm[Hg] Dr. Alicia Michaels Work Phone: [facility] Work Phone: 09-22-2021 08:26-0500 Systolic blood pressure 110 mm[Hg] Dr. Alicia Michaels Work Phone: [facility] Work Phone: 09-07-2021 07:01-0500 Body mass index (BMI) [Ratio] 32.8 kg/m2 Dr. Alicia Michaels Work Phone: [facility] Work Phone: 09-07-2021 07:01-0500 Body weight 86.[address] Alicia Michaels Work Phone: [facility] Work Phone: 09-07-2021 07:01-0500 Diastolic blood pressure 70 mm[Hg] Dr. Alicia Michaels Work Phone: [facility] Work Phone: 09-07-2021 07:01-0500 Systolic blood pressure 116 mm[Hg] Dr. Alicia Michaels Work Phone: [facility] Work Phone: 01-29-2021 18:20-0400 Diastolic blood pressure 71 mm[Hg] Lili Madrigal MD Work Phone: [facility] 01-29-2021 18:20-0400 Heart rate 59 /min Lili Madrigal MD Work Phone: [facility] 01-29-2021 18:20-0400 Respiratory rate 17 /min Lili Madrigal MD Work Phone: [facility] 01-29-2021 18:20-0400 SaO2% (BldA) [Mass fraction] 94 % Lili Madrigal MD Work Phone: [facility] 01-29-2021 18:20-0400 Systolic blood pressure 116 mm[Hg] Lili Madrigal MD Work Phone: [facility] 01-29-2021 17:34-0400 Body temperature 97.7 [degF] Lili Madrigal MD Work Phone: [facility] 01-29-2021 12:50-0400 Body height 162.6 cm Lili Madrigal MD Work Phone: [facility] 01-29-2021 12:50-0400 Body mass index (BMI) [Ratio] 31.58 kg/m2 Lili Madrigal MD Work Phone: [facility] 01-29-2021 12:50-0400 Body weight 83.46 kg Lili Madrigal MD Work Phone: [facility] 01-22-2021 20:00-0400 Body temperature 99 [degF] Desire Stacy MD Work Phone: [facility] 01-22-2021 19:00-0400 Diastolic blood pressure 53 mm[Hg] Desire Stacy MD Work Phone: [facility] 01-22-2021 19:00-0400 Heart rate 74 /min Desire Stacy MD Work Phone: [facility] 01-22-2021 19:00-0400 Respiratory rate 30 /min Desire Stacy MD Work Phone: [facility] 01-22-2021 19:00-0400 Systolic blood pressure 101 mm[Hg] Desire Stacy MD Work Phone: [facility] 01-22-2021 13:00-0400 SaO2% (BldA) [Mass fraction] 98 % Desire Stacy MD Work Phone: [facility] 01-21-2021 13:57-0400 Respiratory rate 0 /min Desire Stacy MD Work Phone: [facility] 01-21-2021 13:57-0400 SaO2% (BldA) [Mass fraction] 95.9 % Desire Stacy MD Work Phone: [facility] 01-21-2021 13:45-0400 Body height 162.6 cm Desire Stacy MD Work Phone: [facility] 01-21-2021 13:45-0400 Body mass index (BMI) [Ratio] 30.9 kg/m2 Desire Stacy MD Work Phone: [facility] 01-21-2021 13:45-0400 Body weight 81.65 kg Desire Stacy MD Work Phone: [facility] 02-04-2020 17:13-0400 BP Diastolic 72 mm[Hg] Faith Uriarte [facility] 02-04-2020 17:13-0400 BP Systolic 119 mm[Hg] Faith Uriarte [facility] 02-04-2020 17:13-0400 Pulse (Heart Rate) 94 /min Faith Uriarte [facility] 02-04-2020 17:13-0400 Pulse Oximetry 96 % Faith Uriarte [facility] 02-04-2020 17:13-0400 Respiratory Rate 16 /min Faith Uriarte [facility] 02-04-2020 16:42-0400 Body Temperature 97.81 [degF] Faith Urirate [facility] 02-04-2020 11:56-0400 BMI (Body Mass Index) 29.25 kg/m2 Faith Uriarte [facility] 02-04-2020 11:56-0400 Body weight 77.3 kg Faith Uriarte [facility] 02-04-2020 11:56-0400 Height 162.6 cm Faith Uriarte [facility] 01-30-2020 09:52-0400 BMI (Body Mass Index) 29.18 kg/m2 Faith Uriarte [facility] 01-30-2020 09:52-0400 Body weight 77.11 kg Faith Uriarte [facility] 01-30-2020 09:52-0400 Height 162.6 cm Faith [facility] NEGATED: Highlighted [id number] 09:10-0400 BMI (Body Mass Index) 28.39 kg/m2 Natali Sommers RN [facility] Work Phone: NEGATED: Highlighted [id number] 09:10-0400 Body weight 77.11 kg Natali Sommers RN [facility] Work Phone: NEGATED: Highlighted [id number] 09:10-0400 Body weight 77 kg Natali Sommers RN [facility] Work Phone: NEGATED: Highlighted [id number] 09:10-0400 BP Diastolic 74 mm[Hg] Natali Sommers RN [facility] Work Phone: NEGATED: Highlighted [id number] 09:10-0400 BP Systolic 121 mm[Hg] Natali Sommers RN [facility] Work Phone: NEGATED: Highlighted [id number] 09:10-0400 Height 165.1 cm Natali Sommers RN [facility] Work Phone: NEGATED: Highlighted [id number] 09:10-0400 Height 165 cm Natali Sommers RN [facility] Work Phone: NEGATED: Highlighted [id number] 09:10-0400 Pulse (Heart Rate) 77 /min Natali Sommers RN [facility] Work Phone: Encounters Encounter Date Encounter Type Care Provider Facility Start: 06-12-2025 End: 06-12-2025 Emergency department patient visit ALICIA ENGEL [facility] Start: 04-15-2025 End: 04-15-2025 Office outpatient visit 25 minutes Arun Almaguer MD Work Phone: [facility] Comment on above: Concussion without l oss of consciousness, initial encounter (Primary Dx) Start: 04-15-2025 End: 04-15-2025 ambulatory ARUN Tamez [facility] Start: 04-06-2025 End: 04-06-2025 Emergency department patient visit ARUN ALMAGUER [facility] Comment on above: Pain, dental (Primar y Dx) Start: 03-27-2025 End: 03-29-2025 Evaluation and management of inpatient Aaron Macdonald MD Work Phone: [facility] Comment on above: Seizure after head i njury (Multi) (Primary Dx) Start: 03-27-2025 ambulatory AARON MACDONALD [facility] Start: 03-27-2025 End: 03-27-2025 Emergency department patient visit Bill Cannon DO Work Phone: [facility] Emergency Medicine Comment on above: Seizure-like activit y (Multi) (Primary Dx) Start: 03-26-2025 End: 03-26-2025 Emergency department patient visit Kp Finnegan DO Work Phone: [facility] Comment on above: Psychogenic nonepile ptic seizure (Primary Dx) Start: 03-26-2025 End: 03-26-2025 Emergency department patient visit Bill Cannon DO Work Phone: [facility] Comment on above: Closed head injury, initial encounter (Primary Dx) Start: 12-20-2024 End: 12-20-2024 Emergency department patient visit Gracia Cordova MD Work Phone: [facility] Emergency Medicine Comment on above: RLQ abdominal pain ( Primary Dx); Pelvic pain Start: 06-10-2024 ambulatory Alicia Michaels Facility:[facility] Start: 06-10-2024 End: 06-10-2024 ambulatory Lexi Watson NP Facility:[facility] Start: 06-08-2024 End: 06-08-2024 Emergency department patient visit Gracia Meza [facility] Start: 06-02-2024 End: 06-02-2024 Emergency department patient visit Harinder Chan Facility:[facility] Start: 06-09-2023 End: 06-09-2023 Subsequent hospital visit by physician Pinky Chaudhary DC Work Phone: [facility] Diagnostic Radiology Comment on above: Arrived Start: 06-09-2023 ambulatory PINKY Brand [facility] Start: 04-02-2023 End: 04-02-2023 Emergency department patient visit Harinder Chan [facility] Start: 04-02-2023 ambulatory Mahin Garcia acility:[facility] Start: 01-11-2023 End: 01-11-2023 Office outpatient new 45 minutes Arun Almaguer MD Work Phone: [facility] Comment on above: Severe episode of re current major depressive disorder, without psychotic features (CMS/HCC) (Primary Dx) Start: 09-16-2022 End: 09-16-2022 Emergency department patient visit Colin Henderson [facility] Start: 12-19-2021 Non-patient / Non-visit Dr. Matthew Michaels Work Phone: [facility] Start: 12-18-2021 Non-patient / Non-visit Dr. Matthew Michaels Work Phone: [facility] Start: 12-17-2021 Non-patient / Non-visit Dr. Matthew Michaels Work Phone: [facility] Start: 12-17-2021 End: 12-19-2021 Evaluation and management of inpatient Dr. Alicia Michaels Work Phone: [facility] Start: 12-16-2021 End: 12-16-[address] Alicia Michaels Work Phone: [facility] Outpatients Start: 12-15-2021 End: 12-15-[address] Alicia Michaels Work Phone: [facility] Start: 12-10-2021 End: 12-10-[address] Alicia Michaels Work Phone: [facility] Start: 12-03-2021 End: 12-03-[address] Alicia Michaels Work Phone: [facility] Start: 11-26-2021 End: 11-26-[address] [facility] Start: 11-26-2021 End: 11-26-[address] Alicia Michaels Work Phone: [facility] Start: 11-17-2021 End: 11-17-[address] [facility] Start: 11-05-2021 End: 11-05-[address] Alicia Michaels Work Phone: [facility] Start: 10-26-2021 End: 10-26-[address] Alicia Michaels Work Phone: [facility] Start: 10-07-2021 End: 10-07-[address] Alicia Michaels Work Phone: [facility] Start: 09-30-2021 End: 09-30-[address] [facility] Start: 09-22-2021 End: 09-22-[address] Alicia Michaels Work Phone: [facility] Start: 09-07-2021 End: 09-07-[address] Alicia Michaels Work Phone: [facility] Start: 01-29-2021 End: 01-29-2021 Subsequent hospital visit by physician Lili Madrigal MD Work Phone: [facility] Periop Comment on above: Miscarriage Start: 01-22-2021 End: 01-23-2021 ambulatory [facility] Start: 01-22-2021 End: 01-22-2021 Evaluation and management of inpatient Bay Mullins MD Work Phone: [facility] EEG Comment on above: Arrived Start: 01-21-2021 End: 01-23-[address] [facility] Start: 01-21-2021 End: 01-22-2021 Emergency department patient visit Desire Stacy MD Work Phone: [facility] ICU/CCU Start: 03-27-2020 End: 03-31-2020 Patient encounter procedure FAITH URIARTE [facility] Ambulatory Start: 03-27-2020 End: 03-27-2020 Postop follow up visit related to original px Faith Uriarte Work Phone: [facility] Comment on above: Rupture of anterior cruciate ligament of right knee, subsequent encounter (Primary Dx); S/P ACL repair Start: 02-21-2020 End: 02-21-2020 Patient encounter procedure FAITH URIARTE [facility] Start: 02-21-2020 End: 02-21-2020 Postop follow up visit related to original px Faith Jerry Uriarte Work Phone: [facility] Comment on above: Rupture of anterior cruciate ligament of right knee, subsequent encounter (Primary Dx); S/P ACL repair Start: 02-04-2020 End: 02-04-2020 Subsequent hospital visit by physician Faith Uriarte Work Phone: [facility] Periop Comment on above: S/P ACL reconstructi on (Primary Dx); Rupture of anterior cruciate ligament of right knee, initial encounter Start: 02-03-2020 End: 02-03-2020 Patient encounter procedure FAITH URIARTE [facility] Start: 01-31-2020 End: 02-01-2020 Patient encounter procedure PROVIDER NOT IN [facility] Start: 01-31-2020 End: 01-31-2020 Subsequent hospital visit by physician Provider Not In [facility] Radiology External Films Comment on above: Arrived Start: 01-30-2020 End: 01-30-2020 Patient encounter procedure ALICIA MICHAELS [facility] Start: 01-30-2020 End: 01-30-2020 Office outpatient new 20 minutes Alicia Michaels Work Phone: [facility] Comment on above: Acute medial meniscu s tear of right knee, initial encounter (Primary Dx); Acute pain of right knee; Rupture of anterior cruciate ligament of right knee, initial encounter Start: 05-09-2019 End: 05-09-2019 Subsequent hospital visit by physician Estrella Canchola Work Phone: [facility] Start: 04-18-2019 End: 04-18-2019 Patient encounter procedure Estrella Canchola MD Work Phone: [facility] Work Phone: Start: 05-07-2018 End: 05-07-2018 Patient encounter RUST Saul ALVAREZ [facility] Start: 11-24-2017 End: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 Everywhere._Pelvic Pain, [facility] ([place])_Abdominal Pain, [facility] ([place])documented in this encounter [facility] Work Phone: 12-20-2024 Physician Emergency department Note Chief Complaint: ABD PAIN This is a 23-year-old female who complains of right sided abdominal pain that was rather severe today she had a slightly upset stomach yesterday but not severe. She complains of nausea but denies any diarrhea she complains some pain in the right flank area she denies any dysuria or frequency. She states that there is a chance that she could be also. She denies any vaginal discharge or bleeding otherwise. She denies any fever or chills. Review of Systems Constitutional: Negative for chills and fever. HENT: Negative. Eyes: Negative. Respiratory: Negative for cough and shortness of breath. Cardiovascular: Negative for chest pain and palpitations. Gastrointestinal: Positive for abdominal pain and nausea. Negative for abdominal distention, diarrhea and vomiting. Genitourinary: Positive for flank pain. Negative for frequency, urgency, vaginal bleeding and vaginal discharge. Musculoskeletal: Negative for arthralgias, myalgias, neck pain and neck stiffness. Skin: Negative for rash. Neurological: Negative for dizziness and headaches. Hematological: Negative. Psychiatric/Behavioral: Negative. All other systems reviewed and are negative. Physical Exam Vitals reviewed. Constitutional: General: She is not in acute distress. Appearance: She is obese. She is ill-appearing. She is not toxic-appearing. Comments: Patient has intermittent waves of severe cramping HENT: Head: Normocephalic and atraumatic. Mouth/Throat: Mouth: Mucous membranes are moist. Pharynx: Oropharynx is clear. Eyes: Extraocular Movements: Extraocular movements intact. Pupils: Pupils are equal, round, and reactive to light. Cardiovascular: Rate and Rhythm: Normal rate. Heart sounds: Normal heart sounds. No murmur heard. Pulmonary: Effort: Pulmonary effort is normal. Breath sounds: Normal breath sounds. No wheezing. Abdominal: General: Bowel sounds are increased. There is no distension. Palpations: Abdomen is soft. There is no fluid wave, mass or pulsatile mass. Tenderness: There is abdominal tenderness in the right lower quadrant. There is right CVA tenderness. There is no left CVA tenderness. Hernia: No hernia is present. Skin: General: Skin is warm and dry. Capillary Refill: Capillary refill takes less than 2 seconds. Findings: No rash. Psychiatric: Mood and Affect: Mood normal. Behavior: Behavior normal. Labs Reviewed URINALYSIS WITH REFLEX CULTURE AND MICROSCOPIC Narrative: The following orders were created for panel order Urinalysis with Reflex Culture and Microscopic. Procedure Abnormality Status --------- ------ Urinalysis with Reflex C...[[id number]] Extra Urine Rader Tube[[id number]] Please view results for these tests on the individual orders. HCG, URINE, QUALITATIVE CBC WITH AUTO DIFFERENTIAL BASIC METABOLIC PANEL LIPASE HEPATIC FUNCTION PANEL PROTIME-INR APTT HUMAN CHORIONIC GONADOTROPIN, SERUM QUANTITATIVE URINALYSIS WITH REFLEX CULTURE AND MICROSCOPIC EXTRA URINE RADER TUBE No orders to display Procedures Medical Decision Making Differential diagnosis included ectopic ruptured ovarian cyst acute appendicitis right renal calculi UTI. IV of normal saline with 1 L bolus was ordered with 4 mg of morphine sulfate for pain 4 mg of Zofran intravenously for nausea as well as routine labs. Once her status is confirmed either a CT scan or an ultrasound will be ordered at that time. Patient felt markedly improved after above treatment. Her test was negative urinalysis was unremarkable. Lipase liver function testing was also normal. Metabolic panel was normal. White count was 10.5 with a normal hemoglobin hematocrit. Ultrasound the pelvis was negative CT scan of the abdomen was also negative. Dr. Mcgrath was here and reviewed the CAT scan and felt there is no evidence of any surgical abnormality or appendicitis at this time. Patient be treated symptomatically with ibuprofen and referred back to her primary care physician and her CARDIAC REHABILITATION SPECIALIST for further workup as necessary Diagnoses as of 12/20/24 1632 RLQ abdominal pain Pelvic pain Gracia Cordova MD 12/20/24 1633 [facility] Work Phone: 12-20-2024 Emergency department Note Chief Complaint: ABD PAIN This is a 23-year-old female who complains of right sided abdominal pain that was rather severe today she had a slightly upset stomach yesterday but not severe. She complains of nausea but denies any diarrhea she complains some pain in the right flank area she denies any dysuria or frequency. She states that there is a chance that she could be also. She denies any vaginal discharge or bleeding otherwise. She denies any fever or chills. Review of Systems Constitutional: Negative for chills and fever. HENT: Negative. Eyes: Negative. Respiratory: Negative for cough and shortness of breath. Cardiovascular: Negative for chest pain and palpitations. Gastrointestinal: Positive for abdominal pain and nausea. Negative for abdominal distention, diarrhea and vomiting. Genitourinary: Positive for flank pain. Negative for frequency, urgency, vaginal bleeding and vaginal discharge. Musculoskeletal: Negative for arthralgias, myalgias, neck pain and neck stiffness. Skin: Negative for rash. Neurological: Negative for dizziness and headaches. Hematological: Negative. Psychiatric/Behavioral: Negative. All other systems reviewed and are negative. Physical Exam Vitals reviewed. Constitutional: General: She is not in acute distress. Appearance: She is obese. She is ill-appearing. She is not toxic-appearing. Comments: Patient has intermittent waves of severe cramping HENT: Head: Normocephalic and atraumatic. Mouth/Throat: Mouth: Mucous membranes are moist. Pharynx: Oropharynx is clear. Eyes: Extraocular Movements: Extraocular movements intact. Pupils: Pupils are equal, round, and reactive to light. Cardiovascular: Rate and Rhythm: Normal rate. Heart sounds: Normal heart sounds. No murmur heard. Pulmonary: Effort: Pulmonary effort is normal. Breath sounds: Normal breath sounds. No wheezing. Abdominal: General: Bowel sounds are increased. There is no distension. Palpations: Abdomen is soft. There is no fluid wave, mass or pulsatile mass. Tenderness: There is abdominal tenderness in the right lower quadrant. There is right CVA tenderness. There is no left CVA tenderness. Hernia: No hernia is present. Skin: General: Skin is warm and dry. Capillary Refill: Capillary refill takes less than 2 seconds. Findings: No rash. Psychiatric: Mood and Affect: Mood normal. Behavior: Behavior normal. Labs Reviewed URINALYSIS WITH REFLEX CULTURE AND MICROSCOPIC Narrative: The following orders were created for panel order Urinalysis with Reflex Culture and Microscopic. Procedure Abnormality Status --------- ------ Urinalysis with Reflex C...[[id number]] Extra Urine Rader Tube[[id number]] Please view results for these tests on the individual orders. HCG, URINE, QUALITATIVE CBC WITH AUTO DIFFERENTIAL BASIC METABOLIC PANEL LIPASE HEPATIC FUNCTION PANEL PROTIME-INR APTT HUMAN CHORIONIC GONADOTROPIN, SERUM QUANTITATIVE URINALYSIS WITH REFLEX CULTURE AND MICROSCOPIC EXTRA URINE RADER TUBE No orders to display Procedures Medical Decision Making Differential diagnosis included ectopic ruptured ovarian cyst acute appendicitis right renal calculi UTI. IV of normal saline with 1 L bolus was ordered with 4 mg of morphine sulfate for pain 4 mg of Zofran intravenously for nausea as well as routine labs. Once her status is confirmed either a CT scan or an ultrasound will be ordered at that time. Patient felt markedly improved after above treatment. Her test was negative urinalysis was unremarkable. Lipase liver function testing was also normal. Metabolic panel was normal. White count was 10.5 with a normal hemoglobin hematocrit. Ultrasound the pelvis was negative CT scan of the abdomen was also negative. Dr. Mcgrath was here and reviewed the CAT scan and felt there is no evidence of any surgical abnormality or appendicitis at this time. Patient be treated symptomatically with ibuprofen and referred back to her primary care physician and her CARDIAC REHABILITATION SPECIALIST for further workup as necessary Diagnoses as of 12/20/24 1632 RLQ abdominal pain Pelvic pain Gracia Cordova MD 12/20/24 1633 documented in this encounter [facility] Work Phone: 06-08-2024 Hospital Discharg e instructions Follow Up Care 06/08/2024 15:09:46 With:ALICIA MICHAELS Address: [facility] [address] [address] [phone] Business (1) When:Within 3 Day(s) [facility] 06-08-2024 Evaluation + Plan note Extrac eleazar from: Title:ED Note Author:Gracia Meza DO Date:05/20 10/11 Syncope (R55: Syncope and co llapse) Orders: ketorolac, 15 mg = 1 mL, Injection, IV Push, Once, Stop date 06/08/24 15:25:00 EDT, STAT, Start date 06/08/24 15:25:00 EDT, 06/08/24 15:25:00 EDT Sodium Chloride 0.9% intravenous solution 1,000 mL, 1,000 mL, IV, 1,000 mL/hr, STAT, Start date 06/08/24 15:25:00 EDT, 1 hour(s), Total volume (mL): 1,000, 90.3 kg, 2.02, m2 CBC w/ Auto Diff Comprehensive Metabolic Panel CT Head or Brain w/o Contrast eGFR Extra Blue Tube Extra SST Tube Troponin 0 Hr. [facility] [id number] Hospital Discharge instructions Patient Education 06/02/2024 19:57:11 Syncope, Adult Syncope, Adult Syncope refers to a condition in which a person temporarily loses consciousness. Syncope may also be called fainting or passing out. It is caused by a sudden decrease in blood flow to the brain. Thiscan happen for a variety of reasons. Most causes of syncope are not dangerous. It can be triggered by things such as needle sticks, seeing blood, pain, or intense emotion. However, syncope can also be a sign of a serious medical problem, such as a heart abnormality. Other causes can include dehydration, migraines, or taking medicines that lower blood pressure. Your health care provider may do tests to find the reason why you are having syncope. If you faint, get medical help right away. Call your local emergency services (911 in the [place] Follow these instructions at home: Pay attention to any changes in your symptoms. Take these actions to stay safe and to help relieve your symptoms: Knowing when you may be about to faint Signs that you may be about to faint include: ?Feeling dizzy, weak, light-headed, or like the room is spinning. ?Feeling nauseous. ?Seeing spots or seeing all white or all black in your field of vision. ?Having cold, clammy skin or feeling warm and sweaty. ?Hearing ringing in the ears (tinnitus). If you start to feel like you might faint, sit or lie down right away. If sitting, put your head down between your legs. If lying down, raise (elevate) your feet above the level of your heart. ?Breathe deeply and steadily. Wait until all the symptoms have passed. ?Have someone stay with you until you feel stable. Medicines Take eigx-rlt-wqadkec and prescription medicines only as told by your health care provider. If you are taking blood pressure or heart medicine, get up slowly and take several minutes to sit and then stand. This can reduce dizziness and decrease the risk of syncope. Lifestyle Do not drive, use machinery, or play sports until your health care provider says it is okay. Do not drink alcohol. Do not use any products that contain nicotine or tobacco. These products include cigarettes, chewing tobacco, and vaping devices, such as e-cigarettes. If you need help quitting, ask your health careprovider. Avoid hot tubs and saunas. General instructions Talk with your health care provider about your symptoms. You may need to have testing to understandthe cause of your syncope. Drink enough fluid to keep your urine pale yellow. Avoid prolonged standing. If you must stand for a long time, do movements such as: ?Moving your legs. ?Crossing your legs. ?Flexing and stretching your leg muscles. ?Squatting. Keep all follow-up visits. This is important. Contact a health care provider if: You have episodes of near fainting. Get help right away if: You faint. You hit your head or are injured after fainting. You have any of these symptoms that may indicate trouble with your heart: ?Fast or irregular heartbeats (palpitations). ?Unusual pain in your chest, abdomen, or back. ?Shortness of breath. You have a seizure. You have a severe headache. You are confused. You have vision problems. You have severe weakness or trouble walking. You are bleeding from your mouth or rectum, or you have black or tarry stool. These symptoms may represent a serious problem that is an emergency. Do not wait to see if your symptoms will go away. Get medical help right away. Call your local emergency services (911 in the [place] Do not drive yourself to the hospital. Summary Syncope refers to a condition in which a person temporarily loses consciousness. Syncope may also be called fainting or passing out. It is caused by a sudden decrease in blood flow to the brain. Signs that you may be about to faint include dizziness, feeling light-headed, feeling nauseous, sudden vision changes, or cold, clammy skin. Even though most causes of syncope are not dangerous, syncope can be a sign of a serious medical problem. Get help right away if you faint. If you start to feel like you might faint, sit or lie down right away. If sitting, put your head down between your legs. If lying down, raise (elevate) your feet above the level of your heart. This information is not intended to replace advice given to you by your health care provider. Make sure you discuss any questions you have with your health care provider. Document Revised: 01/13/2022 Document Reviewed: 01/13/2022 [employer] Patient Education 2023 [employer] Follow Up Care 06/02/2024 16:57:30 With:ALICIA MICHAELS Address: [address] [phone] Business (1) When:Within 3 Day(s) [facility] 09-15-2024 NoteED Patient Education Note Neurology Syncope, Adult Syncope refers to a condition in which a person temporarily loses consciousness. Syncope may also be called fainting or passing out. It is caused by a sudden decrease in blood flow to the brain. Thiscan happen for a variety of reasons. Most causes of syncope are not dangerous. It can be triggered by things such as needle sticks, seeing blood, pain, or intense emotion. However, syncope can also be a sign of a serious medical problem, such as a heart abnormality. Other causes can include dehydration, migraines, or taking medicines that lower blood pressure. Your health care provider may do tests to find the reason why you are having syncope. If you faint, get medical help right away. Call your local emergency services (911 in the [place] Follow these instructions at home: Pay attention to any changes in your symptoms. Take these actions to stay safe and to help relieve your symptoms: Knowing when you may be about to faint ? Signs that you may be about to faint include: ? Feeling dizzy, weak, light-headed, or like the room is spinning. ? Feeling nauseous. ? Seeing spots or seeing all white or all black in your field of vision. ? Having cold, clammy skin or feeling warm and sweaty. ? Hearing ringing in the ears (tinnitus). ? If you start to feel like you might faint, sit or lie down right away. If sitting, put your head down between your legs. If lying down, raise (elevate) your feet above the level of your heart. ? Breathe deeply and steadily. Wait until all the symptoms have passed. ? Have someone stay with you until you feel stable. Medicines ? Take ubpy-goi-qrivcnv and prescription medicines only as told by your health care provider. ? If you are taking blood pressure or heart medicine, get up slowly and take several minutes to sitand then stand. This can reduce dizziness and decrease the risk of syncope. Lifestyle ? Do not drive, use machinery, or play sports until your health care provider says it is okay. ? Do not drink alcohol. ? Do not use any products that contain nicotine or tobacco. These products include cigarettes, chewing tobacco, and vaping devices, such as e-cigarettes. If you need help quitting, ask your health care provider. ? Avoid hot tubs and saunas. General instructions ? Talk with your health care provider about your symptoms. You may need to have testing to understand the cause of your syncope. ? Drink enough fluid to keep your urine pale yellow. ? Avoid prolonged standing. If you must stand for a long time, do movements such as: ? Moving your legs. ? Crossing your legs. ? Flexing and stretching your leg muscles. ? Squatting. ? Keep all follow-up visits. This is important. Contact a health care provider if: ? You have episodes of near fainting. Get help right away if: ? You faint. ? You hit your head or are injured after fainting. ? You have any of these symptoms that may indicate trouble with your heart: ? Fast or irregular heartbeats (palpitations). ? Unusual pain in your chest, abdomen, or back. ? Shortness of breath. ? You have a seizure. ? You have a severe headache. ? You are confused. ? You have vision problems. ? You have severe weakness or trouble walking. ? You are bleeding from your mouth or rectum, or you have black or tarry stool. These symptoms may represent a serious problem that is an emergency. Do not wait to see if your symptoms will go away. Get medical help right away. Call your local emergency services (911 in the [place] Do not drive yourself to the hospital. Summary ? Syncope refers to a condition in which a person temporarily loses consciousness. Syncope may alsobe called fainting or passing out. It is caused by a sudden decrease in blood flow to the brain. ? Signs that you may be about to faint include dizziness, feeling light-headed, feeling nauseous, sudden vision changes, or cold, clammy skin. ? Even though most causes of syncope are not dangerous, syncope can be a sign of a serious medical problem. Get help right away if you faint. ? If you start to feel like you might faint, sit or lie down right away. If sitting, put your head down between your legs. If lying down, raise (elevate) your feet above the level of your heart. This information is not intended to replace advice given to you by your health care provider. Make sure you discuss any questions you have with your health care provider. Document Revised: 01/13/2022 Document Reviewed: 01/13/2022 [employer] Patient Education ? [facility] Evaluation + Plan noteExtracted from: Title:ED Note Author:Harinder Chan DO Date: Syncopal episodes (R55: Sync ope and collapse) Orders: Sodium Chloride 0.9% intravenous solution, 1,000 mL, Soln-IV, IV, Once, Stop date 06/02/24 17:16:00 EDT, STAT, Start date 06/02/24 17:16:00 EDT, Infuse over 61, minute(s) Basic Metabolic Panel Beta hCG Qual CBC w/ Auto Diff ED Cardiac Monitoring eGFR Oxygen Saturation Oxygen Therapy PT & PTT Saline Lock Insert Troponin 0 Hr. Troponin 1 Hr. UA with Cult Rflx XR Chest Single View [facility] 07-16-2023 Hospital Discharge instructions Patient Education 04/02/2023 20:53:54 Neck Contusion Neck Contusion A neck contusion is a deep bruise in the neck. It is caused by a direct force (blunt trauma) to theneck. Although neck contusions can be mild, this type of neck injury can also be quite dangerous because it could affect the important structures in your neck, including: Neck muscles. Large blood vessels (carotid arteries and jugular veins). The bones of the the cervical spine (vertebrate) and the spinal cord nerves. The airway. This includes the voice box (larynx) and the windpipe (trachea). The tube that lets you swallow (esophagus). A neck contusion can cause swelling and bleeding in your neck that can press on your throat and larynx. This can narrow your airway and cause difficulty with breathing (respiratory distress). Contusions may also be associated with other injuries, such as broken bones (fractures) and cuts (lacerations) to the skin and deeper neck structures. What are the causes? This condition may be caused by: Motor vehicle accidents that cause: ?Blunt trauma to the neck. ?Extreme and sudden twisting motion of the head (whiplash). ?Injuries from the seatbelt across the neck. Sports injuries, such as blows from football, martial arts, wrestling, and hockey. Bicycle injuries. Assault injuries, including choking (strangulation). What are the signs or symptoms? Symptoms of this condition include: Pain. Swelling and discoloration. Bruising or stiffness. Blood accumulation under the skin (hematoma). Other symptoms depend on what structures are affected. A contusion that affects a carotid artery may cause an expanding lump in the neck, as well as: Dizziness. Decreasing consciousness. Weakness on the side of the body that is opposite from the contusion, due to decreased blood flow to the brain. A contusion that affects the airway may cause: Difficulty with breathing. Noisy breathing. A hoarse or weak voice. Coughing up blood. A contusion that affects the esophagus may cause: Difficulty with swallowing. Spitting up blood. How is this diagnosed? This condition is diagnosed based on: A physical exam. Your symptoms. Your history of blunt trauma. You may also have tests to help rule out a more serious injury. Tests may include: X-ray. CT scan. MRI. Angiography. Certain areas of the neck contain more important structures and may require more evaluation than others. Sometimes, more testing may may be needed to check for injuries. this may include a test that allows a health care provider to view the airway from inside (video laryngoscopy). How is this treated? In most cases, an uncomplicated neck contusion can be treated with home care. This includes rest, ice, and ujkp-snz-pauuzke pain medicine, such as ibuprofen. Other treatment depends on possible complications that you may have. Respiratory distress is the most dangerous complication of neck contusion. This is a medical emergency that requires immediate treatment. Treatment may include having: A breathing tube inserted into your larynx (endotracheal intubation). An emergency procedure to create a hole in your larynx or trachea for a breathing tube (tracheotomyor cricothyrotomy). Surgery to repair any damage to the esophagus or the large blood vessels in the neck. Drainage of a hematoma in your neck. A brace may be used (cervical collar) if you have injured your spine. This will keep your neck frommoving and prevent any further injury to your spine. Follow these instructions at home: Managing pain, stiffness, and swelling If directed, put ice on the injured area: ?Put ice in a plastic bag. ?Place a towel between your skin and the bag. ?Leave the ice on for 20 minutes, 2 3 times a day. ?Remove the ice if your skin turns bright red. This is very important. If you cannot feel pain, heat, or cold, you have a greater risk of damage to the area. Raise (elevate) the injured area above the level of your heart while you are sitting or lying down. General instructions Take quzl-oip-grzvycm and prescription medicines only as told by your health care provider. Rest at told by your doctor. Keep your head and neck elevated above the level of your heart while you sleep. If you were given a cervical collar, wear it as told by your health care provider. Do not continue to wear the collar for longer than recommended by your health care provider. Follow instructions from your health care provider about what you can or cannot eat. Often, only fluids and soft foods are recommended until you heal. Keep all follow-up visits. This is important. Contact a health care provider if: Your pain does not get better in 2 3 days. You develop increasing pain or difficulty with swallowing. You develop a fever. Get help right away if: You suddenly have difficulty breathing. Your swelling gets worse. You have noisy breathing. You cough up blood. You cannot swallow. You vomit. You are dizzy or you faint. You develop a drooping face, sudden weakness on one side of your body, difficulty speaking, or difficulty understanding speech. These symptoms may represent a serious problem that is an emergency. Do not wait to see if the symptoms will go away. Get medical help right away. Call your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 intraoperative complication. D 02/04/2020 15:19 [id number] 02/04/2020 15:42 MCB/MODL Brief Post Operative Note Patient Name: Mauricio Fields : 2000 (19 y.o.) Date of Service: 02/04/2020 CSN: [id number] Procedure(s): Right knee arthroscopy anterior cruciate ligament reconstruction partial medial meniscectomy Pre-Operative Diagnoses: * Rupture of anterior cruciate ligament of right knee, initial encounter [S83.511A] Post-Operative Diagnoses: * Same as Pre-Op Diagnosis * Rupture of anterior cruciate ligament of right knee, initial encounter [S83.511A] Surgeon(s) and Role: * Faith Uriarte MD - Primary Anesthesiologist: Monica Loza MD YARN WEIGHER: Fercho Campos CRNA [facility] Specialist: Estrella Young RN Scrub Person: ST Chana OCEANOGRAPHY TEACHER: Lala Zuluaga RN Operative findings: see preop Intra and immediate post-operative complications: none Type of anesthesia used: General Estimated blood loss: 5 mL Estimated urine output: Refer to surgical log Specimen(s): * No specimens in log * Implant(s): Implant Name Type Inv. Item Serial No. Corporate Recruiter Lot No. [id number] No. Used Action PIN 3.3MM CROSS SET BIOCOMPOSITE/BIOCRYL RAPIDE - [id number] PIN 3.3MM CROSS SET BIOCOMPOSITE/BIOCRYL RAPIDE MITEK PROD [id number] Right 1 Implanted SHEATH 30MM TIBIAL BIO-INTRAFIX SM - [id number] SHEATH 30MM TIBIAL BIO-INTRAFIX SM MITEK PROD [id number] Right 1 Implanted SCREW 6-8 X 30MM TAPERED 2ND GEN - [id number] SCREW 6-8 X 30MM TAPERED 2ND GEN MITEK PROD [id number] Right 1 Implanted Drain(s): * No LDAs found * Wound(s): Wound 02/04/20 Surgical Wound Knee Right (Active) Faith Uriarte MD 02/04/2020 3:15 PM documented in this encounter Goals (unrecognized section and content) Goals may be documented in a n alternate sectionGoals may be documented in an alternate sectionGoals may be documented in an alternate section No data available for this section No data available for this section No data available for this section No data available for this section Patient Care team informatio n (unrecognized section and content) Exterminator Helper Relationship Specialty Start Date End Date Arun Almaguer MD [address] [facility] [place] [id number] PCP - General Family Medicine 01/10/23 Exterminator Helper Relationship Specialty Start Date End Date Alicia Hdz DO [address] [place] [address] PCP - General Ophthalmology 01/29/21 Exterminator Helper Relationship Specialty Start Date End Date Arun Almaguer MD [address] [facility] [place] [id number] PCP - General Family Medicine 01/10/23 Exterminator Helper Relationship Specialty Start Date End Date Arun Almaguer MD [address] [facility] [place] [address] [place] [id number] PCP - General Family Medicine 01/10/23 Exterminator Helper Relationship Specialty Start Date End Date Arun Almaguer MD [address] [facility] [place] [id number] PCP - General Family Medicine 01/10/23 Exterminator Helper Relationship Specialty Start Date End Date Arun Almaguer MD [address] [facility] [place] [address] [place], [place] [address] PCP - General Family Medicine 01/10/23 Exterminator Helper Relationship Specialty Start Date End Date Arun Almaguer MD [address] [facility] [address] [place], [place] [address] PCP - General Family Medicine 01/10/23 Exterminator Helper Relationship Specialty Start Date End Date Arun Almaguer MD [address] [facility] [address] [place], [place] [address] PCP - General Family Medicine 01/10/23 Exterminator Helper Relationship Specialty Start Date End Date Arun Almaguer MD [address] [facility] [address] [address] [place], [place] [address] PCP - General Family Medicine 01/10/23 Scheduled Active and Recently Administ ered Medications (unrecognized section and content) Medication Order 12/18/2024 12/19/2024 12/20/2024 iohexol (OMNIPaque) 350 mg iodine/mL solution 67 mL (COMPLETED) 67 mL, intravenous, Once in imaging, Starting on Mon12/20/24 at 1418, For 1 dose 1418 (Given - Provid er: Kartik Stallings, RT) ketorolac (Toradol) injection 30 mg (COMPLETED) 30 mg, intravenous, Once, On Mon12/20/24 at 1520, For 1 dose 1619 (Given - Provid er: Hipolito Lopez, EMT) morphine injection 4 mg (COMPLETED) 4 mg, intravenous, Once, On Mon12/20/24 at 1305, For 1 dose 1320 (Given - Provid er: Hipolito Lopez, EMT) ondansetron (Zofran) injection 4 mg (COMPLETED) 4 mg, intravenous, Once, On Mon12/20/24 at 1305, For 1 dose, When administering via IV Push, administer over 3-5 minutes. 1321 (Given - Provid er: Hipolito Lopez, EMT) sodium chloride 0.9 % bolus 1,000 mL (COMPLETED) 1,000 mL, intravenous, at 999 mL/hr, Administer over 1 Hours, Once, On Mon12/20/24 at 1305, For 1 dose 1320 (New Bag - Prov ider: Hipolito Lopez, EMT)1417 (Stopped - Provider: Ivana Cosby RN) Scheduled Medication Order 03/24/2025 03/25/2025 03/26/2025 acetaminophen (Tylenol) tablet 975 mg (COMPLETED) 975 mg, oral, Once, On Mon03/26/25 at 1140, For 1 dose, If ordered PRN for pain, nurse is permitted to administer this medication for higher pain scores based on patient preference? Yes 114 (Given - Provid er: Thomas Paniagua RN) ondansetron ODT (Zofran-ODT) disintegrating tablet 4 mg (COMPLETED) 4 mg, oral, Once, On Mon03/26/25 at 1140, For 1 dose 1145 (Given - Provid er: Thomas Paniagua RN) Scheduled Medication Order 03/24/2025 03/25/2025 03/26/2025 acetaminophen (Tylenol) tablet 650 mg (COMPLETED) 650 mg, oral, Once, On Mon03/26/25 at 2030, For 1 dose, If ordered PRN for pain, nurse is permitted to administer this medication for higher pain scores based on patient preference? Yes 2029 (Given - Provid er: Janae Samano RN) diazePAM (Valium) tablet 5 mg (COMPLETED) 5 mg, oral, Once, On Mon03/26/25 at 1935, For 1 dose 1939 (Given - Provid er: Janae Samano RN) Scheduled Medication Order 03/25/2025 03/26/2025 03/27/2025 diazePAM (Valium) injection 5 mg 5 mg, intravenous, Administer over 3 Minutes, Once, On Arlyn 03/27/25 at 1320, For 1 dose, Administer over 1-3 minutes, maximum rate is 5 mg per minute. 1320 (Due) diazePAM (Valium) injection 5 mg (COMPLETED) 5 mg, intravenous, Administer over 3 Minutes, Once, On Arlyn 03/27/25 at 1440, For 1 dose, Administer over 1-3 minutes, maximum rate is 5 mg per minute. 1320 (Due)1447 (Give n - Provider: Chasity Cho RN) levETIRAcetam (Keppra) 1,500 mg in sodium chloride (iso) IV 100 mL (COMPLETED) 1,500 mg, intravenous, at 857.1 mL/hr, Administer over 7 Minutes, Once, On Arlyn 03/27/25 at 1345, For 1 dose, premix bag 1352 (New Bag - Prov ider: Janessa Woo RN)1521 (Stopped - Provider: Janessa Woo RN) ondansetron (Zofran) injection 4 mg (COMPLETED) 4 mg, intravenous, Once, On Arlyn 03/27/25 at 1345, For 1 dose, When administering via IV Push, administer over 3-5 minutes. 1351 (Given - Provid er: Janessa Woo RN) ondansetron (Zofran) injection 4 mg (COMPLETED) 4 mg, intravenous, Once, On Arlyn 03/27/25 at 2025, For 1 dose, When administering via IV Push, administer over 3-5 minutes. 2023 (Given - Provid er: Macey Haskins RN) sodium chloride 0.9 % bolus 1,000 mL (COMPLETED) 1,000 mL, intravenous, at 999 mL/hr, Administer over 1 Hours, Once, On Arlyn 03/27/25 at 1410, For 1 dose 152 (New Bag - Prov ider: Janessa Woo RN)162 (Stopped - Provider: Genny Castellon RN) sodium chloride 0.9 % bolus 1,000 mL (COMPLETED) 1,000 mL, intravenous, at 999 mL/hr, Administer over 1 Hours, Once, On Arlyn 03/27/25 at 1615, For 1 dose 174 (New Bag - Prov ider: Macey Haskins RN - Comment: IV infiltrated, had to wait for new access)1844 (Stopped - Provider: Macey Haskins RN) Scheduled Medication Order 03/27/2025 03/28/2025 03/29/2025 enoxaparin (Lovenox) syringe 40 mg 40 mg, subcutaneous, Every 24 hours, First dose on Arlyn 03/27/25 at 2230, Indications: deep vein thrombosis prevention 0930 (Not Given - Provider: Almita Beauchamp RN - Reason: Patient/family refused) 0834 (Not Given - Provider: Lila Alfaro RN - Reason: Patient/family refused) ibuprofen tablet 600 mg 600 mg, oral, 3 times daily, First dose on Mon03/28/25 at 1500, May administer with food to reduce GI upset. 1808 (Given - Provider: Almita Beauchamp RN)2213 (Given - Provider: Ellyn Vance RN) 0835 (Not Given - Provider: Lila Alafro RN - Reason: Patient/family refused)1456 (Given - Provider: Lila Alfaro RN)2100 (Due) PRN Medication Order 03/27/2025 03/28/2025 03/29/2025 acetaminophen (Tylenol) oral liquid 650 mg(Linked Group 1) 650 mg, oral, Every 4 hours PRN, pain mild (1-3), first line, Starting on Arlyn 03/27/25 at 2212, Give oral liquid per feeding tube if present or if patient prefers oral liquid over tablets. 0553 (See Alternative - Provider: Blanca Resendiz RN) acetaminophen (Tylenol) suppository 650 mg(Linked Group 1) 650 mg, rectal, Every 4 hours PRN, pain mild (1-3), first line, Starting on Arlyn 03/27/25 at 2212, Give rectally if unable to administer by mouth or feeding tube., If ordered PRN for pain, nurse is permitted to administer this medication for higher pain scores based on patient preference? Yes 0553 (See Alternative - Provider: Blanca Resendiz RN) acetaminophen (Tylenol) tablet 650 mg(Linked Group 1) 650 mg, oral, Every 4 hours PRN, pain mild (1-3), first line, Starting on Arlyn 03/27/25 at 2212, Administer tablet or oral liquid per patient preference., If ordered PRN for pain, nurse is permitted to administer this medication for higher pain scores based on patient preference? Yes 0553 (Given - Provider: Joselito Resendiz RN) diazePAM (Valium) injection 5 mg 5 mg, intravenous, Administer over 2 Minutes, Every 5 min PRN, seizures, lasting greater than 3 minutes, Starting on Arlyn 03/27/25 at 2212, For 2 doses, Administer over 1-3 minutes, maximum rate is 5 mg per minute. ondansetron (Zofran) injection 4 mg(Linked Group 2) 4 mg, intravenous, Every 8 hours PRN, nausea/vomiting, first line, Starting on Arlyn 03/27/25 at 2212, 1st Line. Give IV if patient is unable to take orally. If inadequate response within 60 minutes, proceed to next-line agent for same PRN reason or contact provider if no further options ordered. When administering via IV Push, administer over 3-5 minutes. 0442 (Given - Provider: Joselito Resendiz, LUCY) ondansetron (Zofran) tablet 4 mg(Linked Group 2) 4 mg, oral, Every 8 hours PRN, nausea/vomiting, first line, Starting on Arlyn 03/27/25 at 2212, 1st Line. Use oral route first, if possible. If inadequate response within 60 minutes, proceed to next-line agent for same PRN reason or contact provider if no further options ordered. 0442 (See Alternative - Provider: Blanca Resendiz RN) ondansetron ODT (Zofran-ODT) disintegrating tablet 4 mg 4 mg, oral, Every 8 hours PRN, nausea/vomiting, first line, Starting on Mon03/28/25 at 1255 polyethylene glycol (Glycolax, Miralax) packet 17 g 17 g, oral, Daily PRN, constipation, Starting on Mon03/27/25 at 2212, Bowel Regimen - for prevention of constipation. Linked Groups Order Group 1: acetaminophen (Tylenol) tablet 650 mgJump to med 650 mg, oral, Every 4 hours PRN, pain mild (1-3), first line, Starting on Arlyn 03/27/25 at 2212, Administer tablet or oral liquid per patient preference., If ordered PRN for pain, nurse is permitted to administer this medication for higher pain scores based on patient preference? Yes Or acetaminophen (Tylenol) oral liquid 650 mgJump to med 650 mg, oral, Every 4 hours PRN, pain mild (1-3), first line, Starting on Arlyn 7/10/25 at 2212, Give oral liquid per feeding tube if present or if patient prefers oral liquid over tablets. Or acetaminophen (Tylenol) suppository 650 mgJump to med 650 mg, rectal, Every 4 hours PRN, pain mild (1-3), first line, Starting on Arlyn 03/27/25 at 2212, Give rectally if unable to administer by mouth or feeding tube., If ordered PRN for pain, nurse is permitted to administer this medication for higher pain scores based on patient preference? Yes Group 2: ondansetron (Zofran) tablet 4 mgJump to med 4 mg, oral, Every 8 hours PRN, nausea/vomiting, first line, Starting on Arlyn 03/27/25 at 2212, 1st Line. Use oral route first, if possible. If inadequate response within 60 minutes, proceed to next-line agent for same PRN reason or contact provider if no further options ordered. Or ondansetron (Zofran) injection 4 mgJump to med 4 mg, intravenous, Every 8 hours PRN, nausea/vomiting, first line, Starting on Arlyn 03/27/25 at 2212, 1st Line. Give IV if patient is unable to take orally. If inadequate response within 60 minutes, proceed to next-line agent for same PRN reason or contact provider if no further options ordered. When administering via IV Push, administer over 3-5 minutes. Scheduled Medication Order 04/04/2025 04/05/2025 04/06/2025 ybuycqew-htmccmnlnl-sfnualjvli (Cetacaine) spray 1 spray (COMPLETED) 1 spray, Topical, Once, On 04/06/25 at 1330, For 1 dose, Apply to: mouth 1328 (Given - Provid er: Hanane Mabry RN) FOR RECORDS PERTAINING TO PATIENTS WHO ARE OR HAVE BEEN ENROLLED IN A CHEMICAL DEPENDENCY/SUBSTANCEABUSE PROGRAM, SOME INFORMATION MAY BE OMITTED. This clinical summary was aggregated from multiple sources. Caution should be exercised in using it in the provision of clinical care. This summary normalizes information from multiple sources, and as a consequence, information in this document may materially change the coding, format and clinical context of patient data. In addition, data may be omitted in some cases. CLINICAL DECISIONS SHOULD BE BASED ON THE PRIMARY CLINICAL RECORDS. [email or web address] provides no warranty or guarantee of the accuracy or completeness of information in this document.
== END 2025-08-21 14:43 | disposition home or self-care (01) ==
PROVIDERS: Emergency Provider Student in an Organized Health Care Education/Training Program; PCP Family Medicine; Visit Provider Student in an Organized Health Care Education/Training Program
DX: N93.9 Abnormal uterine and vaginal bleeding, unspecified (principal); Z87.891 Personal history of nicotine dependence
CPT/HCPCS: 80053; 81001; 84702; 85025; 86850; 86900; 86901; 99283